=== PATIENT | male | born 1955 | race American Indian/Alaskan Native ===

== ENCOUNTER 2017-11-08 11:47 | Observation (INO) | payer MEDICAID, OTHER ==
[2017-11-08] MEDS ORDERED: Sodium Chloride 0.9% 10 ML Syringe FLUSH PRN (11:59)
[2017-11-08] MEDS ORDERED: Aspirin 81 MG Tab.Chew PO ONE (11:59)
[2017-11-08] MEDS ORDERED: Nitroglycerin 0.4 MG Tab.SL SL PRN (11:59)
[2017-11-08] MEDS ORDERED: Diltiazem 25 MG/5 ML SDV IVPUSH ONE (12:07)
[2017-11-08] MEDS ORDERED: Diltiazem 100 MG in Sodium Chloride 0.9% 100 ML IV SCH (12:15)
[2017-11-08 12:34] LABS: CHLORIDE,CL 101 mmol/L (101-111); SODIUM,NA 135 mmol/L (135-145)
[2017-11-08] MEDS ORDERED: Sodium Chloride 0.9% 1,000 ML IV ONE (12:34)
[2017-11-08] MEDS ORDERED: Digoxin 500 MCG/2 ML Amp IVPUSH ONE (12:34)
[2017-11-08] MEDS ORDERED: Acetaminophen/oxyCODONE 325-5 MG Tab PO ONE (13:27)
--- NOTE | 2017-11-08 13:28 | EDM.PDOC ---
Scribed by Rosanna Pereira 11/08/17 1328 for Alan Mobley MD ED HPI GENERAL MEDICAL PROBLEM - General Chief Complaint: Chest Pain Stated Complaint: [id number] CHEST PAIN SOB Time Seen by Provider: 11/08/17 12:00 Source of Information: Reports: Patient, RN, RN Notes Reviewed History Limitations: Reports: No Limitations - History of Present Illness INITIAL COMMENTS - FREE TEXT/NARRATIVE: Patient arrives from home by POV with complaint of sudden onset of rapid heart rate and chest pains while feeding his horses this morning approximately 30 minutes prior to arrival. Admits to mild nausea and mild shortness of breath. Denies cough, fever, chills, edema or lightheadedness. Onset: Today, Sudden Onset Date: 11/08/17 Onset Time: 11:00 (approx.) Duration: Constant Location: Reports: Chest Quality: Reports: Ache Severity: Severe Improves with: Reports: None Worsens with: Reports: None Associated Symptoms: Reports: No Other Symptoms Mid-Sternal Chest Pain Score (Numeric/FACES): 9 - Related Data Allergies Allergy/AdvReac Type Severity Reaction Status Date / Time chicken derived Allergy Hives Verified 01/05/16 22:17 codeine Allergy Hives Verified 01/05/16 22:17 gabapentin Allergy Indigestion Verified 01/05/16 22:16 Penicillins Allergy Hives Verified 01/05/16 22:16 tramadol Allergy Hives Verified 01/05/16 22:17 Contrast media Allergy Hives Uncoded 12/04/15 23:50 Home Meds: Home Meds Aspirin 81 mg PO BRK 11/09/15 [History] Calcium Citrate/Vitamin D3 [[place] Calcium-Vit D 200-250] 1 each PO DAILY [History] Docusate Sodium [Colace] 100 mg PO BID 11/09/15 [History] Gabapentin [Neurontin] 600 mg PO TID 11/09/15 [History] Hydrochlorothiazide 25 mg PO DAILY 11/09/15 [History] Lisinopril 20 mg PO DAILY 11/09/15 [History] Omeprazole 20 mg PO BIDAC 11/09/15 [History] Sennosides/Docusate Sodium [Senna S Tablet] 1 each PO BID 11/09/15 [History] atorvaSTATin [Lipitor] 20 mg PO BEDTIME 11/09/15 [History] metFORMIN [Glucophage XR] 500 mg PO BIDMEALS 11/09/15 [History] Past Medical History Cardiovascular History: Reports: Afib, CAD, High Cholesterol, Hypertension, [place], Stents Other Cardiovascular History: [place] 1999 with 1 stent placement Respiratory History: Reports: Bronchitis, Recurrent, Sleep Apnea Other Respiratory History: smoker for 51 yrs Gastrointestinal History: Reports: Chronic Constipation, GERD Musculoskeletal History: Reports: Osteoarthritis Neurological History: Reports: Neuropathy, Diabetic Endocrine/Metabolic History: Reports: Diabetes, Type II Oncologic (Cancer) History: Reports: Colon Other Oncologic History: with chemo and radiation - Infectious Disease History Infectious Disease History: Reports: Chicken Pox, Measles, Mumps, Rheumatic Fever - Past Surgical History Musculoskeletal Surgical History: Reports: Shoulder Surgery Social & Family History - Family History Family Medical History: Noncontributory Cardiac: Reports: Afib, AICD, Angina, Bypass, CAD, Heart Failure, High Cholesterol, Hypertension, [place] Respiratory: Reports: Asthma, COPD GI: Reports: Cholelithiasis : Reports: Dialysis, Renal Disease/Insufficiency Musculoskeletal: Reports: Arthritis, Back pain, Chronic Neurological: Reports: CVA, Neuropathy, Diabetic Psychiatric: Reports: Anxiety, Depression Endocrine/Metabolic: Reports: Diabetes, type II - Tobacco Use Smoking Status *Q: Current Every Day Smoker Years of Tobacco use: 51 Packs/Tins Daily: 1 Second Hand Smoke Exposure: Yes - Caffeine Use Caffeine Use: Reports: Coffee Other Caffeine Use: 4 pots a day - Recreational Drug Use Recreational Drug Use: No Drug Use in Last 12 Months: No - Living Situation & Occupation Living situation: Reports: with Family Occupation: Unemployed ED ROS GENERAL - Review of Systems Review Of Systems: ROS reveals no pertinent complaints other than HPI. ED EXAM, GENERAL - Physical Exam Exam: See Below Exam Limited By: No Limitations General Appearance: Anxious, Other (Non-toxic.) Eye Exam: Bilateral Eye: Normal Inspection Ears: Normal External Exam, Normal Canal, Hearing Grossly Normal, Normal TMs Nose: Normal Inspection, Normal Mucosa, No Blood Throat/Mouth: Normal Inspection, Normal Lips, Normal Teeth, Normal Gums, Normal Oropharynx, Normal Voice, No Airway Compromise Head: Atraumatic, Normocephalic Neck: Normal Inspection, Supple, Non-Tender, Full Range of Motion Respiratory/Chest: No Respiratory Distress, Lungs Clear, Normal Breath Sounds, No Accessory Muscle Use, Chest Non-Tender Cardiovascular: Tachycardia, Irregularly Irregular GI/Abdominal: Normal Bowel Sounds, Soft, Non-Tender, No Organomegaly, No Distention, No Abnormal Bruit, No Mass (Male) Exam: Deferred Rectal (Males) Exam: Deferred Back Exam: Normal Inspection, Full Range of Motion, NT Extremities: Normal Inspection, Normal Range of Motion, Non-Tender, Normal Capillary Refill, No Pedal Edema Neurological: Alert, Oriented, CN II-XII Intact, Normal Cognition, Normal Gait, Normal Reflexes, No Motor/Sensory Deficits Psychiatric: Anxious Skin Exam: Warm, Dry, Intact, Normal Color, No Rash EKG INTERPRETATION EKG Date: 11/08/17 Time: 11:53 Rhythm: A-Fib Rate (Beats/Min): 151 [place]: LAD-Left [place] Deviation P-Wave: Present QRS: Normal ST-T: Normal QT: Prolonged (borderline) Course - Vital Signs Last Recorded V/S: Last Vital Signs Temp 36.6 C 11/08/17 12:01 Pulse 84 11/08/17 13:17 Resp 16 11/08/17 13:17 BP 98/78 11/08/17 13:17 Pulse Ox 97 11/08/17 13:17 - Orders/Labs/Meds Orders: Active Orders 24 hr Category Date Time Status EKG 12 Lead [EKG Documentation Completion] [RC] STAT Care 11/08/17 11:59 Active Peripheral IV Care [RC] . DIRECTED Care 11/08/17 11:59 Active Acetaminophen/oxyCODONE [Percocet 325-5 MG] Med 11/08/17 13:27 Once 1 tab PO ONETIME ONE Diltiazem [Cardizem] 100 mg Med 11/08/17 12:15 Active Sodium Chloride 0.9% [Normal Saline] 100 ml IV TITRATE Nitroglycerin [Nitrostat] Med 11/08/17 11:59 Active 0.4 mg SL Q5M PRN Sodium Chloride 0.9% [Normal Saline] 1,000 ml Med 11/08/17 12:34 Active IV .BOLUS Sodium Chloride 0.9% [Saline Flush] Med 11/08/17 11:59 Active 10 ml FLUSH ASDIRECTED PRN Peripheral IV Insertion Adult [OM.PC] Stat Oth 11/08/17 11:59 Ordered Medication Orders Diltiazem HCl 100 mg/ Sodium (Chloride) 100 mls @ 10 mls/hr IV TITRATE YI; 10 MG/HR PRN Reason: Protocol Last Admin: 11/08/17 12:31 Dose: 10 mg/hr, 10 mls/hr Sodium Chloride (Normal Saline) 1,000 mls @ 999 mls/hr IV .BOLUS ONE Stop: 11/08/17 13:34 Last Admin: 11/08/17 12:34 Dose: 999 mls/hr Nitroglycerin (Nitrostat) 0.4 mg SL Q5M PRN PRN Reason: Chest Pain Sodium Chloride (Saline Flush) 10 ml FLUSH ASDIRECTED PRN PRN Reason: Keep Vein Open Last Admin: 11/08/17 12:32 Dose: 10 ml Labs: Laboratory Tests 11/08/17 11/08/17 11/08/17 Range/Units 12:05 12:05 12:05 WBC 7.2 (5.0-10.0) 10^3/uL RBC 5.69 (4.6-6.2) 10^6/uL Hgb 16.0 (14.0-18.0) g/dL Hct 48.3 (40.0-54.0) % MCV 84.9 (80-100) fL MCH 28.1 (27.0-34.0) pg MCHC 33.1 (33.0-35.0) g/dL Plt Count 255 (150-450) 10^3/uL Neut % (Auto) 51.9 (42.2-75.2) % Lymph % (Auto) 36.7 (20.5-50.1) % [place] % (Auto) 9.9 H (2-8) % Eos % (Auto) 1.4 (1.0-3.0) % Baso % (Auto) 0.1 (0.0-1.0) % Sodium 135 (135-145) mmol/L Potassium 4.5 (3.6-5.0) mmol/L Chloride 101 (101-111) mmol/L Carbon Dioxide 26.0 (21.0-31.0) mmol/L Anion Gap 12.5 BUN 21 H (7-18) mg/dL Creatinine 0.9 (0.6-1.3) mg/dL Est Cr Clr Drug Dosing TNP Estimated GFR (MDRD) > 60 BUN/Creatinine Ratio 23.33 Glucose 251 H (74-105) mg/dL Calcium 9.0 (8.4-10.2) mg/dl Magnesium 1.8 (1.8-2.5) mg/dL Total Bilirubin 0.5 (0.2-1.0) mg/dL AST 25 (10-42) IU/L ALT 28 (10-60) IU/L Alkaline Phosphatase 107 (42-121) IU/L Troponin I < 0.02 (0.00-0.02) ng/ml B-Natriuretic Peptide 43 (0-100) pg/ml Total Protein 7.5 (6.7-8.2) g/dl Albumin 3.8 (3.2-5.5) g/dl Globulin 3.7 Albumin/Globulin Ratio 1.03 TSH, Ultra Sensitive (0.45-5.33) uIu/mL 11/08/17 Range/Units 12:05 WBC (5.0-10.0) 10^3/uL RBC (4.6-6.2) 10^6/uL Hgb (14.0-18.0) g/dL Hct (40.0-54.0) % MCV (80-100) fL MCH (27.0-34.0) pg MCHC (33.0-35.0) g/dL Plt Count (150-450) 10^3/uL Neut % (Auto) (42.2-75.2) % Lymph % (Auto) (20.5-50.1) % [place] % (Auto) (2-8) % Eos % (Auto) (1.0-3.0) % Baso % (Auto) (0.0-1.0) % Sodium (135-145) mmol/L Potassium (3.6-5.0) mmol/L Chloride (101-111) mmol/L Carbon Dioxide (21.0-31.0) mmol/L Anion Gap BUN (7-18) mg/dL Creatinine (0.6-1.3) mg/dL Est Cr Clr Drug Dosing Estimated GFR (MDRD) BUN/Creatinine Ratio Glucose (74-105) mg/dL Calcium (8.4-10.2) mg/dl Magnesium (1.8-2.5) mg/dL Total Bilirubin (0.2-1.0) mg/dL AST (10-42) IU/L ALT (10-60) IU/L Alkaline Phosphatase (42-121) IU/L Troponin I (0.00-0.02) ng/ml B-Natriuretic Peptide (0-100) pg/ml Total Protein (6.7-8.2) g/dl Albumin (3.2-5.5) g/dl Globulin Albumin/Globulin Ratio TSH, Ultra Sensitive 0.38 L (0.45-5.33) uIu/mL Meds: Medications Generic Name Dose Route Start Last Admin Trade Name Freq PRN Reason Stop Dose Admin Diltiazem HCl 100 mg/ Sodium 100 mls @ 10 mls/hr 11/08/17 12:15 11/08/17 12: 31 Chloride IV 10 mg/hr TITRATE YI 10 mls/hr Protocol Administration 10 MG/HR Sodium Chloride 1,000 mls @ 999 mls/hr 11/08/17 12:34 11/08/17 12:34 Normal Saline IV 11/08/17 13:34 999 mls/hr .BOLUS ONE Administration Nitroglycerin 0.4 mg 11/08/17 11:59 Nitrostat SL Q5M PRN Chest Pain Sodium Chloride 10 ml 11/08/17 11:59 11/08/17 12:32 Saline Flush FLUSH 10 ml ASDIRECTED PRN Administration Keep Vein Open Discontinued Medications Generic Name Dose Route Start Last Admin Trade Name Freq PRN Reason Stop Dose Admin Aspirin 324 mg 11/08/17 11:59 11/08/17 12:17 Aspirin PO 11/08/17 12:00 324 mg ONETIME ONE Administration Digoxin 250 mcg 11/08/17 12:34 11/08/17 12:52 Lanoxin IVPUSH 11/08/17 12:35 250 mcg ONETIME ONE Administration Diltiazem HCl 20 mg 11/08/17 12:07 11/08/17 12:18 Diltiazem IVPUSH 11/08/17 12:08 20 mg ONETIME ONE Administration - Radiology Interpretation Free Text/Narrative:: Chest x-ray: No acute findings. See rad report. Departure - Departure Time of Disposition: 13:24 ((Admit to Dr. Dorsey)) Disposition: Admitted As Inpatient 67 Condition: Serious Clinical Impression: Atrial fibrillation with rapid ventricular response Forms: ED Department Discharge - My Orders Last 24 Hours: My Active Orders 11/08/17 11:59 EKG 12 Lead [EKG Documentation Completion] [RC] STAT Peripheral IV Care [RC] . DIRECTED Nitroglycerin [Nitrostat] 0.4 mg SL Q5M PRN Sodium Chloride 0.9% [Saline Flush] 10 ml FLUSH ASDIRECTED PRN Peripheral IV Insertion Adult [OM.PC] Stat 11/08/17 12:15 Diltiazem [Cardizem] 100 mg Sodium Chloride 0.9% [Normal Saline] 100 ml IV TITRATE 11/08/17 12:34 Sodium Chloride 0.9% [Normal Saline] 1,000 ml IV .BOLUS 11/08/17 13:27 Acetaminophen/oxyCODONE [Percocet 325-5 MG] 1 tab PO ONETIME ONE - Assessment/Plan Last 24 Hours: My Active Orders 11/08/17 11:59 EKG 12 Lead [EKG Documentation Completion] [RC] STAT Peripheral IV Care [RC] . DIRECTED Nitroglycerin [Nitrostat] 0.4 mg SL Q5M PRN Sodium Chloride 0.9% [Saline Flush] 10 ml FLUSH ASDIRECTED PRN Peripheral IV Insertion Adult [OM.PC] Stat 11/08/17 12:15 Diltiazem [Cardizem] 100 mg Sodium Chloride 0.9% [Normal Saline] 100 ml IV TITRATE 11/08/17 12:34 Sodium Chloride 0.9% [Normal Saline] 1,000 ml IV .BOLUS 11/08/17 13:27 Acetaminophen/oxyCODONE [Percocet 325-5 MG] 1 tab PO ONETIME ONE I have read and agree with the documentation that has been completed regarding this visit. By signing this record, I attest that the documentation was completed in my physical presence and is an accurate record of the encounter.
[2017-11-08] MEDS ORDERED: Gabapentin 300 MG Cap PO SCH (14:00)
[2017-11-08] MEDS ORDERED: Ondansetron 4 MG Tab.DIS PO PRN (14:06)
[2017-11-08] MEDS ORDERED: Acetaminophen 325 MG Tab PO PRN (14:06)
[2017-11-08] MEDS ORDERED: Zolpidem 5 MG Tab PO PRN (14:06)
--- NOTE | 2017-11-08 14:18 | PCM.HP ---
H&P History of Present Illness - General Date of Service: 11/08/17 Admit Problem/Dx: Admission Diagnosis/Problem Admission Diagnosis/Problem Afib, Atrial fibrillation Source of Information: Patient - History of Present Illness Initial Comments - Free Text/Narative: The patient has a history of atrial fibrillation, coronary artery disease status post stent placement, hypertension. He is on anticoagulation for A. fib. He was working with his horses when developed retrosternal, moderate chest pain. This was associated with mild nausea and shortness of breath. Came to the emergency room when he still had pain. He was noted to have rapid atrial fibrillation. He was given IV Cardizem push and started on Cardizem drip. Heart rate become better controlled and the chest pain much improved. Mid-Sternal Chest Pain Score (Numeric/FACES): 9 - Related Data Allergies/Adverse Reactions: Allergies Allergy/AdvReac Type Severity Reaction Status Date / Time chicken derived Allergy Hives Verified 01/05/16 22:17 codeine Allergy Hives Verified 01/05/16 22:17 Penicillins Allergy Hives Verified 01/05/16 22:16 tramadol Allergy Hives Verified 01/05/16 22:17 Contrast media Allergy Hives Uncoded 12/04/15 23:50 Home Medications: Home Meds Aspirin 81 mg PO BRK 11/09/15 [History] Calcium Citrate/Vitamin D3 [[place] Calcium-Vit D 200-250] 1 each PO DAILY [History] Docusate Sodium [Colace] 100 mg PO BID 11/09/15 [History] Gabapentin [Neurontin] 600 mg PO TID 11/09/15 [History] Hydrochlorothiazide 25 mg PO DAILY 11/09/15 [History] Lisinopril 20 mg PO DAILY 11/09/15 [History] Omeprazole 20 mg PO BIDAC 11/09/15 [History] Sennosides/Docusate Sodium [Senna S Tablet] 1 each PO BID 11/09/15 [History] atorvaSTATin [Lipitor] 20 mg PO BEDTIME 11/09/15 [History] metFORMIN [Glucophage XR] 500 mg PO BIDMEALS 11/09/15 [History] Apixaban [Eliquis] 5 mg PO DAILY 11/08/17 [History] Insulin Glarg,Human.Rec.Analog [Lantus Solostar] 16 unit SUBCUT DAILY 11/08/17 [ History] [place]-3 Fatty Acids [[place]-3] 1 gm PO DAILY 11/08/17 [History] Past Medical History Cardiovascular History: Reports: Afib, CAD, High Cholesterol, Hypertension, [place], Stents Other Cardiovascular History: [place] 1999 with 1 stent placement Respiratory History: Reports: Bronchitis, Recurrent, Sleep Apnea Other Respiratory History: smoker for 51 yrs Gastrointestinal History: Reports: Chronic Constipation, GERD Musculoskeletal History: Reports: Osteoarthritis Neurological History: Reports: Neuropathy, Diabetic Endocrine/Metabolic History: Reports: Diabetes, Type II Oncologic (Cancer) History: Reports: Colon Other Oncologic History: with chemo and radiation - Infectious Disease History Infectious Disease History: Reports: Chicken Pox, Measles, Mumps, Rheumatic Fever - Past Surgical History Musculoskeletal Surgical History: Reports: Shoulder Surgery Social & Family History - Family History Family Medical History: Noncontributory Cardiac: Reports: Afib, AICD, Angina, Bypass, CAD, Heart Failure, High Cholesterol, Hypertension, [place] Respiratory: Reports: Asthma, COPD GI: Reports: Cholelithiasis : Reports: Dialysis, Renal Disease/Insufficiency Musculoskeletal: Reports: Arthritis, Back pain, Chronic Neurological: Reports: CVA, Neuropathy, Diabetic Psychiatric: Reports: Anxiety, Depression Endocrine/Metabolic: Reports: Diabetes, type II - Tobacco Use Smoking Status *Q: Current Every Day Smoker Years of Tobacco use: 51 Packs/Tins Daily: 1 Second Hand Smoke Exposure: Yes - Caffeine Use Caffeine Use: Reports: Coffee Other Caffeine Use: 4 pots a day - Recreational Drug Use Recreational Drug Use: No Drug Use in Last 12 Months: No - Living Situation & Occupation Living situation: Reports: with Family Occupation: Unemployed H&P Review of Systems - Review of Systems: Review Of Systems: See Below General: Denies: Fever, Chills Pulmonary: Reports: Shortness of Breath Cardiovascular: Reports: Chest Pain Gastrointestinal: Denies: Abdominal Pain Genitourinary: Denies: Dysuria Exam - Exam Exam: See Below - Vital Signs Vital Signs: Last Vital Signs Temp 36.6 C 11/08/17 12:01 Pulse 84 11/08/17 13:17 Resp 16 11/08/17 13:17 BP 98/78 11/08/17 13:17 Pulse Ox 97 11/08/17 13:17 - Exam General: Alert, Oriented Neck: Supple Lungs: Clear to Auscultation, Normal Respiratory Effort Cardiovascular: Irregular Rhythm, Tachycardia GI/Abdominal Exam: Normal Bowel Sounds, Soft, Non-Tender Extremities: Pedal Edema (Trace to 1+ bilateral) Skin: Warm, Dry Neuro Extensive - Mental Status: Alert, Oriented x3, Normal Mood/Affect Psychiatric: Alert, Normal Affect, Normal Mood - Patient Data Result Diagrams: 11/08/17 12:05 11/08/17 12:05 EKG INTERPRETATION Rhythm: A-Fib *Q Meaningful Use (ADM) - VTE *Q VTE Criteria *Q: - Stroke *Q Stroke Criteria *Q: - AMI *Q AMI Criteria *Q: - Problem List (1) Chest pain SNOMED Code(s): 49102033 ICD Code: R07.9 - CHEST PAIN, UNSPECIFIED Status: Acute Current Visit: Yes (2) Atrial fibrillation with rapid ventricular response SNOMED Code(s): 068742706244679 ICD Code: I48.91 - UNSPECIFIED ATRIAL FIBRILLATION Status: Acute Current Visit: Yes (3) Diabetes SNOMED Code(s): 43251994 ICD Code: E11.9 - TYPE 2 DIABETES MELLITUS WITHOUT COMPLICATIONS Status: Acute Current Visit: No Qualifiers: Diabetes mellitus type: type 2 Diabetes mellitus complication status: with unspecified complications Diabetes mellitus water/wastewater engineer insulin use: without [place] [facility] use Qualified Code(s): E11.8 - Type 2 diabetes mellitus with unspecified complications Problem List Initiated/Reviewed/Updated: Yes Orders Last 24hrs: Active Orders 24 hr Category Date Time Status Patient Status [ADT] Routine ADT 11/08/17 14:06 Ordered Antiembolic Devices [RC] PER UNIT ROUTINE Care 11/08/17 14:08 Ordered Glucose [Blood Glucose Check, Bedside] [RC] QIDACANDBED Care 11/08/17 13:46 Ordered Oxygen Therapy [RC] PRN Care 11/08/17 14:06 Ordered Up With Assistance [RC] ASDIRECTED Care 11/08/17 14:06 Ordered VTE/DVT Education [RC] PER UNIT ROUTINE Care 11/08/17 14:06 Ordered Vital Signs [RC] Q4H Care 11/08/17 14:06 Ordered 2 Gram Sodium Diet [DIET] Diet 11/08/17 Dinner Ordered BASIC METABOLIC PANEL,BMP [CHEM] AM Lab 11/09/17 05:15 Ordered CBC WITH AUTO DIFF [HEME] AM Lab 11/09/17 05:15 Ordered TROPONIN I [CHEM] AM Lab 11/09/17 05:11 Ordered Acetaminophen [Tylenol] Med 11/08/17 14:06 Ordered 650 mg PO Q4H PRN Aspirin Med 11/09/17 08:00 Ordered 81 mg PO BRK Calcium Citrate/Vitamin D3 [[place] Calcium-Vit D 200- Med 11/09/17 09:00 Ordered 250] 1 each PO DAILY Docusate Sodium [Colace] Med 11/08/17 21:00 Ordered 100 mg PO BID Docusate Sodium/Sennosides [Senna Plus] Med 11/08/17 21:00 Ordered 1 each PO BID Gabapentin [Neurontin] Med 11/08/17 21:00 Ordered 900 mg PO BID Insulin Aspart [NovoLOG] Med 11/08/17 17:00 Ordered See Protocol SUBCUT TIDAC Lisinopril [Prinivil] Med 11/09/17 09:00 Ordered 20 mg PO DAILY Metoprolol Tartrate [Lopressor] Med 11/08/17 16:00 Ordered 50 mg PO BID Omeprazole Med 11/08/17 17:00 Ordered 20 mg PO BIDAC Ondansetron [Zofran ODT] Med 11/08/17 14:06 Ordered 4 mg PO Q4H PRN Patient's Own Medication [Ptom] Med 11/08/17 21:00 Ordered 1 each PO BID Zolpidem [Ambien] Med 11/08/17 14:06 Ordered 5 mg PO BEDTIME PRN atorvaSTATin [Lipitor] Med 11/08/17 21:00 Ordered 20 mg PO BEDTIME oxyCODONE Med 11/08/17 14:06 Ordered 5 mg PO Q4H PRN Antiembolic Hose [OM.PC] Per Unit Routine Oth 11/08/17 14:08 Ordered Resuscitation Status Routine Resus Stat 11/08/17 14:06 Ordered Medication Orders Acetaminophen (Tylenol) 650 mg PO Q4H PRN PRN Reason: Pain (Mild 1-3)/fever Aspirin (Aspirin) 81 mg PO BRK YI Atorvastatin Calcium (Lipitor) 20 mg PO BEDTIME YI Calcium Carbonate (Calcium Carbonate/Vitamin D 1250 Mg-200 Unit) 1 tab PO DAILY YI Docusate Sodium (Colace) 100 mg PO BID YI Gabapentin (Neurontin) 900 mg PO BID YI Diltiazem HCl 100 mg/ Sodium (Chloride) 100 mls @ 10 mls/hr IV TITRATE YI; 10 MG/HR PRN Reason: Protocol Last Admin: 11/08/17 12:31 Dose: 10 mg/hr, 10 mls/hr Insulin Aspart (Novolog) 0 unit SUBCUT TIDAC YI PRN Reason: Protocol Lisinopril (Prinivil) 20 mg PO DAILY YI Metoprolol Tartrate (Lopressor) 50 mg PO BID YI Nitroglycerin (Nitrostat) 0.4 mg SL Q5M PRN PRN Reason: Chest Pain Omeprazole (Omeprazole) 20 mg PO BIDAC YI Ondansetron HCl (Zofran Odt) 4 mg PO Q4H PRN PRN Reason: nausea, able to take PO Oxycodone HCl (Oxycodone) 5 mg PO Q4H PRN PRN Reason: Pain (moderate 4-6) Patient Own Medication (Ptom) 1 each PO BID YI Senna/Docusate Sodium (Senna Plus) 1 tab PO BID [facility] Sodium Chloride (Saline Flush) 10 ml FLUSH ASDIRECTED PRN PRN Reason: Keep Vein Open Last Admin: 11/08/17 12:32 Dose: 10 ml Zolpidem Tartrate (Ambien) 5 mg PO BEDTIME PRN PRN Reason: Sleep Assessment/Plan Comment:: The patient is a 62-year-old gentleman with a history of coronary artery disease , atrial fibrillation, hypertension. 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 Noted to have rapid atrial fibrillation #1 chest pain In a patient with known coronary artery disease Will monitor on telemetry, repeat troponins Continue aspirin Control at the rate of atrial fibrillation Start metoprolol #2 rapid atrial fibrillation We'll adjust Cardizem drip for rate control Start metoprolol Monitor on telemetry #3 diabetes Hold metformin Continue Lantus Use supplemental insulin as needed #4 hypertension Continue KE inhibitor For now hold hydrochlorothiazide Start metoprolol #5 anticoagulation for atrial fibrillation will be continued with apixaban
[2017-11-08] MEDS: oxyCODONE 5 MG Tab PO PRN ×2 (15:00→19:23)
[2017-11-08] MEDS: Metoprolol Tartrate 50 MG Tab PO SCH ×2 (16:29→20:36)
[2017-11-08] MEDS: Omeprazole 20 MG Cap.CR PO SCH (16:29)
[2017-11-08] MEDS: Insulin Aspart 100 Units/ML 3 ML Pen SUBCUT SCH (17:02)
[2017-11-08] MEDS: Docusate Sodium 100 MG Cap PO SCH (20:36)
[2017-11-08] MEDS: Gabapentin 300 MG Cap PO SCH (20:37)
[2017-11-08] MEDS ORDERED: Patient's Own Medication 1 Each PO SCH (21:00)
[2017-11-08] MEDS ORDERED: atorvaSTATin 20 MG Tab PO SCH (21:00)
[2017-11-09] MEDS: Omeprazole 20 MG Cap.CR PO SCH (05:33)
[2017-11-09] MEDS: oxyCODONE 5 MG Tab PO PRN (07:04)
[2017-11-09 07:43] VITALS: BP 107/63
[2017-11-09] MEDS ORDERED: Aspirin 81 MG Tab.Chew PO SCH (08:00)
[2017-11-09 08:05] LABS: CHLORIDE,CL 103 mmol/L (101-111); SODIUM,NA 135 mmol/L (135-145)
[2017-11-09] MEDS: Gabapentin 300 MG Cap PO SCH (08:10)
[2017-11-09] MEDS: Docusate Sodium 100 MG Cap PO SCH (08:10)
[2017-11-09] MEDS: Insulin Aspart 100 Units/ML 3 ML Pen SUBCUT SCH (08:11)
[2017-11-09] MEDS: Metoprolol Tartrate 50 MG Tab PO SCH (08:11)
[2017-11-09] MEDS ORDERED: Calcium Carbonate/Vitamin D3 1250 MG-200 Unit Tab PO SCH (09:00)
[2017-11-09] MEDS ORDERED: Insulin Detemir 100 Units/ML 3 ML Pen SUBCUT SCH (09:00)
[2017-11-09] MEDS ORDERED: Lisinopril 20 MG Tab PO SCH (09:00)
--- NOTE | 2017-11-10 04:25 | DISCH ---
ADMITTING DIAGNOSES: 1. Atrial fibrillation with rapid ventricular response. 2. Chest pain. DISCHARGE DIAGNOSES: 1. Atrial fibrillation with rapid ventricular response, resolved, back to normal sinus rhythm. 2. Chest pain from his atrial fibrillation with rapid ventricular response. HISTORY OF PRESENTING ILLNESS: Mr. Dominic Driver is a 62-year-old male with a medical history significant for hypertension, hyperlipidemia, type 2 diabetes mellitus, atrial fibrillation, on chronic anticoagulation with Eliquis, admitted to the hospital with complaints of chest pain and noted to have atrial fibrillation with a rapid ventricular response. The patient was started on Cardizem drip and also Cardizem bolus. He was closely monitor on the telemetry unit. Shortly after admission, the patient was switched back to normal sinus rhythm. We added metoprolol 50 mg twice a day for better rate control. He responded well to the treatment. He remained chest pain free. Serial cardiac enzymes remained negative. A 12-lead EKG did not show any evidence of ST elevation or ST depression. He is discharged home in stable condition. He is explained about the addition of metoprolol 50 mg twice a day for better control of the heart rate. He has been advised to continue with Eliquis. He is discharged home in stable condition. He is advised to follow with his primary care physician in the next 1 week of time. DISCHARGE MEDICATIONS: Include: 1. Eliquis 5 mg daily. 2. Aspirin 81 mg daily. 3. Calcium carbonate/vitamin D 1 tablet daily. 4. Vitamin D3, 1000 units daily. 5. Clotrimazole topical twice a day. 6. Docusate sodium 100 mg twice a day. 7. Flonase one 15.8 mL nasal daily. 8. Neurontin 900 mg twice a day. 9. Hydrochlorothiazide 25 mg daily. 10.Insulin Lantus 16 units subcutaneous daily. 11.Lisinopril 20 mg daily. 12.Melatonin 9 mg at bedtime. 13.Metoprolol 50 mg twice a day. 14.[place]-3 fatty acid 1 g daily. 15.Omeprazole 20 mg daily. 16.Prazosin 1 mg at bedtime. 17.Senokot 1 tablet twice a day. 18.Triamcinolone acetonide 80 mg topical twice a day. 19.Lipitor 20 mg at bedtime. 20.Glipizide 10 mg twice a day. 21.Metformin 1000 mg twice a day. PHYSICAL EXAMINATION: Vital Signs: On the day of discharge vitals; temperature of 98.4, pulse of 70, respiratory rate of 16, blood pressure 107/63, saturating at 96% on room air. General Appearance: The patient is well oriented to time, place, and person. Follows commands spontaneously. Cardiovascular: S1 and S2 heard with normal intensity. No gallops. Respiratory: Clear to auscultation bilaterally. No wheeze. No crepitations. Abdomen: Soft. Bowel sounds positive. Nontender. No rigidity. Extremities: No edema of bilateral lower extremities except for diabetic ulcers noted on the toe. Neurology: No gross focal neurological deficit. CONDITION ON ADMISSION: Poor. CONDITION ON DISCHARGE: Stable. ACTIVITY: As tolerated. DIET: Cardiac healthy diet. FOLLOWUP: Follow up with primary care physician in the next 1 week of time. [facility] /[id number]
--- NOTE | 2017-11-11 13:37 | EKG ---
11/08/2017- MADDIE DUPONT - FINDINGS: A 12-lead EKG shows atrial fibrillation with rapid ventricular response with heart rate of 151. No significant ST elevation or ST depression noted on this 12-lead EKG. [facility] /[id number]
== END 2017-11-09 10:00 | disposition home or self-care (01) ==
LOC: DL.ED 11:47 → INTOOBSV 13:28 → UNDOADMOB 13:28 → DL.MS 13:28
PROVIDERS: ADMIT Internal Medicine; ATTEND Internal Medicine
DX: I48.91 Unspecified atrial fibrillation (principal); R07.2 Precordial pain; I10 Essential (primary) hypertension; I25.2 Old myocardial infarction; I25.10 Atherosclerotic heart disease of native coronary artery without angina pectoris; J40 Bronchitis, not specified as acute or chronic; K21.9 Gastro-esophageal reflux disease without esophagitis; G47.30 Sleep apnea, unspecified; E78.00 Pure hypercholesterolemia, unspecified; E78.5 Hyperlipidemia, unspecified; E11.40 Type 2 diabetes mellitus with diabetic neuropathy, unspecified; M19.90 Unspecified osteoarthritis, unspecified site; C18.9 Malignant neoplasm of colon, unspecified; F17.210 Nicotine dependence, cigarettes, uncomplicated; Z79.01 Long term (current) use of anticoagulants; Z79.4 Long term (current) use of insulin; Z79.82 Long term (current) use of aspirin; Z79.899 Other long term (current) drug therapy; Z95.5 Presence of coronary angioplasty implant and graft; Z88.0 Allergy status to penicillin; Z88.5 Allergy status to narcotic agent; Z91.018 Allergy to other foods; Z91.041 Radiographic dye allergy status; Z92.21 Personal history of antineoplastic chemotherapy; Z92.3 Personal history of irradiation
CPT/HCPCS: 36415; 71045; 80048; 80053; 82962; 83735; 83880; 84443; 84484; 85025; 93005; 96365; 96366; 96375; 96376; 99285; A9270; G0378; J1160; J1815; J3490; J7030; J7050

== ENCOUNTER 2017-11-19 18:50 | Emergency (ER) | payer MEDICAID ==
--- NOTE | 2017-11-19 19:13 | EDM.PDOC ---
ED HPI GENERAL MEDICAL PROBLEM - General Stated Complaint: CHEST PAINS [id number] Time Seen by Provider: 11/19/17 19:00 Source of Information: Reports: Patient, RN History Limitations: Reports: No Limitations - History of Present Illness INITIAL COMMENTS - FREE TEXT/NARRATIVE: Onset chest pain 20 minutes ago with heart racing. Recent hospitalization with medication change and had been doing well until this [place]. Anterior Chest Pain Score (Numeric/FACES): 7 - Related Data Allergies Allergy/AdvReac Type Severity Reaction Status Date / Time chicken derived Allergy Hives Verified 01/05/16 22:17 codeine Allergy Hives Verified 01/05/16 22:17 Penicillins Allergy Hives Verified 01/05/16 22:16 tramadol Allergy Hives Verified 01/05/16 22:17 Contrast media Allergy Hives Uncoded 12/04/15 23:50 Home Meds: Home Meds Aspirin 81 mg PO BRK 11/09/15 [History] Calcium Citrate/Vitamin D3 [[place] Calcium-Vit D 200-250] 1 each PO DAILY [History] Docusate Sodium [Colace] 100 mg PO BID 11/09/15 [History] Gabapentin [Neurontin] 900 mg PO BID 11/09/15 [History] Hydrochlorothiazide 25 mg PO DAILY 11/09/15 [History] Lisinopril 20 mg PO DAILY 11/09/15 [History] Omeprazole 20 mg PO ACBREAKFAST 11/09/15 [History] Sennosides/Docusate Sodium [Senna S Tablet] 1 each PO BID 11/09/15 [History] atorvaSTATin [Lipitor] 20 mg PO BEDTIME 11/09/15 [History] metFORMIN [Glucophage XR] 1,000 mg PO BIDMEALS 11/09/15 [History] Apixaban [Eliquis] 5 mg PO DAILY 11/08/17 [History] Cholecalciferol (Vitamin D3) [Vitamin D3] 1,000 unit PO DAILY 11/08/17 [History] Clotrimazole [Clotrimazole 1%] 1 applic TOP BID 11/08/17 [History] Fluticasone Propionate [Flonase Allergy Relief] 15.8 ml NS DAILY 11/08/17 [ History] Insulin Glarg,Human.Rec.Analog [Lantus Solostar] 16 unit SUBCUT DAILY 11/08/17 [ History] Melatonin/Pyridoxine HCl (B6) [Melatonin 3 mg Tablet] 9 mg PO BEDTIME 11/08/17 [ History] [place]-3 Fatty Acids [[place]-3] 1 gm PO DAILY 11/08/17 [History] Prazosin HCl [Prazosin] 1 mg PO BEDTIME 11/08/17 [History] Triamcinolone Acetonide [Triamcinolone Acetonide 0.1% Crm] 80 gm .XX BID [History] glipiZIDE [Glucotrol XL] 10 mg PO BID 11/08/17 [History] Metoprolol Tartrate [Lopressor] 50 mg PO BID #60 tablet 11/09/17 [Rx] Past Medical History Cardiovascular History: Reports: Afib, CAD, High Cholesterol, Hypertension, [place], Stents Other Cardiovascular History: [place] 1999 with 1 stent placement Respiratory History: Reports: Bronchitis, Recurrent, Sleep Apnea Other Respiratory History: smoker for 51 yrs Gastrointestinal History: Reports: Chronic Constipation, GERD Musculoskeletal History: Reports: Osteoarthritis Neurological History: Reports: Neuropathy, Diabetic Endocrine/Metabolic History: Reports: Diabetes, Type II Oncologic (Cancer) History: Reports: Colon Other Oncologic History: with chemo and radiation - Infectious Disease History Infectious Disease History: Reports: Chicken Pox, Measles, Mumps, Rheumatic Fever - Past Surgical History Musculoskeletal Surgical History: Reports: Shoulder Surgery Social & Family History - Family History Family Medical History: Noncontributory Cardiac: Reports: Afib, AICD, Angina, Bypass, CAD, Heart Failure, High Cholesterol, Hypertension, [place] Respiratory: Reports: Asthma, COPD GI: Reports: Cholelithiasis : Reports: Dialysis, Renal Disease/Insufficiency Musculoskeletal: Reports: Arthritis, Back pain, Chronic Neurological: Reports: CVA, Neuropathy, Diabetic Psychiatric: Reports: Anxiety, Depression Endocrine/Metabolic: Reports: Diabetes, type II - Tobacco Use Smoking Status *Q: Current Every Day Smoker Years of Tobacco use: 51 Packs/Tins Daily: 1 Used Tobacco, but Quit: No Second Hand Smoke Exposure: Yes - Caffeine Use Caffeine Use: Reports: Coffee Other Caffeine Use: 4 pots a day - Recreational Drug Use Recreational Drug Use: No Drug Use in Last 12 Months: No - Living Situation & Occupation Living situation: Reports: with Family Occupation: Unemployed ED ROS GENERAL - Review of Systems Review Of Systems: See Below Constitutional: Reports: No Symptoms HEENT: Reports: No Symptoms Respiratory: Reports: No Symptoms Cardiovascular: Reports: Chest Pain, Palpitations Endocrine: Reports: No Symptoms GI/Abdominal: Reports: No Symptoms Musculoskeletal: Reports: No Symptoms Neurological: Reports: No Symptoms ED EXAM, GENERAL - Physical Exam Exam: See Below Exam Limited By: No Limitations General Appearance: Alert, No Apparent Distress Eye Exam: Bilateral Eye: Foreign Body, PERRL Ears: Normal External Exam, Normal TMs Nose: Normal Inspection Throat/Mouth: Normal Inspection Head: Atraumatic, Normocephalic Neck: Normal Inspection Respiratory/Chest: No Respiratory Distress, Lungs Clear, Normal Breath Sounds Cardiovascular: Normal Peripheral Pulses, Tachycardia, Irregularly Irregular GI/Abdominal: Normal Bowel Sounds Extremities: Normal Inspection, Pedal Edema (trace) Neurological: Alert, Oriented Psychiatric: Normal Affect Skin Exam: Warm, Dry, Intact Course - Vital Signs Last Recorded V/S: Last Vital Signs Temp 97.2 F 11/19/17 18:52 Pulse 135 H 11/19/17 20:24 Resp 30 H 11/19/17 18:52 BP 130/81 11/19/17 20:24 Pulse Ox 94 L 11/19/17 18:52 - Orders/Labs/Meds Orders: Active Orders 24 hr Category Date Time Status EKG 12 Lead [EKG Documentation Completion] [RC] URGENT Care 11/19/17 19:11 Active Labs: Laboratory Tests 11/19/17 11/19/17 11/19/17 Range/Units 19:04 19:04 19:04 WBC 6.5 (5.0-10.0) 10^3/uL RBC 5.66 (4.6-6.2) 10^6/uL Hgb 16.4 D (14.0-18.0) g/dL Hct 47.7 (40.0-54.0) % MCV 84.3 (80-100) fL MCH 29.0 (27.0-34.0) pg MCHC 34.4 (33.0-35.0) g/dL Plt Count 245 (150-450) 10^3/uL Neut % (Auto) 43.7 (42.2-75.2) % Lymph % (Auto) 38.1 (20.5-50.1) % [place] % (Auto) 14.1 H (2-8) % Eos % (Auto) 3.6 H (1.0-3.0) % Baso % (Auto) 0.5 (0.0-1.0) % Sodium 133 L (135-145) mmol/L Potassium 4.6 (3.6-5.0) mmol/L Chloride 101 (101-111) mmol/L Carbon Dioxide 24.0 (21.0-31.0) mmol/L Anion Gap 12.6 BUN 20 H (7-18) mg/dL Creatinine 1.0 (0.6-1.3) mg/dL Est Cr Clr Drug Dosing TNP Estimated GFR (MDRD) > 60 BUN/Creatinine Ratio 20.00 Glucose 467 H* (74-105) mg/dL POC Glucose (70-105) mg/dl Calcium 8.8 (8.4-10.2) mg/dl Magnesium 2.0 (1.8-2.5) mg/dL Total Bilirubin 0.4 (0.2-1.0) mg/dL AST 26 (10-42) IU/L ALT 24 (10-60) IU/L Alkaline Phosphatase 132 H (42-121) IU/L CK-MB (CK-2) 1.60 (0.4-4.7) ng/mL Troponin I < 0.02 (0.00-0.02) ng/ml B-Natriuretic Peptide 13 (0-100) pg/ml Total Protein 7.5 (6.7-8.2) g/dl Albumin 3.8 (3.2-5.5) g/dl Globulin 3.7 Albumin/Globulin Ratio 1.03 Urine Color (YELLOW) Urine Appearance (CLEAR) Urine pH (5.0-9.0) Ur Specific [place] (1.005-1.030) Urine Protein (NEGATIVE) Urine Glucose (UA) (NEGATIVE) Urine Ketones (NEGATIVE) Urine Occult Blood (NEGATIVE) Urine Nitrite (NEGATIVE) Urine Bilirubin (NEGATIVE) Urine Urobilinogen (0.2-1.0) mg/dL Ur Leukocyte Esterase (NEGATIVE) Urine RBC /HPF Urine WBC (0-5/HPF) /HPF Ur Epithelial Cells /HPF Urine Bacteria (0-FEW/HPF) /HPF Urine Opiates Screen (NEGATIVE) Ur Oxycodone Screen (NEGATIVE) Urine Methadone Screen (NEGATIVE) Ur Barbiturates Screen (NEGATIVE) U Tricyclic Antidepress (NEGATIVE) Ur Phencyclidine Scrn (NEGATIVE) Ur Amphetamine Screen (NEGATIVE) U Methamphetamines Scrn (NEGATIVE) Urine MDMA Screen (NEGATIVE) U Benzodiazepines Scrn (NEGATIVE) Urine Cocaine Screen (NEGATIVE) U Marijuana (THC) Screen (NEGATIVE) 11/19/17 11/19/17 11/19/17 Range/Units 20:10 20:10 21:17 WBC (5.0-10.0) 10^3/uL RBC (4.6-6.2) 10^6/uL Hgb (14.0-18.0) g/dL Hct (40.0-54.0) % MCV (80-100) fL MCH (27.0-34.0) pg MCHC (33.0-35.0) g/dL Plt Count (150-450) 10^3/uL Neut % (Auto) (42.2-75.2) % Lymph % (Auto) (20.5-50.1) % [place] % (Auto) (2-8) % Eos % (Auto) (1.0-3.0) % Baso % (Auto) (0.0-1.0) % Sodium (135-145) mmol/L Potassium (3.6-5.0) mmol/L Chloride (101-111) mmol/L Carbon Dioxide (21.0-31.0) mmol/L Anion Gap BUN (7-18) mg/dL Creatinine (0.6-1.3) mg/dL Est Cr Clr Drug Dosing Estimated GFR (MDRD) BUN/Creatinine Ratio Glucose (74-105) mg/dL POC Glucose 267 H (70-105) mg/dl Calcium (8.4-10.2) mg/dl Magnesium (1.8-2.5) mg/dL Total Bilirubin (0.2-1.0) mg/dL AST (10-42) IU/L ALT (10-60) IU/L Alkaline Phosphatase (42-121) IU/L CK-MB (CK-2) (0.4-4.7) ng/mL Troponin I (0.00-0.02) ng/ml B-Natriuretic Peptide (0-100) pg/ml Total Protein (6.7-8.2) g/dl Albumin (3.2-5.5) g/dl Globulin Albumin/Globulin Ratio Urine Color Yellow (YELLOW) Urine Appearance Clear (CLEAR) Urine pH 5.0 (5.0-9.0) Ur Specific [place] <= 1.005 (1.005-1.030) Urine Protein Negative (NEGATIVE) Urine Glucose (UA) 500 H (NEGATIVE) Urine Ketones Negative (NEGATIVE) Urine Occult Blood Negative (NEGATIVE) Urine Nitrite Negative (NEGATIVE) Urine Bilirubin Negative (NEGATIVE) Urine Urobilinogen 0.2 (0.2-1.0) mg/dL Ur Leukocyte Esterase Negative (NEGATIVE) Urine RBC 0-5 /HPF Urine WBC 0-5 (0-5/HPF) /HPF Ur Epithelial Cells Occasional /HPF Urine Bacteria Occasional (0-FEW/HPF) /HPF Urine Opiates Screen Negative (NEGATIVE) Ur Oxycodone Screen Negative (NEGATIVE) Urine Methadone Screen Negative (NEGATIVE) Ur Barbiturates Screen Negative (NEGATIVE) U Tricyclic Antidepress Negative (NEGATIVE) Ur Phencyclidine Scrn Negative (NEGATIVE) Ur Amphetamine Screen Negative (NEGATIVE) U Methamphetamines Scrn Negative (NEGATIVE) Urine MDMA Screen Negative (NEGATIVE) U Benzodiazepines Scrn Negative (NEGATIVE) Urine Cocaine Screen Negative (NEGATIVE) U Marijuana (THC) Screen Negative (NEGATIVE) Meds: Medications Discontinued Medications Generic Name Dose Route Start Last Admin Trade Name Freq PRN Reason Stop Dose Admin Diltiazem HCl 10 mg 11/19/17 19:22 11/19/17 19:40 Diltiazem IVPUSH 11/19/17 19:23 10 mg ONETIME ONE Administration Diltiazem HCl 10 mg 11/19/17 19:55 11/19/17 19:52 Diltiazem IVPUSH 11/19/17 19:56 10 mg ONETIME ONE Administration Sodium Chloride 1,000 mls @ 999 mls/hr 11/19/17 19:20 11/19/17 19:20 Normal Saline IV 11/19/17 20:20 999 mls/hr .BOLUS ONE Administration Diltiazem HCl 100 mg/ Sodium 100 mls @ 5 mls/hr 11/19/17 20:15 11/19/17 20:24 Chloride IV 5 mg/hr TITRATE YI 5 mls/hr Protocol Administration 5 MG/HR Insulin Human Regular 10 unit 11/19/17 19:59 11/19/17 20:16 Humulin R IV 11/19/17 20:00 10 unit ONETIME ONE Administration Protocol Metoprolol Tartrate 5 mg 11/19/17 19:07 11/19/17 19:14 Lopressor IVPUSH 11/19/17 19:08 5 mg ONETIME ONE Administration Metoprolol Tartrate Confirm 11/19/17 19:10 11/19/17 19:35 Lopressor Administered 11/19/17 19:11 Not Given Dose 5 mg .ROUTE .STK-MED ONE Oxycodone/Acetaminophen 1 tab 11/19/17 21:18 11/19/17 21:22 Percocet 325-5 Mg PO 11/19/17 21:19 1 tab ONETIME ONE Administration - Radiology Interpretation Free Text/Narrative:: CXR no acute disease - Re-Assessments/Exams Free Text/Narrative Re-Assessment/Exam: 11/20/17 06:51 Lopressor IV with minimal change in HR. BP drop. Cardizem initiated. Slow response but decrease in HR and resolution of chest Pain. TC consult Dr. Stokes, recommend tx to facility with Cfo as patient hospitalized and new treatment failed. Dr. Saad Britton accepting of patient. Tx via [facility] in stable condition and pain free. Departure - Departure Time of Disposition: 21:25 Disposition: DC/Tfer to Acute Hospital 02 Reason for Transfer *Q: Other Condition: Fair Clinical Impression: Atrial fibrillation with rapid ventricular response Referrals: Jens Parks [Primary Care Provider] - Forms: ED Department Discharge - My Orders Last 24 Hours: My Active Orders 11/19/17 19:11 EKG 12 Lead [EKG Documentation Completion] [RC] URGENT - Assessment/Plan Last 24 Hours: My Active Orders 11/19/17 19:11 EKG 12 Lead [EKG Documentation Completion] [RC] URGENT
[2017-11-19] MEDS: Metoprolol Tartrate 5 MG/5 ML SDV IVPUSH ONE (19:14)
[2017-11-19] MEDS: Sodium Chloride 0.9% 1,000 ML IV ONE (19:20)
[2017-11-19 19:32] LABS: CHLORIDE,CL 101 mmol/L (101-111); SODIUM,NA 133 mmol/L (135-145)
[2017-11-19] MEDS: Metoprolol Tartrate 5 MG/5 ML SDV ONE (19:35)
[2017-11-19] MEDS: Diltiazem 25 MG/5 ML SDV IVPUSH ONE ×2 (19:40→19:52)
[2017-11-19] MEDS: Insulin Regular, Human 100 Units/ML 3 ML Vial IV ONE (20:16)
[2017-11-19] MEDS: Diltiazem 100 MG in Sodium Chloride 0.9% 100 ML IV SCH (20:24)
[2017-11-19 21:07] VITALS: BP 134/80
[2017-11-19] MEDS: Acetaminophen/oxyCODONE 325-5 MG Tab PO ONE (21:22)
== END 2017-11-19 21:24 ==
LOC: DL.ED 18:50
DX: I48.91 Unspecified atrial fibrillation (principal); I10 Essential (primary) hypertension; E11.40 Type 2 diabetes mellitus with diabetic neuropathy, unspecified; F17.210 Nicotine dependence, cigarettes, uncomplicated; E78.00 Pure hypercholesterolemia, unspecified; Z88.5 Allergy status to narcotic agent; Z88.0 Allergy status to penicillin; Z91.041 Radiographic dye allergy status; Z79.899 Other long term (current) drug therapy
CPT/HCPCS: 36415; 71045; 80053; 80305; 81001; 82553; 82962; 83735; 83880; 84484; 85025; 93005; 96365; 96366; 96368; 96375; 96376; 99285; A9270; J1815; J3490; J7030; J7050

== ENCOUNTER 2018-02-09 21:10 | Emergency (ER) | payer OTHER, MEDICAID ==
[2018-02-09] MEDS ORDERED: Acetaminophen/oxyCODONE 325-5 MG Tab PO ONE ×2 (21:11→23:17)
--- NOTE | 2018-02-09 22:37 | EDM.PDOC ---
ED HPI GENERAL MEDICAL PROBLEM - General Chief Complaint: Lower Extremity Injury/Pain Stated Complaint: LEFT KNEE IS OUT [id number] Time Seen by Provider: 02/09/18 22:32 Source of Information: Reports: Patient History Limitations: Reports: No Limitations - History of Present Illness INITIAL COMMENTS - FREE TEXT/NARRATIVE: c/o severe pain to left knee while walking to barn. [place] popping sensation to inner left knee. Remote hx of ACL repair. Pain worse with weight bearing. Onset: Today Left Knee Pain Score (Numeric/FACES): 10 - Related Data Allergies Allergy/AdvReac Type Severity Reaction Status Date / Time chicken derived Allergy Hives Verified 02/09/18 21:51 codeine Allergy Hives Verified 02/09/18 21:51 Penicillins Allergy Hives Verified 02/09/18 21:51 tramadol Allergy Hives Verified 02/09/18 21:51 Contrast media Allergy Hives Uncoded 02/09/18 21:51 Home Meds: Home Meds Aspirin 81 mg PO BRK 11/09/15 [History] Calcium Citrate/Vitamin D3 [[place] Calcium-Vit D 200-250] 1 each PO DAILY [History] Docusate Sodium [Colace] 100 mg PO BID 11/09/15 [History] Gabapentin [Neurontin] 900 mg PO BID 11/09/15 [History] Hydrochlorothiazide 25 mg PO DAILY 11/09/15 [History] Lisinopril 20 mg PO DAILY 11/09/15 [History] Omeprazole 20 mg PO ACBREAKFAST 11/09/15 [History] Sennosides/Docusate Sodium [Senna-S Tablet] 1 each PO BID 11/09/15 [History] atorvaSTATin [Lipitor] 20 mg PO BEDTIME 11/09/15 [History] metFORMIN [Glucophage XR] 1,000 mg PO BIDMEALS 11/09/15 [History] Apixaban [Eliquis] 5 mg PO DAILY 11/08/17 [History] Cholecalciferol (Vitamin D3) [Vitamin D3] 1,000 unit PO DAILY 11/08/17 [History] Clotrimazole [Clotrimazole 1%] 1 applic TOP BID 11/08/17 [History] Fluticasone Propionate [Flonase Allergy Relief] 15.8 ml NS DAILY 11/08/17 [ History] Insulin Glarg,Human.Rec.Analog [Lantus Solostar] 45 unit SUBCUT DAILY 11/08/17 [ History] Melatonin/Pyridoxine HCl (B6) [Melatonin 3 mg Tablet] 9 mg PO BEDTIME 11/08/17 [ History] [place]-3 Fatty Acids [[place]-3] 1 gm PO DAILY 11/08/17 [History] Prazosin HCl [Prazosin] 1 mg PO BEDTIME 11/08/17 [History] Triamcinolone Acetonide [Triamcinolone Acetonide 0.1% Crm] 80 gm .XX BID [History] glipiZIDE [Glucotrol XL] 10 mg PO BID 11/08/17 [History] Metoprolol Tartrate [Lopressor] 50 mg PO BID #60 tablet 11/09/17 [Rx] Past Medical History Cardiovascular History: Reports: Afib, CAD, High Cholesterol, Hypertension, [place], Stents Other Cardiovascular History: [place] 1999 with 1 stent placement Respiratory History: Reports: Bronchitis, Recurrent, Sleep Apnea Other Respiratory History: smoker for 51 yrs, has a c-pap Gastrointestinal History: Reports: Chronic Constipation, GERD Genitourinary History: Reports: Diabetic Nephropathy Musculoskeletal History: Reports: Osteoarthritis Neurological History: Reports: Neuropathy, Diabetic Endocrine/Metabolic History: Reports: Diabetes, Type II Oncologic (Cancer) History: Reports: Colon Other Oncologic History: with chemo and radiation - Infectious Disease History Infectious Disease History: Reports: Chicken Pox, Measles, Mumps, Rheumatic Fever - Past Surgical History Male Surgical History: Reports: Circumcision Musculoskeletal Surgical History: Reports: Arthroscopic Knee, Shoulder Surgery Other Musculoskeletal Surgeries/Procedures:: Repaired acl. [place]. Placed bone marrow in hip. Social & Family History - Family History Family Medical History: Noncontributory Cardiac: Reports: Afib, AICD, Angina, Bypass, CAD, Heart Failure, High Cholesterol, Hypertension, [place] Respiratory: Reports: Asthma, COPD GI: Reports: Cholelithiasis : Reports: Dialysis, Renal Disease/Insufficiency Musculoskeletal: Reports: Arthritis, Back pain, Chronic Neurological: Reports: CVA, Neuropathy, Diabetic Psychiatric: Reports: Anxiety, Depression Endocrine/Metabolic: Reports: Diabetes, type II - Tobacco Use Smoking Status *Q: Current Every Day Smoker Years of Tobacco use: 52 Packs/Tins Daily: 3 - Caffeine Use Caffeine Use: Reports: Coffee Other Caffeine Use: 4 pots a day - Recreational Drug Use Recreational Drug Use: No - Living Situation & Occupation Living situation: Reports: with Family Occupation: Unemployed Review of Systems - Review of Systems Review Of Systems: ROS reveals no pertinent complaints other than HPI. ED EXAM, GENERAL - Physical Exam Exam: See Below Exam Limited By: No Limitations General Appearance: Alert, Mild Distress Eye Exam: Bilateral Eye: EOMI Ears: Normal External Exam Nose: Normal Inspection Throat/Mouth: Normal Voice Head: Atraumatic, Normocephalic Neck: Full Range of Motion Respiratory/Chest: No Respiratory Distress Cardiovascular: Normal Peripheral Pulses Extremities: Limited Range of Motion (mild swelling left knee, limited ROM with pain, no bruising, No crepitus. tender to palpation medial) Neurological: Alert, Oriented, Normal Cognition Psychiatric: Normal Affect Skin Exam: Warm, Dry, Intact, Normal Color. No: Ecchymosis Course - Vital Signs Last Recorded V/S: Last Vital Signs Temp 98.8 F 02/09/18 23:23 Pulse 69 02/09/18 23:23 Resp 16 02/09/18 23:23 BP 140/60 02/09/18 23:23 Pulse Ox 96 02/09/18 23:23 - Orders/Labs/Meds Meds: Medications Discontinued Medications Generic Name Dose Route Start Last Admin Trade Name Teddy PRN Reason Stop Dose Admin Oxycodone/Acetaminophen 1 tab 02/09/18 23:17 02/09/18 23:22 Percocet 325-5 Mg PO 02/09/18 23:18 1 tab ONETIME ONE Administration Oxycodone/Acetaminophen Confirm 02/09/18 23:40 02/09/18 23:58 Percocet 325-5 Mg Administered 02/09/18 23:41 Not Given Dose 2 tab .ROUTE .STK-MED ONE - Radiology Interpretation Free Text/Narrative:: xray left knee negative for fracture Departure - Departure Time of Disposition: 23:33 Disposition: Home, Self-Care 01 Condition: Good Clinical Impression: Strain of left knee Qualifiers: Encounter type: initial encounter Qualified Code(s): S86.912A - Strain of unspecified muscle(s) and tendon(s) at lower leg level, left leg, initial encounter - Discharge Information Instructions: Knee Sprain, Adult, [id number] Forms: ED Department Discharge Additional Instructions: use walker, weight bearing as tolerated percocet 5/325 one every 6 hours as needed for severe pain tylenol 650mg every 4 hours as needed for moderate pain rest and ice to knee dean wrap [facility]
[2018-02-09 23:24] VITALS: BP 140/60
[2018-02-09] MEDS ORDERED: Acetaminophen/oxyCODONE 325-5 MG Tab ONE (23:40)
== END 2018-02-09 23:58 | disposition home or self-care (01) ==
LOC: DL.ED 21:10
DX: S86.912A Strain of unspecified muscle(s) and tendon(s) at lower leg level, left leg, initial encounter (principal); E78.00 Pure hypercholesterolemia, unspecified; I10 Essential (primary) hypertension; I25.2 Old myocardial infarction; E11.21 Type 2 diabetes mellitus with diabetic nephropathy; E11.40 Type 2 diabetes mellitus with diabetic neuropathy, unspecified; F17.210 Nicotine dependence, cigarettes, uncomplicated; Z91.018 Allergy to other foods; Z88.0 Allergy status to penicillin; Z88.5 Allergy status to narcotic agent; Z91.041 Radiographic dye allergy status; Z79.82 Long term (current) use of aspirin; Z79.899 Other long term (current) drug therapy; Z79.4 Long term (current) use of insulin; X50.9XXA Other and unspecified overexertion or strenuous movements or postures, initial encounter
CPT/HCPCS: 73562; 99283; A9270

== ENCOUNTER 2018-02-11 22:46 | Emergency (ER) | payer OTHER, MEDICAID ==
[2018-02-11] MEDS ORDERED: Diltiazem 25 MG/5 ML SDV IVPUSH ONE ×2 (22:58→23:24)
[2018-02-11 23:09] VITALS: BP 164/77
[2018-02-11 23:26] LABS: CHLORIDE,CL 102 mmol/L (101-111); SODIUM,NA 134 mmol/L (135-145)
[2018-02-11] MEDS ORDERED: Diltiazem 125 MG in Sodium Chloride 0.9% 100 ML IV ONE (23:55)
--- NOTE | 2018-02-11 23:56 | EDM.PDOC ---
ED HPI GENERAL MEDICAL PROBLEM - General Chief Complaint: Respiratory Problem Stated Complaint: SOB [id number] Time Seen by Provider: 02/11/18 23:05 Source of Information: Reports: Patient History Limitations: Reports: No Limitations - History of Present Illness INITIAL COMMENTS - FREE TEXT/NARRATIVE: c/o fast heart rate and SOB, hx A fib, [facility]. No chest pain - Related Data Allergies Allergy/AdvReac Type Severity Reaction Status Date / Time chicken derived Allergy Hives Verified 02/11/18 23:16 codeine Allergy Hives Verified 02/11/18 23:16 Penicillins Allergy Hives Verified 02/11/18 23:16 tramadol Allergy Hives Verified 02/11/18 23:16 Contrast media Allergy Hives Uncoded 02/11/18 23:16 Home Meds: Home Meds Aspirin 81 mg PO BRK 11/09/15 [History] Calcium Citrate/Vitamin D3 [[place] Calcium-Vit D 200-250] 1 each PO DAILY [History] Docusate Sodium [Colace] 100 mg PO BID 11/09/15 [History] Gabapentin [Neurontin] 900 mg PO BID 11/09/15 [History] Hydrochlorothiazide 25 mg PO DAILY 11/09/15 [History] Lisinopril 20 mg PO DAILY 11/09/15 [History] Omeprazole 20 mg PO ACBREAKFAST 11/09/15 [History] Sennosides/Docusate Sodium [Senna-S Tablet] 1 each PO BID 11/09/15 [History] atorvaSTATin [Lipitor] 20 mg PO BEDTIME 11/09/15 [History] metFORMIN [Glucophage XR] 1,000 mg PO BIDMEALS 11/09/15 [History] Apixaban [Eliquis] 5 mg PO DAILY 11/08/17 [History] Cholecalciferol (Vitamin D3) [Vitamin D3] 1,000 unit PO DAILY 11/08/17 [History] Clotrimazole [Clotrimazole 1%] 1 applic TOP BID 11/08/17 [History] Fluticasone Propionate [Flonase Allergy Relief] 15.8 ml NS DAILY 11/08/17 [ History] Insulin Glarg,Human.Rec.Analog [Lantus Solostar] 45 unit SUBCUT DAILY 11/08/17 [ History] Melatonin/Pyridoxine HCl (B6) [Melatonin 3 mg Tablet] 9 mg PO BEDTIME 11/08/17 [ History] [place]-3 Fatty Acids [[place]-3] 1 gm PO DAILY 11/08/17 [History] Prazosin HCl [Prazosin] 1 mg PO BEDTIME 11/08/17 [History] Triamcinolone Acetonide [Triamcinolone Acetonide 0.1% Crm] 80 gm .XX BID [History] glipiZIDE [Glucotrol XL] 10 mg PO BID 11/08/17 [History] Metoprolol Tartrate [Lopressor] 50 mg PO BID #60 tablet 11/09/17 [Rx] Diltiazem [Diltiazem XR] 240 mg PO BID 02/11/18 [History] Past Medical History Cardiovascular History: Reports: Afib, CAD, High Cholesterol, Hypertension, [place], Stents Other Cardiovascular History: [place] 1999 with 1 stent placement Respiratory History: Reports: Bronchitis, Recurrent, Sleep Apnea Other Respiratory History: smoker for 51 yrs, has a c-pap Gastrointestinal History: Reports: Chronic Constipation, GERD Genitourinary History: Reports: Diabetic Nephropathy Musculoskeletal History: Reports: Osteoarthritis Neurological History: Reports: Neuropathy, Diabetic Endocrine/Metabolic History: Reports: Diabetes, Type II Oncologic (Cancer) History: Reports: Colon Other Oncologic History: with chemo and radiation - Infectious Disease History Infectious Disease History: Reports: Chicken Pox, Measles, Mumps, Rheumatic Fever - Past Surgical History Male Surgical History: Reports: Circumcision Musculoskeletal Surgical History: Reports: Arthroscopic Knee, Shoulder Surgery Other Musculoskeletal Surgeries/Procedures:: Repaired acl. [place]. Placed bone marrow in hip. Social & Family History - Family History Family Medical History: Noncontributory Cardiac: Reports: Afib, AICD, Angina, Bypass, CAD, Heart Failure, High Cholesterol, Hypertension, [place] Respiratory: Reports: Asthma, COPD GI: Reports: Cholelithiasis : Reports: Dialysis, Renal Disease/Insufficiency Musculoskeletal: Reports: Arthritis, Back pain, Chronic Neurological: Reports: CVA, Neuropathy, Diabetic Psychiatric: Reports: Anxiety, Depression Endocrine/Metabolic: Reports: Diabetes, type II - Tobacco Use Smoking Status *Q: Current Every Day Smoker Years of Tobacco use: 61 Packs/Tins Daily: 20 - Caffeine Use Caffeine Use: Reports: Coffee Other Caffeine Use: 4 pots a day - Recreational Drug Use Recreational Drug Use: No - Living Situation & Occupation Living situation: Reports: with Family Occupation: Unemployed ED ROS GENERAL - Review of Systems Review Of Systems: See Below Constitutional: Reports: No Symptoms HEENT: Reports: No Symptoms Respiratory: Reports: No Symptoms Cardiovascular: Reports: Dyspnea on Exertion, Palpitations. Denies: Chest Pain ED EXAM, GENERAL - Physical Exam Exam: See Below Exam Limited By: No Limitations General Appearance: Alert, No Apparent Distress, Anxious Eye Exam: Bilateral Eye: EOMI Ears: Normal External Exam Nose: Normal Inspection Throat/Mouth: Normal Inspection Head: Atraumatic, Normocephalic Neck: Normal Inspection, Full Range of Motion Respiratory/Chest: No Respiratory Distress, Lungs Clear, Normal Breath Sounds. No: Rhonchi, Wheezing Cardiovascular: Tachycardia, Irregularly Irregular. No: Regular Rate, Rhythm Neurological: Alert, Oriented, Normal Cognition Psychiatric: Normal Affect, Anxious Skin Exam: Warm, Dry, Intact, Normal Color Course - Vital Signs Last Recorded V/S: Last Vital Signs Temp 97.4 F 02/11/18 23:03 Pulse 117 H 02/11/18 23:03 Resp 24 H 02/11/18 23:03 BP 164/77 H 02/11/18 23:03 Pulse Ox 92 L 02/11/18 23:03 - Orders/Labs/Meds Orders: Active Orders 24 hr Category Date Time Status EKG Documentation Completion [RC] URGENT Care 02/11/18 22:50 Active Labs: Laboratory Tests 02/11/18 02/11/18 02/11/18 Range/Units 23:00 23:00 23:00 WBC 7.4 (5.0-10.0) 10^3/uL RBC 5.25 (4.6-6.2) 10^6/uL Hgb 15.1 (14.0-18.0) g/dL Hct 44.4 (40.0-54.0) % MCV 84.6 (80-100) fL MCH 28.8 (27.0-34.0) pg MCHC 34.0 (33.0-35.0) g/dL Plt Count 266 (150-450) 10^3/uL Neut % (Auto) 54.3 (42.2-75.2) % Lymph % (Auto) 33.7 (20.5-50.1) % [place] % (Auto) 8.8 H (2-8) % Eos % (Auto) 3.1 H (1.0-3.0) % Baso % (Auto) 0.1 (0.0-1.0) % Sodium 134 L (135-145) mmol/L Potassium 3.9 (3.6-5.0) mmol/L Chloride 102 (101-111) mmol/L Carbon Dioxide 25.0 (21.0-31.0) mmol/L Anion Gap 10.9 BUN 16 (7-18) mg/dL Creatinine 0.8 (0.6-1.3) mg/dL Est Cr Clr Drug Dosing 106.43 mL/min Estimated GFR (MDRD) > 60 BUN/Creatinine Ratio 20.00 Glucose 260 H (74-105) mg/dL Calcium 9.1 (8.4-10.2) mg/dl Total Bilirubin 0.4 (0.2-1.0) mg/dL AST 27 (10-42) IU/L ALT 27 (10-60) IU/L Alkaline Phosphatase 141 H (42-121) IU/L CK-MB (CK-2) 2.10 (0.4-4.7) ng/mL Troponin I < 0.02 (0.00-0.02) ng/ml B-Natriuretic Peptide (0-100) pg/ml Total Protein 7.4 (6.7-8.2) g/dl Albumin 3.8 (3.2-5.5) g/dl Globulin 3.6 Albumin/Globulin Ratio 1.06 /07/22 Range/Units 23:00 WBC (5.0-10.0) 10^3/uL RBC (4.6-6.2) 10^6/uL Hgb (14.0-18.0) g/dL Hct (40.0-54.0) % MCV (80-100) fL MCH (27.0-34.0) pg MCHC (33.0-35.0) g/dL Plt Count (150-450) 10^3/uL Neut % (Auto) (42.2-75.2) % Lymph % (Auto) (20.5-50.1) % [place] % (Auto) (2-8) % Eos % (Auto) (1.0-3.0) % Baso % (Auto) (0.0-1.0) % Sodium (135-145) mmol/L Potassium (3.6-5.0) mmol/L Chloride (101-111) mmol/L Carbon Dioxide (21.0-31.0) mmol/L Anion Gap BUN (7-18) mg/dL Creatinine (0.6-1.3) mg/dL Est Cr Clr Drug Dosing mL/min Estimated GFR (MDRD) BUN/Creatinine Ratio Glucose (74-105) mg/dL Calcium (8.4-10.2) mg/dl Total Bilirubin (0.2-1.0) mg/dL AST (10-42) IU/L ALT (10-60) IU/L Alkaline Phosphatase (42-121) IU/L CK-MB (CK-2) (0.4-4.7) ng/mL Troponin I (0.00-0.02) ng/ml B-Natriuretic Peptide 33 (0-100) pg/ml Total Protein (6.7-8.2) g/dl Albumin (3.2-5.5) g/dl Globulin Albumin/Globulin Ratio Meds: Medications Discontinued Medications Generic Name Dose Route Start Last Admin Trade Name Freq PRN Reason Stop Dose Admin Diltiazem HCl 10 mg 02/11/18 22:58 02/11/18 23:12 Diltiazem IVPUSH 02/11/18 22:59 10 mg ONETIME ONE Administration Diltiazem HCl 5 mg 02/11/18 23:24 02/11/18 23:31 Diltiazem IVPUSH 02/11/18 23:25 5 mg ONETIME ONE Administration Diltiazem HCl 125 mg/ Sodium 125 mls @ 5 mls/hr 02/11/18 23:55 02/12/18 00:34 Chloride IV 02/12/18 23:54 5 mg/hr .Q24H ONE 5 mls/hr Administration Protocol 5 MG/HR - Radiology Interpretation Free Text/Narrative:: CXR normal - Re-Assessments/Exams Free Text/Narrative Re-Assessment/Exam: 02/12/18 06:01 Dr Peña accepting of patient for further eval and management of A fib with RVR. Tx via [facility]. [facility] [place] No [facility]ology service available this week so recommendation to refer [facility] Andrews. Departure - Departure Time of Disposition: 00:45 Disposition: DC/Tfer to Acute Hospital 02 Condition: Fair Clinical Impression: Atrial fibrillation with rapid ventricular response - Discharge Information Referrals: PCP,Unobtain [Primary Care Provider] - Forms: ED Department Discharge - My Orders Last 24 Hours: My Active Orders 02/11/18 22:50 EKG Documentation Completion [RC] URGENT - Assessment/Plan Last 24 Hours: My Active Orders 02/11/18 22:50 EKG Documentation Completion [RC] URGENT
--- NOTE | 2018-02-13 13:05 | EKG ---
02/11/2018 - MADDIE DUPONT - FINDINGS: A 12-lead EKG shows atrial fibrillation with rapid ventricular response with heart rate of 129. No significant ST elevation or ST depression noted on this 12-lead EKG. [facility] /[id number]
== END 2018-02-12 00:54 ==
LOC: DL.ED 22:46
DX: I48.91 Unspecified atrial fibrillation (principal); E78.00 Pure hypercholesterolemia, unspecified; I10 Essential (primary) hypertension; I25.2 Old myocardial infarction; E11.40 Type 2 diabetes mellitus with diabetic neuropathy, unspecified; E11.21 Type 2 diabetes mellitus with diabetic nephropathy; F17.210 Nicotine dependence, cigarettes, uncomplicated; Z88.0 Allergy status to penicillin; Z88.5 Allergy status to narcotic agent; Z91.041 Radiographic dye allergy status; Z91.018 Allergy to other foods; Z79.82 Long term (current) use of aspirin; Z79.899 Other long term (current) drug therapy; Z79.4 Long term (current) use of insulin
CPT/HCPCS: 36415; 71045; 80053; 82553; 83880; 84484; 85025; 93005; 93010; 96365; 96376; 99285; J3490; J7050; 99284

== ENCOUNTER 2018-02-20 23:06 | Emergency (ER) | payer MEDICAID, OTHER ==
[2018-02-20 23:18] VITALS: BP 145/90
[2018-02-20] MEDS ORDERED: Diltiazem 25 MG/5 ML SDV IVPUSH ONE (23:40)
--- NOTE | 2018-02-20 23:46 | EDM.PDOC ---
ED HPI GENERAL MEDICAL PROBLEM - General Chief Complaint: Cardiovascular Problem Stated Complaint: [id number] HEART RACING A FIB Time Seen by Provider: 02/20/18 23:41 Source of Information: Reports: Patient History Limitations: Reports: No Limitations - History of Present Illness INITIAL COMMENTS - FREE TEXT/NARRATIVE: c/o recurrent exac palpitation. was here last weekend. ER record showed pt given IV diltiazem 15mg f/u bolus and transf to [facility]. pt [facility]e in this neck and low back are twisted and that's what can set off his palpitation frm the pain caused. was given KATEY but not helping his pain at all and has problem sleeping at night. - Related Data Allergies Allergy/AdvReac Type Severity Reaction Status Date / Time chicken derived Allergy Hives Verified 02/20/18 23:19 codeine Allergy Hives Verified 02/20/18 23:19 Penicillins Allergy Hives Verified 02/20/18 23:19 tramadol Allergy Hives Verified 02/20/18 23:19 Contrast media Allergy Hives Uncoded 02/20/18 23:19 Home Meds: Home Meds Aspirin 81 mg PO BRK 11/09/15 [History] Calcium Citrate/Vitamin D3 [[place] Calcium-Vit D 200-250] 1 each PO DAILY [History] Docusate Sodium [Colace] 100 mg PO BID 11/09/15 [History] Gabapentin [Neurontin] 900 mg PO BID 11/09/15 [History] Hydrochlorothiazide 25 mg PO DAILY 11/09/15 [History] Lisinopril 20 mg PO DAILY 11/09/15 [History] Omeprazole 20 mg PO ACBREAKFAST 11/09/15 [History] Sennosides/Docusate Sodium [Senna-S Tablet] 1 each PO BID 11/09/15 [History] atorvaSTATin [Lipitor] 20 mg PO BEDTIME 11/09/15 [History] metFORMIN [Glucophage XR] 1,000 mg PO BIDMEALS 11/09/15 [History] Apixaban [Eliquis] 5 mg PO DAILY 11/08/17 [History] Cholecalciferol (Vitamin D3) [Vitamin D3] 1,000 unit PO DAILY 11/08/17 [History] Clotrimazole [Clotrimazole 1%] 1 applic TOP BID 11/08/17 [History] Fluticasone Propionate [Flonase Allergy Relief] 15.8 ml NS DAILY 11/08/17 [ History] Insulin Glarg,Human.Rec.Analog [Lantus Solostar] 45 unit SUBCUT DAILY 11/08/17 [ History] Melatonin/Pyridoxine HCl (B6) [Melatonin 3 mg Tablet] 9 mg PO BEDTIME 11/08/17 [ History] [place]-3 Fatty Acids [[place]-3] 1 gm PO DAILY 11/08/17 [History] Prazosin HCl [Prazosin] 1 mg PO BEDTIME 11/08/17 [History] Triamcinolone Acetonide [Triamcinolone Acetonide 0.1% Crm] 80 gm .XX BID [History] glipiZIDE [Glucotrol XL] 10 mg PO BID 11/08/17 [History] Metoprolol Tartrate [Lopressor] 50 mg PO BID #60 tablet 11/09/17 [Rx] Diltiazem [Diltiazem XR] 240 mg PO BID 02/11/18 [History] Past Medical History Cardiovascular History: Reports: Afib, CAD, High Cholesterol, Hypertension, [place], Stents Other Cardiovascular History: [place] 1999 with 1 stent placement Respiratory History: Reports: Bronchitis, Recurrent, Sleep Apnea Other Respiratory History: smoker for 51 yrs, has a c-pap Gastrointestinal History: Reports: Chronic Constipation, GERD Genitourinary History: Reports: Diabetic Nephropathy Musculoskeletal History: Reports: Osteoarthritis Neurological History: Reports: Neuropathy, Diabetic Endocrine/Metabolic History: Reports: Diabetes, Type II Oncologic (Cancer) History: Reports: Colon Other Oncologic History: with chemo and radiation - Infectious Disease History Infectious Disease History: Reports: Chicken Pox, Measles, Mumps, Rheumatic Fever - Past Surgical History Male Surgical History: Reports: Circumcision Musculoskeletal Surgical History: Reports: Arthroscopic Knee, Shoulder Surgery Other Musculoskeletal Surgeries/Procedures:: Repaired acl. [place]. Placed bone marrow in hip. Social & Family History - Family History Family Medical History: Noncontributory Cardiac: Reports: Afib, AICD, Angina, Bypass, CAD, Heart Failure, High Cholesterol, Hypertension, [place] Respiratory: Reports: Asthma, COPD GI: Reports: Cholelithiasis : Reports: Dialysis, Renal Disease/Insufficiency Musculoskeletal: Reports: Arthritis, Back pain, Chronic Neurological: Reports: CVA, Neuropathy, Diabetic Psychiatric: Reports: Anxiety, Depression Endocrine/Metabolic: Reports: Diabetes, type II - Tobacco Use Smoking Status *Q: Current Every Day Smoker Years of Tobacco use: 52 Packs/Tins Daily: 0.3 Second Hand Smoke Exposure: Yes - Caffeine Use Caffeine Use: Reports: Coffee Other Caffeine Use: 4 pots a day - Recreational Drug Use Recreational Drug Use: No - Living Situation & Occupation Living situation: Reports: with Family Occupation: Unemployed ED ROS GENERAL - Review of Systems Review Of Systems: ROS reveals no pertinent complaints other than HPI. ED EXAM, GENERAL - Physical Exam Exam: See Below Exam Limited By: No Limitations General Appearance: Alert, WD/WN, Mild Distress, Other (upset) Ears: Hearing Grossly Normal Throat/Mouth: Normal Voice, No Airway Compromise Head: Atraumatic Neck: Non-Tender, Full Range of Motion Respiratory/Chest: No Respiratory Distress Cardiovascular: Irregularly Irregular GI/Abdominal: Soft, Non-Tender Neurological: Alert, Oriented, Normal Cognition, Normal Gait, No Motor/Sensory Deficits Psychiatric: Flat Affect Skin Exam: Warm, Dry, Normal Color Lymphatic: No Adenopathy Course - Vital Signs Last Recorded V/S: Last Vital Signs Temp 36.5 C 02/20/18 23:14 Pulse 120 H 02/20/18 23:14 Resp 23 H 02/20/18 23:14 BP 145/90 H 02/20/18 23:14 Pulse Ox 90 L 02/20/18 23:14 - Orders/Labs/Meds Orders: Active Orders 24 hr Category Date Time Status EKG 12 Lead [EKG Documentation Completion] [RC] STAT Care 02/20/18 23:19 Active Labs: Laboratory Tests 02/20/18 02/20/18 02/20/18 Range/Units 23:25 23:25 23:25 WBC 9.0 (5.0-10.0) 10^3/uL RBC 5.11 (4.6-6.2) 10^6/uL Hgb 14.5 (14.0-18.0) g/dL Hct 43.6 (40.0-54.0) % MCV 85.3 (80-100) fL MCH 28.4 (27.0-34.0) pg MCHC 33.3 (33.0-35.0) g/dL Plt Count 283 (150-450) 10^3/uL Neut % (Auto) 61.3 (42.2-75.2) % Lymph % (Auto) 28.7 (20.5-50.1) % [place] % (Auto) 7.9 (2-8) % Eos % (Auto) 1.9 (1.0-3.0) % Baso % (Auto) 0.2 (0.0-1.0) % PT 9.2 (9.0-12.0) SEC INR 0.9 (0.9-1.2) Sodium 137 (135-145) mmol/L Potassium 3.6 (3.6-5.0) mmol/L Chloride 107 (101-111) mmol/L Carbon Dioxide 24.0 (21.0-31.0) mmol/L Anion Gap 9.6 BUN 19 H (7-18) mg/dL Creatinine 0.9 (0.6-1.3) mg/dL Est Cr Clr Drug Dosing 94.60 mL/min Estimated GFR (MDRD) > 60 BUN/Creatinine Ratio 21.11 Glucose 141 H (74-105) mg/dL Calcium 9.0 (8.4-10.2) mg/dl Total Bilirubin 0.4 (0.2-1.0) mg/dL AST 25 (10-42) IU/L ALT 27 (10-60) IU/L Alkaline Phosphatase 110 (42-121) IU/L Troponin I < 0.02 (0.00-0.02) ng/ml Total Protein 7.6 (6.7-8.2) g/dl Albumin 3.9 (3.2-5.5) g/dl Globulin 3.7 Albumin/Globulin Ratio 1.05 Meds: Medications Discontinued Medications Generic Name Dose Route Start Last Admin Trade Name Freq PRN Reason Stop Dose Admin Diltiazem HCl 20 mg 02/20/18 23:40 02/20/18 23:50 Diltiazem IVPUSH 02/20/18 23:41 20 mg ONETIME ONE Administration Morphine Sulfate 2 mg 02/21/18 00:14 02/21/18 00:28 Morphine IVPUSH 02/21/18 00:15 2 mg ONETIME ONE Administration Ondansetron HCl 4 mg 02/21/18 00:14 02/21/18 00:26 Zofran IV 05/20/18 00:15 4 mg ONETIME ONE Administration - Re-Assessments/Exams Free Text/Narrative Re-Assessment/Exam: 02/21/18 00:14 re-exam; s/p IV diltiaz = heart feels better but back is still in pain when moves. 02/21/18 00:55 re-exam; s/p IV morph = much better now heart no longer racing and pain gone. prefers to go home but will return if things change Departure - Departure Time of Disposition: 00:56 Disposition: Home, Self-Care 01 Condition: Good Clinical Impression: Palpitations, Cervical radiculitis, Lumbar radiculitis Instructions: Palpitations, [id number] Forms: ED Department Discharge Additional Instructions: 1) rest 2) [facility] 3) recheck if there is any change or concern rx given; vicodin 5/325mg bid prn x 6 - My Orders Last 24 Hours: My Active Orders 02/20/18 23:19 EKG 12 Lead [EKG Documentation Completion] [RC] STAT - Assessment/Plan Last 24 Hours: My Active Orders 02/20/18 23:19 EKG 12 Lead [EKG Documentation Completion] [RC] STAT
[2018-02-20 23:52] LABS: CHLORIDE,CL 107 mmol/L (101-111); SODIUM,NA 137 mmol/L (135-145)
[2018-02-21] MEDS ORDERED: Morphine 2 MG/ML Syringe IVPUSH ONE (00:14)
[2018-02-21] MEDS ORDERED: Ondansetron 4 MG/2 ML SDV IV ONE (00:14)
--- NOTE | 2018-02-23 00:01 | EKG ---
02/20/2018 - MADDIE DUPONT - FINDINGS: EKG per my reading, shows atrial fibrillation with rapid ventricular rate. [facility] /[id number]
== END 2018-02-21 01:05 | disposition home or self-care (01) ==
LOC: DL.ED 23:06
DX: R00.2 Palpitations (principal); M54.12 Radiculopathy, cervical region; M54.16 Radiculopathy, lumbar region; E78.00 Pure hypercholesterolemia, unspecified; I10 Essential (primary) hypertension; E11.21 Type 2 diabetes mellitus with diabetic nephropathy; E11.40 Type 2 diabetes mellitus with diabetic neuropathy, unspecified; F17.210 Nicotine dependence, cigarettes, uncomplicated; Z91.018 Allergy to other foods; Z88.5 Allergy status to narcotic agent; Z88.0 Allergy status to penicillin; Z91.041 Radiographic dye allergy status; Z79.899 Other long term (current) drug therapy; Z79.4 Long term (current) use of insulin
CPT/HCPCS: 36415; 80053; 84484; 85025; 85610; 93005; 96374; 96375; 99284; J2270; J2405; J3490

== ENCOUNTER 2018-06-08 20:40 | Emergency (ER) | payer OTHER, MEDICAID ==
[2018-06-08 20:53] VITALS: BP 157/75
[2018-06-08 23:39] LABS: ANION GAP 10.8; CHLORIDE,CL 103 mmol/L (101-111); SODIUM,NA 139 mmol/L (135-145)
== END 2018-06-09 00:17 | disposition left against medical advice (07) ==
LOC: DL.ED 20:40
DX: Z53.21 Procedure and treatment not carried out due to patient leaving prior to being seen by health care provider (principal)
CPT/HCPCS: 36415; 80053; 80305; 81001; 82150; 83690; 85025; G0480; 99284

== ENCOUNTER 2018-10-10 19:16 | Emergency (ER) | payer OTHER, MEDICAID ==
[2018-10-10] MEDS ORDERED: Acetaminophen/HYDROcodone 325-10 MG Tab PO ONE (19:17)
[2018-10-10 19:41] VITALS: BP 133/65
--- NOTE | 2018-10-10 20:32 | EDM.PDOC ---
ED HPI GENERAL MEDICAL PROBLEM - General Chief Complaint: Back Pain or Injury Stated Complaint: SLIPPED, FELT A POP IN BACK, LEGS TINGLE Time Seen by Provider: 10/10/18 20:20 Source of Information: Reports: Patient History Limitations: Reports: No Limitations - History of Present Illness INITIAL COMMENTS - FREE TEXT/NARRATIVE: This 63 yo male patient reports to the ED with lower back pain. The patient reports he was helping an older lady with a flat tire when he slipped and fell on his back with the aimee under his back and hips. The patient has been experiencing increased pain since that time. Onset: Today Duration: Minutes: Location: Reports: Back Quality: Reports: Ache, Sharp, Throbbing Severity: Severe Improves with: Reports: Rest Worsens with: Reports: Movement Context: Reports: Trauma Associated Symptoms: Reports: No Other Symptoms Lower Back Pain Score (Numeric/FACES): 9 - Related Data Allergies Allergy/AdvReac Type Severity Reaction Status Date / Time chicken derived Allergy Hives Verified 10/10/18 19:41 codeine Allergy Hives Verified 10/10/18 19:41 Penicillins Allergy Hives Verified 10/10/18 19:41 tramadol Allergy Hives Verified 10/10/18 19:41 Contrast media Allergy Hives Uncoded 10/10/18 19:41 Home Meds: Home Meds Aspirin 81 mg PO BRK 11/09/15 [History] Calcium Citrate/Vitamin D3 [[place] Calcium-Vit D 200-250] 1 each PO DAILY [History] Docusate Sodium [Colace] 100 mg PO BID 11/09/15 [History] Gabapentin [Neurontin] 900 mg PO BID 11/09/15 [History] Hydrochlorothiazide 25 mg PO DAILY 11/09/15 [History] Lisinopril 20 mg PO DAILY 11/09/15 [History] Omeprazole 20 mg PO ACBREAKFAST 11/09/15 [History] atorvaSTATin [Lipitor] 20 mg PO BEDTIME 11/09/15 [History] metFORMIN [Glucophage XR] 1,000 mg PO BIDMEALS 11/09/15 [History] Apixaban [Eliquis] 5 mg PO DAILY 11/08/17 [History] Cholecalciferol (Vitamin D3) [Vitamin D3] 1,000 unit PO DAILY 11/08/17 [History] Clotrimazole [Clotrimazole 1%] 1 applic TOP BID 11/08/17 [History] Fluticasone Propionate [Flonase Allergy Relief] 15.8 ml NS DAILY 11/08/17 [ History] Insulin Glarg,Human.Rec.Analog [Lantus Solostar] 45 unit SUBCUT DAILY 11/08/17 [ History] Melatonin/Pyridoxine HCl (B6) [Melatonin 3 mg Tablet] 9 mg PO BEDTIME 11/08/17 [ History] [place]-3 Fatty Acids [[place]-3] 1 gm PO DAILY 11/08/17 [History] Prazosin HCl [Prazosin] 1 mg PO BEDTIME 11/08/17 [History] Triamcinolone Acetonide [Triamcinolone Acetonide 0.1% Crm] 80 gm .XX BID [History] glipiZIDE [Glucotrol XL] 10 mg PO BID 11/08/17 [History] Metoprolol Tartrate [Lopressor] 50 mg PO BID #60 tablet 11/09/17 [Rx] Diltiazem [Diltiazem XR] 240 mg PO BID 02/11/18 [History] Past Medical History Cardiovascular History: Reports: Afib, CAD, High Cholesterol, Hypertension, [place], Stents Other Cardiovascular History: [place] 1999 with 1 stent placement Respiratory History: Reports: Bronchitis, Recurrent, Sleep Apnea Other Respiratory History: smoker for 51 yrs, has a c-pap Gastrointestinal History: Reports: Chronic Constipation, GERD Genitourinary History: Reports: Diabetic Nephropathy Musculoskeletal History: Reports: Osteoarthritis Neurological History: Reports: Neuropathy, Diabetic Endocrine/Metabolic History: Reports: Diabetes, Type II Oncologic (Cancer) History: Reports: Colon Other Oncologic History: with surgery, chemo and radiation Stage 111 - Infectious Disease History Infectious Disease History: Reports: Chicken Pox, Measles, Mumps, Rheumatic Fever - Past Surgical History Respiratory Surgical History: Reports: None GI Surgical History: Reports: Colon Male Surgical History: Reports: Circumcision Musculoskeletal Surgical History: Reports: Arthroscopic Knee, Shoulder Surgery Other Musculoskeletal Surgeries/Procedures:: Repaired acl. [place]. Placed bone marrow in hip. Social & Family History - Family History Family Medical History: Noncontributory Cardiac: Reports: Afib, AICD, Angina, Bypass, CAD, Heart Failure, High Cholesterol, Hypertension, [place] Respiratory: Reports: Asthma, COPD GI: Reports: Cholelithiasis : Reports: Dialysis, Renal Disease/Insufficiency Musculoskeletal: Reports: Arthritis, Back pain, Chronic Neurological: Reports: CVA, Neuropathy, Diabetic Psychiatric: Reports: Anxiety, Depression Endocrine/Metabolic: Reports: Diabetes, type II - Tobacco Use Smoking Status *Q: Current Every Day Smoker Years of Tobacco use: 45 Packs/Tins Daily: 0.1 - Caffeine Use Caffeine Use: Reports: Coffee Other Caffeine Use: 4 pots a day - Recreational Drug Use Recreational Drug Use: No - Living Situation & Occupation Living situation: Reports: with Family Occupation: Unemployed ED ROS GENERAL - Review of Systems Review Of Systems: ROS reveals no pertinent complaints other than HPI. ED EXAM,LOWER BACK PAIN/INJURY - Physical Exam Exam: See Below Exam Limited By: No Limitations General Appearance: Alert, WD/WN, Moderate Distress Eye Exam: Bilateral Eye: EOMI, Normal Inspection, PERRL Ears: Normal External Exam, Normal Canal, Hearing Grossly Normal, Normal TMs Nose: Normal Inspection, Normal Mucosa, No Blood Throat/Mouth: Normal Inspection, Normal Lips, Normal Teeth, Normal Gums, Normal Oropharynx, Normal Voice, No Airway Compromise Head: Atraumatic Neck: Normal Inspection, Supple, Non-Tender, Full Range of Motion Respiratory/Chest: No Respiratory Distress, Lungs Clear, Normal Breath Sounds, No Accessory Muscle Use, Chest Non-Tender Cardiovascular: Normal Peripheral Pulses, Regular Rate, Rhythm, No Edema, No Gallop, No JVD, No Murmur, No Rub GI/Abdominal: Normal Bowel Sounds, Soft, Non-Tender, No Organomegaly, No Distention, No Abnormal Bruit, No Mass (Male) Exam: Deferred Rectal (Males) Exam: Deferred Back Exam: Muscle Spasm, Paraspinal Tenderness, Vertebral Tenderness (lower bakc ) Extremities: Normal Inspection, Normal Range of Motion, Non-Tender, No Pedal Edema, Normal Capillary Refill Neurological: Alert, Normal Mood/Affect, Normal Dorsiflexion, CN II-XII Intact, Normal Plantar Flexion, Normal Gait, Normal Reflexes, No Motor/Sensory Deficits , Oriented x 3 Psychiatric: Normal Affect, Normal Mood Skin Exam: Warm, Dry, Intact, Normal Color, No Rash Lymphatic: No Adenopathy Course - Vital Signs Last Recorded V/S: Last Vital Signs Temp 35.8 C 10/10/18 19:28 Pulse 76 10/10/18 19:28 Resp 16 10/10/18 19:28 BP 133/65 10/10/18 19:28 Pulse Ox 98 10/10/18 19:28 Departure - Departure Time of Disposition: 20:34 Disposition: Home, Self-Care 01 Condition: Fair Clinical Impression: Acute exacerbation of chronic low back pain Back contusion Qualifiers: Encounter type: initial encounter Laterality: unspecified laterality Qualified Code(s): S20.229A - Contusion of unspecified back wall of thorax, initial encounter - Discharge Information *PRESCRIPTION DRUG MONITORING PROGRAM REVIEWED*: Not Applicable *COPY OF PRESCRIPTION DRUG MONITORING REPORT IN PATIENT RERE: Not Applicable Instructions: Contusion, [id number], Pain Medicine Instructions, [id number] Forms: ED Department Discharge Care Plan Goals: The patient was advised of the examination and x-ray results during the visit. The patient was discharged with Z[place]ki (325) #2 to take 1 by mouth every 6 hours as needed for pain and a script for [place]ki (325) #8 to take 1 by mouth every 6 hours as needed for pain. If the patient has any additional symptoms or concerns, the patient should either visit his primary care facility or return to the emergency department.
[2018-10-10] MEDS ORDERED: Acetaminophen/HYDROcodone 325-10 MG Tab ONE (20:41)
== END 2018-10-10 20:50 | disposition home or self-care (01) ==
LOC: DL.ED 19:16
DX: S20.229A Contusion of unspecified back wall of thorax, initial encounter (principal); G89.29 Other chronic pain; M54.5 Low back pain; I10 Essential (primary) hypertension; I25.2 Old myocardial infarction; E11.40 Type 2 diabetes mellitus with diabetic neuropathy, unspecified; E11.21 Type 2 diabetes mellitus with diabetic nephropathy; F17.210 Nicotine dependence, cigarettes, uncomplicated; Z91.018 Allergy to other foods; Z88.0 Allergy status to penicillin; Z88.5 Allergy status to narcotic agent; Z91.041 Radiographic dye allergy status; Z79.899 Other long term (current) drug therapy; W01.0XXA Fall on same level from slipping, tripping and stumbling without subsequent striking against object, initial encounter
CPT/HCPCS: 72100; 99283; A9270-GY

== ENCOUNTER 2018-10-21 23:43 | Emergency (ER) | payer OTHER, MEDICAID ==
[2018-10-21] MEDS ORDERED: Acetaminophen/HYDROcodone 325-10 MG Tab PO ONE (23:44)
[2018-10-21 23:51] VITALS: BP 143/78
[2018-10-21] MEDS ORDERED: Sodium Chloride 0.9% 1,000 ML IV ONE (23:51)
[2018-10-21] MEDS ORDERED: Diltiazem 25 MG/5 ML SDV IVPUSH ONE (23:51)
--- NOTE | 2018-10-21 23:54 | EDM.PDOC ---
ED HPI GENERAL MEDICAL PROBLEM - General Chief Complaint: Cardiovascular Problem Stated Complaint: HEART RACING [id number] Time Seen by Provider: 10/21/18 23:48 Source of Information: Reports: Patient History Limitations: Reports: No Limitations - History of Present Illness INITIAL COMMENTS - FREE TEXT/NARRATIVE: was lying in bed and felt heart racing and now also has sharp chest pain in middle chest. Mid-Sternal Chest Pain Score (Numeric/FACES): 8 - Related Data Allergies Allergy/AdvReac Type Severity Reaction Status Date / Time chicken derived Allergy Hives Verified 10/21/18 23:47 codeine Allergy Hives Verified 10/21/18 23:47 Penicillins Allergy Hives Verified 10/21/18 23:47 tramadol Allergy Hives Verified 10/21/18 23:47 Contrast media Allergy Hives Uncoded 10/21/18 23:47 Home Meds: Home Meds Aspirin 81 mg PO BRK 11/09/15 [History] Calcium Citrate/Vitamin D3 [[place] Calcium-Vit D 200-250] 1 each PO DAILY [History] Docusate Sodium [Colace] 100 mg PO BID 11/09/15 [History] Gabapentin [Neurontin] 900 mg PO BID 11/09/15 [History] Hydrochlorothiazide 25 mg PO DAILY 11/09/15 [History] Lisinopril 20 mg PO DAILY 11/09/15 [History] Omeprazole 20 mg PO ACBREAKFAST 11/09/15 [History] atorvaSTATin [Lipitor] 20 mg PO BEDTIME 11/09/15 [History] metFORMIN [Glucophage XR] 1,000 mg PO BIDMEALS 11/09/15 [History] Apixaban [Eliquis] 5 mg PO DAILY 11/08/17 [History] Cholecalciferol (Vitamin D3) [Vitamin D3] 1,000 unit PO DAILY 11/08/17 [History] Clotrimazole [Clotrimazole 1%] 1 applic TOP BID 11/08/17 [History] Fluticasone Propionate [Flonase Allergy Relief] 15.8 ml NS DAILY 11/08/17 [ History] Insulin Glarg,Human.Rec.Analog [Lantus Solostar] 45 unit SUBCUT DAILY 11/08/17 [ History] Melatonin/Pyridoxine HCl (B6) [Melatonin 3 mg Tablet] 9 mg PO BEDTIME 11/08/17 [ History] [place]-3 Fatty Acids [[place]-3] 1 gm PO DAILY 11/08/17 [History] Prazosin HCl [Prazosin] 1 mg PO BEDTIME 11/08/17 [History] Triamcinolone Acetonide [Triamcinolone Acetonide 0.1% Crm] 80 gm .XX BID [History] glipiZIDE [Glucotrol XL] 10 mg PO BID 11/08/17 [History] Metoprolol Tartrate [Lopressor] 50 mg PO BID #60 tablet 11/09/17 [Rx] Diltiazem [Diltiazem XR] 240 mg PO BID 02/11/18 [History] Past Medical History Cardiovascular History: Reports: Afib, CAD, High Cholesterol, Hypertension, [place], Stents Other Cardiovascular History: [place] 1999 with 1 stent placement Respiratory History: Reports: Bronchitis, Recurrent, Sleep Apnea Other Respiratory History: smoker for 51 yrs, has a c-pap Gastrointestinal History: Reports: Chronic Constipation, GERD Genitourinary History: Reports: Diabetic Nephropathy Musculoskeletal History: Reports: Osteoarthritis Neurological History: Reports: Neuropathy, Diabetic Endocrine/Metabolic History: Reports: Diabetes, Type II Oncologic (Cancer) History: Reports: Colon Other Oncologic History: with surgery, chemo and radiation Stage 111 - Infectious Disease History Infectious Disease History: Reports: Chicken Pox, Measles, Mumps, Rheumatic Fever - Past Surgical History Respiratory Surgical History: Reports: None GI Surgical History: Reports: Colon Male Surgical History: Reports: Circumcision Musculoskeletal Surgical History: Reports: Arthroscopic Knee, Shoulder Surgery Other Musculoskeletal Surgeries/Procedures:: Repaired acl. [place]. Placed bone marrow in hip. Social & Family History - Family History Family Medical History: Noncontributory Cardiac: Reports: Afib, AICD, Angina, Bypass, CAD, Heart Failure, High Cholesterol, Hypertension, [place] Respiratory: Reports: Asthma, COPD GI: Reports: Cholelithiasis : Reports: Dialysis, Renal Disease/Insufficiency Musculoskeletal: Reports: Arthritis, Back pain, Chronic Neurological: Reports: CVA, Neuropathy, Diabetic Psychiatric: Reports: Anxiety, Depression Endocrine/Metabolic: Reports: Diabetes, type II - Caffeine Use Caffeine Use: Reports: Coffee Other Caffeine Use: 4 pots a day - Living Situation & Occupation Living situation: Reports: with Family Occupation: Unemployed ED ROS GENERAL - Review of Systems Review Of Systems: ROS reveals no pertinent complaints other than HPI. ED EXAM, GENERAL - Physical Exam Exam: See Below Exam Limited By: No Limitations General Appearance: Alert, WD/WN, Anxious, Mild Distress Ears: Hearing Grossly Normal Throat/Mouth: Normal Voice, No Airway Compromise Head: Atraumatic Neck: Non-Tender, Full Range of Motion Respiratory/Chest: No Respiratory Distress, Rhonchi Cardiovascular: Irregularly Irregular GI/Abdominal: Soft, Non-Tender Neurological: Alert, Oriented, Normal Cognition, Normal Gait, No Motor/Sensory Deficits Psychiatric: Flat Affect Skin Exam: Warm, Dry, Normal Color Course - Vital Signs Last Recorded V/S: Last Vital Signs Temp 36.4 C 10/21/18 23:49 Pulse 132 H 10/21/18 23:49 Resp 23 H 10/21/18 23:49 BP 143/78 H 10/21/18 23:49 Pulse Ox 97 10/21/18 23:49 - Orders/Labs/Meds Orders: Active Orders 24 hr Category Date Time Status EKG 12 Lead [EKG Documentation Completion] [RC] STAT Care 10/21/18 23:50 Active Sodium Chloride 0.9% [Normal Saline] 1,000 ml Med 10/21/18 23:51 Active IV .BOLUS Medication Orders Sodium Chloride (Normal Saline) 1,000 mls @ 999 mls/hr IV .BOLUS ONE Stop: 10/22/18 00:51 Last Admin: 10/21/18 23:56 Dose: 999 mls/hr Labs: Laboratory Tests 10/21/18 10/21/18 10/21/18 Range/Units 23:51 23:51 23:51 WBC 7.2 (5.0-10.0) 10^3/uL RBC 5.38 (4.6-6.2) 10^6/uL Hgb 15.4 (14.0-18.0) g/dL Hct 45.7 (40.0-54.0) % MCV 84.9 (80-100) fL MCH 28.6 (27.0-34.0) pg MCHC 33.7 (33.0-35.0) g/dL Plt Count 264 (150-450) 10^3/uL Neut % (Auto) 50.6 (42.2-75.2) % Lymph % (Auto) 38.2 (20.5-50.1) % [place] % (Auto) 9.2 H (2-8) % Eos % (Auto) 1.9 (1.0-3.0) % Baso % (Auto) 0.1 (0.0-1.0) % Sodium 135 (135-145) mmol/L Potassium 3.8 (3.6-5.0) mmol/L Chloride 98 L (101-111) mmol/L Carbon Dioxide 26.0 (21.0-31.0) mmol/L Anion Gap 14.8 BUN 10 (7-18) mg/dL Creatinine 0.9 (0.6-1.3) mg/dL Est Cr Clr Drug Dosing 93.41 mL/min Estimated GFR (MDRD) > 60 BUN/Creatinine Ratio 11.11 Glucose 145 H (74-105) mg/dL Lactic Acid 1.2 (0.5-2.2) mmol/L Calcium 9.0 (8.4-10.2) mg/dl Total Bilirubin 0.7 (0.2-1.0) mg/dL AST 21 (10-42) IU/L ALT 20 (10-60) IU/L Alkaline Phosphatase 125 H (42-121) IU/L Troponin I < 0.02 (0.00-0.02) ng/ml Total Protein 7.7 (6.7-8.2) g/dl Albumin 4.0 (3.2-5.5) g/dl Globulin 3.7 Albumin/Globulin Ratio 1.08 Ethyl Alcohol < 5 mg/dL Meds: Medications Generic Name Dose Route Start Last Admin Trade Name Freq PRN Reason Stop Dose Admin Sodium Chloride 1,000 mls @ 999 mls/hr 10/21/18 23:51 10/21/18 23:56 Normal Saline IV 10/22/18 00:51 999 mls/hr .BOLUS ONE Administration Discontinued Medications Generic Name Dose Route Start Last Admin Trade Name Freq PRN Reason Stop Dose Admin Diltiazem HCl 25 mg 10/21/18 23:51 10/21/18 23:56 Diltiazem IVPUSH 10/21/18 23:52 25 mg ONETIME ONE Administration - Re-Assessments/Exams Free Text/Narrative Re-Assessment/Exam: 10/22/18 00:43 results discussed with pt who states feels much better now and palpitation gone. states it's those nerves in his neck that's doing this by causing a lot of pain. takes muscle relaxants but make jodie groggy alot. so he doesn't use them as much but the Rx given to him last time I saw him helped a lot and he will even let the PD give him a ride home. states he needs to be home so he can drive his girlfriend to her appt in AM. Departure - Departure Time of Disposition: 00:47 Disposition: Home, Self-Care 01 Condition: Fair Clinical Impression: Cervical radiculitis, Palpitations Forms: ED Department Discharge Additional Instructions: 1) rest 2) try ice or heat to sore area 3) recheck if there is any change or concern - My Orders Last 24 Hours: My Active Orders 10/21/18 23:50 EKG 12 Lead [EKG Documentation Completion] [RC] STAT 10/21/18 23:51 Sodium Chloride 0.9% [Normal Saline] 1,000 ml IV .BOLUS - Assessment/Plan Last 24 Hours: My Active Orders 10/21/18 23:50 EKG 12 Lead [EKG Documentation Completion] [RC] STAT 10/21/18 23:51 Sodium Chloride 0.9% [Normal Saline] 1,000 ml IV .BOLUS
[2018-10-22 00:17] LABS: ANION GAP 14.8; CHLORIDE,CL 98 mmol/L (101-111); SODIUM,NA 135 mmol/L (135-145)
[2018-10-22] MEDS ORDERED: Acetaminophen/HYDROcodone 325-10 MG Tab ONE (00:50)
== END 2018-10-22 01:02 | disposition home or self-care (01) ==
LOC: DL.ED 23:43
DX: M54.12 Radiculopathy, cervical region (principal); Z79.82 Long term (current) use of aspirin; Z79.899 Other long term (current) drug therapy; Z88.5 Allergy status to narcotic agent; Z91.018 Allergy to other foods; Z88.0 Allergy status to penicillin; Z91.041 Radiographic dye allergy status
CPT/HCPCS: 36415; 71045; 80053; 83605; 84484; 85025; 93005; 96361; 96374; 99285; A9270; G0480; J3490; J7030

== ENCOUNTER 2018-11-30 20:07 | Emergency (ER) | payer OTHER, MEDICAID ==
[2018-11-30 20:22] VITALS: BP 150/78
[2018-11-30] MEDS ORDERED: Acetaminophen/HYDROcodone 325-10 MG Tab PO ONE (20:53)
--- NOTE | 2018-11-30 21:19 | EDM.PDOC ---
ED HPI GENERAL MEDICAL PROBLEM - General Chief Complaint: Lower Extremity Injury/Pain Stated Complaint: FEELS LIKE A SCREW COMING LOOSE IN FOOT Time Seen by Provider: 11/30/18 20:15 - History of Present Illness INITIAL COMMENTS - FREE TEXT/NARRATIVE: C/o pain to left forefoot 1st and 2nd metatarsal, states getting out of bed and stepped on shoe bending toes upward, Recent bunion and ORIF from remote fracture done on 11/04/18. Has had some swelling of foot but greater tonight. Left Foot Pain Score (Numeric/FACES): 9 - Related Data Allergies Allergy/AdvReac Type Severity Reaction Status Date / Time chicken derived Allergy Hives Verified 11/30/18 20:23 codeine Allergy Hives Verified 11/30/18 20:23 Penicillins Allergy Hives Verified 11/30/18 20:23 tramadol Allergy Hives Verified 11/30/18 20:23 Contrast media Allergy Hives Uncoded 11/30/18 20:23 Home Meds: Home Meds Aspirin 81 mg PO BRK 11/09/15 [History] Calcium Citrate/Vitamin D3 [[place] Calcium-Vit D 200-250] 1 each PO DAILY [History] Docusate Sodium [Colace] 100 mg PO BID 11/09/15 [History] Gabapentin [Neurontin] 900 mg PO BID 11/09/15 [History] Hydrochlorothiazide 25 mg PO DAILY 11/09/15 [History] Lisinopril 20 mg PO DAILY 11/09/15 [History] Omeprazole 20 mg PO ACBREAKFAST 11/09/15 [History] atorvaSTATin [Lipitor] 20 mg PO BEDTIME 11/09/15 [History] metFORMIN [Glucophage XR] 1,000 mg PO BIDMEALS 11/09/15 [History] Apixaban [Eliquis] 5 mg PO DAILY 11/08/17 [History] Cholecalciferol (Vitamin D3) [Vitamin D3] 1,000 unit PO DAILY 11/08/17 [History] Clotrimazole [Clotrimazole 1%] 1 applic TOP BID 11/08/17 [History] Fluticasone Propionate [Flonase Allergy Relief] 15.8 ml NS DAILY 11/08/17 [ History] Insulin Glarg,Human.Rec.Analog [Lantus Solostar] 45 unit SUBCUT DAILY 11/08/17 [ History] Melatonin/Pyridoxine HCl (B6) [Melatonin 3 mg Tablet] 9 mg PO BEDTIME 11/08/17 [ History] [place]-3 Fatty Acids [[place]-3] 1 gm PO DAILY 11/08/17 [History] Prazosin HCl [Prazosin] 1 mg PO BEDTIME 11/08/17 [History] Triamcinolone Acetonide [Triamcinolone Acetonide 0.1% Crm] 80 gm .XX BID [History] glipiZIDE [Glucotrol XL] 10 mg PO BID 11/08/17 [History] Metoprolol Tartrate [Lopressor] 50 mg PO BID #60 tablet 11/09/17 [Rx] Diltiazem [Diltiazem XR] 240 mg PO BID 02/11/18 [History] Past Medical History Cardiovascular History: Reports: Afib, CAD, High Cholesterol, Hypertension, [place], Stents Other Cardiovascular History: [place] 1999 with 1 stent placement Respiratory History: Reports: Bronchitis, Recurrent, Sleep Apnea Other Respiratory History: smoker for 51 yrs, has a c-pap Gastrointestinal History: Reports: Chronic Constipation, GERD Genitourinary History: Reports: Diabetic Nephropathy Musculoskeletal History: Reports: Osteoarthritis Neurological History: Reports: Neuropathy, Diabetic Endocrine/Metabolic History: Reports: Diabetes, Type II Oncologic (Cancer) History: Reports: Colon Other Oncologic History: with surgery, chemo and radiation Stage 111 - Infectious Disease History Infectious Disease History: Reports: Chicken Pox, Measles, Mumps, Rheumatic Fever - Past Surgical History HEENT Surgical History: Reports: Naso-Sinus Surgery Respiratory Surgical History: Reports: None GI Surgical History: Reports: Colon Male Surgical History: Reports: Circumcision Musculoskeletal Surgical History: Reports: Arthroscopic Knee, Shoulder Surgery, Other (See Below) Other Musculoskeletal Surgeries/Procedures:: Repaired acl. [place]. Placed bone marrow in hip., rt foot surgery with screw placement 11/03/18. Foot surg. Social & Family History - Family History Family Medical History: Noncontributory Cardiac: Reports: Afib, AICD, Angina, Bypass, CAD, Heart Failure, High Cholesterol, Hypertension, [place] Respiratory: Reports: Asthma, COPD GI: Reports: Cholelithiasis : Reports: Dialysis, Renal Disease/Insufficiency Musculoskeletal: Reports: Arthritis, Back pain, Chronic Neurological: Reports: CVA, Neuropathy, Diabetic Psychiatric: Reports: Anxiety, Depression Endocrine/Metabolic: Reports: Diabetes, type II - Tobacco Use Smoking Status *Q: Current Every Day Smoker Years of Tobacco use: 50 Packs/Tins Daily: 0.5 - Caffeine Use Caffeine Use: Reports: Coffee Other Caffeine Use: 4 pots a day - Recreational Drug Use Recreational Drug Use: No - Living Situation & Occupation Living situation: Reports: with Family Occupation: Unemployed Review of Systems - Review of Systems Review Of Systems: ROS reveals no pertinent complaints other than HPI. ED EXAM, GENERAL - Physical Exam Exam: See Below Exam Limited By: No Limitations General Appearance: Alert, Mild Distress Eye Exam: Bilateral Eye: EOMI Ears: Normal External Exam Nose: Normal Inspection Throat/Mouth: Normal Inspection Head: Atraumatic, Normocephalic Neck: Normal Inspection, Full Range of Motion Respiratory/Chest: No Respiratory Distress, Normal Breath Sounds Cardiovascular: Normal Peripheral Pulses, Regular Rate, Rhythm Back Exam: Full Range of Motion Extremities: Other (left foot swollen tender 1st and 2nd metatarsal, healed vertical surgical scar 1st metatarsal, 2nd toe horizontal incision, partial healing red lateral, no drainage. forefoot tender with palpation) Neurological: Alert, Oriented, Normal Cognition Psychiatric: Normal Affect, Normal Mood Skin Exam: Warm, Dry, Intact, Ecchymosis Course - Vital Signs Last Recorded V/S: Last Vital Signs Temp 95.6 F 11/30/18 20:10 Pulse 70 11/30/18 20:10 Resp 14 11/30/18 20:10 BP 150/78 H 11/30/18 20:10 Pulse Ox 96 11/30/18 20:10 - Orders/Labs/Meds Orders: Active Orders 24 hr Category Date Time Status Foot Comp Min 3V Lt [CR] Urgent Exams 11/30/18 20:33 Ordered Meds: Medications Discontinued Medications Generic Name Dose Route Start Last Admin Trade Name Freq PRN Reason Stop Dose Admin Hydrocodone Bitart/Acetaminophen 1 tab 11/30/18 20:53 11/30/18 21:00 [place] 325-10 Mg PO 11/30/18 20:54 1 tab ONETIME ONE Administration - Radiology Interpretation Free Text/Narrative:: [facility] Radiology Report Call: [phone] assistance Online chat: [email or web address] Name: MADDIE DUPONT Age: 63Years M Date: 11/30/2018 SSN: -- : 1955 Study: XR FOOT COMPLETE MIN 3 VIEWS Requesting Physician: ZEHRA NEAL Images: 3 Addl Studies: Provided Clinical History: Contrast: Contrast Medium: Contrast Amount: Contrast Method: CONFIDENTIALITY STATEMENT This report is intended only for use by the referring physician, and only in accordance with law. If you received this in error, call [phone]. Page 1 of 1 EXAM: XR Left Foot Complete, 3 or more Views EXAM DATE/TIME: 11/30/2018 8:44 PM CLINICAL HISTORY: 63 years old, male; Injury or trauma; Injury history: Stepped on shoe and turned toes up; Initial encounter; Blunt trauma; Foot and toes; Left; Left and left lesser toe(s); Prior surgery; Surgery date: <1 month; Surgery type: [place] TECHNIQUE: XR Left foot 3 or more views. COMPARISON: No relevant prior studies available. FINDINGS: Bones/joints: Orthopedic screws in the head of the second metatarsal bone, proximal first phalanx and mid and distal first metatarsal bone. Acute fracture in the proximal first metatarsal bone. Status post bunionectomy. Suspect resection of the distal aspect of the second proximal phalanx. Soft tissues: Edematous. IMPRESSION: Acute fracture in the proximal first metatarsal bone. Thank you for allowing us to participate in the care of your patient. Dictated and Authenticated by: Alonso Guzman MD - Re-Assessments/Exams Free Text/Narrative Re-Assessment/Exam: 11/30/18 21:27 Patient has cam boot at home and states will put on in am, Recent surgery done at [facility]. CD copy of xrays sent with patient to take to NH tomorrow Departure - Departure Time of Disposition: 21:14 Disposition: Home, Self-Care 01 Condition: Good Clinical Impression: Metatarsal bone fracture - Discharge Information *PRESCRIPTION DRUG MONITORING PROGRAM REVIEWED*: Yes *COPY OF PRESCRIPTION DRUG MONITORING REPORT IN PATIENT RERE: No Instructions: Metatarsal Fracture Forms: ED Department Discharge Additional Instructions: Cam Boot Weel weight bearing for balance only follow up with foot surgeon in morning 12/01/18 Use walker hydrocodone 1pap 5/325 one every 6 hours as needed for severe pain #10 Acetaminophen 650mg every 6 hours as needed for moderate pain elevate/ rest extremity
[2018-11-30] MEDS ORDERED: Acetaminophen/oxyCODONE 325-5 MG Tab ONE (21:21)
== END 2018-11-30 21:28 | disposition home or self-care (01) ==
LOC: DL.ED 20:07
DX: S92.312A Displaced fracture of first metatarsal bone, left foot, initial encounter for closed fracture (principal); I48.91 Unspecified atrial fibrillation; I25.10 Atherosclerotic heart disease of native coronary artery without angina pectoris; E78.00 Pure hypercholesterolemia, unspecified; I10 Essential (primary) hypertension; E11.21 Type 2 diabetes mellitus with diabetic nephropathy; F17.210 Nicotine dependence, cigarettes, uncomplicated; I25.2 Old myocardial infarction; Z88.0 Allergy status to penicillin; Z88.5 Allergy status to narcotic agent; Z79.899 Other long term (current) drug therapy; Z79.82 Long term (current) use of aspirin; Z79.4 Long term (current) use of insulin; Z96.698 Presence of other orthopedic joint implants; W22.8XXA Striking against or struck by other objects, initial encounter
CPT/HCPCS: 73630-LT; 99283-25; A9270-GY

== ENCOUNTER 2018-12-12 22:20 | Emergency (ER) | payer MEDICAID, OTHER ==
[2018-12-12] MEDS ORDERED: Diltiazem 25 MG/5 ML SDV IVPUSH ONE (22:28)
--- NOTE | 2018-12-12 22:56 | EDM.PDOC ---
ED HPI GENERAL MEDICAL PROBLEM - General Chief Complaint: Trauma Stated Complaint: TRIPPED HIT BACK OF NECK, HEART RACING Time Seen by Provider: 12/12/18 22:25 Source of Information: Reports: Patient History Limitations: Reports: No Limitations - History of Present Illness INITIAL COMMENTS - FREE TEXT/NARRATIVE: HPI: This 63 yo male patient reports to the ED due to a ground level fall. The patient reports he was getting some coffee when he backed up, tripped on his shoes and fell. The patient reports he hit the back of his head during the fall. The patient reports increased pain at the base of his skull with some associated pain to his neck. The patient reports some increased pain going down the right side of his neck. The patient denies any loss of consciousness before , during or after the fall. The patient reports after he got up from the fall, he noticed that his heart was racing. Primary Survey Airway: open and patient Breathing: regular without additional effort Circulation: tachycardia, no major bleeding noted Deformity: no deformity noted Expose: as appropriate GCS: 15 Secondary Survey HEENT Head: Pain to the base of posterior skull. No deformity noted Eyes: PERRLA Ears: no obvious trauma, canals open Nose: no deformity, no bleeding, mucosa moist Mouth: no noted trauma Throat: no abnormalities noted Neck: C-collar was applied by nursing staff (not removed at time of secondary survey). After removal of C-collar, the patient continued to have tenderness to the posterior cervical spine. The patient reports some stiffness with range of motion. Chest: lung sounds were clear and equal bilaterally, Heart was tachycardia ( irregularly irregular) Abdomen: normoactive bowel sounds, no organomegally, no tenderness on palpation Pelvis: stable Extremities: CMS intact Provider Trauma Notes Arrival Time: 2224 GCS on Arrival: 15 C-collar present on arrival: No (c-collar placed by nursing staff upon arrival) GCS at 1 hour: Off spine board: NA Time primary survey: 2229 Time secondary survey: 2241 Time C-collar cleared: 2303 By: Laith Sky DO ([place]) Time removed: 2303 GCS on discharge: 15 Onset: Today Duration: Minutes: Location: Reports: Head, Neck Quality: Reports: Ache, Dull Severity: Moderate Improves with: Reports: None Worsens with: Reports: None Context: Reports: Trauma Associated Symptoms: Reports: No Other Symptoms - Related Data Allergies Allergy/AdvReac Type Severity Reaction Status Date / Time chicken derived Allergy Hives Verified 12/12/18 23:18 codeine Allergy Hives Verified 12/12/18 23:18 Penicillins Allergy Hives Verified 12/12/18 23:18 tramadol Allergy Hives Verified 12/12/18 23:18 Contrast media Allergy Hives Uncoded 12/12/18 23:18 Home Meds: Home Meds Aspirin 81 mg PO BRK 11/09/15 [History] Calcium Citrate/Vitamin D3 [[place] Calcium-Vit D 200-250] 1 each PO DAILY [History] Docusate Sodium [Colace] 100 mg PO BID 11/09/15 [History] Gabapentin [Neurontin] 900 mg PO BID 11/09/15 [History] Hydrochlorothiazide 25 mg PO DAILY 11/09/15 [History] Lisinopril 20 mg PO DAILY 11/09/15 [History] Omeprazole 20 mg PO ACBREAKFAST 11/09/15 [History] atorvaSTATin [Lipitor] 20 mg PO BEDTIME 11/09/15 [History] metFORMIN [Glucophage XR] 1,000 mg PO BIDMEALS 11/09/15 [History] Apixaban [Eliquis] 5 mg PO DAILY 11/08/17 [History] Cholecalciferol (Vitamin D3) [Vitamin D3] 1,000 unit PO DAILY 11/08/17 [History] Fluticasone Propionate [Flonase Allergy Relief] 15.8 ml NS DAILY 11/08/17 [ History] Insulin Glarg,Human.Rec.Analog [Lantus Solostar] 45 unit SUBCUT DAILY 11/08/17 [ History] Melatonin/Pyridoxine HCl (B6) [Melatonin 3 mg Tablet] 9 mg PO BEDTIME 11/08/17 [ History] [place]-3 Fatty Acids [Mode-3] 1 gm PO DAILY 11/08/17 [History] Prazosin HCl [Prazosin] 1 mg PO BEDTIME 11/08/17 [History] Triamcinolone Acetonide [Triamcinolone Acetonide 0.1% Crm] 80 gm .XX BID [History] glipiZIDE [Glucotrol XL] 10 mg PO BID 11/08/17 [History] Metoprolol Tartrate [Lopressor] 50 mg PO BID #60 tablet 11/09/17 [Rx] Diltiazem [Diltiazem XR] 240 mg PO BID 02/11/18 [History] ALPRAZolam [Xanax] 1 mg PO DAILY 12/12/18 [History] Past Medical History Cardiovascular History: Reports: Afib, CAD, High Cholesterol, Hypertension, [place], Stents Other Cardiovascular History: [place] 1999 with 1 stent placement Respiratory History: Reports: Bronchitis, Recurrent, Sleep Apnea Other Respiratory History: smoker for 51 yrs, has a c-pap Gastrointestinal History: Reports: Chronic Constipation, GERD Genitourinary History: Reports: Diabetic Nephropathy Musculoskeletal History: Reports: Osteoarthritis Neurological History: Reports: Neuropathy, Diabetic Endocrine/Metabolic History: Reports: Diabetes, Type II Oncologic (Cancer) History: Reports: Colon Other Oncologic History: with surgery, chemo and radiation Stage 111 - Infectious Disease History Infectious Disease History: Reports: Chicken Pox, Measles, Mumps, Rheumatic Fever - Past Surgical History HEENT Surgical History: Reports: Naso-Sinus Surgery Respiratory Surgical History: Reports: None GI Surgical History: Reports: Colon Male Surgical History: Reports: Circumcision Musculoskeletal Surgical History: Reports: Arthroscopic Knee, Shoulder Surgery, Other (See Below) Other Musculoskeletal Surgeries/Procedures:: Repaired acl. [place]. Placed bone marrow in hip., rt foot surgery with screw placement 11/03/18. Foot surg. Social & Family History - Family History Family Medical History: Noncontributory Cardiac: Reports: Afib, AICD, Angina, Bypass, CAD, Heart Failure, High Cholesterol, Hypertension, [place] Respiratory: Reports: Asthma, COPD GI: Reports: Cholelithiasis : Reports: Dialysis, Renal Disease/Insufficiency Musculoskeletal: Reports: Arthritis, Back pain, Chronic Neurological: Reports: CVA, Neuropathy, Diabetic Psychiatric: Reports: Anxiety, Depression Endocrine/Metabolic: Reports: Diabetes, type II - Caffeine Use Caffeine Use: Reports: Coffee Other Caffeine Use: 4 pots a day - Living Situation & Occupation Living situation: Reports: with Family Occupation: Unemployed Review of Systems - Review of Systems Review Of Systems: ROS reveals no pertinent complaints other than HPI. ED EXAM, GENERAL - Physical Exam Exam: See Below Exam Limited By: No Limitations General Appearance: Alert, WD/WN, Mild Distress Eye Exam: Bilateral Eye: EOMI, Normal Inspection, PERRL Ears: Normal External Exam, Normal Canal, Hearing Grossly Normal, Normal TMs Nose: Normal Inspection, Normal Mucosa, No Blood Throat/Mouth: Normal Inspection, Normal Lips, Normal Teeth, Normal Gums, Normal Oropharynx, Normal Voice, No Airway Compromise Head: Atraumatic, Normocephalic Neck: Supple, Full Range of Motion, Tender Midline (from C3 to lower T spine) Respiratory/Chest: No Respiratory Distress, Lungs Clear, Normal Breath Sounds, No Accessory Muscle Use, Chest Non-Tender Cardiovascular: Tachycardia, Irregularly Irregular GI/Abdominal: Normal Bowel Sounds, Soft, Non-Tender, No Organomegaly, No Distention, No Abnormal Bruit, No Mass (Male) Exam: Deferred Rectal (Males) Exam: Deferred Back Exam: Normal Inspection, Full Range of Motion, NT Extremities: Normal Inspection, Normal Range of Motion, Non-Tender, Normal Capillary Refill, No Pedal Edema Neurological: Alert, Oriented, CN II-XII Intact, Normal Cognition, Normal Gait, Normal Reflexes, No Motor/Sensory Deficits Psychiatric: Normal Affect, Normal Mood Skin Exam: Warm, Dry, Intact, Normal Color, No Rash Lymphatic: No Adenopathy Course - Orders/Labs/Meds Orders: Active Orders 24 hr Category Date Time Status EKG Documentation Completion [RC] URGENT Care 12/12/18 22:24 Active Labs: Laboratory Tests 12/12/18 12/12/18 Range/Units 22:30 22:30 WBC 7.8 (5.0-10.0) 10^3/uL RBC 5.29 (4.6-6.2) 10^6/uL Hgb 15.3 (14.0-18.0) g/dL Hct 45.0 (40.0-54.0) % MCV 85.1 (80-100) fL MCH 28.9 (27.0-34.0) pg MCHC 34.0 (33.0-35.0) g/dL Plt Count 268 (150-450) 10^3/uL Neut % (Auto) 60.5 (42.2-75.2) % Lymph % (Auto) 28.8 (20.5-50.1) % [place] % (Auto) 7.7 (2-8) % Eos % (Auto) 2.7 (1.0-3.0) % Baso % (Auto) 0.3 (0.0-1.0) % Sodium 136 (135-145) mmol/L Potassium 4.0 (3.6-5.0) mmol/L Chloride 101 (101-111) mmol/L Carbon Dioxide 24.0 (21.0-31.0) mmol/L Anion Gap 15.0 BUN 19 H (7-18) mg/dL Creatinine 1.0 (0.6-1.3) mg/dL Est Cr Clr Drug Dosing TNP Estimated GFR (MDRD) > 60 BUN/Creatinine Ratio 19.00 Glucose 345 H (74-105) mg/dL Calcium 8.6 (8.4-10.2) mg/dl Total Bilirubin 0.6 (0.2-1.0) mg/dL AST 27 (10-42) IU/L ALT 25 (10-60) IU/L Alkaline Phosphatase 159 H (42-121) IU/L Troponin I < 0.02 (0.00-0.02) ng/ml Total Protein 7.0 (6.7-8.2) g/dl Albumin 3.7 (3.2-5.5) g/dl Globulin 3.3 Albumin/Globulin Ratio 1.12 Meds: Medications Discontinued Medications Generic Name Dose Route Start Last Admin Trade Name Freq PRN Reason Stop Dose Admin Diltiazem HCl 25 mg 12/12/18 22:28 Diltiazem IVPUSH 12/12/18 22:29 ONETIME ONE Diltiazem HCl 240 mg 12/12/18 23:08 Cardizem Cd PO 12/12/18 23:09 ONETIME ONE Ketorolac Tromethamine 30 mg 12/12/18 23:15 Toradol IVPUSH 12/12/18 23:16 ONETIME ONE Departure - Departure Time of Disposition: 23:33 Disposition: Home, Self-Care 01 Condition: Fair Clinical Impression: Fall from ground level, Atrial fibrillation with RVR Neck strain Qualifiers: Encounter type: initial encounter Qualified Code(s): S16.1XXA - Strain of muscle, fascia and tendon at neck level, initial encounter - Discharge Information *PRESCRIPTION DRUG MONITORING PROGRAM REVIEWED*: Not Applicable *COPY OF PRESCRIPTION DRUG MONITORING REPORT IN PATIENT RERE: Not Applicable Instructions: Cervical Sprain, [id number], Muscle Strain, [id number], Atrial Fibrillation, [id number] Forms: ED Department Discharge Care Plan Goals: The patient was advised of the examination, lab results and CT results during the visit. The patient was given an IV dose of Cardizem, an oral dose of Cardized and an IV dose of Toradol while in the ED. The patient was encouraged to continue with his current medications as prescribed (except for his Cardizem which was given while in the ED tonight). If the patient has any additional symptoms or concerns, the patient should either return to the emergency department or visit his primary care facility. - My Orders Last 24 Hours: My Active Orders 12/12/18 22:24 EKG Documentation Completion [RC] URGENT - Assessment/Plan Last 24 Hours: My Active Orders 12/12/18 22:24 EKG Documentation Completion [RC] URGENT
[2018-12-12 22:59] LABS: CHLORIDE,CL 101 mmol/L (101-111); SODIUM,NA 136 mmol/L (135-145)
[2018-12-12] MEDS ORDERED: Diltiazem 120 MG Cap.CD PO ONE (23:08)
[2018-12-12] MEDS ORDERED: Ketorolac 30 MG/ML SDV IVPUSH ONE (23:15)
== END 2018-12-12 23:39 | disposition home or self-care (01) ==
LOC: DL.ED 22:20
DX: S16.1XXA Strain of muscle, fascia and tendon at neck level, initial encounter (principal); I48.91 Unspecified atrial fibrillation; E11.9 Type 2 diabetes mellitus without complications; Z79.82 Long term (current) use of aspirin; Z79.899 Other long term (current) drug therapy; Z79.84 Long term (current) use of oral hypoglycemic drugs; W18.39XA Other fall on same level, initial encounter
CPT/HCPCS: 36415; 70450; 72125; 80053; 84484; 85025; 93005; 96374; 96375; 99285-25

== ENCOUNTER 2018-12-19 01:41 | Emergency (ER) | payer MEDICAID ==
[2018-12-19 01:49] VITALS: BP 175/80
[2018-12-19] MEDS ORDERED: Acetaminophen/HYDROcodone 325-10 MG Tab PO ONE (01:49)
--- NOTE | 2018-12-19 01:58 | EDM.PDOC ---
ED HPI GENERAL MEDICAL PROBLEM - General Chief Complaint: Lower Extremity Injury/Pain Stated Complaint: LEFT FOOT TWISTED Time Seen by Provider: 12/19/18 01:53 Source of Information: Reports: Patient History Limitations: Reports: No Limitations - History of Present Illness INITIAL COMMENTS - FREE TEXT/NARRATIVE: twisted [employer] Left Foot Pain Score (Numeric/FACES): 9 - Related Data Allergies Allergy/AdvReac Type Severity Reaction Status Date / Time chicken derived Allergy Hives Verified 12/19/18 01:49 codeine Allergy Hives Verified 12/19/18 01:49 Penicillins Allergy Hives Verified 12/19/18 01:49 tramadol Allergy Hives Verified 12/19/18 01:49 Contrast media Allergy Hives Uncoded 12/12/18 23:18 Home Meds: Home Meds Aspirin 81 mg PO BRK 11/09/15 [History] Calcium Citrate/Vitamin D3 [[place] Calcium-Vit D 200-250] 1 each PO DAILY [History] Docusate Sodium [Colace] 100 mg PO BID 11/09/15 [History] Gabapentin [Neurontin] 900 mg PO BID 11/09/15 [History] Hydrochlorothiazide 25 mg PO DAILY 11/09/15 [History] Lisinopril 20 mg PO DAILY 11/09/15 [History] Omeprazole 20 mg PO ACBREAKFAST 11/09/15 [History] atorvaSTATin [Lipitor] 20 mg PO BEDTIME 11/09/15 [History] metFORMIN [Glucophage XR] 1,000 mg PO BIDMEALS 11/09/15 [History] Apixaban [Eliquis] 5 mg PO DAILY 11/08/17 [History] Cholecalciferol (Vitamin D3) [Vitamin D3] 1,000 unit PO DAILY 11/08/17 [History] Fluticasone Propionate [Flonase Allergy Relief] 15.8 ml NS DAILY 11/08/17 [ History] Insulin Glarg,Human.Rec.Analog [Lantus Solostar] 45 unit SUBCUT DAILY 11/08/17 [ History] Melatonin/Pyridoxine HCl (B6) [Melatonin 3 mg Tablet] 9 mg PO BEDTIME 11/08/17 [ History] [place]-3 Fatty Acids [[place]-3] 1 gm PO DAILY 11/08/17 [History] Prazosin HCl [Prazosin] 1 mg PO BEDTIME 11/08/17 [History] Triamcinolone Acetonide [Triamcinolone Acetonide 0.1% Crm] 80 gm .XX BID [History] glipiZIDE [Glucotrol XL] 10 mg PO BID 11/08/17 [History] Metoprolol Tartrate [Lopressor] 50 mg PO BID #60 tablet 11/09/17 [Rx] Diltiazem [Diltiazem XR] 240 mg PO BID 02/11/18 [History] ALPRAZolam [Xanax] 1 mg PO DAILY 12/12/18 [History] Past Medical History Cardiovascular History: Reports: Afib, CAD, High Cholesterol, Hypertension, [place], Stents Other Cardiovascular History: [place] 1999 with 1 stent placement Respiratory History: Reports: Bronchitis, Recurrent, Sleep Apnea Other Respiratory History: smoker for 51 yrs, has a c-pap Gastrointestinal History: Reports: Chronic Constipation, GERD Genitourinary History: Reports: Diabetic Nephropathy Musculoskeletal History: Reports: Osteoarthritis Neurological History: Reports: Neuropathy, Diabetic Endocrine/Metabolic History: Reports: Diabetes, Type II Oncologic (Cancer) History: Reports: Colon Other Oncologic History: with surgery, chemo and radiation Stage 111 - Infectious Disease History Infectious Disease History: Reports: Chicken Pox, Measles, Mumps, Rheumatic Fever - Past Surgical History HEENT Surgical History: Reports: Naso-Sinus Surgery Respiratory Surgical History: Reports: None GI Surgical History: Reports: Colon Male Surgical History: Reports: Circumcision Musculoskeletal Surgical History: Reports: Arthroscopic Knee, Shoulder Surgery, Other (See Below) Other Musculoskeletal Surgeries/Procedures:: Repaired acl. [place]. Placed bone marrow in hip., rt foot surgery with screw placement 11/03/18. Foot surg. Social & Family History - Family History Family Medical History: Noncontributory Cardiac: Reports: Afib, AICD, Angina, Bypass, CAD, Heart Failure, High Cholesterol, Hypertension, [place] Respiratory: Reports: Asthma, COPD GI: Reports: Cholelithiasis : Reports: Dialysis, Renal Disease/Insufficiency Musculoskeletal: Reports: Arthritis, Back pain, Chronic Neurological: Reports: CVA, Neuropathy, Diabetic Psychiatric: Reports: Anxiety, Depression Endocrine/Metabolic: Reports: Diabetes, type II - Caffeine Use Caffeine Use: Reports: Coffee Other Caffeine Use: 4 pots a day - Living Situation & Occupation Living situation: Reports: with Family Occupation: Unemployed Review of Systems - Review of Systems Review Of Systems: ROS reveals no pertinent complaints other than HPI. ED EXAM, GENERAL - Physical Exam Exam: See Below Exam Limited By: No Limitations General Appearance: Alert, WD/WN, Mild Distress, Other (discomfort) Ears: Hearing Grossly Normal Throat/Mouth: Normal Voice, No Airway Compromise Head: Atraumatic Neck: Non-Tender, Full Range of Motion Respiratory/Chest: No Respiratory Distress Cardiovascular: Regular Rate, Rhythm GI/Abdominal: Soft, Non-Tender Extremities: Other (left foot swollen tender R/P, [place] wnl, gait limited to pain) Neurological: Alert, Oriented, Normal Cognition, No Motor/Sensory Deficits Psychiatric: Tearful Skin Exam: Warm, Dry, Normal Color Lymphatic: No Adenopathy Course - Vital Signs Last Recorded V/S: Last Vital Signs Temp 35.2 C 12/19/18 01:45 Pulse 79 12/19/18 01:45 Resp 18 12/19/18 01:45 BP 175/80 H 12/19/18 01:45 Pulse Ox - Orders/Labs/Meds Orders: Active Orders 24 hr Category Date Time Status Foot Comp Min 3V Lt [CR] Urgent Exams 12/19/18 01:46 Taken Meds: Medications Discontinued Medications Generic Name Dose Route Start Last Admin Trade Name Freq PRN Reason Stop Dose Admin Hydrocodone Bitart/Acetaminophen 1 tab 12/19/18 01:49 12/19/18 01:56 [place] 325-10 Mg PO 12/19/18 01:50 1 tab ONETIME ONE Administration - Re-Assessments/Exams Free Text/Narrative Re-Assessment/Exam: 12/19/18 02:26 results discussed with pt Departure - Departure Time of Disposition: 02:26 Disposition: Home, Self-Care 01 Condition: Fair Clinical Impression: Sprain of foot, left Qualifiers: Encounter type: initial encounter Qualified Code(s): S93.602A - Unspecified sprain of left foot, initial encounter - Discharge Information Instructions: Foot Sprain Forms: ED Department Discharge Additional Instructions: 1) elevate foot as much as possible next 48 hours 2) ice for swelling 3) follow up with orthopedist Thursday - My Orders Last 24 Hours: My Active Orders 12/19/18 01:46 Foot Comp Min 3V Lt [CR] Urgent - Assessment/Plan Last 24 Hours: My Active Orders 12/19/18 01:46 Foot Comp Min 3V Lt [CR] Urgent
== END 2018-12-19 02:32 | disposition home or self-care (01) ==
LOC: DL.ED 01:41
DX: S93.602A Unspecified sprain of left foot, initial encounter (principal); I10 Essential (primary) hypertension; E11.40 Type 2 diabetes mellitus with diabetic neuropathy, unspecified; Z88.0 Allergy status to penicillin; Z88.1 Allergy status to other antibiotic agents; Z88.8 Allergy status to other drugs, medicaments and biological substances; Z79.899 Other long term (current) drug therapy; X50.1XXA Overexertion from prolonged static or awkward postures, initial encounter
CPT/HCPCS: 73630; 99283; A9270

== ENCOUNTER 2018-12-23 01:01 | Emergency (ER) | payer MEDICAID ==
[2018-12-23] MEDS ORDERED: Diltiazem 25 MG/5 ML SDV IVPUSH ONE ×2 (01:16→01:44)
--- NOTE | 2018-12-23 01:43 | EDM.PDOC ---
<CraftLaith Juares - Last Filed: 12/23/18 01:58> ED HPI GENERAL MEDICAL PROBLEM - General Chief Complaint: Cardiovascular Problem Stated Complaint: HEART RACING [id number] Time Seen by Provider: 12/23/18 01:20 Source of Information: Reports: Patient History Limitations: Reports: No Limitations - History of Present Illness INITIAL COMMENTS - FREE TEXT/NARRATIVE: This 63 yo male patient reports to the ED due to a racing heart. The patient reports his symptoms started about 15 minutes prior to arrival. The patient reports he has a history of a fib and has had similar episodes in the past. The patient reports he has been taking his medications as prescribed. The patient denies any chest pain. The patient is on an anticoagulant due to a. fib. Onset: Today, Sudden Duration: Constant Location: Reports: Neck, Chest Quality: Reports: Other Severity: Moderate Improves with: Reports: None Worsens with: Reports: None Context: Reports: Other - Related Data Allergies Allergy/AdvReac Type Severity Reaction Status Date / Time chicken derived Allergy Hives Verified 12/23/18 01:29 codeine Allergy Hives Verified 12/23/18 01:29 Penicillins Allergy Hives Verified 12/23/18 01:29 tramadol Allergy Hives Verified 12/23/18 01:29 Contrast media Allergy Hives Uncoded 12/23/18 01:29 Home Meds: Home Meds Aspirin 81 mg PO BRK 11/09/15 [History] Calcium Citrate/Vitamin D3 [[place] Calcium-Vit D 200-250] 1 each PO DAILY [History] Docusate Sodium [Colace] 100 mg PO BID 11/09/15 [History] Gabapentin [Neurontin] 900 mg PO BID 11/09/15 [History] Hydrochlorothiazide 25 mg PO DAILY 11/09/15 [History] Lisinopril 20 mg PO DAILY 11/09/15 [History] Omeprazole 20 mg PO ACBREAKFAST 11/09/15 [History] atorvaSTATin [Lipitor] 20 mg PO BEDTIME 11/09/15 [History] metFORMIN [Glucophage XR] 1,000 mg PO BIDMEALS 11/09/15 [History] Apixaban [Eliquis] 5 mg PO DAILY 11/08/17 [History] Cholecalciferol (Vitamin D3) [Vitamin D3] 1,000 unit PO DAILY 11/08/17 [History] Fluticasone Propionate [Flonase Allergy Relief] 15.8 ml NS DAILY 11/08/17 [ History] Insulin Glarg,Human.Rec.Analog [Lantus Solostar] 45 unit SUBCUT DAILY 11/08/17 [ History] Melatonin/Pyridoxine HCl (B6) [Melatonin 3 mg Tablet] 9 mg PO BEDTIME 11/08/17 [ History] [place]-3 Fatty Acids [[place]-3] 1 gm PO DAILY 11/08/17 [History] Prazosin HCl [Prazosin] 1 mg PO BEDTIME 11/08/17 [History] Triamcinolone Acetonide [Triamcinolone Acetonide 0.1% Crm] 80 gm .XX BID [History] glipiZIDE [Glucotrol XL] 10 mg PO BID 11/08/17 [History] Metoprolol Tartrate [Lopressor] 50 mg PO BID #60 tablet 11/09/17 [Rx] Diltiazem [Diltiazem XR] 240 mg PO BID 02/11/18 [History] ALPRAZolam [Xanax] 1 mg PO DAILY 12/12/18 [History] Past Medical History Cardiovascular History: Reports: Afib, CAD, High Cholesterol, Hypertension, [place], Stents Other Cardiovascular History: [place] 1999 with 1 stent placement Respiratory History: Reports: Bronchitis, Recurrent, Sleep Apnea Other Respiratory History: smoker for 51 yrs, has a c-pap Gastrointestinal History: Reports: Chronic Constipation, GERD Genitourinary History: Reports: Diabetic Nephropathy Musculoskeletal History: Reports: Osteoarthritis Neurological History: Reports: Neuropathy, Diabetic Endocrine/Metabolic History: Reports: Diabetes, Type II Oncologic (Cancer) History: Reports: Colon Other Oncologic History: with surgery, chemo and radiation Stage 111 - Infectious Disease History Infectious Disease History: Reports: Chicken Pox, Measles, Mumps, Rheumatic Fever - Past Surgical History HEENT Surgical History: Reports: Naso-Sinus Surgery Respiratory Surgical History: Reports: None GI Surgical History: Reports: Colon Male Surgical History: Reports: Circumcision Musculoskeletal Surgical History: Reports: Arthroscopic Knee, Shoulder Surgery, Other (See Below) Other Musculoskeletal Surgeries/Procedures:: Repaired acl. [place]. Placed bone marrow in hip., rt foot surgery with screw placement 11/03/18. Foot surg. Social & Family History - Family History Family Medical History: Noncontributory Cardiac: Reports: Afib, AICD, Angina, Bypass, CAD, Heart Failure, High Cholesterol, Hypertension, [place] Respiratory: Reports: Asthma, COPD GI: Reports: Cholelithiasis : Reports: Dialysis, Renal Disease/Insufficiency Musculoskeletal: Reports: Arthritis, Back pain, Chronic Neurological: Reports: CVA, Neuropathy, Diabetic Psychiatric: Reports: Anxiety, Depression Endocrine/Metabolic: Reports: Diabetes, type II - Tobacco Use Smoking Status *Q: Current Every Day Smoker Years of Tobacco use: 50 Packs/Tins Daily: 1 - Caffeine Use Caffeine Use: Reports: Coffee Other Caffeine Use: 4 pots a day - Recreational Drug Use Recreational Drug Use: No - Living Situation & Occupation Living situation: Reports: with Family Occupation: Unemployed ED ROS GENERAL - Review of Systems Review Of Systems: ROS reveals no pertinent complaints other than HPI. ED EXAM, GENERAL - Physical Exam Exam: See Below Exam Limited By: No Limitations General Appearance: Alert, WD/WN, Mild Distress Eye Exam: Bilateral Eye: EOMI, Normal Inspection, PERRL Ears: Normal External Exam, Normal Canal, Hearing Grossly Normal, Normal TMs Nose: Normal Inspection, Normal Mucosa, No Blood Throat/Mouth: Normal Inspection, Normal Lips, Normal Teeth, Normal Gums, Normal Oropharynx, Normal Voice, No Airway Compromise Head: Atraumatic, Normocephalic Neck: Normal Inspection, Supple, Non-Tender, Full Range of Motion Respiratory/Chest: No Respiratory Distress, Lungs Clear, Normal Breath Sounds, No Accessory Muscle Use, Chest Non-Tender Cardiovascular: No Edema, No Gallop, No JVD, No Murmur, No Rub, Tachycardia, Irregularly Irregular GI/Abdominal: Normal Bowel Sounds, Soft, Non-Tender, No Organomegaly, No Distention, No Abnormal Bruit, No Mass (Male) Exam: Deferred Rectal (Males) Exam: Deferred Back Exam: Normal Inspection, Full Range of Motion, NT Extremities: Normal Inspection, Normal Range of Motion, Non-Tender, Normal Capillary Refill, No Pedal Edema Neurological: Alert, Oriented, CN II-XII Intact, Normal Cognition, Normal Gait, Normal Reflexes, No Motor/Sensory Deficits Psychiatric: Normal Affect, Normal Mood Skin Exam: Warm, Dry, Intact, Normal Color, No Rash Lymphatic: No Adenopathy Course - Vital Signs Last Recorded V/S: Last Vital Signs Temp 36.8 C 12/23/18 01:15 Pulse 120 H 12/23/18 01:55 Resp 27 H 12/23/18 01:55 BP 116/74 12/23/18 01:55 Pulse Ox 95 12/23/18 01:56 - Orders/Labs/Meds Orders: Active Orders 24 hr Category Date Time Status EKG Documentation Completion [RC] URGENT Care 12/23/18 01:13 Active Diltiazem [Cardizem CD] Med 12/23/18 02:25 Once 120 mg PO ONETIME ONE Medication Orders Diltiazem HCl (Cardizem Cd) 120 mg PO ONETIME ONE Stop: 12/23/18 02:26 Labs: Laboratory Tests 12/23/18 12/23/18 Range/Units 01:20 01:20 WBC 6.3 (5.0-10.0) 10^3/uL RBC 5.17 (4.6-6.2) 10^6/uL Hgb 14.8 (14.0-18.0) g/dL Hct 44.4 (40.0-54.0) % MCV 85.9 (80-100) fL MCH 28.6 (27.0-34.0) pg MCHC 33.3 (33.0-35.0) g/dL Plt Count 284 (150-450) 10^3/uL Neut % (Auto) 43.3 (42.2-75.2) % Lymph % (Auto) 42.1 (20.5-50.1) % [place] % (Auto) 11.4 H (2-8) % Eos % (Auto) 3.0 (1.0-3.0) % Baso % (Auto) 0.2 (0.0-1.0) % Sodium 134 L (135-145) mmol/L Potassium 4.0 (3.6-5.0) mmol/L Chloride 101 (101-111) mmol/L Carbon Dioxide 24.0 (21.0-31.0) mmol/L Anion Gap 13.0 BUN 15 (7-18) mg/dL Creatinine 0.9 (0.6-1.3) mg/dL Est Cr Clr Drug Dosing 93.41 mL/min Estimated GFR (MDRD) > 60 BUN/Creatinine Ratio 16.66 Glucose 367 H (74-105) mg/dL Calcium 8.5 (8.4-10.2) mg/dl Total Bilirubin 0.6 (0.2-1.0) mg/dL AST 23 (10-42) IU/L ALT 24 (10-60) IU/L Alkaline Phosphatase 164 H (42-121) IU/L Troponin I < 0.02 (0.00-0.02) ng/ml Total Protein 7.5 (6.7-8.2) g/dl Albumin 3.8 (3.2-5.5) g/dl Globulin 3.7 Albumin/Globulin Ratio 1.03 Meds: Medications Generic Name Dose Route Start Last Admin Trade Name Freq PRN Reason Stop Dose Admin Diltiazem HCl 120 mg 12/23/18 02:25 Cardizem Cd PO 12/23/18 02:26 ONETIME ONE Discontinued Medications Generic Name Dose Route Start Last Admin Trade Name Freq PRN Reason Stop Dose Admin Diltiazem HCl 25 mg 12/23/18 01:16 12/23/18 01:25 Diltiazem IVPUSH 12/23/18 01:17 25 mg ONETIME ONE Administration Diltiazem HCl 20 mg 12/23/18 01:44 12/23/18 01:52 Diltiazem IVPUSH 12/23/18 01:45 20 mg ONETIME ONE Administration Diltiazem HCl 100 mg/ Sodium 100 mls @ 10 mls/hr 12/23/18 02:30 Chloride IV .Q10H YI Protocol 10 MG/HR - Re-Assessments/Exams Free Text/Narrative Re-Assessment/Exam: 12/23/18 01:45 30 minutes after the initial dose of cardizem, the patient's heart rate continued to range from 107-120. A second dose of cardizem was ordered. Departure - Departure Disposition: Home, Self-Care 01 Clinical Impression: Atrial fibrillation with rapid ventricular response Forms: ED Department Discharge - My Orders Last 24 Hours: My Active Orders 12/23/18 02:25 Diltiazem [Cardizem CD] 120 mg PO ONETIME ONE - Assessment/Plan Last 24 Hours: My Active Orders 12/23/18 02:25 Diltiazem [Cardizem CD] 120 mg PO ONETIME ONE <Yair Mcgarry - Last Filed: 12/23/18 02:40> Course - Re-Assessments/Exams Free Text/Narrative Re-Assessment/Exam: After second dose of cardizem given, patient reports that he feels much better. Heart rate now 95-110. Patient requesting discharge home 12/23/18 02:27 Departure - Departure Time of Disposition: 02:26 Condition: Good - Problem List & Annotations (1) Atrial fibrillation with rapid ventricular response SNOMED Code(s): 123454330966188 Code(s): I48.91 - UNSPECIFIED ATRIAL FIBRILLATION Status: Acute - Problem List Review Problem List Initiated/Reviewed/Updated: Yes
[2018-12-23 01:47] LABS: CHLORIDE,CL 101 mmol/L (101-111); SODIUM,NA 134 mmol/L (135-145)
[2018-12-23] MEDS ORDERED: Diltiazem 120 MG Cap.CD PO ONE (02:25)
[2018-12-23] MEDS ORDERED: Diltiazem 100 MG in Sodium Chloride 0.9% 100 ML IV SCH (02:30)
[2018-12-23 02:38] VITALS: BP 105/64
== END 2018-12-23 02:40 | disposition home or self-care (01) ==
LOC: DL.ED 01:01
DX: I48.91 Unspecified atrial fibrillation (principal); F17.210 Nicotine dependence, cigarettes, uncomplicated; I25.10 Atherosclerotic heart disease of native coronary artery without angina pectoris; E11.21 Type 2 diabetes mellitus with diabetic nephropathy; E11.40 Type 2 diabetes mellitus with diabetic neuropathy, unspecified; E78.00 Pure hypercholesterolemia, unspecified; I10 Essential (primary) hypertension; I25.2 Old myocardial infarction; Z95.5 Presence of coronary angioplasty implant and graft; Z88.5 Allergy status to narcotic agent; Z91.018 Allergy to other foods; Z88.0 Allergy status to penicillin; Z91.030 Bee allergy status; Z79.82 Long term (current) use of aspirin; Z79.899 Other long term (current) drug therapy; Z79.84 Long term (current) use of oral hypoglycemic drugs
CPT/HCPCS: 36415; 80053; 84484; 85025; 93005; 96374; 99285; A9270; J3490

== ENCOUNTER 2018-12-31 00:10 | Emergency (ER) | payer MEDICAID, OTHER ==
[2018-12-31] MEDS ORDERED: Acetaminophen/HYDROcodone 325-10 MG Tab PO ONE (00:11)
[2018-12-31 00:19] VITALS: BP 108/71
--- NOTE | 2018-12-31 00:48 | EDM.PDOC ---
ED HPI GENERAL MEDICAL PROBLEM - General Chief Complaint: Lower Extremity Injury/Pain Stated Complaint: INJURED RIGHT HIP [id number] Time Seen by Provider: 12/31/18 00:46 Source of Information: Reports: Patient History Limitations: Reports: No Limitations - History of Present Illness INITIAL COMMENTS - FREE TEXT/NARRATIVE: fell onto steps hour ago. Treatments ONCOLOGY REP: Reports: Cold Therapy Right Hip Pain Score (Numeric/FACES): 9 - Related Data Allergies Allergy/AdvReac Type Severity Reaction Status Date / Time chicken derived Allergy Hives Verified 12/31/18 00:16 codeine Allergy Hives Verified 12/31/18 00:16 Penicillins Allergy Hives Verified 12/31/18 00:16 tramadol Allergy Hives Verified 12/31/18 00:16 Contrast media Allergy Hives Uncoded 12/31/18 00:16 Home Meds: Home Meds Aspirin 81 mg PO BRK 11/09/15 [History] Calcium Citrate/Vitamin D3 [[place] Calcium-Vit D 200-250] 1 each PO DAILY [History] Docusate Sodium [Colace] 100 mg PO BID 11/09/15 [History] Gabapentin [Neurontin] 900 mg PO BID 11/09/15 [History] Hydrochlorothiazide 25 mg PO DAILY 11/09/15 [History] Lisinopril 20 mg PO DAILY 11/09/15 [History] Omeprazole 20 mg PO ACBREAKFAST 11/09/15 [History] atorvaSTATin [Lipitor] 20 mg PO BEDTIME 11/09/15 [History] metFORMIN [Glucophage XR] 1,000 mg PO BIDMEALS 11/09/15 [History] Apixaban [Eliquis] 5 mg PO DAILY 11/08/17 [History] Cholecalciferol (Vitamin D3) [Vitamin D3] 1,000 unit PO DAILY 11/08/17 [History] Fluticasone Propionate [Flonase Allergy Relief] 15.8 ml NS DAILY 11/08/17 [ History] Insulin Glarg,Human.Rec.Analog [Lantus Solostar] 45 unit SUBCUT DAILY 11/08/17 [ History] Melatonin/Pyridoxine HCl (B6) [Melatonin 3 mg Tablet] 9 mg PO BEDTIME 11/08/17 [ History] [place]-3 Fatty Acids [[place]-3] 1 gm PO DAILY 11/08/17 [History] Prazosin HCl [Prazosin] 1 mg PO BEDTIME 11/08/17 [History] Triamcinolone Acetonide [Triamcinolone Acetonide 0.1% Crm] 80 gm .XX BID [History] glipiZIDE [Glucotrol XL] 10 mg PO BID 11/08/17 [History] Metoprolol Tartrate [Lopressor] 50 mg PO BID #60 tablet 11/09/17 [Rx] Diltiazem [Diltiazem XR] 240 mg PO BID 02/11/18 [History] ALPRAZolam [Xanax] 1 mg PO DAILY 12/12/18 [History] Past Medical History Cardiovascular History: Reports: Afib, CAD, High Cholesterol, Hypertension, [place], Stents Other Cardiovascular History: [place] 1999 with 1 stent placement Respiratory History: Reports: Bronchitis, Recurrent, Sleep Apnea Other Respiratory History: smoker for 51 yrs, has a c-pap Gastrointestinal History: Reports: Chronic Constipation, GERD Genitourinary History: Reports: Diabetic Nephropathy Musculoskeletal History: Reports: Osteoarthritis Neurological History: Reports: Neuropathy, Diabetic Endocrine/Metabolic History: Reports: Diabetes, Type II Oncologic (Cancer) History: Reports: Colon Other Oncologic History: with surgery, chemo and radiation Stage 111 - Infectious Disease History Infectious Disease History: Reports: Chicken Pox, Measles, Mumps, Rheumatic Fever - Past Surgical History HEENT Surgical History: Reports: Naso-Sinus Surgery Respiratory Surgical History: Reports: None GI Surgical History: Reports: Colon Male Surgical History: Reports: Circumcision Musculoskeletal Surgical History: Reports: Arthroscopic Knee, Shoulder Surgery, Other (See Below) Other Musculoskeletal Surgeries/Procedures:: Repaired acl. [place]. Placed bone marrow in hip., rt foot surgery with screw placement 11/03/18. Foot surg. Social & Family History - Family History Family Medical History: Noncontributory Cardiac: Reports: Afib, AICD, Angina, Bypass, CAD, Heart Failure, High Cholesterol, Hypertension, [place] Respiratory: Reports: Asthma, COPD GI: Reports: Cholelithiasis : Reports: Dialysis, Renal Disease/Insufficiency Musculoskeletal: Reports: Arthritis, Back pain, Chronic Neurological: Reports: CVA, Neuropathy, Diabetic Psychiatric: Reports: Anxiety, Depression Endocrine/Metabolic: Reports: Diabetes, type II - Tobacco Use Smoking Status *Q: Current Every Day Smoker Years of Tobacco use: 53 Packs/Tins Daily: 0.5 Used Tobacco, but Quit: No Second Hand Smoke Exposure: Yes - Caffeine Use Caffeine Use: Reports: Coffee Other Caffeine Use: 4 pots a day - Recreational Drug Use Recreational Drug Use: No - Living Situation & Occupation Living situation: Reports: with Family Occupation: Unemployed Review of Systems - Review of Systems Review Of Systems: ROS reveals no pertinent complaints other than HPI. ED EXAM, GENERAL - Physical Exam Exam: See Below Exam Limited By: No Limitations General Appearance: Alert, WD/WN, Mild Distress, Other (pain) Ears: Hearing Grossly Normal Throat/Mouth: Normal Voice, No Airway Compromise Head: Atraumatic Neck: Non-Tender, Full Range of Motion Respiratory/Chest: No Respiratory Distress Cardiovascular: Regular Rate, Rhythm GI/Abdominal: Soft, Non-Tender Extremities: Other (right hip tender R/P, [place] wnl, gait limited to pain) Neurological: Alert, Oriented, Normal Cognition, No Motor/Sensory Deficits Psychiatric: Normal Affect, Normal Mood Skin Exam: Warm, Dry, Normal Color Lymphatic: No Adenopathy Course - Vital Signs Last Recorded V/S: Last Vital Signs Temp 36.6 C 12/31/18 00:17 Pulse 124 H 12/31/18 00:17 Resp 20 12/31/18 00:17 BP 108/71 12/31/18 00:17 Pulse Ox 97 12/31/18 00:17 - Re-Assessments/Exams Free Text/Narrative Re-Assessment/Exam: 12/31/18 02:15 results discussed with pt who ambulate well with cane stating he feels good and prefer to go home and have report called if abn. Departure - Departure Time of Disposition: 02:16 Disposition: Home, Self-Care 01 Condition: Fair Clinical Impression: Contusion of hip, right Qualifiers: Encounter type: initial encounter Qualified Code(s): S70.01XA - Contusion of right hip, initial encounter - Discharge Information Instructions: Contusion, [id number] Forms: ED Department Discharge Additional Instructions: 1) rest as much as possible 2) recheck if there is any change or concern rx shimon; elizabeth 10 x 1
[2018-12-31] MEDS ORDERED: Acetaminophen/HYDROcodone 325-10 MG Tab ONE (02:15)
== END 2018-12-31 02:20 | disposition home or self-care (01) ==
LOC: DL.ED 00:10
DX: S70.01XA Contusion of right hip, initial encounter (principal); I48.91 Unspecified atrial fibrillation; I10 Essential (primary) hypertension; E11.40 Type 2 diabetes mellitus with diabetic neuropathy, unspecified; E11.21 Type 2 diabetes mellitus with diabetic nephropathy; K21.9 Gastro-esophageal reflux disease without esophagitis; J44.9 Chronic obstructive pulmonary disease, unspecified; F17.210 Nicotine dependence, cigarettes, uncomplicated; I25.2 Old myocardial infarction; I25.10 Atherosclerotic heart disease of native coronary artery without angina pectoris; E78.00 Pure hypercholesterolemia, unspecified; Z79.82 Long term (current) use of aspirin; Z79.4 Long term (current) use of insulin; Z79.899 Other long term (current) drug therapy; Z91.018 Allergy to other foods; Z88.5 Allergy status to narcotic agent; Z88.0 Allergy status to penicillin; Z91.041 Radiographic dye allergy status; W10.9XXA Fall (on) (from) unspecified stairs and steps, initial encounter
CPT/HCPCS: 73502; 99283; A9270

== ENCOUNTER 2019-01-09 22:35 | Emergency (ER) | payer MEDICAID ==
[2019-01-09 22:59] VITALS: BP 124/64
== END 2019-01-10 00:29 | disposition left against medical advice (07) ==
LOC: DL.ED 22:35
DX: Z53.21 Procedure and treatment not carried out due to patient leaving prior to being seen by health care provider (principal)

== ENCOUNTER 2019-01-11 01:07 | Emergency (ER) | payer MEDICAID ==
[2019-01-11 01:20] VITALS: BP 162/83
--- NOTE | 2019-01-11 01:25 | EDM.PDOC ---
ED HPI GENERAL MEDICAL PROBLEM - General Chief Complaint: Lower Extremity Injury/Pain Stated Complaint: FOOT PAIN Time Seen by Provider: 01/11/19 01:15 Source of Information: Reports: Patient History Limitations: Reports: No Limitations - History of Present Illness INITIAL COMMENTS - FREE TEXT/NARRATIVE: This 63 yo male patient reports to the ED with left foot pain. The patient reports he has had chronic pain in the area for the past several months. The patient reports he has had previous surgery on the area and has been seen 3 times over the past month, but has not had any pain relief. The patient reports he has an appointment with a county court judge next month, but can not stand the pain he is currently in. The patient reports he has attempted to be seen through the ID, but has not been able to get an appointment. Duration: Week(s):, Constant Location: Reports: Lower Extremity, Left (foot) Quality: Reports: Ache, Sharp Severity: Moderate Improves with: Reports: None Worsens with: Reports: None Context: Reports: Other Associated Symptoms: Reports: No Other Symptoms Left Toe-[place] Pain Score (Numeric/FACES): 9 - Related Data Allergies Allergy/AdvReac Type Severity Reaction Status Date / Time chicken derived Allergy Hives Verified 01/11/19 01:19 codeine Allergy Hives Verified 01/11/19 01:19 Penicillins Allergy Hives Verified 01/11/19 01:19 tramadol Allergy Hives Verified 01/11/19 01:19 Contrast media Allergy Hives Uncoded 01/11/19 01:19 Home Meds: Home Meds Aspirin 81 mg PO BRK 11/09/15 [History] Calcium Citrate/Vitamin D3 [[place] Calcium-Vit D 200-250] 1 each PO DAILY [History] Docusate Sodium [Colace] 100 mg PO BID 11/09/15 [History] Gabapentin [Neurontin] 900 mg PO BID 11/09/15 [History] Hydrochlorothiazide 25 mg PO DAILY 11/09/15 [History] Lisinopril 20 mg PO DAILY 11/09/15 [History] Omeprazole 20 mg PO ACBREAKFAST 11/09/15 [History] atorvaSTATin [Lipitor] 20 mg PO BEDTIME 11/09/15 [History] metFORMIN [Glucophage XR] 1,000 mg PO BIDMEALS 11/09/15 [History] Apixaban [Eliquis] 5 mg PO DAILY 11/08/17 [History] Cholecalciferol (Vitamin D3) [Vitamin D3] 1,000 unit PO DAILY 11/08/17 [History] Fluticasone Propionate [Flonase Allergy Relief] 15.8 ml NS DAILY 11/08/17 [ History] Insulin Glarg,Human.Rec.Analog [Lantus Solostar] 45 unit SUBCUT DAILY 11/08/17 [ History] Melatonin/Pyridoxine HCl (B6) [Melatonin 3 mg Tablet] 9 mg PO BEDTIME 11/08/17 [ History] [place]-3 Fatty Acids [[place]-3] 1 gm PO DAILY 11/08/17 [History] Prazosin HCl [Prazosin] 1 mg PO BEDTIME 11/08/17 [History] Triamcinolone Acetonide [Triamcinolone Acetonide 0.1% Crm] 80 gm .XX BID [History] glipiZIDE [Glucotrol XL] 10 mg PO BID 11/08/17 [History] Metoprolol Tartrate [Lopressor] 50 mg PO BID #60 tablet 11/09/17 [Rx] Diltiazem [Diltiazem XR] 240 mg PO BID 02/11/18 [History] ALPRAZolam [Xanax] 1 mg PO DAILY 12/12/18 [History] Past Medical History Cardiovascular History: Reports: Afib, CAD, High Cholesterol, Hypertension, [place], Stents Other Cardiovascular History: [place] 1999 with 1 stent placement Respiratory History: Reports: Bronchitis, Recurrent, Sleep Apnea Other Respiratory History: smoker for 51 yrs, has a c-pap Gastrointestinal History: Reports: Chronic Constipation, GERD Genitourinary History: Reports: Diabetic Nephropathy Musculoskeletal History: Reports: Osteoarthritis Neurological History: Reports: Neuropathy, Diabetic Endocrine/Metabolic History: Reports: Diabetes, Type II Oncologic (Cancer) History: Reports: Colon Other Oncologic History: with surgery, chemo and radiation Stage 111 - Infectious Disease History Infectious Disease History: Reports: Chicken Pox, Measles, Mumps, Rheumatic Fever - Past Surgical History HEENT Surgical History: Reports: Naso-Sinus Surgery Respiratory Surgical History: Reports: None GI Surgical History: Reports: Colon Male Surgical History: Reports: Circumcision Musculoskeletal Surgical History: Reports: Arthroscopic Knee, Shoulder Surgery, Other (See Below) Other Musculoskeletal Surgeries/Procedures:: Repaired acl. [place]. Placed bone marrow in hip., rt foot surgery with screw placement 11/03/18. Foot surg. Social & Family History - Family History Family Medical History: Noncontributory Cardiac: Reports: Afib, AICD, Angina, Bypass, CAD, Heart Failure, High Cholesterol, Hypertension, [place] Respiratory: Reports: Asthma, COPD GI: Reports: Cholelithiasis : Reports: Dialysis, Renal Disease/Insufficiency Musculoskeletal: Reports: Arthritis, Back pain, Chronic Neurological: Reports: CVA, Neuropathy, Diabetic Psychiatric: Reports: Anxiety, Depression Endocrine/Metabolic: Reports: Diabetes, type II - Caffeine Use Caffeine Use: Reports: Coffee, Soda Other Caffeine Use: 4 pots a day - Living Situation & Occupation Living situation: Reports: with Family Occupation: Unemployed Review of Systems - Review of Systems Review Of Systems: ROS reveals no pertinent complaints other than HPI. (`) ED EXAM, GENERAL - Physical Exam Exam: See Below Exam Limited By: No Limitations General Appearance: Alert, WD/WN, Moderate Distress Eye Exam: Bilateral Eye: EOMI, Normal Inspection, PERRL Ears: Normal External Exam, Normal Canal, Hearing Grossly Normal, Normal TMs Nose: Normal Inspection, Normal Mucosa, No Blood Throat/Mouth: Normal Inspection, Normal Lips, Normal Teeth, Normal Gums, Normal Oropharynx, Normal Voice, No Airway Compromise Head: Atraumatic, Normocephalic Neck: Normal Inspection, Supple, Non-Tender, Full Range of Motion Respiratory/Chest: No Respiratory Distress, Lungs Clear, Normal Breath Sounds, No Accessory Muscle Use, Chest Non-Tender Cardiovascular: Normal Peripheral Pulses, Regular Rate, Rhythm, No Edema, No Gallop, No JVD, No Murmur, No Rub GI/Abdominal: Normal Bowel Sounds, Soft, Non-Tender, No Organomegaly, No Distention, No Abnormal Bruit, No Mass (Male) Exam: Deferred Rectal (Males) Exam: Deferred Back Exam: Normal Inspection, Full Range of Motion, NT Extremities: Leg Pain (left foot pain) Neurological: Alert, Oriented, CN II-XII Intact, Normal Cognition, Normal Gait, Normal Reflexes, No Motor/Sensory Deficits Psychiatric: Normal Affect, Normal Mood Skin Exam: Warm, Dry, Intact, Normal Color, No Rash Lymphatic: No Adenopathy Course - Vital Signs Last Recorded V/S: Last Vital Signs Temp 36.5 C 01/11/19 01:16 Pulse 77 01/11/19 01:16 Resp 20 01/11/19 01:16 BP 162/83 H 01/11/19 01:16 Pulse Ox 162 H 01/11/19 01:16 - Orders/Labs/Meds Meds: Medications Discontinued Medications Generic Name Dose Route Start Last Admin Trade Name [place] PRN Reason Stop Dose Admin Hydrocodone Bitart/Acetaminophen Confirm 01/11/19 01:27 [place] 325-10 Mg Administered 01/11/19 01:28 Dose 2 tab .ROUTE .STK-MED ONE Departure - Departure Time of Disposition: 01:21 Disposition: Home, Self-Care 01 Condition: Fair Clinical Impression: Pain, foot, left, chronic - Discharge Information *PRESCRIPTION DRUG MONITORING PROGRAM REVIEWED*: Not Applicable *COPY OF PRESCRIPTION DRUG MONITORING REPORT IN PATIENT RERE: Not Applicable Instructions: Foot Pain Forms: ED Department Discharge Care Plan Goals: The patient was advised of the examination results during the visit. The patient was discharged with [place] (/) #2 to take 1 by mouth every 6 hours as needed for pain. The patient was encouraged to follow-up with his primary care facility for continued evaluation and management. The patient was encouraged to avoid weight bearing activities. If the patient has any additional symptoms or concerns, the patient should either visit his primary care facility or return to the emergency department.
[2019-01-11] MEDS ORDERED: Acetaminophen/HYDROcodone 325-10 MG Tab ONE (01:27)
== END 2019-01-11 01:33 | disposition home or self-care (01) ==
LOC: DL.ED 01:07
DX: G89.29 Other chronic pain (principal); M79.672 Pain in left foot; E11.40 Type 2 diabetes mellitus with diabetic neuropathy, unspecified; E11.21 Type 2 diabetes mellitus with diabetic nephropathy; Z91.018 Allergy to other foods; Z88.5 Allergy status to narcotic agent; Z79.4 Long term (current) use of insulin
CPT/HCPCS: 99283

== ENCOUNTER 2019-01-16 04:11 | Emergency (ER) | payer MEDICAID, OTHER ==
--- NOTE | 2019-01-16 04:24 | EDM.PDOC ---
ED HPI GENERAL MEDICAL PROBLEM - General Chief Complaint: Chest Pain Stated Complaint: HARD TO BREATHE Time Seen by Provider: 01/16/19 04:22 Source of Information: Reports: Patient History Limitations: Reports: No Limitations - History of Present Illness INITIAL COMMENTS - FREE TEXT/NARRATIVE: woke up with CP/SOB/ palpitation. gives h/o colon cancer. Chest Pain Score (Numeric/FACES): 7 - Related Data Allergies Allergy/AdvReac Type Severity Reaction Status Date / Time chicken derived Allergy Hives Verified 01/16/19 04:19 codeine Allergy Hives Verified 01/16/19 04:19 Penicillins Allergy Hives Verified 01/16/19 04:19 tramadol Allergy Hives Verified 01/16/19 04:19 Contrast media Allergy Hives Uncoded 01/16/19 04:19 Home Meds: Home Meds Aspirin 81 mg PO BRK 11/09/15 [History] Calcium Citrate/Vitamin D3 [[place] Calcium-Vit D 200-250] 1 each PO DAILY [History] Docusate Sodium [Colace] 100 mg PO BID 11/09/15 [History] Gabapentin [Neurontin] 900 mg PO BID 11/09/15 [History] Hydrochlorothiazide 25 mg PO DAILY 11/09/15 [History] Lisinopril 20 mg PO DAILY 11/09/15 [History] Omeprazole 20 mg PO ACBREAKFAST 11/09/15 [History] atorvaSTATin [Lipitor] 20 mg PO BEDTIME 11/09/15 [History] metFORMIN [Glucophage XR] 1,000 mg PO BIDMEALS 11/09/15 [History] Apixaban [Eliquis] 5 mg PO DAILY 11/08/17 [History] Cholecalciferol (Vitamin D3) [Vitamin D3] 1,000 unit PO DAILY 11/08/17 [History] Fluticasone Propionate [Flonase Allergy Relief] 15.8 ml NS DAILY 11/08/17 [ History] Insulin Glarg,Human.Rec.Analog [Lantus Solostar] 45 unit SUBCUT DAILY 11/08/17 [ History] Melatonin/Pyridoxine HCl (B6) [Melatonin 3 mg Tablet] 9 mg PO BEDTIME 11/08/17 [ History] [place]-3 Fatty Acids [[place]-3] 1 gm PO DAILY 11/08/17 [History] Prazosin HCl [Prazosin] 1 mg PO BEDTIME 11/08/17 [History] Triamcinolone Acetonide [Triamcinolone Acetonide 0.1% Crm] 80 gm .XX BID [History] glipiZIDE [Glucotrol XL] 10 mg PO BID 11/08/17 [History] Metoprolol Tartrate [Lopressor] 50 mg PO BID #60 tablet 11/09/17 [Rx] Diltiazem [Diltiazem XR] 240 mg PO BID 02/11/18 [History] ALPRAZolam [Xanax] 1 mg PO DAILY 12/12/18 [History] Past Medical History Cardiovascular History: Reports: Afib, CAD, High Cholesterol, Hypertension, [place], Stents Other Cardiovascular History: [place] 1999 with 1 stent placement Respiratory History: Reports: Bronchitis, Recurrent, Sleep Apnea Other Respiratory History: smoker for 51 yrs, has a c-pap Gastrointestinal History: Reports: Chronic Constipation, GERD Genitourinary History: Reports: Diabetic Nephropathy Musculoskeletal History: Reports: Osteoarthritis Neurological History: Reports: Neuropathy, Diabetic Endocrine/Metabolic History: Reports: Diabetes, Type II Oncologic (Cancer) History: Reports: Colon Other Oncologic History: with surgery, chemo and radiation Stage 111 - Infectious Disease History Infectious Disease History: Reports: Chicken Pox, Measles, Mumps, Rheumatic Fever - Past Surgical History HEENT Surgical History: Reports: Naso-Sinus Surgery Respiratory Surgical History: Reports: None GI Surgical History: Reports: Colon Male Surgical History: Reports: Circumcision Musculoskeletal Surgical History: Reports: Arthroscopic Knee, Shoulder Surgery, Other (See Below) Other Musculoskeletal Surgeries/Procedures:: Repaired acl. [place]. Placed bone marrow in hip., rt foot surgery with screw placement 11/03/18. Foot surg. Social & Family History - Family History Family Medical History: Noncontributory Cardiac: Reports: Afib, AICD, Angina, Bypass, CAD, Heart Failure, High Cholesterol, Hypertension, [place] Respiratory: Reports: Asthma, COPD GI: Reports: Cholelithiasis : Reports: Dialysis, Renal Disease/Insufficiency Musculoskeletal: Reports: Arthritis, Back pain, Chronic Neurological: Reports: CVA, Neuropathy, Diabetic Psychiatric: Reports: Anxiety, Depression Endocrine/Metabolic: Reports: Diabetes, type II - Tobacco Use Smoking Status *Q: Current Every Day Smoker Years of Tobacco use: 50 Packs/Tins Daily: 0.5 - Caffeine Use Caffeine Use: Reports: Coffee, Soda Other Caffeine Use: 4 pots a day - Recreational Drug Use Recreational Drug Use: No - Living Situation & Occupation Living situation: Reports: with Family Occupation: Unemployed ED ROS GENERAL - Review of Systems Review Of Systems: ROS reveals no pertinent complaints other than HPI. ED EXAM, GENERAL - Physical Exam Exam: See Below Exam Limited By: No Limitations General Appearance: Alert, WD/WN, Anxious, Mild Distress Ears: Hearing Grossly Normal Throat/Mouth: Normal Voice, No Airway Compromise Head: Atraumatic Neck: Non-Tender, Full Range of Motion Respiratory/Chest: No Respiratory Distress Cardiovascular: Regular Rate, Rhythm GI/Abdominal: Soft, Non-Tender Extremities: Normal Inspection Neurological: Alert, Oriented, Normal Cognition, Normal Gait, No Motor/Sensory Deficits Psychiatric: Flat Affect Skin Exam: Warm, Dry, Normal Color Lymphatic: No Adenopathy Course - Vital Signs Last Recorded V/S: Last Vital Signs Temp 36.5 C 01/16/19 04:14 Pulse 112 H 01/16/19 05:16 Resp 26 H 01/16/19 04:14 BP 133/56 L 01/16/19 05:16 Pulse Ox 95 01/16/19 04:14 - Orders/Labs/Meds Orders: Active Orders 24 hr Category Date Time Status EKG 12 Lead [EKG Documentation Completion] [RC] STAT Care 01/16/19 04:19 Active COMPREHENSIVE METABOLIC PN,CMP [CHEM] Stat Lab 01/16/19 04:24 Results TROPONIN I [CHEM] Stat Lab 01/16/19 04:24 Results Ketorolac [Toradol] Med 01/16/19 05:35 Once 30 mg IVPUSH ONETIME ONE Medication Orders Ketorolac Tromethamine (Toradol) 30 mg IVPUSH ONETIME ONE Stop: 01/16/19 05:36 Labs: Laboratory Tests 01/16/19 01/16/19 01/16/19 Range/Units 04:24 04:24 04:24 WBC 8.3 (5.0-10.0) 10^3/uL RBC 5.65 (4.6-6.2) 10^6/uL Hgb 16.3 D (14.0-18.0) g/dL Hct 47.4 (40.0-54.0) % MCV 83.9 (80-100) fL MCH 28.8 (27.0-34.0) pg MCHC 34.4 (33.0-35.0) g/dL Plt Count 266 (150-450) 10^3/uL Neut % (Auto) 56.9 (42.2-75.2) % Lymph % (Auto) 32.1 (20.5-50.1) % [place] % (Auto) 8.6 H (2-8) % Eos % (Auto) 2.2 (1.0-3.0) % Baso % (Auto) 0.2 (0.0-1.0) % Lactic Acid 1.5 (0.5-2.2) mmol/L Troponin I < 0.02 (0.00-0.02) ng/ml Meds: Medications Generic Name Dose Route Start Last Admin Trade Name Freq PRN Reason Stop Dose Admin Ketorolac Tromethamine 30 mg 01/16/19 05:35 Toradol IVPUSH 01/16/19 05:36 ONETIME ONE Discontinued Medications Generic Name Dose Route Start Last Admin Trade Name Freq PRN Reason Stop Dose Admin Metoprolol Tartrate 50 mg 01/16/19 05:12 01/16/19 05:16 Lopressor PO 01/16/19 05:13 50 mg ONETIME ONE Administration - Re-Assessments/Exams Free Text/Narrative Re-Assessment/Exam: 01/16/19 05:36 re-exam; s/p PO lopressor states feeling better heart melchor but left foot has been bothering from recent bunionectomy. had it eval at [place] and told needed to see Dr Pinzon podiatry next month for possible more surgeries. Departure - Departure Time of Disposition: 05:38 Disposition: Home, Self-Care 01 Condition: Fair Clinical Impression: Atrial fibrillation with rapid ventricular response Instructions: Atrial Fibrillation, [id number] Forms: ED Department Discharge Additional Instructions: 1) elevate foot as much as possible next 48 hours 2) try ice or heat to sore areas 3) follow up with [facility] rx given; vicodin 5/325mg bid prn x 6 - My Orders Last 24 Hours: My Active Orders 01/16/19 04:19 EKG 12 Lead [EKG Documentation Completion] [RC] STAT 01/16/19 04:24 COMPREHENSIVE METABOLIC PN,CMP [CHEM] Stat TROPONIN I [CHEM] Stat 01/16/19 05:35 Ketorolac [Toradol] 30 mg IVPUSH ONETIME ONE - Assessment/Plan Last 24 Hours: My Active Orders 01/16/19 04:19 EKG 12 Lead [EKG Documentation Completion] [RC] STAT 01/16/19 04:24 COMPREHENSIVE METABOLIC PN,CMP [CHEM] Stat TROPONIN I [CHEM] Stat 01/16/19 05:35 Ketorolac [Toradol] 30 mg IVPUSH ONETIME ONE
[2019-01-16 04:51] LABS: ANION GAP 13.9; CHLORIDE,CL 100 mmol/L (101-111); SODIUM,NA 133 mmol/L (135-145)
[2019-01-16] MEDS ORDERED: Metoprolol Tartrate 50 MG Tab PO ONE (05:12)
[2019-01-16 05:17] VITALS: BP 133/56; PULSE 112
[2019-01-16] MEDS ORDERED: Ketorolac 30 MG/ML SDV IVPUSH ONE (05:35)
== END 2019-01-16 05:46 | disposition home or self-care (01) ==
LOC: DL.ED 04:11
DX: I48.91 Unspecified atrial fibrillation (principal); I25.2 Old myocardial infarction; I10 Essential (primary) hypertension; E11.40 Type 2 diabetes mellitus with diabetic neuropathy, unspecified; E11.21 Type 2 diabetes mellitus with diabetic nephropathy; F17.210 Nicotine dependence, cigarettes, uncomplicated; Z88.5 Allergy status to narcotic agent; Z88.8 Allergy status to other drugs, medicaments and biological substances; Z88.0 Allergy status to penicillin; Z79.899 Other long term (current) drug therapy
CPT/HCPCS: 36415; 80053; 83605; 84484; 85025; 93005; 96374; 99285; A9270; J1885; 99284

== ENCOUNTER 2019-02-08 21:15 | Emergency (ER) | payer OTHER, MEDICAID ==
[2019-02-08 21:49] VITALS: BP 132/66
[2019-02-08] MEDS ORDERED: Acetaminophen/HYDROcodone 325-10 MG Tab PO ONE (22:58)
--- NOTE | 2019-02-08 23:05 | EDM.PDOC ---
ED HPI GENERAL MEDICAL PROBLEM - General Chief Complaint: Lower Extremity Injury/Pain Stated Complaint: LEFT FOOT IN HURTING [id number] Time Seen by Provider: 02/08/19 22:50 Source of Information: Reports: Patient History Limitations: Reports: No Limitations - History of Present Illness INITIAL COMMENTS - FREE TEXT/NARRATIVE: This 63 yo male patient reports to the ED with left foot pain. The patient has had surgery for a bunion in the past and has been experiencing increased pain in the area. The patient reports he has an appointment on the of the month with a welder tack through the [place] due to similar symptoms. Onset: Today Duration: Constant Location: Reports: Lower Extremity, Left Quality: Reports: Other Severity: Moderate Improves with: Reports: None Worsens with: Reports: None Context: Reports: Other Associated Symptoms: Reports: No Other Symptoms - Related Data Allergies Allergy/AdvReac Type Severity Reaction Status Date / Time chicken derived Allergy Hives Verified 01/16/19 04:19 codeine Allergy Hives Verified 01/16/19 04:19 Penicillins Allergy Hives Verified 01/16/19 04:19 tramadol Allergy Hives Verified 01/16/19 04:19 Contrast media Allergy Hives Uncoded 01/16/19 04:19 Home Meds: Home Meds Aspirin 81 mg PO BRK 11/09/15 [History] Calcium Citrate/Vitamin D3 [[place] Calcium-Vit D 200-250] 1 each PO DAILY [History] Docusate Sodium [Colace] 100 mg PO BID 11/09/15 [History] Gabapentin [Neurontin] 900 mg PO BID 11/09/15 [History] Hydrochlorothiazide 25 mg PO DAILY 11/09/15 [History] Lisinopril 20 mg PO DAILY 11/09/15 [History] Omeprazole 20 mg PO ACBREAKFAST 11/09/15 [History] atorvaSTATin [Lipitor] 20 mg PO BEDTIME 11/09/15 [History] metFORMIN [Glucophage XR] 1,000 mg PO BIDMEALS 11/09/15 [History] Apixaban [Eliquis] 5 mg PO DAILY 11/08/17 [History] Cholecalciferol (Vitamin D3) [Vitamin D3] 1,000 unit PO DAILY 11/08/17 [History] Fluticasone Propionate [Flonase Allergy Relief] 15.8 ml NS DAILY 11/08/17 [ History] Insulin Glarg,Human.Rec.Analog [Lantus Solostar] 45 unit SUBCUT DAILY 11/08/17 [ History] Melatonin/Pyridoxine HCl (B6) [Melatonin 3 mg Tablet] 9 mg PO BEDTIME 11/08/17 [ History] [place]-3 Fatty Acids [[place]-3] 1 gm PO DAILY 11/08/17 [History] Prazosin HCl [Prazosin] 1 mg PO BEDTIME 11/08/17 [History] Triamcinolone Acetonide [Triamcinolone Acetonide 0.1% Crm] 80 gm .XX BID [History] glipiZIDE [Glucotrol XL] 10 mg PO BID 11/08/17 [History] Metoprolol Tartrate [Lopressor] 50 mg PO BID #60 tablet 11/09/17 [Rx] Diltiazem [Diltiazem XR] 240 mg PO BID 02/11/18 [History] ALPRAZolam [Xanax] 1 mg PO DAILY 12/12/18 [History] Past Medical History - Past Health History Medical/Surgical History: Denies Medical/Surgical History Cardiovascular History: Reports: Afib, CAD, High Cholesterol, Hypertension, [place], Stents Other Cardiovascular History: [place] 1999 with 1 stent placement Respiratory History: Reports: Bronchitis, Recurrent, Sleep Apnea Other Respiratory History: smoker for 51 yrs, has a c-pap Gastrointestinal History: Reports: Chronic Constipation, GERD Genitourinary History: Reports: Diabetic Nephropathy Musculoskeletal History: Reports: Osteoarthritis Neurological History: Reports: Neuropathy, Diabetic Endocrine/Metabolic History: Reports: Diabetes, Type II Oncologic (Cancer) History: Reports: Colon Other Oncologic History: with surgery, chemo and radiation Stage 111 - Infectious Disease History Infectious Disease History: Reports: Chicken Pox, Measles, Mumps, Rheumatic Fever - Past Surgical History HEENT Surgical History: Reports: Naso-Sinus Surgery Respiratory Surgical History: Reports: None GI Surgical History: Reports: Colon Male Surgical History: Reports: Circumcision Musculoskeletal Surgical History: Reports: Arthroscopic Knee, Shoulder Surgery, Other (See Below) Other Musculoskeletal Surgeries/Procedures:: Repaired acl. [place]. Placed bone marrow in hip., rt foot surgery with screw placement 11/03/18. Foot surg. Social & Family History - Family History Family Medical History: Noncontributory Cardiac: Reports: Afib, AICD, Angina, Bypass, CAD, Heart Failure, High Cholesterol, Hypertension, [place] Respiratory: Reports: Asthma, COPD GI: Reports: Cholelithiasis : Reports: Dialysis, Renal Disease/Insufficiency Musculoskeletal: Reports: Arthritis, Back pain, Chronic Neurological: Reports: CVA, Neuropathy, Diabetic Psychiatric: Reports: Anxiety, Depression Endocrine/Metabolic: Reports: Diabetes, type II - Tobacco Use Smoking Status *Q: Never Smoker Second Hand Smoke Exposure: No - Caffeine Use Caffeine Use: Reports: None Other Caffeine Use: 4 pots a day - Recreational Drug Use Recreational Drug Use: No - Living Situation & Occupation Living situation: Reports: with Family Occupation: Unemployed Review of Systems - Review of Systems Review Of Systems: ROS reveals no pertinent complaints other than HPI. ED EXAM, GENERAL - Physical Exam Exam: See Below Exam Limited By: No Limitations General Appearance: Alert, WD/WN, Mild Distress Eye Exam: Bilateral Eye: EOMI, Normal Inspection, PERRL Ears: Normal External Exam, Normal Canal, Hearing Grossly Normal, Normal TMs Nose: Normal Inspection, Normal Mucosa, No Blood Throat/Mouth: Normal Inspection, Normal Lips, Normal Teeth, Normal Gums, Normal Oropharynx, Normal Voice, No Airway Compromise Head: Atraumatic, Normocephalic Neck: Normal Inspection, Supple, Non-Tender, Full Range of Motion Respiratory/Chest: No Respiratory Distress, Lungs Clear, Normal Breath Sounds, No Accessory Muscle Use, Chest Non-Tender Cardiovascular: Normal Peripheral Pulses, Regular Rate, Rhythm, No Edema, No Gallop, No JVD, No Murmur, No Rub GI/Abdominal: Normal Bowel Sounds, Soft, Non-Tender, No Organomegaly, No Distention, No Abnormal Bruit, No Mass (Male) Exam: Deferred Rectal (Males) Exam: Deferred Back Exam: Normal Inspection, Full Range of Motion, NT Extremities: Leg Pain (left foot pain) Neurological: Alert, Oriented, CN II-XII Intact, Normal Cognition, Normal Gait, Normal Reflexes, No Motor/Sensory Deficits Psychiatric: Normal Affect, Normal Mood Skin Exam: Warm, Dry, Intact, Normal Color, No Rash Lymphatic: No Adenopathy Course - Vital Signs Last Recorded V/S: Last Vital Signs Temp 36.2 C 02/08/19 21:46 Pulse 94 02/08/19 21:46 Resp BP 132/66 02/08/19 21:46 Pulse Ox 99 02/08/19 21:46 - Orders/Labs/Meds Orders: Active Orders 24 hr Category Date Time Status Foot Comp Min 3V Lt [CR] Urgent Exams 02/08/19 21:49 Taken Meds: Medications Discontinued Medications Generic Name Dose Route Start Last Admin Trade Name Teddy PRN Reason Stop Dose Admin Hydrocodone Bitart/Acetaminophen 1 tab 02/08/19 22:58 [place] 325-10 Mg PO 02/08/19 22:59 ONETIME ONE Departure - Departure Time of Disposition: 23:02 Disposition: Home, Self-Care 01 Condition: Fair Clinical Impression: Left foot pain - Discharge Information *PRESCRIPTION DRUG MONITORING PROGRAM REVIEWED*: Not Applicable *COPY OF PRESCRIPTION DRUG MONITORING REPORT IN PATIENT RERE: Not Applicable Instructions: Foot Pain Care Plan Goals: The patient was advised of the examination and x-ray results during the visit. The patient was given an oral dose of [place] while in the ED. The patient was advised to contact his welder tack for continued evaluation and further treatment. Resting, icing and elevating the extremity may reduce his symptoms. If the patient has any additional symptoms or concerns, the patient should either return to the emergency department or visit his primary care facility. - My Orders Last 24 Hours: My Active Orders 02/08/19 21:49 Foot Comp Min 3V Lt [CR] Urgent - Assessment/Plan Last 24 Hours: My Active Orders 02/08/19 21:49 Foot Comp Min 3V Lt [CR] Urgent
== END 2019-02-08 23:09 | disposition home or self-care (01) ==
LOC: DL.ED 21:15
DX: M79.672 Pain in left foot (principal); I48.91 Unspecified atrial fibrillation; I25.10 Atherosclerotic heart disease of native coronary artery without angina pectoris; E78.00 Pure hypercholesterolemia, unspecified; I10 Essential (primary) hypertension; I25.2 Old myocardial infarction; Z95.5 Presence of coronary angioplasty implant and graft; K21.9 Gastro-esophageal reflux disease without esophagitis; E11.40 Type 2 diabetes mellitus with diabetic neuropathy, unspecified; Z88.5 Allergy status to narcotic agent; Z88.0 Allergy status to penicillin; Z91.041 Radiographic dye allergy status; Z79.82 Long term (current) use of aspirin; Z79.4 Long term (current) use of insulin; Z79.01 Long term (current) use of anticoagulants
CPT/HCPCS: 73630-LT; 99283-25; A9270-GY

== ENCOUNTER 2019-02-13 22:37 | Emergency (ER) | payer MEDICAID, OTHER ==
[2019-02-13] MEDS ORDERED: Acetaminophen/HYDROcodone 325-10 MG Tab PO ONE ×2 (22:38→23:09)
[2019-02-13 22:49] VITALS: BP 148/66
--- NOTE | 2019-02-13 23:09 | EDM.PDOC ---
"ED HPI GENERAL MEDICAL PROBLEM - General Chief Complaint: Back Pain or Injury Stated Complaint: HIPS/LOWER BACK IN PAIN [id number] Time Seen by Provider: 02/13/19 23:00 Source of Information: Reports: Patient History Limitations: Reports: No Limitations - History of Present Illness INITIAL COMMENTS - FREE TEXT/NARRATIVE: ED with c/o low back pain started 3 days prior, no injury. Pain worse laying, greater with movement, radiates to buttocks and with lying to long down right leg. Denies hx of injury . Follow up scheduled on 02/17 at [facility] with oncology. Concern previous colon cancer has spread to bone. No fever or chills. 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 Lower Back Pain Score (Numeric/FACES): 9 - Related Data Allergies Allergy/AdvReac Type Severity Reaction Status Date / Time chicken derived Allergy Hives Verified 02/13/19 22:51 codeine Allergy Hives Verified 02/13/19 22:51 Penicillins Allergy Hives Verified 02/13/19 22:51 tramadol Allergy Hives Verified 02/13/19 22:51 Contrast media Allergy Hives Uncoded 02/13/19 22:51 Home Meds: Home Meds Aspirin 81 mg PO BRK 11/09/15 [History] Calcium Citrate/Vitamin D3 [[place] Calcium-Vit D 200-250] 1 each PO DAILY [History] Docusate Sodium [Colace] 100 mg PO BID 11/09/15 [History] Gabapentin [Neurontin] 900 mg PO BID 11/09/15 [History] Hydrochlorothiazide 25 mg PO DAILY 11/09/15 [History] Lisinopril 20 mg PO DAILY 11/09/15 [History] Omeprazole 20 mg PO ACBREAKFAST 11/09/15 [History] atorvaSTATin [Lipitor] 20 mg PO BEDTIME 11/09/15 [History] metFORMIN [Glucophage XR] 1,000 mg PO BIDMEALS 11/09/15 [History] Apixaban [Eliquis] 5 mg PO DAILY 11/08/17 [History] Cholecalciferol (Vitamin D3) [Vitamin D3] 1,000 unit PO DAILY 11/08/17 [History] Fluticasone Propionate [Flonase Allergy Relief] 15.8 ml NS DAILY 11/08/17 [ History] Insulin Glarg,Human.Rec.Analog [Lantus Solostar] 45 unit SUBCUT DAILY 11/08/17 [ History] Melatonin/Pyridoxine HCl (B6) [Melatonin 3 mg Tablet] 9 mg PO BEDTIME 11/08/17 [ History] [place]-3 Fatty Acids [[place]-3] 1 gm PO DAILY 11/08/17 [History] Prazosin HCl [Prazosin] 1 mg PO BEDTIME 11/08/17 [History] Triamcinolone Acetonide [Triamcinolone Acetonide 0.1% Crm] 80 gm .XX BID [History] glipiZIDE [Glucotrol XL] 10 mg PO BID 11/08/17 [History] Metoprolol Tartrate [Lopressor] 50 mg PO BID #60 tablet 11/09/17 [Rx] Diltiazem [Diltiazem XR] 240 mg PO BID 02/11/18 [History] ALPRAZolam [Xanax] 1 mg PO DAILY 12/12/18 [History] Past Medical History - Past Health History Medical/Surgical History: Denies Medical/Surgical History Cardiovascular History: Reports: Afib, CAD, High Cholesterol, Hypertension, [place], Stents Other Cardiovascular History: [place] 1999 with 1 stent placement Respiratory History: Reports: Bronchitis, Recurrent, Sleep Apnea Other Respiratory History: smoker for 51 yrs, has a c-pap Gastrointestinal History: Reports: Chronic Constipation, GERD Genitourinary History: Reports: Diabetic Nephropathy Musculoskeletal History: Reports: Osteoarthritis Neurological History: Reports: Neuropathy, Diabetic Endocrine/Metabolic History: Reports: Diabetes, Type II Oncologic (Cancer) History: Reports: Colon Other Oncologic History: with surgery, chemo and radiation Stage 111 - Infectious Disease History Infectious Disease History: Reports: Chicken Pox, Measles, Mumps, Rheumatic Fever - Past Surgical History HEENT Surgical History: Reports: Naso-Sinus Surgery Respiratory Surgical History: Reports: None GI Surgical History: Reports: Colon Male Surgical History: Reports: Circumcision Musculoskeletal Surgical History: Reports: Arthroscopic Knee, Shoulder Surgery, Other (See Below) Other Musculoskeletal Surgeries/Procedures:: Repaired acl. [place]. Placed bone marrow in hip., rt foot surgery with screw placement 11/03/18. Foot surg. Social & Family History - Family History Family Medical History: Noncontributory Cardiac: Reports: Afib, AICD, Angina, Bypass, CAD, Heart Failure, High Cholesterol, Hypertension, [place] Respiratory: Reports: Asthma, COPD GI: Reports: Cholelithiasis : Reports: Dialysis, Renal Disease/Insufficiency Musculoskeletal: Reports: Arthritis, Back pain, Chronic Neurological: Reports: CVA, Neuropathy, Diabetic Psychiatric: Reports: Anxiety, Depression Endocrine/Metabolic: Reports: Diabetes, type II - Tobacco Use Smoking Status *Q: Current Every Day Smoker Years of Tobacco use: 48 Packs/Tins Daily: 0.5 - Caffeine Use Caffeine Use: Reports: Coffee Other Caffeine Use: 4 pots a day - Recreational Drug Use Recreational Drug Use: No - Living Situation & Occupation Living situation: Reports: with Family Occupation: Unemployed ED ROS GENERAL - Review of Systems Review Of Systems: ROS reveals no pertinent complaints other than HPI. ED EXAM,LOWER BACK PAIN/INJURY - Physical Exam Exam: See Below Exam Limited By: No Limitations General Appearance: Alert, Moderate Distress Eye Exam: Bilateral Eye: EOMI (sclera injected) Ears: Normal External Exam, Normal TMs Throat/Mouth: Normal Inspection Head: Atraumatic Neck: Normal Inspection Respiratory/Chest: No Respiratory Distress Cardiovascular: Normal Peripheral Pulses, Regular Rate, Rhythm GI/Abdominal: Normal Bowel Sounds Extremities: Normal Range of Motion Neurological: Alert, Normal Mood/Affect, Oriented x 3, Straight Leg Raise (R). No: Abnormal Sensation, Saddle Anesthesia, Difficulty Walking DTR - Lower Extremities: 2+: Knee (R), Knee (L) Psychiatric: Normal Affect, Normal Mood Skin Exam: Warm, Dry, Intact, Normal Color Course - Vital Signs Last Recorded V/S: Last Vital Signs Temp 96.4 F 02/13/19 22:43 Pulse 76 02/13/19 22:43 Resp 18 02/13/19 22:43 BP 148/66 H 02/13/19 22:43 Pulse Ox 96 02/13/19 22:43 - Orders/Labs/Meds Labs: Laboratory Tests 02/13/19 02/13/19 02/13/19 Range/Units 23:15 23:15 23:15 WBC 7.6 (5.0-10.0) 10^3/uL RBC 5.27 (4.6-6.2) 10^6/uL Hgb 15.3 (14.0-18.0) g/dL Hct 45.2 (40.0-54.0) % MCV 85.8 (80-100) fL MCH 29.0 (27.0-34.0) pg MCHC 33.8 (33.0-35.0) g/dL Plt Count 241 (150-450) 10^3/uL Neut % (Auto) 52.5 (42.2-75.2) % Lymph % (Auto) 36.4 (20.5-50.1) % [place] % (Auto) 9.0 H (2-8) % Eos % (Auto) 2.0 (1.0-3.0) % Baso % (Auto) 0.1 (0.0-1.0) % Sodium 134 L (135-145) mmol/L Potassium 5.3 H (3.6-5.0) mmol/L Chloride 100 L (101-111) mmol/L Carbon Dioxide 25.0 (21.0-31.0) mmol/L Anion Gap 14.3 BUN 21 H (7-18) mg/dL Creatinine 1.0 (0.6-1.3) mg/dL Est Cr Clr Drug Dosing 84.07 mL/min Estimated GFR (MDRD) > 60 BUN/Creatinine Ratio 21.00 Glucose 518 H* (74-105) mg/dL Lactic Acid 1.7 (0.5-2.2) mmol/L Calcium 8.8 (8.4-10.2) mg/dl Total Bilirubin 0.5 (0.2-1.0) mg/dL AST 20 (10-42) IU/L ALT 23 (10-60) IU/L Alkaline Phosphatase 145 H (42-121) IU/L Total Protein 7.1 (6.7-8.2) g/dl Albumin 3.7 (3.2-5.5) g/dl Globulin 3.4 Albumin/Globulin Ratio 1.09 Meds: Medications Discontinued Medications Generic Name Dose Route Start Last Admin Trade Name Freq PRN Reason Stop Dose Admin Hydrocodone Bitart/Acetaminophen 1 tab 02/13/19 23:09 02/13/19 23:16 [place] 325-10 Mg PO 02/13/19 23:10 1 tab ONETIME ONE Administration Hydrocodone Bitart/Acetaminophen Confirm 02/14/19 00:11 02/14/19 00:25 [place] 325-10 Mg Administered 02/14/19 00:12 Not Given Dose 2 tab .ROUTE .STK-MED ONE Insulin Human Regular 10 unit 02/13/19 23:53 02/14/19 00:06 Humulin R SUBCUT 02/13/19 23:54 10 units ONETIME ONE Administration Insulin Human Regular Confirm 02/13/19 23:57 02/14/19 00:08 Humulin R Administered 02/13/19 23:58 Not Given Dose 300 unit .ROUTE .STK-MED ONE Insulin Human Regular Confirm 02/14/19 00:02 02/14/19 00:08 Humulin R Administered 02/14/19 00:03 Not Given Dose 300 unit .ROUTE .STK-MED ONE - Radiology Interpretation Free Text/Narrative:: [facility] [place] [facility] Final Radiology Report Call: [phone] assistance Online chat: [email or web address] Name: MADDIE DUPONT Age: 63Years M Date: 02/13/2019 SSN: -- : [id number] Study: CT SPINE LUMBAR WO Requesting Physician: ZEHRA NEAL Images: 500 Addl Studies: Provided Clinical History: Contrast: Without Contrast Medium: Contrast Amount: Contrast Method: Page 1 of 2 EXAM: CT Lumbar Spine Without Contrast EXAM DATE/TIME: 02/13/2019 11:26 PM CLINICAL HISTORY: 63 years old, male; Signs and symptoms; Other: Low back pain midline to buttocks --no injury, HX colon CA reports concern by oncology has spread to bone TECHNIQUE: Imaging protocol: Axial computed tomography images of the lumbar spine without intravenous contrast. Coronal and sagittal reformatted images were created and reviewed. Radiation optimization: All CT scans at this facility use at least one of these dose optimization techniques: automated exposure control; mA and/or kV adjustment per patient size (includes targeted exams where dose is matched to clinical indication); or iterative reconstruction. COMPARISON: CR Lumbar Spine 2 or 3V 10/10/2018 7:59 PM FINDINGS: Vertebrae: There are five lumbar type vertebral bodies in normal alignment.There are no suspicious lytic or osteosclerotic lesions. There are no vertebral compression fractures. There are moderate degenerative changes within the spine. T10-11: Moderate facet hypertrophy. Bilateral foraminal stenosis. Mild bulging of the disc. L4-5 with diffuse disc bulge and moderate facet hypertrophy. Moderate central stenosis. L1-L2: No disc herniation. No spinal stenosis. No neural foraminal narrowing. L2-L3: L2-3: Diffuse disc bulge. Moderate facet hypertrophy. Mild central stenosis. L3-L4: L3-4 with diffusely bulging disc and mild central stenosis. L4-L5: No disc herniation. No spinal stenosis. No neural foraminal narrowing. L5-S1: L5-S1 with disc osteophyte complex and bilateral foraminal stenosis. MADDIE DUPONT | Final Radiology Report CONFIDENTIALITY STATEMENT This report is intended only for use by the referring physician, and only in accordance with law. If you received this in error, call [phone]. Page 2 of 2 Soft tissues: Unremarkable. Vasculature: There is atherosclerotic calcification of the aorto-iliac tree. There is no abdominal aortic aneurysm. IMPRESSION: 1. No sign of metastatic disease to the lumbar spine. 2. There are moderate degenerative changes within the spine. Spinal stenosis as detailed above. Thank you for allowing us to participate in the care of your patient. Dictated and Authenticated by: Antelmo Cade MD 02/14/2019 12:00 AM Central Time ([place] & [place] - Re-Assessments/Exams Free Text/Narrative Re-Assessment/Exam: 02/14/19 00:33 Lab Glucose elevated. Patient reports not taking any short acting insulin. Home readings uusally in 300 range past 2 weeks. Tonight reported eating 2 helpings of cake, ice cream and 2 doughnuts for supper. 02/14/19 00:35 Pain improved prior to discharge, gait upright. Departure - Departure Time of Disposition: 00:05 Disposition: Home, Self-Care 01 Condition: Good Clinical Impression: Lumbar radiculitis, Hyperglycemia Diabetes Qualifiers: Diabetes mellitus type: type 2 Diabetes mellitus jail insulin use: without long term care pharmacist use Diabetes mellitus complication status: with unspecified complications Qualified Code(s): E11.8 - Type 2 diabetes mellitus with unspecified complications - Discharge Information *PRESCRIPTION DRUG MONITORING PROGRAM REVIEWED*: Yes *COPY OF PRESCRIPTION DRUG MONITORING REPORT IN PATIENT RERE: Yes Instructions: Hyperglycemia, [id number], Lumbosacral Radiculopathy Forms: ED Department Discharge Additional Instructions: Follow up this week with [facility] light activity hydrocodone 10/325 one every 6 hours as needed for severe pain#2 ice or heat to low back home medications as ordered by primary care watch diet limits excessive intake of carbs monitor blood sugars take insulin as directed"
[2019-02-13 23:51] LABS: ANION GAP 14.3; CHLORIDE,CL 100 mmol/L (101-111); SODIUM,NA 134 mmol/L (135-145)
[2019-02-13] MEDS ORDERED: Insulin Regular, Human 100 Units/ML 3 ML Vial SUBCUT ONE (23:53)
[2019-02-13] MEDS ORDERED: Insulin Regular, Human 100 Units/ML 3 ML Vial ONE (23:57)
[2019-02-14] MEDS ORDERED: Insulin Regular, Human 100 Units/ML 3 ML Vial ONE (00:02)
[2019-02-14] MEDS ORDERED: Acetaminophen/HYDROcodone 325-10 MG Tab ONE (00:11)
== END 2019-02-14 00:23 | disposition home or self-care (01) ==
LOC: DL.ED 22:37
DX: M54.16 Radiculopathy, lumbar region (principal); E11.65 Type 2 diabetes mellitus with hyperglycemia; F17.210 Nicotine dependence, cigarettes, uncomplicated; I10 Essential (primary) hypertension; E78.00 Pure hypercholesterolemia, unspecified; K21.9 Gastro-esophageal reflux disease without esophagitis; Z79.84 Long term (current) use of oral hypoglycemic drugs; Z79.899 Other long term (current) drug therapy; Z88.5 Allergy status to narcotic agent; Z88.0 Allergy status to penicillin; Z88.6 Allergy status to analgesic agent; Z91.018 Allergy to other foods; Z91.041 Radiographic dye allergy status
CPT/HCPCS: 36415; 72131; 80053; 83605; 85025; 99284-25; A9270-GY; J1815-GY

== ENCOUNTER 2019-02-20 01:50 | Emergency (ER) | payer OTHER, MEDICAID ==
[2019-02-20] MEDS ORDERED: Acetaminophen/HYDROcodone 325-10 MG Tab PO ONE (01:51)
[2019-02-20 02:02] VITALS: BP 138/72
--- NOTE | 2019-02-20 02:35 | EDM.PDOC ---
ED HPI GENERAL MEDICAL PROBLEM - General Chief Complaint: Upper Extremity Injury/Pain Stated Complaint: FELL ON WRIST Time Seen by Provider: 02/20/19 02:30 Source of Information: Reports: Patient History Limitations: Reports: No Limitations - History of Present Illness INITIAL COMMENTS - FREE TEXT/NARRATIVE: fell onto left wrist when tripped on running board of p/u. Left Wrist Pain Score (Numeric/FACES): 7 - Related Data Allergies Allergy/AdvReac Type Severity Reaction Status Date / Time chicken derived Allergy Hives Verified 02/20/19 02:02 codeine Allergy Hives Verified 02/20/19 02:02 Penicillins Allergy Hives Verified 02/20/19 02:02 tramadol Allergy Hives Verified 02/20/19 02:02 Contrast media Allergy Hives Uncoded 02/20/19 02:02 Home Meds: Home Meds Aspirin 81 mg PO BRK 11/09/15 [History] Calcium Citrate/Vitamin D3 [[place] Calcium-Vit D 200-250] 1 each PO DAILY [History] Docusate Sodium [Colace] 100 mg PO BID 11/09/15 [History] Gabapentin [Neurontin] 900 mg PO BID 11/09/15 [History] Hydrochlorothiazide 25 mg PO DAILY 11/09/15 [History] Lisinopril 20 mg PO DAILY 11/09/15 [History] Omeprazole 20 mg PO ACBREAKFAST 11/09/15 [History] atorvaSTATin [Lipitor] 20 mg PO BEDTIME 11/09/15 [History] metFORMIN [Glucophage XR] 1,000 mg PO BIDMEALS 11/09/15 [History] Apixaban [Eliquis] 5 mg PO DAILY 11/08/17 [History] Cholecalciferol (Vitamin D3) [Vitamin D3] 1,000 unit PO DAILY 11/08/17 [History] Fluticasone Propionate [Flonase Allergy Relief] 15.8 ml NS DAILY 11/08/17 [ History] Insulin Glarg,Human.Rec.Analog [Lantus Solostar] 45 unit SUBCUT DAILY 11/08/17 [ History] Melatonin/Pyridoxine HCl (B6) [Melatonin 3 mg Tablet] 9 mg PO BEDTIME 11/08/17 [ History] [place]-3 Fatty Acids [[place]-3] 1 gm PO DAILY 11/08/17 [History] Prazosin HCl [Prazosin] 1 mg PO BEDTIME 11/08/17 [History] Triamcinolone Acetonide [Triamcinolone Acetonide 0.1% Crm] 80 gm .XX BID [History] glipiZIDE [Glucotrol XL] 10 mg PO BID 11/08/17 [History] Metoprolol Tartrate [Lopressor] 50 mg PO BID #60 tablet 11/09/17 [Rx] Diltiazem [Diltiazem XR] 240 mg PO BID 02/11/18 [History] ALPRAZolam [Xanax] 1 mg PO DAILY 12/12/18 [History] Past Medical History - Past Health History Medical/Surgical History: Denies Medical/Surgical History Cardiovascular History: Reports: Afib, CAD, High Cholesterol, Hypertension, [place], Stents Other Cardiovascular History: [place] 1999 with 1 stent placement Respiratory History: Reports: Bronchitis, Recurrent, Sleep Apnea Other Respiratory History: smoker for 51 yrs, has a c-pap Gastrointestinal History: Reports: Chronic Constipation, GERD Genitourinary History: Reports: Diabetic Nephropathy Musculoskeletal History: Reports: Osteoarthritis Neurological History: Reports: Neuropathy, Diabetic Endocrine/Metabolic History: Reports: Diabetes, Type II Oncologic (Cancer) History: Reports: Colon Other Oncologic History: with surgery, chemo and radiation Stage 111 - Infectious Disease History Infectious Disease History: Reports: Chicken Pox, Measles, Mumps, Rheumatic Fever - Past Surgical History HEENT Surgical History: Reports: Naso-Sinus Surgery Respiratory Surgical History: Reports: None GI Surgical History: Reports: Colon Male Surgical History: Reports: Circumcision Musculoskeletal Surgical History: Reports: Arthroscopic Knee, Shoulder Surgery, Other (See Below) Other Musculoskeletal Surgeries/Procedures:: Repaired acl. [place]. Placed bone marrow in hip., rt foot surgery with screw placement 11/03/18. Foot surg. Social & Family History - Family History Family Medical History: Noncontributory Cardiac: Reports: Afib, AICD, Angina, Bypass, CAD, Heart Failure, High Cholesterol, Hypertension, [place] Respiratory: Reports: Asthma, COPD GI: Reports: Cholelithiasis : Reports: Dialysis, Renal Disease/Insufficiency Musculoskeletal: Reports: Arthritis, Back pain, Chronic Neurological: Reports: CVA, Neuropathy, Diabetic Psychiatric: Reports: Anxiety, Depression Endocrine/Metabolic: Reports: Diabetes, type II - Tobacco Use Smoking Status *Q: Current Every Day Smoker Years of Tobacco use: 51 Packs/Tins Daily: 10 - Caffeine Use Caffeine Use: Reports: Coffee Other Caffeine Use: 4 pots a day - Recreational Drug Use Recreational Drug Use: No - Living Situation & Occupation Living situation: Reports: with Family Occupation: Unemployed Review of Systems - Review of Systems Review Of Systems: ROS reveals no pertinent complaints other than HPI. ED EXAM, GENERAL - Physical Exam Exam: See Below Exam Limited By: No Limitations General Appearance: Alert, WD/WN, Mild Distress, Other (pain) Ears: Hearing Grossly Normal Throat/Mouth: Normal Voice, No Airway Compromise Head: Atraumatic Neck: Non-Tender, Full Range of Motion Respiratory/Chest: No Respiratory Distress Cardiovascular: Regular Rate, Rhythm GI/Abdominal: Soft, Non-Tender Extremities: Other (left wrist swollen tender R/P, [place] wnl) Neurological: Alert, Oriented, Normal Cognition, Normal Gait, No Motor/Sensory Deficits Psychiatric: Normal Affect, Normal Mood Skin Exam: Warm, Dry, Normal Color Lymphatic: No Adenopathy Course - Vital Signs Last Recorded V/S: Last Vital Signs Temp 36.5 C 02/20/19 02:00 Pulse 73 02/20/19 02:00 Resp 18 02/20/19 02:00 BP 138/72 02/20/19 02:00 Pulse Ox 98 02/20/19 02:00 - Orders/Labs/Meds Orders: Active Orders 24 hr Category Date Time Status Wrist Comp Min 3V Lt [CR] Urgent Exams 02/20/19 01:58 Taken - Re-Assessments/Exams Free Text/Narrative Re-Assessment/Exam: 02/20/19 02:36 results discussed with pt Departure - Departure Time of Disposition: 02:37 Disposition: Home, Self-Care 01 Condition: Good Clinical Impression: Left wrist sprain Qualifiers: Encounter type: initial encounter Qualified Code(s): S63.502A - Unspecified sprain of left wrist, initial encounter - Discharge Information Instructions: Wrist Sprain, Adult Additional Instructions: 1) wear brace 2) ice for swelling 3) avoid excessive usage 4) follow up at clinic rx onofre johnson 10 x1 - My Orders Last 24 Hours: My Active Orders 02/20/19 01:58 Wrist Comp Min 3V Lt [CR] Urgent - Assessment/Plan Last 24 Hours: My Active Orders 02/20/19 01:58 Wrist Comp Min 3V Lt [CR] Urgent
[2019-02-20] MEDS ORDERED: Acetaminophen/HYDROcodone 325-10 MG Tab ONE (02:37)
== END 2019-02-20 02:42 | disposition home or self-care (01) ==
LOC: DL.ED 01:50
DX: S63.502A Unspecified sprain of left wrist, initial encounter (principal); I10 Essential (primary) hypertension; E78.00 Pure hypercholesterolemia, unspecified; I48.91 Unspecified atrial fibrillation; E11.40 Type 2 diabetes mellitus with diabetic neuropathy, unspecified; E11.21 Type 2 diabetes mellitus with diabetic nephropathy; Z79.84 Long term (current) use of oral hypoglycemic drugs; Z79.899 Other long term (current) drug therapy; Z79.82 Long term (current) use of aspirin; Z91.018 Allergy to other foods; Z88.0 Allergy status to penicillin; Z88.5 Allergy status to narcotic agent; Z88.6 Allergy status to analgesic agent; Z91.041 Radiographic dye allergy status; W01.0XXA Fall on same level from slipping, tripping and stumbling without subsequent striking against object, initial encounter
CPT/HCPCS: 73110; 99283; A9270

== ENCOUNTER 2019-02-24 23:05 | Emergency (ER) | payer OTHER, MEDICAID ==
[2019-02-24] MEDS ORDERED: Acetaminophen/HYDROcodone 325-10 MG Tab PO ONE (23:31)
--- NOTE | 2019-02-24 23:35 | EDM.PDOC ---
ED HPI GENERAL MEDICAL PROBLEM - General Chief Complaint: Lower Extremity Injury/Pain Stated Complaint: HIP PAIN Time Seen by Provider: 02/24/19 23:32 Source of Information: Reports: Patient History Limitations: Reports: No Limitations - History of Present Illness INITIAL COMMENTS - FREE TEXT/NARRATIVE: was helping friend to move a frig and it fell onto him, edge of frig fell onto his pelvis area. was able to drive self here but hurts alot. Hip Pain Score (Numeric/FACES): 9 - Related Data Allergies Allergy/AdvReac Type Severity Reaction Status Date / Time chicken derived Allergy Hives Verified 02/20/19 02:02 codeine Allergy Hives Verified 02/20/19 02:02 Penicillins Allergy Hives Verified 02/20/19 02:02 tramadol Allergy Hives Verified 02/20/19 02:02 Contrast media Allergy Hives Uncoded 02/20/19 02:02 Home Meds: Home Meds Aspirin 81 mg PO BRK 11/09/15 [History] Calcium Citrate/Vitamin D3 [[place] Calcium-Vit D 200-250] 1 each PO DAILY [History] Docusate Sodium [Colace] 100 mg PO BID 11/09/15 [History] Gabapentin [Neurontin] 900 mg PO BID 11/09/15 [History] Hydrochlorothiazide 25 mg PO DAILY 11/09/15 [History] Lisinopril 20 mg PO DAILY 11/09/15 [History] Omeprazole 20 mg PO ACBREAKFAST 11/09/15 [History] atorvaSTATin [Lipitor] 20 mg PO BEDTIME 11/09/15 [History] metFORMIN [Glucophage XR] 1,000 mg PO BIDMEALS 11/09/15 [History] Apixaban [Eliquis] 5 mg PO DAILY 11/08/17 [History] Cholecalciferol (Vitamin D3) [Vitamin D3] 1,000 unit PO DAILY 11/08/17 [History] Fluticasone Propionate [Flonase Allergy Relief] 15.8 ml NS DAILY 11/08/17 [ History] Insulin Glarg,Human.Rec.Analog [Lantus Solostar] 45 unit SUBCUT DAILY 11/08/17 [ History] Melatonin/Pyridoxine HCl (B6) [Melatonin 3 mg Tablet] 9 mg PO BEDTIME 11/08/17 [ History] [place]-3 Fatty Acids [[place]-3] 1 gm PO DAILY 11/08/17 [History] Prazosin HCl [Prazosin] 1 mg PO BEDTIME 11/08/17 [History] Triamcinolone Acetonide [Triamcinolone Acetonide 0.1% Crm] 80 gm .XX BID [History] glipiZIDE [Glucotrol XL] 10 mg PO BID 11/08/17 [History] Metoprolol Tartrate [Lopressor] 50 mg PO BID #60 tablet 11/09/17 [Rx] Diltiazem [Diltiazem XR] 240 mg PO BID 02/11/18 [History] ALPRAZolam [Xanax] 1 mg PO DAILY 12/12/18 [History] Past Medical History - Past Health History Medical/Surgical History: Denies Medical/Surgical History Cardiovascular History: Reports: Afib, CAD, High Cholesterol, Hypertension, [place], Stents Other Cardiovascular History: [place] 1999 with 1 stent placement Respiratory History: Reports: Bronchitis, Recurrent, Sleep Apnea Other Respiratory History: smoker for 51 yrs, has a c-pap Gastrointestinal History: Reports: Chronic Constipation, GERD Genitourinary History: Reports: Diabetic Nephropathy Musculoskeletal History: Reports: Osteoarthritis Neurological History: Reports: Neuropathy, Diabetic Endocrine/Metabolic History: Reports: Diabetes, Type II Oncologic (Cancer) History: Reports: Colon Other Oncologic History: with surgery, chemo and radiation Stage 111 - Infectious Disease History Infectious Disease History: Reports: Chicken Pox, Measles, Mumps, Rheumatic Fever - Past Surgical History HEENT Surgical History: Reports: Naso-Sinus Surgery Respiratory Surgical History: Reports: None GI Surgical History: Reports: Colon Male Surgical History: Reports: Circumcision Musculoskeletal Surgical History: Reports: Arthroscopic Knee, Shoulder Surgery, Other (See Below) Other Musculoskeletal Surgeries/Procedures:: Repaired acl. [place]. Placed bone marrow in hip., rt foot surgery with screw placement 11/03/18. Foot surg. Social & Family History - Family History Family Medical History: Noncontributory Cardiac: Reports: Afib, AICD, Angina, Bypass, CAD, Heart Failure, High Cholesterol, Hypertension, [place] Respiratory: Reports: Asthma, COPD GI: Reports: Cholelithiasis : Reports: Dialysis, Renal Disease/Insufficiency Musculoskeletal: Reports: Arthritis, Back pain, Chronic Neurological: Reports: CVA, Neuropathy, Diabetic Psychiatric: Reports: Anxiety, Depression Endocrine/Metabolic: Reports: Diabetes, type II - Caffeine Use Caffeine Use: Reports: Coffee Other Caffeine Use: 4 pots a day - Living Situation & Occupation Living situation: Reports: with Family Occupation: Unemployed Review of Systems - Review of Systems Review Of Systems: ROS reveals no pertinent complaints other than HPI. ED EXAM, GENERAL - Physical Exam Exam: See Below Exam Limited By: No Limitations General Appearance: Alert, WD/WN, Mild Distress, Moderate Distress, Other (pain) Ears: Hearing Grossly Normal Throat/Mouth: Normal Voice, No Airway Compromise Head: Atraumatic Neck: Non-Tender, Full Range of Motion Respiratory/Chest: No Respiratory Distress Cardiovascular: Regular Rate, Rhythm GI/Abdominal: Soft, Non-Tender, Other (tender over pelvis region, gait limited to pain) Neurological: Alert, Oriented, Normal Cognition, No Motor/Sensory Deficits Psychiatric: Other (upset) Skin Exam: Warm, Dry, Normal Color Lymphatic: No Adenopathy Course - Vital Signs Last Recorded V/S: Last Vital Signs Temp 36.3 C 02/24/19 23:33 Pulse 67 02/24/19 23:33 Resp 19 02/24/19 23:33 BP 126/69 02/24/19 23:33 Pulse Ox 97 02/24/19 23:33 - Orders/Labs/Meds Labs: Laboratory Tests 02/25/19 Range/Units 00:02 Urine Color Yellow (YELLOW) Urine Appearance Clear (CLEAR) Urine pH 7.0 (5.0-9.0) Ur Specific [place] 1.015 (1.005-1.030) Urine Protein Negative (NEGATIVE) Urine Glucose (UA) 500 H (NEGATIVE) Urine Ketones Negative (NEGATIVE) Urine Occult Blood Negative (NEGATIVE) Urine Nitrite Negative (NEGATIVE) Urine Bilirubin Negative (NEGATIVE) Urine Urobilinogen 0.2 (0.2-1.0) mg/dL Ur Leukocyte Esterase Negative (NEGATIVE) Meds: Medications Discontinued Medications Generic Name Dose Route Start Last Admin Trade Name Freq PRN Reason Stop Dose Admin Hydrocodone Bitart/Acetaminophen 1 tab 02/24/19 23:31 02/24/19 23:36 [place] 325-10 Mg PO 02/24/19 23:32 1 tab ONETIME ONE Administration - Re-Assessments/Exams Free Text/Narrative Re-Assessment/Exam: 02/25/19 00:55 results discussed with pt who is feeling better presently Departure - Departure Time of Disposition: 00:55 Disposition: Home, Self-Care 01 Condition: Good Clinical Impression: Contusion, hip Qualifiers: Encounter type: initial encounter Laterality: unspecified laterality Qualified Code(s): S70.00XA - Contusion of unspecified hip, initial encounter - Discharge Information Forms: ED Department Discharge Additional Instructions: 1) rest and avoid bending lifting straining next 48 hours 2) follow up at clinic rx given; vicodin 5/325mg bid prn x 6
[2019-02-25 01:02] VITALS: BP 120/68; PULSE 78
== END 2019-02-25 01:00 | disposition home or self-care (01) ==
LOC: DL.ED 23:05
DX: S70.01XA Contusion of right hip, initial encounter (principal); S70.02XA Contusion of left hip, initial encounter; I48.91 Unspecified atrial fibrillation; E78.00 Pure hypercholesterolemia, unspecified; I10 Essential (primary) hypertension; I25.2 Old myocardial infarction; E11.21 Type 2 diabetes mellitus with diabetic nephropathy; Z79.84 Long term (current) use of oral hypoglycemic drugs; Z79.899 Other long term (current) drug therapy; Z79.4 Long term (current) use of insulin; Z79.82 Long term (current) use of aspirin; Z88.5 Allergy status to narcotic agent; Z88.0 Allergy status to penicillin; Z88.6 Allergy status to analgesic agent; Z91.018 Allergy to other foods; Z91.041 Radiographic dye allergy status; W20.8XXA Other cause of strike by thrown, projected or falling object, initial encounter
CPT/HCPCS: 72192; 81003; 99284; A9270; 99283

== ENCOUNTER 2019-03-03 22:02 | Emergency (ER) | payer OTHER, MEDICAID ==
[2019-03-03] MEDS ORDERED: Acetaminophen/HYDROcodone 325-10 MG Tab PO ONE (22:03)
[2019-03-03 22:14] VITALS: BP 140/56
--- NOTE | 2019-03-03 22:25 | EDM.PDOC ---
ED HPI GENERAL MEDICAL PROBLEM - General Chief Complaint: Back Pain or Injury Stated Complaint: TWISTED BACK AND LEGS WENT NUMB Time Seen by Provider: 03/03/19 22:23 Source of Information: Reports: Patient History Limitations: Reports: No Limitations - History of Present Illness INITIAL COMMENTS - FREE TEXT/NARRATIVE: was doing sheet rock and lost balance and twisted mid back and legs went numb for awhile but now ok but still has pain in back. Middle Back Pain Score (Numeric/FACES): 7 - Related Data Allergies Allergy/AdvReac Type Severity Reaction Status Date / Time chicken derived Allergy Hives Verified 02/20/19 02:02 codeine Allergy Hives Verified 02/20/19 02:02 Penicillins Allergy Hives Verified 02/20/19 02:02 tramadol Allergy Hives Verified 02/20/19 02:02 Contrast media Allergy Hives Uncoded 02/20/19 02:02 Home Meds: Home Meds Aspirin 81 mg PO BRK 11/09/15 [History] Calcium Citrate/Vitamin D3 [[place] Calcium-Vit D 200-250] 1 each PO DAILY [History] Docusate Sodium [Colace] 100 mg PO BID 11/09/15 [History] Gabapentin [Neurontin] 900 mg PO BID 11/09/15 [History] Hydrochlorothiazide 25 mg PO DAILY 11/09/15 [History] Lisinopril 20 mg PO DAILY 11/09/15 [History] Omeprazole 20 mg PO ACBREAKFAST 11/09/15 [History] atorvaSTATin [Lipitor] 20 mg PO BEDTIME 11/09/15 [History] metFORMIN [Glucophage XR] 1,000 mg PO BIDMEALS 11/09/15 [History] Apixaban [Eliquis] 5 mg PO DAILY 11/08/17 [History] Cholecalciferol (Vitamin D3) [Vitamin D3] 1,000 unit PO DAILY 11/08/17 [History] Fluticasone Propionate [Flonase Allergy Relief] 15.8 ml NS DAILY 11/08/17 [ History] Insulin Glarg,Human.Rec.Analog [Lantus Solostar] 45 unit SUBCUT DAILY 11/08/17 [ History] Melatonin/Pyridoxine HCl (B6) [Melatonin 3 mg Tablet] 9 mg PO BEDTIME 11/08/17 [ History] [place]-3 Fatty Acids [[place]-3] 1 gm PO DAILY 11/08/17 [History] Prazosin HCl [Prazosin] 1 mg PO BEDTIME 11/08/17 [History] Triamcinolone Acetonide [Triamcinolone Acetonide 0.1% Crm] 80 gm .XX BID [History] glipiZIDE [Glucotrol XL] 10 mg PO BID 11/08/17 [History] Metoprolol Tartrate [Lopressor] 50 mg PO BID #60 tablet 11/09/17 [Rx] Diltiazem [Diltiazem XR] 240 mg PO BID 02/11/18 [History] ALPRAZolam [Xanax] 1 mg PO DAILY 12/12/18 [History] Past Medical History - Past Health History Medical/Surgical History: Denies Medical/Surgical History Cardiovascular History: Reports: Afib, CAD, High Cholesterol, Hypertension, [place], Stents Other Cardiovascular History: [place] 1999 with 1 stent placement Respiratory History: Reports: Bronchitis, Recurrent, Sleep Apnea Other Respiratory History: smoker for 51 yrs, has a c-pap Gastrointestinal History: Reports: Chronic Constipation, GERD Genitourinary History: Reports: Diabetic Nephropathy Musculoskeletal History: Reports: Osteoarthritis Neurological History: Reports: Neuropathy, Diabetic Endocrine/Metabolic History: Reports: Diabetes, Type II Oncologic (Cancer) History: Reports: Colon Other Oncologic History: with surgery, chemo and radiation Stage 111 - Infectious Disease History Infectious Disease History: Reports: Chicken Pox, Measles, Mumps, Rheumatic Fever - Past Surgical History HEENT Surgical History: Reports: Naso-Sinus Surgery Respiratory Surgical History: Reports: None GI Surgical History: Reports: Colon Male Surgical History: Reports: Circumcision Musculoskeletal Surgical History: Reports: Arthroscopic Knee, Shoulder Surgery, Other (See Below) Other Musculoskeletal Surgeries/Procedures:: Repaired acl. [place]. Placed bone marrow in hip., rt foot surgery with screw placement 11/03/18. Foot surg. Social & Family History - Family History Family Medical History: Noncontributory Cardiac: Reports: Afib, AICD, Angina, Bypass, CAD, Heart Failure, High Cholesterol, Hypertension, [place] Respiratory: Reports: Asthma, COPD GI: Reports: Cholelithiasis : Reports: Dialysis, Renal Disease/Insufficiency Musculoskeletal: Reports: Arthritis, Back pain, Chronic Neurological: Reports: CVA, Neuropathy, Diabetic Psychiatric: Reports: Anxiety, Depression Endocrine/Metabolic: Reports: Diabetes, type II - Tobacco Use Smoking Status *Q: Current Every Day Smoker Years of Tobacco use: 53 Packs/Tins Daily: 0.5 Second Hand Smoke Exposure: Yes - Caffeine Use Caffeine Use: Reports: Coffee Other Caffeine Use: 4 pots a day - Recreational Drug Use Recreational Drug Use: No - Living Situation & Occupation Living situation: Reports: with Family Occupation: Unemployed ED ROS GENERAL - Review of Systems Review Of Systems: ROS reveals no pertinent complaints other than HPI. ED EXAM,LOWER BACK PAIN/INJURY - Physical Exam Exam: See Below Exam Limited By: No Limitations General Appearance: Alert, WD/WN, Mild Distress, Other (pain) Ears: Hearing Grossly Normal Throat/Mouth: Normal Voice, No Airway Compromise Head: Atraumatic Neck: Non-Tender, Full Range of Motion Respiratory/Chest: No Respiratory Distress Cardiovascular: Regular Rate, Rhythm GI/Abdominal: Soft, Non-Tender Back Exam: Muscle Spasm, Paraspinal Tenderness, Other (L1-2-3 region) Neurological: Alert, No Motor/Sensory Deficits, Oriented x 3 Psychiatric: Flat Affect Skin Exam: Warm, Dry, Normal Color Lymphatic: No Adenopathy Course - Vital Signs Last Recorded V/S: Last Vital Signs Temp 36.7 C 03/03/19 22:10 Pulse 76 03/03/19 22:10 Resp 18 03/03/19 22:10 BP 140/56 L 03/03/19 22:10 Pulse Ox 94 L 03/03/19 22:10 - Orders/Labs/Meds Orders: Active Orders 24 hr Category Date Time Status Lumbar Spine 2 or 3V [CR] Urgent Exams 03/03/19 22:22 Taken - Re-Assessments/Exams Free Text/Narrative Re-Assessment/Exam: 03/03/19 23:18 results discussed with pt. Departure - Departure Time of Disposition: 23:18 Disposition: Home, Self-Care 01 Condition: Fair Clinical Impression: Lumbar strain Qualifiers: Encounter type: initial encounter Qualified Code(s): S39.012A - Strain of muscle, fascia and tendon of lower back, initial encounter - Discharge Information Forms: ED Department Discharge Additional Instructions: 1) rest avoid bending lifting straining 2) try ice or heat to sore areas rx togo; norco 10 x 1 - My Orders Last 24 Hours: My Active Orders 03/03/19 22:22 Lumbar Spine 2 or 3V [CR] Urgent - Assessment/Plan Last 24 Hours: My Active Orders 03/03/19 22:22 Lumbar Spine 2 or 3V [CR] Urgent
[2019-03-03] MEDS ORDERED: Acetaminophen/HYDROcodone 325-10 MG Tab ONE (23:18)
== END 2019-03-03 23:23 | disposition home or self-care (01) ==
LOC: DL.ED 22:02
DX: S39.012A Strain of muscle, fascia and tendon of lower back, initial encounter (principal); I48.91 Unspecified atrial fibrillation; I25.10 Atherosclerotic heart disease of native coronary artery without angina pectoris; E78.00 Pure hypercholesterolemia, unspecified; I10 Essential (primary) hypertension; I25.2 Old myocardial infarction; F17.210 Nicotine dependence, cigarettes, uncomplicated; E11.40 Type 2 diabetes mellitus with diabetic neuropathy, unspecified; E11.21 Type 2 diabetes mellitus with diabetic nephropathy; Z88.8 Allergy status to other drugs, medicaments and biological substances; Z88.0 Allergy status to penicillin; Z88.5 Allergy status to narcotic agent; Z95.5 Presence of coronary angioplasty implant and graft; Z79.899 Other long term (current) drug therapy; Z91.041 Radiographic dye allergy status; Z79.82 Long term (current) use of aspirin; Z79.4 Long term (current) use of insulin; X50.1XXA Overexertion from prolonged static or awkward postures, initial encounter
CPT/HCPCS: 72100; 99283; A9270

== ENCOUNTER 2019-03-21 20:54 | Emergency (ER) | payer MEDICAID ==
[2019-03-21 21:00] VITALS: BP 135/61
--- NOTE | 2019-03-21 21:32 | EDM.PDOC ---
ED HPI GENERAL MEDICAL PROBLEM - General Chief Complaint: Lower Extremity Injury/Pain Stated Complaint: RIGHT HIP HURTING Time Seen by Provider: 03/21/19 21:29 Source of Information: Reports: Patient History Limitations: Reports: No Limitations - History of Present Illness INITIAL COMMENTS - FREE TEXT/NARRATIVE: r hip and left shoulder pain after cowrker dropped their end of sheet rock.Patient reports twisting shoulder and feeling something "crunch in right hip". Has been weight bearing. Tylenol at 1500 Treatments APPLICATIONS CONSULTANT: Reports: Acetaminophen Right Hip Pain Score (Numeric/FACES): 8 - Related Data Allergies Allergy/AdvReac Type Severity Reaction Status Date / Time chicken derived Allergy Hives Verified 02/20/19 02:02 codeine Allergy Hives Verified 02/20/19 02:02 Penicillins Allergy Hives Verified 02/20/19 02:02 tramadol Allergy Hives Verified 02/20/19 02:02 Contrast media Allergy Hives Uncoded 02/20/19 02:02 Home Meds: Home Meds Aspirin 81 mg PO BRK 11/09/15 [History] Calcium Citrate/Vitamin D3 [[place] Calcium-Vit D 200-250] 1 each PO DAILY [History] Docusate Sodium [Colace] 100 mg PO BID 11/09/15 [History] Gabapentin [Neurontin] 900 mg PO BID 11/09/15 [History] Hydrochlorothiazide 25 mg PO DAILY 11/09/15 [History] Lisinopril 20 mg PO DAILY 11/09/15 [History] Omeprazole 20 mg PO ACBREAKFAST 11/09/15 [History] atorvaSTATin [Lipitor] 20 mg PO BEDTIME 11/09/15 [History] metFORMIN [Glucophage XR] 1,000 mg PO BIDMEALS 11/09/15 [History] Apixaban [Eliquis] 5 mg PO DAILY 11/08/17 [History] Cholecalciferol (Vitamin D3) [Vitamin D3] 1,000 unit PO DAILY 11/08/17 [History] Fluticasone Propionate [Flonase Allergy Relief] 15.8 ml NS DAILY 11/08/17 [ History] Insulin Glarg,Human.Rec.Analog [Lantus Solostar] 45 unit SUBCUT DAILY 11/08/17 [ History] Melatonin/Pyridoxine HCl (B6) [Melatonin 3 mg Tablet] 9 mg PO BEDTIME 11/08/17 [ History] [place]-3 Fatty Acids [[place]-3] 1 gm PO DAILY 11/08/17 [History] Prazosin HCl [Prazosin] 1 mg PO BEDTIME 11/08/17 [History] Triamcinolone Acetonide [Triamcinolone Acetonide 0.1% Crm] 80 gm .XX BID [History] glipiZIDE [Glucotrol XL] 10 mg PO BID 11/08/17 [History] Metoprolol Tartrate [Lopressor] 50 mg PO BID #60 tablet 11/09/17 [Rx] Diltiazem [Diltiazem XR] 240 mg PO BID 02/11/18 [History] ALPRAZolam [Xanax] 1 mg PO DAILY 12/12/18 [History] Past Medical History - Past Health History Medical/Surgical History: Denies Medical/Surgical History Cardiovascular History: Reports: Afib, CAD, High Cholesterol, Hypertension, [place], Stents Other Cardiovascular History: [place] 1999 with 1 stent placement Respiratory History: Reports: Bronchitis, Recurrent, Sleep Apnea Other Respiratory History: smoker for 51 yrs, has a c-pap Gastrointestinal History: Reports: Chronic Constipation, GERD Genitourinary History: Reports: Diabetic Nephropathy Musculoskeletal History: Reports: Osteoarthritis Neurological History: Reports: Neuropathy, Diabetic Endocrine/Metabolic History: Reports: Diabetes, Type II Oncologic (Cancer) History: Reports: Colon Other Oncologic History: with surgery, chemo and radiation Stage 111 - Infectious Disease History Infectious Disease History: Reports: Chicken Pox, Measles, Mumps, Rheumatic Fever - Past Surgical History HEENT Surgical History: Reports: Naso-Sinus Surgery Respiratory Surgical History: Reports: None GI Surgical History: Reports: Colon Male Surgical History: Reports: Circumcision Musculoskeletal Surgical History: Reports: Arthroscopic Knee, Shoulder Surgery, Other (See Below) Other Musculoskeletal Surgeries/Procedures:: Repaired acl. [place]. Placed bone marrow in hip., rt foot surgery with screw placement 11/03/18. Foot surg. Social & Family History - Family History Family Medical History: Noncontributory Cardiac: Reports: Afib, AICD, Angina, Bypass, CAD, Heart Failure, High Cholesterol, Hypertension, [place] Respiratory: Reports: Asthma, COPD GI: Reports: Cholelithiasis : Reports: Dialysis, Renal Disease/Insufficiency Musculoskeletal: Reports: Arthritis, Back pain, Chronic Neurological: Reports: CVA, Neuropathy, Diabetic Psychiatric: Reports: Anxiety, Depression Endocrine/Metabolic: Reports: Diabetes, type II - Tobacco Use Smoking Status *Q: Heavy Tobacco Smoker Years of Tobacco use: 50 Packs/Tins Daily: 0.5 - Caffeine Use Caffeine Use: Reports: Coffee Other Caffeine Use: 4 pots a day - Recreational Drug Use Recreational Drug Use: No - Living Situation & Occupation Living situation: Reports: with Family Occupation: Unemployed Review of Systems - Review of Systems Review Of Systems: ROS reveals no pertinent complaints other than HPI. ED EXAM, GENERAL - Physical Exam Exam: See Below Exam Limited By: No Limitations General Appearance: Alert, No Apparent Distress Eye Exam: Bilateral Eye: EOMI Ears: Normal External Exam Nose: Normal Inspection Throat/Mouth: Normal Inspection Head: Atraumatic, Normocephalic Neck: Normal Inspection Respiratory/Chest: No Respiratory Distress, Lungs Clear, Normal Breath Sounds Cardiovascular: Normal Peripheral Pulses, Regular Rate, Rhythm GI/Abdominal: Normal Bowel Sounds Back Exam: No: Vertebral Tenderness Extremities: Limited Range of Motion (Painful ROM left shoulder with external rotation a), Other (pain with palpation right hip ). No: Joint Swelling, Leg Pain Neurological: Alert, Oriented, Normal Cognition, Normal Reflexes Psychiatric: Normal Affect, Normal Mood Skin Exam: Warm, Dry, Intact, Normal Color. No: Wound/Incision Course - Vital Signs Last Recorded V/S: Last Vital Signs Temp 97.9 F 03/21/19 20:57 Pulse 69 03/21/19 20:57 Resp 17 03/21/19 20:57 BP 135/61 03/21/19 20:57 Pulse Ox 98 03/21/19 20:57 - Radiology Interpretation Free Text/Narrative:: right hip xray, osteoarthritis, no fx Departure - Departure Time of Disposition: 22:49 Disposition: Home, Self-Care 01 Condition: Good Clinical Impression: Acute right hip pain Left shoulder pain Qualifiers: Chronicity: acute Qualified Code(s): M25.512 - Pain in left shoulder - Discharge Information *PRESCRIPTION DRUG MONITORING PROGRAM REVIEWED*: Yes *COPY OF PRESCRIPTION DRUG MONITORING REPORT IN PATIENT RERE: No Instructions: Shoulder Pain, Hip Pain Referrals: PCP,None [Primary Care Provider] - Forms: ED Department Discharge Additional Instructions: rest light activity alternate ice and heat to areas follow up clinic 3-4 days if symptoms not improving tylenol 650mg every 4 hours as needed for discomfort
== END 2019-03-21 22:58 | disposition home or self-care (01) ==
LOC: DL.ED 20:54
DX: M25.551 Pain in right hip (principal); M25.512 Pain in left shoulder; I10 Essential (primary) hypertension; K21.9 Gastro-esophageal reflux disease without esophagitis; E78.00 Pure hypercholesterolemia, unspecified; I48.91 Unspecified atrial fibrillation; I25.10 Atherosclerotic heart disease of native coronary artery without angina pectoris; E11.21 Type 2 diabetes mellitus with diabetic nephropathy; Z79.4 Long term (current) use of insulin; Z79.899 Other long term (current) drug therapy; Z79.82 Long term (current) use of aspirin; Z91.018 Allergy to other foods; Z88.0 Allergy status to penicillin; Z88.5 Allergy status to narcotic agent; Z88.6 Allergy status to analgesic agent; Z91.041 Radiographic dye allergy status
CPT/HCPCS: 99283-25

== ENCOUNTER 2019-03-28 01:37 | Emergency (ER) | payer MEDICAID, OTHER ==
[2019-03-28] MEDS ORDERED: Acetaminophen/HYDROcodone 325-10 MG Tab PO ONE (01:38)
[2019-03-28 01:47] VITALS: BP 159/67; PULSE 70
--- NOTE | 2019-03-28 01:51 | EDM.PDOC ---
ED HPI GENERAL MEDICAL PROBLEM - General Chief Complaint: Cardiovascular Problem Stated Complaint: HEART IS RACING Time Seen by Provider: 03/28/19 01:49 Source of Information: Reports: Patient History Limitations: Reports: No Limitations - History of Present Illness INITIAL COMMENTS - FREE TEXT/NARRATIVE: woke up with heart racing and drove self here. denies pain. had stent in 1999? - Related Data Allergies Allergy/AdvReac Type Severity Reaction Status Date / Time chicken derived Allergy Hives Verified 02/20/19 02:02 codeine Allergy Hives Verified 02/20/19 02:02 Penicillins Allergy Hives Verified 02/20/19 02:02 tramadol Allergy Hives Verified 02/20/19 02:02 Contrast media Allergy Hives Uncoded 02/20/19 02:02 Home Meds: Home Meds Aspirin 81 mg PO BRK 11/09/15 [History] Calcium Citrate/Vitamin D3 [[place] Calcium-Vit D 200-250] 1 each PO DAILY [History] Docusate Sodium [Colace] 100 mg PO BID 11/09/15 [History] Gabapentin [Neurontin] 900 mg PO BID 11/09/15 [History] Hydrochlorothiazide 25 mg PO DAILY 11/09/15 [History] Lisinopril 20 mg PO DAILY 11/09/15 [History] Omeprazole 20 mg PO ACBREAKFAST 11/09/15 [History] atorvaSTATin [Lipitor] 20 mg PO BEDTIME 11/09/15 [History] metFORMIN [Glucophage XR] 1,000 mg PO BIDMEALS 11/09/15 [History] Apixaban [Eliquis] 5 mg PO DAILY 11/08/17 [History] Cholecalciferol (Vitamin D3) [Vitamin D3] 1,000 unit PO DAILY 11/08/17 [History] Fluticasone Propionate [Flonase Allergy Relief] 15.8 ml NS DAILY 11/08/17 [ History] Insulin Glarg,Human.Rec.Analog [Lantus Solostar] 45 unit SUBCUT DAILY 11/08/17 [ History] Melatonin/Pyridoxine HCl (B6) [Melatonin 3 mg Tablet] 9 mg PO BEDTIME 11/08/17 [ History] [place]-3 Fatty Acids [[place]-3] 1 gm PO DAILY 11/08/17 [History] Prazosin HCl [Prazosin] 1 mg PO BEDTIME 11/08/17 [History] Triamcinolone Acetonide [Triamcinolone Acetonide 0.1% Crm] 80 gm .XX BID [History] glipiZIDE [Glucotrol XL] 10 mg PO BID 11/08/17 [History] Metoprolol Tartrate [Lopressor] 50 mg PO BID #60 tablet 11/09/17 [Rx] Diltiazem [Diltiazem XR] 240 mg PO BID 02/11/18 [History] ALPRAZolam [Xanax] 1 mg PO DAILY 12/12/18 [History] Past Medical History - Past Health History Medical/Surgical History: Denies Medical/Surgical History Cardiovascular History: Reports: Afib, CAD, High Cholesterol, Hypertension, [place], Stents Other Cardiovascular History: [place] 1999 with 1 stent placement Respiratory History: Reports: Bronchitis, Recurrent, Sleep Apnea Other Respiratory History: smoker for 51 yrs, has a c-pap Gastrointestinal History: Reports: Chronic Constipation, GERD Genitourinary History: Reports: Diabetic Nephropathy Musculoskeletal History: Reports: Osteoarthritis Neurological History: Reports: Neuropathy, Diabetic Endocrine/Metabolic History: Reports: Diabetes, Type II Oncologic (Cancer) History: Reports: Colon Other Oncologic History: with surgery, chemo and radiation Stage 111 - Infectious Disease History Infectious Disease History: Reports: Chicken Pox, Measles, Mumps, Rheumatic Fever - Past Surgical History HEENT Surgical History: Reports: Naso-Sinus Surgery Respiratory Surgical History: Reports: None GI Surgical History: Reports: Colon Male Surgical History: Reports: Circumcision Musculoskeletal Surgical History: Reports: Arthroscopic Knee, Shoulder Surgery, Other (See Below) Other Musculoskeletal Surgeries/Procedures:: Repaired acl. [place]. Placed bone marrow in hip., rt foot surgery with screw placement 11/03/18. Foot surg. Social & Family History - Family History Family Medical History: Noncontributory Cardiac: Reports: Afib, AICD, Angina, Bypass, CAD, Heart Failure, High Cholesterol, Hypertension, [place] Respiratory: Reports: Asthma, COPD GI: Reports: Cholelithiasis : Reports: Dialysis, Renal Disease/Insufficiency Musculoskeletal: Reports: Arthritis, Back pain, Chronic Neurological: Reports: CVA, Neuropathy, Diabetic Psychiatric: Reports: Anxiety, Depression Endocrine/Metabolic: Reports: Diabetes, type II - Caffeine Use Caffeine Use: Reports: Coffee Other Caffeine Use: 4 pots a day - Living Situation & Occupation Living situation: Reports: with Family Occupation: Unemployed ED ROS GENERAL - Review of Systems Review Of Systems: ROS reveals no pertinent complaints other than HPI. ED EXAM, GENERAL - Physical Exam Exam: See Below Exam Limited By: No Limitations General Appearance: Alert, WD/WN, Anxious Ears: Hearing Grossly Normal Throat/Mouth: Normal Voice, No Airway Compromise Head: Atraumatic Neck: Non-Tender, Full Range of Motion Respiratory/Chest: No Respiratory Distress Cardiovascular: Regular Rate, Rhythm GI/Abdominal: Soft, Non-Tender Neurological: Alert, Oriented, Normal Cognition, Normal Gait, No Motor/Sensory Deficits Psychiatric: Normal Affect, Normal Mood Skin Exam: Warm, Dry, Normal Color Lymphatic: No Adenopathy Course - Vital Signs Last Recorded V/S: Last Vital Signs Temp 36.6 C 03/28/19 01:44 Pulse 70 03/28/19 01:44 Resp 20 03/28/19 01:44 BP 159/67 H 03/28/19 01:44 Pulse Ox 94 L 03/28/19 01:44 - Orders/Labs/Meds Orders: Active Orders 24 hr Category Date Time Status EKG 12 Lead [EKG Documentation Completion] [RC] STAT Care 03/28/19 01:48 Active Labs: Laboratory Tests 03/28/19 03/28/19 Range/Units 01:48 01:48 WBC 8.6 (5.0-10.0) 10^3/uL RBC 5.23 (4.6-6.2) 10^6/uL Hgb 15.4 (14.0-18.0) g/dL Hct 45.4 (40.0-54.0) % MCV 86.8 (80-100) fL MCH 29.4 (27.0-34.0) pg MCHC 33.9 (33.0-35.0) g/dL Plt Count 242 (150-450) 10^3/uL Neut % (Auto) 52.3 (42.2-75.2) % Lymph % (Auto) 35.6 (20.5-50.1) % [place] % (Auto) 9.7 H (2-8) % Eos % (Auto) 2.3 (1.0-3.0) % Baso % (Auto) 0.1 (0.0-1.0) % Sodium 136 (135-145) mmol/L Potassium 4.1 (3.6-5.0) mmol/L Chloride 105 (101-111) mmol/L Carbon Dioxide 22.0 (21.0-31.0) mmol/L Anion Gap 13.1 BUN 25 H (7-18) mg/dL Creatinine 1.0 (0.6-1.3) mg/dL Est Cr Clr Drug Dosing 84.07 mL/min Estimated GFR (MDRD) > 60 BUN/Creatinine Ratio 25.00 Glucose 300 H (74-105) mg/dL Calcium 8.5 (8.4-10.2) mg/dl Total Bilirubin 0.4 (0.2-1.0) mg/dL AST 25 (10-42) IU/L ALT 25 (10-60) IU/L Alkaline Phosphatase 125 H (42-121) IU/L Troponin I < 0.02 (0.00-0.02) ng/ml Total Protein 6.8 (6.7-8.2) g/dl Albumin 3.7 (3.2-5.5) g/dl Globulin 3.1 Albumin/Globulin Ratio 1.19 - Re-Assessments/Exams Free Text/Narrative Re-Assessment/Exam: 03/28/19 02:52 results discussed with pt who is feeling much better now in his chest but c/o pain in his big toe from reinjury during spring and is heading to [place] for re- eval with [facility]. Departure - Departure Time of Disposition: 02:54 Disposition: Home, Self-Care 01 Condition: Good Clinical Impression: Palpitation Toe joint pain Qualifiers: Laterality: unspecified laterality Qualified Code(s): M25.579 - Pain in unspecified ankle and joints of unspecified foot Instructions: Palpitations, [id number] Forms: ED Department Discharge Additional Instructions: 1) rest and avoid vigorous activities 2) elevate leg as much as possible 3) follow up with [facility] rx shimon johnson 10 x1 - My Orders Last 24 Hours: My Active Orders 03/28/19 01:48 EKG 12 Lead [EKG Documentation Completion] [RC] STAT - Assessment/Plan Last 24 Hours: My Active Orders 03/28/19 01:48 EKG 12 Lead [EKG Documentation Completion] [RC] STAT
[2019-03-28 02:18] LABS: ANION GAP 13.1; CHLORIDE,CL 105 mmol/L (101-111); SODIUM,NA 136 mmol/L (135-145)
[2019-03-28] MEDS ORDERED: Acetaminophen/HYDROcodone 325-10 MG Tab ONE (02:54)
== END 2019-03-28 03:00 | disposition home or self-care (01) ==
LOC: DL.ED 01:37
DX: R00.2 Palpitations (principal); M25.579 Pain in unspecified ankle and joints of unspecified foot; Z79.899 Other long term (current) drug therapy; Z79.82 Long term (current) use of aspirin; Z88.5 Allergy status to narcotic agent; Z91.018 Allergy to other foods; Z88.6 Allergy status to analgesic agent; Z91.041 Radiographic dye allergy status
CPT/HCPCS: 36415; 80053; 84484; 85025; 93005; 99284; A9270; 99283

== ENCOUNTER 2019-04-04 21:29 | Emergency (ER) | payer OTHER ==
[2019-04-04] MEDS ORDERED: Acetaminophen/HYDROcodone 325-10 MG Tab PO ONE (21:30)
[2019-04-04 21:39] VITALS: BP 144/74
--- NOTE | 2019-04-04 21:50 | EDM.PDOC ---
ED HPI GENERAL MEDICAL PROBLEM - General Chief Complaint: Lower Extremity Injury/Pain Stated Complaint: RT HIP PAIN Time Seen by Provider: 04/04/19 21:42 Source of Information: Reports: Patient History Limitations: Reports: No Limitations - History of Present Illness INITIAL COMMENTS - FREE TEXT/NARRATIVE: This 63 yo male patient reports to the ED with right hip pain and left foot pain. The patient reports he was walking and got his left foot boot caught in a drain causing him to fall onto his right hip. The patient reports the fall happened at about 1930 tonight. The patient has had surgery on his left foot ( reason for the boot). The patient reports he drove to the ED tonight. Onset: Today Onset Date: 04/04/19 Onset Time: 19:30 Duration: Other Location: Reports: Lower Extremity, Left, Lower Extremity, Right Quality: Reports: Ache, Sharp Severity: Severe Improves with: Reports: None Worsens with: Reports: None Context: Reports: Other (ground level fall) Treatments INSPECTORS AND REGULATORY OFFICERS: Reports: Acetaminophen, Cervical Collar, Cold Therapy Left Foot Pain Score (Numeric/FACES): 9 Right Hip Pain Score (Numeric/FACES): 9 - Related Data Allergies Allergy/AdvReac Type Severity Reaction Status Date / Time chicken derived Allergy Hives Verified 04/04/19 21:41 codeine Allergy Hives Verified 04/04/19 21:41 Penicillins Allergy Hives Verified 04/04/19 21:41 tramadol Allergy Hives Verified 04/04/19 21:41 Contrast media Allergy Hives Uncoded 04/04/19 21:41 Home Meds: Home Meds Aspirin 81 mg PO BRK 11/09/15 [History] Calcium Citrate/Vitamin D3 [[place] Calcium-Vit D 200-250] 1 each PO DAILY [History] Docusate Sodium [Colace] 100 mg PO BID 11/09/15 [History] Gabapentin [Neurontin] 900 mg PO BID 11/09/15 [History] Hydrochlorothiazide 25 mg PO DAILY 11/09/15 [History] Lisinopril 20 mg PO DAILY 11/09/15 [History] Omeprazole 20 mg PO ACBREAKFAST 11/09/15 [History] atorvaSTATin [Lipitor] 20 mg PO BEDTIME 11/09/15 [History] metFORMIN [Glucophage XR] 1,000 mg PO BIDMEALS 11/09/15 [History] Apixaban [Eliquis] 5 mg PO DAILY 11/08/17 [History] Cholecalciferol (Vitamin D3) [Vitamin D3] 1,000 unit PO DAILY 11/08/17 [History] Fluticasone Propionate [Flonase Allergy Relief] 15.8 ml NS DAILY 11/08/17 [ History] Insulin Glarg,Human.Rec.Analog [Lantus Solostar] 45 unit SUBCUT DAILY 11/08/17 [ History] Melatonin/Pyridoxine HCl (B6) [Melatonin 3 mg Tablet] 9 mg PO BEDTIME 11/08/17 [ History] [place]-3 Fatty Acids [[place]-3] 1 gm PO DAILY 11/08/17 [History] Prazosin HCl [Prazosin] 1 mg PO BEDTIME 11/08/17 [History] Triamcinolone Acetonide [Triamcinolone Acetonide 0.1% Crm] 80 gm .XX BID [History] glipiZIDE [Glucotrol XL] 10 mg PO BID 11/08/17 [History] Metoprolol Tartrate [Lopressor] 50 mg PO BID #60 tablet 11/09/17 [Rx] Diltiazem [Diltiazem XR] 240 mg PO BID 02/11/18 [History] ALPRAZolam [Xanax] 1 mg PO DAILY 12/12/18 [History] Past Medical History - Past Health History Medical/Surgical History: Denies Medical/Surgical History Cardiovascular History: Reports: Afib, CAD, High Cholesterol, Hypertension, [place], Stents Other Cardiovascular History: [place] 1999 with 1 stent placement Respiratory History: Reports: Bronchitis, Recurrent, Sleep Apnea Other Respiratory History: smoker for 51 yrs, has a c-pap Gastrointestinal History: Reports: Chronic Constipation, GERD Genitourinary History: Reports: Diabetic Nephropathy Musculoskeletal History: Reports: Osteoarthritis Neurological History: Reports: Neuropathy, Diabetic Endocrine/Metabolic History: Reports: Diabetes, Type II Oncologic (Cancer) History: Reports: Colon Other Oncologic History: with surgery, chemo and radiation Stage 111 - Infectious Disease History Infectious Disease History: Reports: Chicken Pox, Measles, Mumps, Rheumatic Fever - Past Surgical History HEENT Surgical History: Reports: Naso-Sinus Surgery Respiratory Surgical History: Reports: None GI Surgical History: Reports: Colon Male Surgical History: Reports: Circumcision Musculoskeletal Surgical History: Reports: Arthroscopic Knee, Shoulder Surgery, Other (See Below) Other Musculoskeletal Surgeries/Procedures:: Repaired acl. [place]. Placed bone marrow in hip., rt foot surgery with screw placement 11/03/18. Foot surg. Social & Family History - Family History Family Medical History: Noncontributory Cardiac: Reports: Afib, AICD, Angina, Bypass, CAD, Heart Failure, High Cholesterol, Hypertension, [place] Respiratory: Reports: Asthma, COPD GI: Reports: Cholelithiasis : Reports: Dialysis, Renal Disease/Insufficiency Musculoskeletal: Reports: Arthritis, Back pain, Chronic Neurological: Reports: CVA, Neuropathy, Diabetic Psychiatric: Reports: Anxiety, Depression Endocrine/Metabolic: Reports: Diabetes, type II - Tobacco Use Smoking Status *Q: Current Every Day Smoker Years of Tobacco use: 43 Packs/Tins Daily: 10 - Caffeine Use Caffeine Use: Reports: Coffee, Tea Other Caffeine Use: 4 pots a day - Recreational Drug Use Recreational Drug Use: No - Living Situation & Occupation Living situation: Reports: with Family Occupation: Unemployed Review of Systems - Review of Systems Review Of Systems: ROS reveals no pertinent complaints other than HPI. ED EXAM, GENERAL - Physical Exam Exam: See Below Exam Limited By: No Limitations General Appearance: Alert, WD/WN, Moderate Distress Eye Exam: Bilateral Eye: EOMI, Normal Inspection, PERRL Ears: Normal External Exam, Normal Canal, Hearing Grossly Normal, Normal TMs Nose: Normal Inspection, Normal Mucosa, No Blood Throat/Mouth: Normal Inspection, Normal Lips, Normal Teeth, Normal Gums, Normal Oropharynx, Normal Voice, No Airway Compromise Head: Atraumatic, Normocephalic Neck: Normal Inspection, Supple, Non-Tender, Full Range of Motion Respiratory/Chest: No Respiratory Distress, Lungs Clear, Normal Breath Sounds, No Accessory Muscle Use, Chest Non-Tender Cardiovascular: Normal Peripheral Pulses, Regular Rate, Rhythm, No Edema, No Gallop, No JVD, No Murmur, No Rub GI/Abdominal: Normal Bowel Sounds, Soft, Non-Tender, No Organomegaly, No Distention, No Abnormal Bruit, No Mass (Male) Exam: Deferred Rectal (Males) Exam: Deferred Back Exam: Normal Inspection, Full Range of Motion, NT Extremities: Other (Pain with palpation of the patient's right hip. Pain and swelling of the patient's left foot. ) Neurological: Alert, Oriented, CN II-XII Intact, Normal Cognition, Abnormal Gait (due to pain in both lower extremities due to the fall. ) Psychiatric: Normal Affect, Normal Mood Skin Exam: Warm, Dry, Intact, Normal Color, No Rash Lymphatic: No Adenopathy Course - Vital Signs Last Recorded V/S: Last Vital Signs Temp 36.7 C 04/04/19 21:38 Pulse 146 H 04/04/19 21:38 Resp 16 04/04/19 21:38 BP 144/74 H 04/04/19 21:38 Pulse Ox 97 04/04/19 21:38 - Orders/Labs/Meds Orders: Active Orders 24 hr Category Date Time Status Foot Comp Min 3V Lt [CR] Urgent Exams 04/04/19 21:45 Ordered Hip Min 2V or 3V w Pelvis Rt [CR] Stat Exams 04/04/19 21:45 Ordered Departure - Departure Time of Disposition: 23:36 Disposition: Home, Self-Care 01 Condition: Fair Clinical Impression: Contusion of right hip Qualifiers: Encounter type: initial encounter Qualified Code(s): S70.01XA - Contusion of right hip, initial encounter Strain of left foot Qualifiers: Encounter type: initial encounter Qualified Code(s): S96.912A - Strain of unspecified muscle and tendon at ankle and foot level, left foot, initial encounter - Discharge Information *PRESCRIPTION DRUG MONITORING PROGRAM REVIEWED*: Not Applicable *COPY OF PRESCRIPTION DRUG MONITORING REPORT IN PATIENT RERE: Not Applicable Instructions: Contusion, [id number] Forms: ED Department Discharge Care Plan Goals: The patient was advised of the examination and x-ray results during the visit. The patient was discharged with a dose of [place] (10/325) to take when he gets home. The patient was encouraged to rest, ice and elevate his left foot. If the patient has any additional symptoms or concerns, the patient should either return to the emergency department or visit his primary care facility. - My Orders Last 24 Hours: My Active Orders 04/04/19 21:45 Foot Comp Min 3V Lt [CR] Urgent Hip Min 2V or 3V w Pelvis Rt [CR] Stat - Assessment/Plan Last 24 Hours: My Active Orders 04/04/19 21:45 Foot Comp Min 3V Lt [CR] Urgent Hip Min 2V or 3V w Pelvis Rt [CR] Stat
[2019-04-04] MEDS ORDERED: Acetaminophen/HYDROcodone 325-10 MG Tab ONE (23:40)
== END 2019-04-04 23:43 | disposition home or self-care (01) ==
LOC: DL.ED 21:29
DX: S96.912A Strain of unspecified muscle and tendon at ankle and foot level, left foot, initial encounter (principal); S70.01XA Contusion of right hip, initial encounter; F17.210 Nicotine dependence, cigarettes, uncomplicated; E11.21 Type 2 diabetes mellitus with diabetic nephropathy; E11.40 Type 2 diabetes mellitus with diabetic neuropathy, unspecified; I10 Essential (primary) hypertension; I48.91 Unspecified atrial fibrillation; E78.00 Pure hypercholesterolemia, unspecified; K21.9 Gastro-esophageal reflux disease without esophagitis; Z79.82 Long term (current) use of aspirin; Z79.4 Long term (current) use of insulin; Z79.899 Other long term (current) drug therapy; Z88.5 Allergy status to narcotic agent; Z88.0 Allergy status to penicillin; Z88.6 Allergy status to analgesic agent; Z91.041 Radiographic dye allergy status; W19.XXXA Unspecified fall, initial encounter
CPT/HCPCS: 73502; 73630; 99283; A9270

== ENCOUNTER 2019-05-29 17:28 | Emergency (ER) | payer MEDICAID, OTHER ==
[2019-05-29] MEDS ORDERED: Acetaminophen/HYDROcodone 325-10 MG Tab PO ONE (17:29)
[2019-05-29 17:37] VITALS: BP 157/69
--- NOTE | 2019-05-29 17:48 | EDM.PDOC ---
ED HPI GENERAL MEDICAL PROBLEM - General Stated Complaint: TOES HURT Time Seen by Provider: 05/29/19 17:40 Source of Information: Reports: Patient History Limitations: Reports: No Limitations - History of Present Illness INITIAL COMMENTS - FREE TEXT/NARRATIVE: This 64 yo male patient reports to the ED with pain in his left lateral foot. The patient reports he was walking a lot yesterday and started to have pain in his 3rd through 5th toes. The patient denies any trauma or falls. Onset Date: 05/28/19 Duration: Constant, Getting Worse Location: Reports: Lower Extremity, Left Quality: Reports: Ache Severity: Moderate Improves with: Reports: None Worsens with: Reports: None Context: Reports: Other Treatments [employer]: Reports: Acetaminophen Left Toe-Middle Pain Score (Numeric/FACES): 8 - Related Data Allergies Allergy/AdvReac Type Severity Reaction Status Date / Time chicken derived Allergy Hives Verified 05/22/19 23:25 codeine Allergy Hives Verified 05/22/19 23:25 Penicillins Allergy Hives Verified 05/22/19 23:25 tramadol Allergy Hives Verified 05/22/19 23:25 Contrast media Allergy Hives Uncoded 05/22/19 23:25 Home Meds: Home Meds Aspirin 81 mg PO BRK 11/09/15 [History] Calcium Citrate/Vitamin D3 [[place] Calcium-Vit D 200-250] 1 each PO DAILY [History] Docusate Sodium [Colace] 100 mg PO BID 11/09/15 [History] Gabapentin [Neurontin] 900 mg PO BID 11/09/15 [History] Hydrochlorothiazide 25 mg PO DAILY 11/09/15 [History] Lisinopril 20 mg PO DAILY 11/09/15 [History] Omeprazole 20 mg PO ACBREAKFAST 11/09/15 [History] atorvaSTATin [Lipitor] 20 mg PO BEDTIME 11/09/15 [History] metFORMIN [Glucophage XR] 1,000 mg PO BIDMEALS 11/09/15 [History] Apixaban [Eliquis] 5 mg PO DAILY 11/08/17 [History] Cholecalciferol (Vitamin D3) [Vitamin D3] 1,000 unit PO DAILY 11/08/17 [History] Fluticasone Propionate [Flonase Allergy Relief] 15.8 ml NS DAILY 11/08/17 [ History] Insulin Glarg,Human.Rec.Analog [Lantus Solostar] 40 unit SUBCUT DAILY 11/08/17 [ History] Melatonin/Pyridoxine HCl (B6) [Melatonin 3 mg Tablet] 9 mg PO BEDTIME 11/08/17 [ History] [place]-3 Fatty Acids [[place]-3] 1 gm PO DAILY 11/08/17 [History] Prazosin HCl [Prazosin] 1 mg PO BEDTIME 11/08/17 [History] Triamcinolone Acetonide [Triamcinolone Acetonide 0.1% Crm] 80 gm .XX BID [History] glipiZIDE [Glucotrol XL] 10 mg PO BID 11/08/17 [History] Metoprolol Tartrate [Lopressor] 50 mg PO BID #60 tablet 11/09/17 [Rx] Diltiazem [Diltiazem XR] 240 mg PO BID 02/11/18 [History] ALPRAZolam [Xanax] 1 mg PO DAILY 12/12/18 [History] Past Medical History - Past Health History Medical/Surgical History: Denies Medical/Surgical History Cardiovascular History: Reports: Afib, CAD, High Cholesterol, Hypertension, [place], Stents Other Cardiovascular History: [place] 1999 with 1 stent placement Respiratory History: Reports: Bronchitis, Recurrent, Sleep Apnea Other Respiratory History: smoker for 51 yrs, has a c-pap Gastrointestinal History: Reports: Chronic Constipation, GERD Genitourinary History: Reports: Diabetic Nephropathy Musculoskeletal History: Reports: Osteoarthritis Neurological History: Reports: Neuropathy, Diabetic Endocrine/Metabolic History: Reports: Diabetes, Type II Oncologic (Cancer) History: Reports: Colon Other Oncologic History: with surgery, chemo and radiation Stage 111 - Infectious Disease History Infectious Disease History: Reports: Chicken Pox, Measles, Mumps, Rheumatic Fever - Past Surgical History HEENT Surgical History: Reports: Naso-Sinus Surgery Respiratory Surgical History: Reports: None GI Surgical History: Reports: Colon Male Surgical History: Reports: Circumcision Musculoskeletal Surgical History: Reports: Arthroscopic Knee, Shoulder Surgery, Other (See Below) Other Musculoskeletal Surgeries/Procedures:: Repaired acl. [place]. Placed bone marrow in hip., rt foot surgery with screw placement 11/03/18. Foot surg. Social & Family History - Family History Family Medical History: Noncontributory Cardiac: Reports: Afib, AICD, Angina, Bypass, CAD, Heart Failure, High Cholesterol, Hypertension, [place] Respiratory: Reports: Asthma, COPD GI: Reports: Cholelithiasis : Reports: Dialysis, Renal Disease/Insufficiency Musculoskeletal: Reports: Arthritis, Back pain, Chronic Neurological: Reports: CVA, Neuropathy, Diabetic Psychiatric: Reports: Anxiety, Depression Endocrine/Metabolic: Reports: Diabetes, type II - Caffeine Use Caffeine Use: Reports: Coffee Other Caffeine Use: 4 pots a day - Living Situation & Occupation Living situation: Reports: with Family Occupation: Unemployed Review of Systems - Review of Systems Review Of Systems: ROS reveals no pertinent complaints other than HPI. ED EXAM, GENERAL - Physical Exam Exam: See Below Exam Limited By: No Limitations General Appearance: Alert, WD/WN, Mild Distress Eye Exam: Bilateral Eye: EOMI, Normal Inspection, PERRL Ears: Normal External Exam, Normal Canal, Hearing Grossly Normal, Normal TMs Nose: Normal Inspection, Normal Mucosa, No Blood Throat/Mouth: Normal Inspection Head: Atraumatic, Normocephalic Neck: Normal Inspection, Supple, Non-Tender, Full Range of Motion Respiratory/Chest: No Respiratory Distress, Lungs Clear, Normal Breath Sounds, No Accessory Muscle Use, Chest Non-Tender Cardiovascular: Normal Peripheral Pulses, Regular Rate, Rhythm, No Edema, No Gallop, No JVD, No Murmur, No Rub GI/Abdominal: Normal Bowel Sounds, Soft, Non-Tender, No Organomegaly, No Distention, No Abnormal Bruit, No Mass (Male) Exam: Deferred Rectal (Males) Exam: Deferred Back Exam: Normal Inspection, Full Range of Motion, NT Extremities: Other (left lateral foot pain (pain throughout his 3rd MTP through 5th MTP)) Neurological: Alert, Oriented, CN II-XII Intact, Normal Cognition, Normal Gait, Normal Reflexes, No Motor/Sensory Deficits Psychiatric: Normal Affect, Normal Mood Skin Exam: Warm, Dry, Intact, Normal Color, No Rash Lymphatic: No Adenopathy Course - Vital Signs Last Recorded V/S: Last Vital Signs Temp 36.7 C 05/29/19 17:34 Pulse 74 05/29/19 17:34 Resp 17 05/29/19 17:34 BP 157/69 H 05/29/19 17:34 Pulse Ox 93 L 05/29/19 17:34 - Orders/Labs/Meds Labs: Laboratory Tests 05/29/19 05/29/19 05/29/19 Range/Units 17:50 17:50 17:50 WBC 6.2 (5.0-10.0) 10^3/uL RBC 5.37 (4.6-6.2) 10^6/uL Hgb 15.7 (14.0-18.0) g/dL Hct 46.7 (40.0-54.0) % MCV 87.0 (80-100) fL MCH 29.2 (27.0-34.0) pg MCHC 33.6 (33.0-35.0) g/dL Plt Count 252 (150-450) 10^3/uL Neut % (Auto) 58.9 (42.2-75.2) % Lymph % (Auto) 31.1 (20.5-50.1) % [place] % (Auto) 7.7 (2-8) % Eos % (Auto) 2.1 (1.0-3.0) % Baso % (Auto) 0.2 (0.0-1.0) % Sodium 137 (135-145) mmol/L Potassium 4.4 (3.6-5.0) mmol/L Chloride 105 (101-111) mmol/L Carbon Dioxide 25.0 (21.0-31.0) mmol/L Anion Gap 11.4 BUN 16 (7-18) mg/dL Creatinine 0.9 (0.6-1.3) mg/dL Est Cr Clr Drug Dosing 92.21 mL/min Estimated GFR (MDRD) > 60 BUN/Creatinine Ratio 17.77 Glucose 334 H (74-105) mg/dL Uric Acid 4.0 (2.6-7.2) mg/dL Calcium 8.6 (8.4-10.2) mg/dl Total Bilirubin 0.5 (0.2-1.0) mg/dL AST 24 (10-42) IU/L ALT 26 (10-60) IU/L Alkaline Phosphatase 99 (42-121) IU/L Total Protein 7.3 (6.7-8.2) g/dl Albumin 3.8 (3.2-5.5) g/dl Globulin 3.5 Albumin/Globulin Ratio 1.09 Departure - Departure Time of Disposition: 18:28 Disposition: Home, Self-Care 01 Condition: Fair Clinical Impression: Left foot pain - Discharge Information *PRESCRIPTION DRUG MONITORING PROGRAM REVIEWED*: Not Applicable *COPY OF PRESCRIPTION DRUG MONITORING REPORT IN PATIENT RERE: Not Applicable Forms: ED Department Discharge Care Plan Goals: The patient was advised of the examination, lab and x-ray results during the visit. The patient was discharged with a dose of [place] (10/325) to take at 2100. The patient was encouraged to rest and elevate his left foot. If the patient has any additional symptoms or concerns, the patient should either return to the emergency department or visit his primary care facility.
[2019-05-29 18:17] LABS: ANION GAP 11.4; CHLORIDE,CL 105 mmol/L (101-111); SODIUM,NA 137 mmol/L (135-145)
[2019-05-29] MEDS ORDERED: Acetaminophen/HYDROcodone 325-10 MG Tab ONE (18:35)
== END 2019-05-29 18:35 | disposition home or self-care (01) ==
LOC: DL.ED 17:28
DX: M79.672 Pain in left foot (principal); I10 Essential (primary) hypertension; I48.91 Unspecified atrial fibrillation; I25.10 Atherosclerotic heart disease of native coronary artery without angina pectoris; E11.21 Type 2 diabetes mellitus with diabetic nephropathy; K21.9 Gastro-esophageal reflux disease without esophagitis; E11.40 Type 2 diabetes mellitus with diabetic neuropathy, unspecified; Z79.899 Other long term (current) drug therapy; I25.2 Old myocardial infarction; Z95.5 Presence of coronary angioplasty implant and graft; Z88.0 Allergy status to penicillin; Z88.5 Allergy status to narcotic agent; Z91.048 Other nonmedicinal substance allergy status
CPT/HCPCS: 36415; 73630; 80053; 84550; 85025; 99283; A9270

== ENCOUNTER 2019-05-30 23:08 | Emergency (ER) | payer MEDICAID ==
[2019-05-30] MEDS ORDERED: Diltiazem 25 MG/5 ML SDV IVPUSH ONE (23:47)
[2019-05-30] MEDS ORDERED: Sodium Chloride 0.9% 1,000 ML IV ONE (23:48)
[2019-05-31] MEDS ORDERED: Diltiazem 25 MG/5 ML SDV IVPUSH ONE (00:37)
[2019-05-31] MEDS ORDERED: Diltiazem 125 MG in Sodium Chloride 0.9% 100 ML IV SCH (00:45)
[2019-05-31 00:48] LABS: ANION GAP 12.3; CHLORIDE,CL 103 mmol/L (101-111); SODIUM,NA 134 mmol/L (135-145)
[2019-05-31] MEDS ORDERED: Insulin Regular, Human 100 Units/ML 3 ML Vial IV ONE (01:27)
[2019-05-31] MEDS ORDERED: Metoprolol Tartrate 5 MG/5 ML SDV IVPUSH ONE (01:42)
[2019-05-31 01:51] VITALS: BP 143/46
[2019-05-31] MEDS ORDERED: LORazepam 0.5 MG Tab PO ONE (01:59)
--- NOTE | 2019-05-31 02:44 | EDM.PDOC ---
ED HPI GENERAL MEDICAL PROBLEM - General Chief Complaint: Cardiovascular Problem Stated Complaint: HEARTS RACING Time Seen by Provider: 05/30/19 23:35 Source of Information: Reports: Patient, RN History Limitations: Reports: No Limitations - History of Present Illness INITIAL COMMENTS - FREE TEXT/NARRATIVE: ED ambulatory with c/o feeling like heart racing. Started while just sitting watching TV. Has hx of Afib, on chronic anticoag. Mild chest pain. Slight SOB with activity, sweaty. Denies smoking, use of ETOH or other drugs. States compliance with medications, No fever, chills, no cough. No GI sx. - Related Data Allergies Allergy/AdvReac Type Severity Reaction Status Date / Time chicken derived Allergy Hives Verified 05/22/19 23:25 codeine Allergy Hives Verified 05/22/19 23:25 Penicillins Allergy Hives Verified 05/22/19 23:25 tramadol Allergy Hives Verified 05/22/19 23:25 Contrast media Allergy Hives Uncoded 05/22/19 23:25 Home Meds: Home Meds Aspirin 81 mg PO BRK 11/09/15 [History] Calcium Citrate/Vitamin D3 [[place] Calcium-Vit D 200-250] 1 each PO DAILY [History] Docusate Sodium [Colace] 100 mg PO BID 11/09/15 [History] Gabapentin [Neurontin] 900 mg PO BID 11/09/15 [History] Hydrochlorothiazide 25 mg PO DAILY 11/09/15 [History] Lisinopril 20 mg PO DAILY 11/09/15 [History] Omeprazole 20 mg PO ACBREAKFAST 11/09/15 [History] atorvaSTATin [Lipitor] 20 mg PO BEDTIME 11/09/15 [History] metFORMIN [Glucophage XR] 1,000 mg PO BIDMEALS 11/09/15 [History] Apixaban [Eliquis] 5 mg PO DAILY 11/08/17 [History] Cholecalciferol (Vitamin D3) [Vitamin D3] 1,000 unit PO DAILY 11/08/17 [History] Fluticasone Propionate [Flonase Allergy Relief] 15.8 ml NS DAILY 11/08/17 [ History] Insulin Glarg,Human.Rec.Analog [Lantus Solostar] 40 unit SUBCUT DAILY 11/08/17 [ History] Melatonin/Pyridoxine HCl (B6) [Melatonin 3 mg Tablet] 9 mg PO BEDTIME 11/08/17 [ History] [place]-3 Fatty Acids [[place]-3] 1 gm PO DAILY 11/08/17 [History] Prazosin HCl [Prazosin] 1 mg PO BEDTIME 11/08/17 [History] Triamcinolone Acetonide [Triamcinolone Acetonide 0.1% Crm] 80 gm .XX BID [History] glipiZIDE [Glucotrol XL] 10 mg PO BID 11/08/17 [History] Metoprolol Tartrate [Lopressor] 50 mg PO BID #60 tablet 11/09/17 [Rx] Diltiazem [Diltiazem XR] 240 mg PO BID 02/11/18 [History] ALPRAZolam [Xanax] 1 mg PO DAILY 12/12/18 [History] Past Medical History - Past Health History Medical/Surgical History: Denies Medical/Surgical History Cardiovascular History: Reports: Afib, CAD, High Cholesterol, Hypertension, [place], Stents Other Cardiovascular History: [place] 1999 with 1 stent placement Respiratory History: Reports: Bronchitis, Recurrent, Sleep Apnea Other Respiratory History: smoker for 51 yrs, has a c-pap Gastrointestinal History: Reports: Chronic Constipation, GERD Genitourinary History: Reports: Diabetic Nephropathy Musculoskeletal History: Reports: Osteoarthritis Neurological History: Reports: Neuropathy, Diabetic Endocrine/Metabolic History: Reports: Diabetes, Type II Oncologic (Cancer) History: Reports: Colon Other Oncologic History: with surgery, chemo and radiation Stage 111 - Infectious Disease History Infectious Disease History: Reports: Chicken Pox, Measles, Mumps, Rheumatic Fever - Past Surgical History HEENT Surgical History: Reports: Naso-Sinus Surgery Respiratory Surgical History: Reports: None GI Surgical History: Reports: Colon Male Surgical History: Reports: Circumcision Musculoskeletal Surgical History: Reports: Arthroscopic Knee, Shoulder Surgery, Other (See Below) Other Musculoskeletal Surgeries/Procedures:: Repaired acl. [place]. Placed bone marrow in hip., rt foot surgery with screw placement 11/03/18. Foot surg. Social & Family History - Family History Family Medical History: Noncontributory Cardiac: Reports: Afib, AICD, Angina, Bypass, CAD, Heart Failure, High Cholesterol, Hypertension, [place] Respiratory: Reports: Asthma, COPD GI: Reports: Cholelithiasis : Reports: Dialysis, Renal Disease/Insufficiency Musculoskeletal: Reports: Arthritis, Back pain, Chronic Neurological: Reports: CVA, Neuropathy, Diabetic Psychiatric: Reports: Anxiety, Depression Endocrine/Metabolic: Reports: Diabetes, type II - Tobacco Use Smoking Status *Q: Never Smoker - Caffeine Use Caffeine Use: Reports: Coffee Other Caffeine Use: 4 pots a day - Recreational Drug Use Recreational Drug Use: No - Living Situation & Occupation Living situation: Reports: with Family Occupation: Unemployed ED ROS GENERAL - Review of Systems Review Of Systems: ROS reveals no pertinent complaints other than HPI. ED EXAM, GENERAL - Physical Exam Exam: See Below Exam Limited By: No Limitations General Appearance: Alert, No Apparent Distress, Anxious Eye Exam: Bilateral Eye: EOMI Ears: Normal External Exam Nose: Normal Inspection Throat/Mouth: Normal Inspection Head: Atraumatic, Normocephalic Neck: Normal Inspection Respiratory/Chest: No Respiratory Distress, Lungs Clear Cardiovascular: Normal Peripheral Pulses, Tachycardia, Irregularly Irregular GI/Abdominal: Normal Bowel Sounds Back Exam: Full Range of Motion Extremities: Normal Range of Motion Neurological: Alert, Oriented, Normal Cognition, No Motor/Sensory Deficits Psychiatric: Normal Affect, Normal Mood Skin Exam: Warm, Dry, Intact, Normal Color Course - Vital Signs Last Recorded V/S: Last Vital Signs Temp 97.5 F 05/30/19 23:30 Pulse 130 H 05/31/19 01:51 Resp 26 H 05/31/19 01:09 BP 143/46 H 05/31/19 01:51 Pulse Ox 91 L 05/31/19 01:09 - Orders/Labs/Meds Labs: Laboratory Tests 05/31/19 05/31/19 05/31/19 Range/Units 00:20 00:20 00:20 WBC 8.7 (5.0-10.0) 10^3/uL RBC 5.33 (4.6-6.2) 10^6/uL Hgb 15.7 (14.0-18.0) g/dL Hct 46.7 (40.0-54.0) % MCV 87.6 (80-100) fL MCH 29.5 (27.0-34.0) pg MCHC 33.6 (33.0-35.0) g/dL Plt Count 243 (150-450) 10^3/uL Neut % (Auto) 67.7 (42.2-75.2) % Lymph % (Auto) 21.5 (20.5-50.1) % [place] % (Auto) 8.4 H (2-8) % Eos % (Auto) 2.2 (1.0-3.0) % Baso % (Auto) 0.2 (0.0-1.0) % PT 9.2 (9.0-12.0) SEC INR 0.9 (0.9-1.2) Sodium 134 L (135-145) mmol/L Potassium 4.3 (3.6-5.0) mmol/L Chloride 103 (101-111) mmol/L Carbon Dioxide 23.0 (21.0-31.0) mmol/L Anion Gap 12.3 BUN 14 (7-18) mg/dL Creatinine 1.0 (0.6-1.3) mg/dL Est Cr Clr Drug Dosing TNP Estimated GFR (MDRD) > 60 BUN/Creatinine Ratio 14.00 Glucose 376 H (74-105) mg/dL Calcium 8.3 L (8.4-10.2) mg/dl Total Bilirubin 0.5 (0.2-1.0) mg/dL AST 23 (10-42) IU/L ALT 24 (10-60) IU/L Alkaline Phosphatase 116 (42-121) IU/L Troponin I < 0.02 (0.00-0.02) ng/ml B-Natriuretic Peptide 18 (0-100) pg/ml Total Protein 6.8 (6.7-8.2) g/dl Albumin 3.5 (3.2-5.5) g/dl Globulin 3.3 Albumin/Globulin Ratio 1.06 Meds: Medications Discontinued Medications Generic Name Dose Route Start Last Admin Trade Name Freq PRN Reason Stop Dose Admin Diltiazem HCl 20 mg 05/30/19 23:47 05/31/19 00:09 Diltiazem IVPUSH 05/30/19 23:48 20 mg ONETIME ONE Administration Diltiazem HCl 10 mg 05/31/19 00:37 05/31/19 00:46 Diltiazem IVPUSH 05/31/19 00:38 10 mg ONETIME ONE Administration Sodium Chloride 1,000 mls @ 50 mls/hr 05/30/19 23:48 05/31/19 00:09 Normal Saline IV 05/31/19 19:47 50 mls/hr .BOLUS ONE Administration Diltiazem HCl 125 mg/ Sodium 125 mls @ 5 mls/hr 05/31/19 00:45 05/31/19 01:27 Chloride IV 15 mg/hr TITRATE YI 15 mls/hr Titration Protocol 5 MG/HR Insulin Human Regular 10 unit 05/31/19 01:27 05/31/19 01:50 Humulin R IV 05/31/19 01:28 10 units ONETIME ONE Administration Lorazepam 0.5 mg 05/31/19 01:59 05/31/19 02:12 Ativan PO 05/31/19 02:00 0.5 mg ONETIME ONE Administration Metoprolol Tartrate 2.5 mg 05/31/19 01:42 05/31/19 01:51 Lopressor IVPUSH 05/31/19 01:43 2.5 mg ONETIME ONE Administration - Re-Assessments/Exams Free Text/Narrative Re-Assessment/Exam: Improvement in HR with cardizem, chest pain resolved. Declines admission discussion, requesting to go home. Departure - Departure Time of Disposition: 02:18 Disposition: Home, Self-Care 01 Condition: Good Clinical Impression: Atrial fibrillation with rapid ventricular response Instructions: Atrial Fibrillation, [id number] Referrals: PCP,None [Primary Care Provider] - Forms: ED Department Discharge Additional Instructions: [facility] limit caffeine no smoking continue home medications
== END 2019-05-31 02:22 | disposition home or self-care (01) ==
LOC: DL.ED 23:08
DX: I48.91 Unspecified atrial fibrillation (principal); I10 Essential (primary) hypertension; E11.21 Type 2 diabetes mellitus with diabetic nephropathy; E11.40 Type 2 diabetes mellitus with diabetic neuropathy, unspecified; I25.10 Atherosclerotic heart disease of native coronary artery without angina pectoris; K21.9 Gastro-esophageal reflux disease without esophagitis; I25.2 Old myocardial infarction; Z95.5 Presence of coronary angioplasty implant and graft; Z79.4 Long term (current) use of insulin; Z79.899 Other long term (current) drug therapy; Z88.0 Allergy status to penicillin; Z88.5 Allergy status to narcotic agent; Z91.041 Radiographic dye allergy status; Z79.82 Long term (current) use of aspirin; Z79.01 Long term (current) use of anticoagulants
CPT/HCPCS: 36415; 71045; 80053; 83880; 84484; 85025; 85610; 93005; 96361; 96365; 96375; 96376; 99285; A9270; J1815; J3490; J7030; J7050

== ENCOUNTER 2019-06-16 02:20 | Emergency (ER) | payer MEDICAID ==
[2019-06-16] MEDS ORDERED: Ketorolac 30 MG/ML SDV IM ONE (02:29)
--- NOTE | 2019-06-16 02:34 | EDM.PDOC ---
ED HPI GENERAL MEDICAL PROBLEM - General Chief Complaint: Neck Problem Stated Complaint: NECK IS HURTING VERY BADLY Time Seen by Provider: 06/16/19 02:25 Source of Information: Reports: Patient History Limitations: Reports: No Limitations - History of Present Illness INITIAL COMMENTS - FREE TEXT/NARRATIVE: This 64 yo male patient reports to the ED with posterior neck pain. The patient reports he woke up with the pain at about 0130 today and has not been able to sleep. The patient reports the neck pain has started to cause him to have a headache. The patient reports he took Tylenol while at home with no symptom relief. The patient denies any history of falls or injuries. Onset: Today Onset Date: 06/16/19 Onset Time: 01:30 Duration: Constant, Getting Worse Location: Reports: Neck Quality: Reports: Ache, Sharp Severity: Moderate Improves with: Reports: None Worsens with: Reports: None Context: Reports: Other Associated Symptoms: Reports: No Other Symptoms Treatments SUPPLY CHAIN SPECIALIST: Reports: Acetaminophen - Related Data Allergies Allergy/AdvReac Type Severity Reaction Status Date / Time chicken derived Allergy Hives Verified 05/22/19 23:25 codeine Allergy Hives Verified 05/22/19 23:25 Penicillins Allergy Hives Verified 05/22/19 23:25 tramadol Allergy Hives Verified 05/22/19 23:25 Contrast media Allergy Hives Uncoded 05/22/19 23:25 Home Meds: Home Meds Aspirin 81 mg PO BRK 11/09/15 [History] Calcium Citrate/Vitamin D3 [[place] Calcium-Vit D 200-250] 1 each PO DAILY [History] Docusate Sodium [Colace] 100 mg PO BID 11/09/15 [History] Gabapentin [Neurontin] 900 mg PO BID 11/09/15 [History] Hydrochlorothiazide 25 mg PO DAILY 11/09/15 [History] Lisinopril 20 mg PO DAILY 11/09/15 [History] Omeprazole 20 mg PO ACBREAKFAST 11/09/15 [History] atorvaSTATin [Lipitor] 20 mg PO BEDTIME 11/09/15 [History] metFORMIN [Glucophage XR] 1,000 mg PO BIDMEALS 11/09/15 [History] Apixaban [Eliquis] 5 mg PO DAILY 11/08/17 [History] Cholecalciferol (Vitamin D3) [Vitamin D3] 1,000 unit PO DAILY 11/08/17 [History] Fluticasone Propionate [Flonase Allergy Relief] 15.8 ml NS DAILY 11/08/17 [ History] Insulin Glarg,Human.Rec.Analog [Lantus Solostar] 40 unit SUBCUT DAILY 11/08/17 [ History] Melatonin/Pyridoxine HCl (B6) [Melatonin 3 mg Tablet] 9 mg PO BEDTIME 11/08/17 [ History] [place]-3 Fatty Acids [[place]-3] 1 gm PO DAILY 11/08/17 [History] Prazosin HCl [Prazosin] 1 mg PO BEDTIME 11/08/17 [History] Triamcinolone Acetonide [Triamcinolone Acetonide 0.1% Crm] 80 gm .XX BID [History] glipiZIDE [Glucotrol XL] 10 mg PO BID 11/08/17 [History] Metoprolol Tartrate [Lopressor] 50 mg PO BID #60 tablet 11/09/17 [Rx] Diltiazem [Diltiazem XR] 240 mg PO BID 02/11/18 [History] ALPRAZolam [Xanax] 1 mg PO DAILY 12/12/18 [History] Past Medical History - Past Health History Medical/Surgical History: Denies Medical/Surgical History Cardiovascular History: Reports: Afib, CAD, High Cholesterol, Hypertension, [place], Stents Other Cardiovascular History: [place] 1999 with 1 stent placement Respiratory History: Reports: Bronchitis, Recurrent, Sleep Apnea Other Respiratory History: smoker for 51 yrs, has a c-pap Gastrointestinal History: Reports: Chronic Constipation, GERD Genitourinary History: Reports: Diabetic Nephropathy Musculoskeletal History: Reports: Osteoarthritis Neurological History: Reports: Neuropathy, Diabetic Endocrine/Metabolic History: Reports: Diabetes, Type II Oncologic (Cancer) History: Reports: Colon Other Oncologic History: with surgery, chemo and radiation Stage 111 - Infectious Disease History Infectious Disease History: Reports: Chicken Pox, Measles, Mumps, Rheumatic Fever - Past Surgical History HEENT Surgical History: Reports: Naso-Sinus Surgery Respiratory Surgical History: Reports: None GI Surgical History: Reports: Colon Male Surgical History: Reports: Circumcision Musculoskeletal Surgical History: Reports: Arthroscopic Knee, Shoulder Surgery, Other (See Below) Other Musculoskeletal Surgeries/Procedures:: Repaired acl. [place]. Placed bone marrow in hip., rt foot surgery with screw placement 11/03/18. Foot surg. Social & Family History - Family History Family Medical History: Noncontributory Cardiac: Reports: Afib, AICD, Angina, Bypass, CAD, Heart Failure, High Cholesterol, Hypertension, [place] Respiratory: Reports: Asthma, COPD GI: Reports: Cholelithiasis : Reports: Dialysis, Renal Disease/Insufficiency Musculoskeletal: Reports: Arthritis, Back pain, Chronic Neurological: Reports: CVA, Neuropathy, Diabetic Psychiatric: Reports: Anxiety, Depression Endocrine/Metabolic: Reports: Diabetes, type II - Caffeine Use Caffeine Use: Reports: Coffee Other Caffeine Use: 4 pots a day - Living Situation & Occupation Living situation: Reports: with Family Occupation: Unemployed ED ROS GENERAL - Review of Systems Review Of Systems: ROS reveals no pertinent complaints other than HPI. ED EXAM, UPPER BACK/NECK PAIN - Physical Exam Exam: See Below Exam Limited By: No Limitations General Appearance: Alert, WD/WN, Moderate Distress Eye Exam: Bilateral Eye: EOMI, Normal Inspection, PERRL Ears Exam: Normal External Exam, Normal Canal, Hearing Grossly Normal, Normal TMs Nose Exam: Normal Inspection, Normal Mucousa, No Blood Throat/Mouth Exam: Normal Inspection, Normal Lips, Normal Teeth, Normal Gums, Normal Oropharynx, Normal Voice, No Airway Compromise Head Exam: Atraumatic, Normocephalic Neck Exam: Normal Alignment, Limited Range of Motion (due to neck pain), Stiff Neck, Tenderness (posterior neck radiating up to the posterior scalp) Nexus Criteria: No: Posterior, Midline Cervical Tenderness, Evidence of Intoxication, Altered Level of Consciousness, Focal Neurological Deficit, Painful Distraction Injuries Cardiovascular/Respiratory: Regular Rate, Rhythm, No M/R/G, Normal Peripheral Pulses, No JVD, Normal Breath Sounds, No Respiratory Distress GI/Abdominal: Normal Bowel Sounds, Soft, Non-Tender, No Organomegaly, No Distention, No Abnormal Bruit, No Mass (Male) Exam: Deferred Rectal (Males) Exam: Deferred Back Exam: Normal Inspection, Full Range of Motion, NT Extremities: Normal Inspection, Normal Range of Motion, Non-Tender, No Pedal Edema, Normal Capillary Refill Neurologic: principal statistical scientist II-XII nml As Tested, No Motor/Sensory Deficits, Alert, Normal Mood/Affect, Oriented x 3 Psychiatric: Normal Affect, Normal Mood Skin Exam: Normal Color, Warm/Dry Lymphatic: No Adenopathy Course - Vital Signs Last Recorded V/S: Last Vital Signs Temp 36.4 C 06/16/19 02:23 Pulse 74 06/16/19 02:23 Resp 16 06/16/19 02:23 BP 160/61 H 06/16/19 02:23 Pulse Ox 98 06/16/19 02:23 - Orders/Labs/Meds Meds: Medications Discontinued Medications Generic Name Dose Route Start Last Admin Trade Name Teddy PRN Reason Stop Dose Admin Ketorolac Tromethamine 60 mg 06/16/19 02:29 06/16/19 02:39 Toradol IM 06/16/19 02:30 60 mg ONETIME ONE Administration Orphenadrine Citrate 60 mg 06/16/19 02:30 06/16/19 02:55 Norflex IM Not Given Q12H YI Orphenadrine Citrate 60 mg 06/16/19 02:32 06/16/19 02:42 Norflex IM 06/16/19 02:33 60 mg ONETIME ONE Administration Departure - Departure Time of Disposition: 03:07 Disposition: Home, Self-Care 01 Condition: Fair Clinical Impression: Neck muscle strain Qualifiers: Encounter type: initial encounter Qualified Code(s): S16.1XXA - Strain of muscle, fascia and tendon at neck level, initial encounter - Discharge Information *PRESCRIPTION DRUG MONITORING PROGRAM REVIEWED*: Not Applicable *COPY OF PRESCRIPTION DRUG MONITORING REPORT IN PATIENT RERE: Not Applicable Instructions: Cervical Sprain, [id number] Forms: ED Department Discharge Care Plan Goals: The patient was advised of the examination results during the visit. The patient was given an injection of Toradol and Norflex while in the ED. If the patient has any additional symptoms or concerns, the patient should either visit his primary care facility or return to the emergency department.
[2019-06-16 03:20] VITALS: BP 147/49; PULSE 72
== END 2019-06-16 03:15 | disposition home or self-care (01) ==
LOC: DL.ED 02:20
DX: S16.1XXA Strain of muscle, fascia and tendon at neck level, initial encounter (principal); I25.2 Old myocardial infarction; E78.00 Pure hypercholesterolemia, unspecified; I10 Essential (primary) hypertension; E11.40 Type 2 diabetes mellitus with diabetic neuropathy, unspecified; K21.9 Gastro-esophageal reflux disease without esophagitis; Z91.041 Radiographic dye allergy status; Z88.5 Allergy status to narcotic agent; Z88.0 Allergy status to penicillin; Z91.018 Allergy to other foods; Z79.82 Long term (current) use of aspirin; Z79.899 Other long term (current) drug therapy; Z79.4 Long term (current) use of insulin; X58.XXXA Exposure to other specified factors, initial encounter
CPT/HCPCS: 96372; 99282; J1885; J2360

== ENCOUNTER 2019-06-18 00:44 | Emergency (ER) | payer MEDICAID ==
[2019-06-18] MEDS ORDERED: Cyclobenzaprine 10 MG Tab PO ONE (00:45)
[2019-06-18 01:13] VITALS: BP 127/60; PULSE 70
--- NOTE | 2019-06-18 01:24 | EDM.PDOC ---
ED HPI GENERAL MEDICAL PROBLEM - General Chief Complaint: Lower Extremity Injury/Pain Stated Complaint: ARCH OF FOOT, PAIN Time Seen by Provider: 06/18/19 01:19 Source of Information: Reports: Patient History Limitations: Reports: No Limitations - History of Present Illness INITIAL COMMENTS - FREE TEXT/NARRATIVE: c/o exac of foot arch pain from recent surgery. Treatments CUSTOMER ENGAGEMENT MANAGER: Reports: Acetaminophen Left Feet Pain Score (Numeric/FACES): 8 - Related Data Allergies Allergy/AdvReac Type Severity Reaction Status Date / Time chicken derived Allergy Hives Verified 05/22/19 23:25 codeine Allergy Hives Verified 05/22/19 23:25 Penicillins Allergy Hives Verified 05/22/19 23:25 tramadol Allergy Hives Verified 05/22/19 23:25 Contrast media Allergy Hives Uncoded 05/22/19 23:25 Home Meds: Home Meds Aspirin 81 mg PO BRK 11/09/15 [History] Calcium Citrate/Vitamin D3 [[place] Calcium-Vit D 200-250] 1 each PO DAILY [History] Docusate Sodium [Colace] 100 mg PO BID 11/09/15 [History] Gabapentin [Neurontin] 900 mg PO BID 11/09/15 [History] Hydrochlorothiazide 25 mg PO DAILY 11/09/15 [History] Lisinopril 20 mg PO DAILY 11/09/15 [History] Omeprazole 20 mg PO ACBREAKFAST 11/09/15 [History] atorvaSTATin [Lipitor] 20 mg PO BEDTIME 11/09/15 [History] metFORMIN [Glucophage XR] 1,000 mg PO BIDMEALS 11/09/15 [History] Apixaban [Eliquis] 5 mg PO DAILY 11/08/17 [History] Cholecalciferol (Vitamin D3) [Vitamin D3] 1,000 unit PO DAILY 11/08/17 [History] Fluticasone Propionate [Flonase Allergy Relief] 15.8 ml NS DAILY 11/08/17 [ History] Insulin Glarg,Human.Rec.Analog [Lantus Solostar] 40 unit SUBCUT DAILY 11/08/17 [ History] Melatonin/Pyridoxine HCl (B6) [Melatonin 3 mg Tablet] 9 mg PO BEDTIME 11/08/17 [ History] [place]-3 Fatty Acids [[place]-3] 1 gm PO DAILY 11/08/17 [History] Prazosin HCl [Prazosin] 1 mg PO BEDTIME 11/08/17 [History] Triamcinolone Acetonide [Triamcinolone Acetonide 0.1% Crm] 80 gm .XX BID [History] glipiZIDE [Glucotrol XL] 10 mg PO BID 11/08/17 [History] Metoprolol Tartrate [Lopressor] 50 mg PO BID #60 tablet 11/09/17 [Rx] Diltiazem [Diltiazem XR] 240 mg PO BID 02/11/18 [History] ALPRAZolam [Xanax] 1 mg PO DAILY 12/12/18 [History] Past Medical History - Past Health History Medical/Surgical History: Denies Medical/Surgical History Cardiovascular History: Reports: Afib, CAD, High Cholesterol, Hypertension, [place], Stents Other Cardiovascular History: [place] 1999 with 1 stent placement Respiratory History: Reports: Bronchitis, Recurrent, Sleep Apnea Other Respiratory History: smoker for 51 yrs, has a c-pap Gastrointestinal History: Reports: Chronic Constipation, GERD Genitourinary History: Reports: Diabetic Nephropathy Musculoskeletal History: Reports: Osteoarthritis Neurological History: Reports: Neuropathy, Diabetic Endocrine/Metabolic History: Reports: Diabetes, Type II Oncologic (Cancer) History: Reports: Colon Other Oncologic History: with surgery, chemo and radiation Stage 111 - Infectious Disease History Infectious Disease History: Reports: Chicken Pox, Measles, Mumps, Rheumatic Fever - Past Surgical History HEENT Surgical History: Reports: Naso-Sinus Surgery Respiratory Surgical History: Reports: None GI Surgical History: Reports: Colon Male Surgical History: Reports: Circumcision Musculoskeletal Surgical History: Reports: Arthroscopic Knee, Shoulder Surgery, Other (See Below) Other Musculoskeletal Surgeries/Procedures:: Repaired acl. [place]. Placed bone marrow in hip., rt foot surgery with screw placement 11/03/18. Foot surg. Social & Family History - Family History Family Medical History: Noncontributory Cardiac: Reports: Afib, AICD, Angina, Bypass, CAD, Heart Failure, High Cholesterol, Hypertension, [place] Respiratory: Reports: Asthma, COPD GI: Reports: Cholelithiasis : Reports: Dialysis, Renal Disease/Insufficiency Musculoskeletal: Reports: Arthritis, Back pain, Chronic Neurological: Reports: CVA, Neuropathy, Diabetic Psychiatric: Reports: Anxiety, Depression Endocrine/Metabolic: Reports: Diabetes, type II - Tobacco Use Smoking Status *Q: Current Every Day Smoker Years of Tobacco use: 54 Packs/Tins Daily: 0.5 Used Tobacco, but Quit: No Second Hand Smoke Exposure: Yes - Caffeine Use Caffeine Use: Reports: Coffee Other Caffeine Use: 4 pots a day - Recreational Drug Use Recreational Drug Use: No - Living Situation & Occupation Living situation: Reports: with Family Occupation: Unemployed Review of Systems - Review of Systems Review Of Systems: ROS reveals no pertinent complaints other than HPI. ED EXAM, GENERAL - Physical Exam Exam: See Below Exam Limited By: No Limitations General Appearance: Alert, WD/WN, Mild Distress, Other (discomfort) Ears: Hearing Grossly Normal Throat/Mouth: Normal Voice, No Airway Compromise Head: Atraumatic Neck: Non-Tender, Full Range of Motion Respiratory/Chest: No Respiratory Distress Cardiovascular: Regular Rate, Rhythm GI/Abdominal: Soft, Non-Tender Extremities: Other (left foot no s/s cellulitis, [place] wnl, gait limited to pain) Neurological: Alert, Oriented, Normal Cognition, No Motor/Sensory Deficits Psychiatric: Normal Affect, Normal Mood Skin Exam: Warm, Dry, Normal Color Lymphatic: No Adenopathy Course - Vital Signs Last Recorded V/S: Last Vital Signs Temp 36.3 C 06/18/19 01:11 Pulse 70 06/18/19 01:11 Resp 18 06/18/19 01:11 BP 127/60 06/18/19 01:11 Pulse Ox 97 06/18/19 01:11 Departure - Departure Time of Disposition: 01:21 Disposition: Home, Self-Care 01 Condition: Good Clinical Impression: Post-op pain - Discharge Information Additional Instructions: 1) elevate foot as much as possible 2) follow up at clinic rx shimon; flexeril 10mg bid prn x 2
[2019-06-18] MEDS ORDERED: Cyclobenzaprine 10 MG Tab ONE (01:32)
== END 2019-06-18 01:35 | disposition home or self-care (01) ==
LOC: DL.ED 00:44
DX: G89.18 Other acute postprocedural pain (principal); I25.2 Old myocardial infarction; E78.00 Pure hypercholesterolemia, unspecified; I10 Essential (primary) hypertension; K21.9 Gastro-esophageal reflux disease without esophagitis; E11.40 Type 2 diabetes mellitus with diabetic neuropathy, unspecified; F17.210 Nicotine dependence, cigarettes, uncomplicated; Z91.041 Radiographic dye allergy status; Z88.5 Allergy status to narcotic agent; Z88.0 Allergy status to penicillin; Z91.018 Allergy to other foods; Z79.82 Long term (current) use of aspirin; Z79.899 Other long term (current) drug therapy; Z79.4 Long term (current) use of insulin; Z85.038 Personal history of other malignant neoplasm of large intestine
CPT/HCPCS: 99283; A9270-GY

== ENCOUNTER 2019-07-07 00:33 | Emergency (ER) | payer MEDICAID, OTHER | END 2019-07-07 00:40 | disposition left against medical advice (07) | LOC: DL.ED 00:33 | DX: Z53.21 Procedure and treatment not carried out due to patient leaving prior to being seen by health care provider (principal) ==

== ENCOUNTER 2019-07-12 23:58 | Emergency (ER) | payer MEDICAID ==
[2019-07-13 00:13] VITALS: BP 163/75; PULSE 70
[2019-07-13] MEDS ORDERED: Acetaminophen/HYDROcodone 325-5 MG Tab PO ONE (01:30)
--- NOTE | 2019-07-13 01:31 | EDM.PDOC ---
ED HPI GENERAL MEDICAL PROBLEM - General Chief Complaint: Lower Extremity Injury/Pain Stated Complaint: FOOT ISSUE Time Seen by Provider: 07/13/19 00:15 Source of Information: Reports: Patient, RN History Limitations: Reports: No Limitations - History of Present Illness INITIAL COMMENTS - FREE TEXT/NARRATIVE: ED ambulatory with c/o pain to outer left foot. States 2 weeks ago "broke to arch and tore some tendons, Tonight stepped out of pickup and felt sharp pain, tried tylenol and couldn't sleep. Put boot back on after incident. Left Foot Pain Score (Numeric/FACES): 9 - Related Data Allergies Allergy/AdvReac Type Severity Reaction Status Date / Time chicken derived Allergy Hives Verified 07/13/19 00:09 codeine Allergy Hives Verified 07/13/19 00:09 Penicillins Allergy Hives Verified 07/13/19 00:09 tramadol Allergy Hives Verified 07/13/19 00:09 Contrast media Allergy Hives Uncoded 07/13/19 00:09 Home Meds: Home Meds Aspirin 81 mg PO BRK 11/09/15 [History] Calcium Citrate/Vitamin D3 [[place] Calcium-Vit D 200-250] 1 each PO DAILY [History] Docusate Sodium [Colace] 100 mg PO BID 11/09/15 [History] Gabapentin [Neurontin] 900 mg PO BID 11/09/15 [History] Hydrochlorothiazide 25 mg PO DAILY 11/09/15 [History] Lisinopril 20 mg PO DAILY 11/09/15 [History] Omeprazole 20 mg PO ACBREAKFAST 11/09/15 [History] atorvaSTATin [Lipitor] 20 mg PO BEDTIME 11/09/15 [History] metFORMIN [Glucophage XR] 1,000 mg PO BIDMEALS 11/09/15 [History] Apixaban [Eliquis] 5 mg PO DAILY 11/08/17 [History] Cholecalciferol (Vitamin D3) [Vitamin D3] 1,000 unit PO DAILY 11/08/17 [History] Fluticasone Propionate [Flonase Allergy Relief] 15.8 ml NS DAILY 11/08/17 [ History] Insulin Glarg,Human.Rec.Analog [Lantus Solostar] 40 unit SUBCUT DAILY 11/08/17 [ History] Melatonin/Pyridoxine HCl (B6) [Melatonin 3 mg Tablet] 9 mg PO BEDTIME 11/08/17 [ History] [place]-3 Fatty Acids [[place]-3] 1 gm PO DAILY 11/08/17 [History] Prazosin HCl [Prazosin] 1 mg PO BEDTIME 11/08/17 [History] Triamcinolone Acetonide [Triamcinolone Acetonide 0.1% Crm] 80 gm .XX BID [History] glipiZIDE [Glucotrol XL] 10 mg PO BID 11/08/17 [History] Metoprolol Tartrate [Lopressor] 50 mg PO BID #60 tablet 11/09/17 [Rx] Diltiazem [Diltiazem XR] 240 mg PO BID 02/11/18 [History] ALPRAZolam [Xanax] 1 mg PO DAILY 12/12/18 [History] Past Medical History - Past Health History Medical/Surgical History: Denies Medical/Surgical History Cardiovascular History: Reports: Afib, CAD, High Cholesterol, Hypertension, [place], Stents Other Cardiovascular History: [place] 1999 with 1 stent placement Respiratory History: Reports: Bronchitis, Recurrent, Sleep Apnea Other Respiratory History: smoker for 51 yrs, has a c-pap Gastrointestinal History: Reports: Chronic Constipation, GERD Genitourinary History: Reports: Diabetic Nephropathy Musculoskeletal History: Reports: Osteoarthritis Neurological History: Reports: Neuropathy, Diabetic Endocrine/Metabolic History: Reports: Diabetes, Type II Oncologic (Cancer) History: Reports: Colon Other Oncologic History: with surgery, chemo and radiation Stage 111 - Infectious Disease History Infectious Disease History: Reports: Chicken Pox, Measles, Mumps, Rheumatic Fever - Past Surgical History HEENT Surgical History: Reports: Naso-Sinus Surgery Respiratory Surgical History: Reports: None GI Surgical History: Reports: Colon Male Surgical History: Reports: Circumcision Musculoskeletal Surgical History: Reports: Arthroscopic Knee, Shoulder Surgery, Other (See Below) Other Musculoskeletal Surgeries/Procedures:: Repaired acl. [place]. Placed bone marrow in hip., left foot surgery with screw placement 11/03/18. right Foot surg. Social & Family History - Family History Family Medical History: Noncontributory Cardiac: Reports: Afib, AICD, Angina, Bypass, CAD, Heart Failure, High Cholesterol, Hypertension, [place] Respiratory: Reports: Asthma, COPD GI: Reports: Cholelithiasis : Reports: Dialysis, Renal Disease/Insufficiency Musculoskeletal: Reports: Arthritis, Back pain, Chronic Neurological: Reports: CVA, Neuropathy, Diabetic Psychiatric: Reports: Anxiety, Depression Endocrine/Metabolic: Reports: Diabetes, type II - Tobacco Use Smoking Status *Q: Current Every Day Smoker Years of Tobacco use: 50 Packs/Tins Daily: 0.2 - Caffeine Use Caffeine Use: Reports: Coffee Other Caffeine Use: 4 pots a day - Recreational Drug Use Recreational Drug Use: No - Living Situation & Occupation Living situation: Reports: with Family Occupation: Unemployed Review of Systems - Review of Systems Review Of Systems: ROS reveals no pertinent complaints other than HPI. ED EXAM, GENERAL - Physical Exam Exam: See Below Exam Limited By: No Limitations General Appearance: Alert, No Apparent Distress Eye Exam: Bilateral Eye: EOMI Ears: Normal External Exam, Hearing Grossly Normal Throat/Mouth: Normal Voice, No Airway Compromise Head: Atraumatic, Normocephalic Neck: Normal Inspection Respiratory/Chest: Normal Breath Sounds Cardiovascular: Normal Peripheral Pulses Extremities: Joint Swelling (left foot generalized tenderness, dependent ecchymosis), Limited Range of Motion (lef foot). No: Increased Warmth, Redness Neurological: Alert, Oriented Psychiatric: Normal Affect Skin Exam: Warm, Dry, Intact Course - Vital Signs Last Recorded V/S: Last Vital Signs Temp 98.5 F 07/13/19 00:09 Pulse 70 07/13/19 00:09 Resp 18 07/13/19 00:09 BP 163/75 H 07/13/19 00:09 Pulse Ox 97 07/13/19 00:09 - Orders/Labs/Meds Orders: Active Orders 24 hr Category Date Time Status Foot Comp Min 3V Lt [CR] Urgent Exams 07/13/19 00:22 Taken Meds: Medications Discontinued Medications Generic Name Dose Route Start Last Admin Trade Name Teddy PRN Reason Stop Dose Admin Hydrocodone Bitart/Acetaminophen 1 tab 07/13/19 01:30 07/13/19 01:44 [place] 325-5 Mg PO 07/13/19 01:31 1 tab ONETIME ONE Administration - Radiology Interpretation Free Text/Narrative:: [facility] [place] [facility] Final Radiology Report Call: [phone] assistance Online chat: [email or web address] Name: MADDIE DUPONT Age: 64Years M Date: 07/13/2019 SSN: -- : [id number] Study: XR FOOT COMPLETE MIN 3 VIEWS LEFT Requesting Physician: ZEHRA NEAL Images: 3 Addl Studies: Provided Clinical History: Contrast: Contrast Medium: Contrast Amount: Contrast Method: CONFIDENTIALITY STATEMENT This report is intended only for use by the referring physician, and only in accordance with law. If you received this in error, call [phone]. Page 1 of 1 PROCEDURE INFORMATION: Exam: XR Left Foot Complete Exam date and time: 07/13/2019 12:34 AM Clinical history: 64 years old, male; Injury or trauma; Injury history: Reported broken "arch" 2 weeks ago. Tonight stepped out of truck and worst pain. ; Initial encounter; Blunt trauma; Foot; Left TECHNIQUE: Imaging protocol: XR Left foot. Views: 3 or more views. COMPARISON: CR Foot Comp Min 3V Lt 05/29/2019 5:50 PM FINDINGS: Bones/joints: Postoperative changes of the first and second digit with screws extending through the first and second metatarsal bone in first proximal phalanx No acute fracture dislocation Soft tissues: Normal. IMPRESSION: No acute fracture or dislocations Thank you for allowing us to participate in the care of your patient. Dictated and Authenticated by: Rajendra Hodgson MD 07/13/2019 1:03 AM Central Time ([place] & [place] Departure - Departure Time of Disposition: 01:27 Disposition: Home, Self-Care 01 Condition: Good Clinical Impression: Left foot pain - Discharge Information *PRESCRIPTION DRUG MONITORING PROGRAM REVIEWED*: No *COPY OF PRESCRIPTION DRUG MONITORING REPORT IN PATIENT RERE: No Instructions: Foot Pain Referrals: PCP,None [Primary Care Provider] - Forms: ED Department Discharge Additional Instructions: [facility] Wear cam boot elevate ice continue tylenol - My Orders Last 24 Hours: My Active Orders 07/13/19 00:22 Foot Comp Min 3V Lt [CR] Urgent - Assessment/Plan Last 24 Hours: My Active Orders 07/13/19 00:22 Foot Comp Min 3V Lt [CR] Urgent
== END 2019-07-13 01:45 | disposition home or self-care (01) ==
LOC: DL.ED 23:58
DX: M79.672 Pain in left foot (principal); I25.2 Old myocardial infarction; E78.00 Pure hypercholesterolemia, unspecified; I10 Essential (primary) hypertension; K21.9 Gastro-esophageal reflux disease without esophagitis; E11.9 Type 2 diabetes mellitus without complications; F17.210 Nicotine dependence, cigarettes, uncomplicated; Z88.6 Allergy status to analgesic agent; Z91.041 Radiographic dye allergy status; Z88.5 Allergy status to narcotic agent; Z88.0 Allergy status to penicillin; Z91.018 Allergy to other foods; Z79.82 Long term (current) use of aspirin; Z79.899 Other long term (current) drug therapy; Z79.4 Long term (current) use of insulin
CPT/HCPCS: 73630; 99283; A9270

== ENCOUNTER 2019-08-11 19:34 | Emergency (ER) | payer MEDICAID ==
[2019-08-11] MEDS ORDERED: Acetaminophen/HYDROcodone 325-5 MG Tab PO ONE (19:35)
[2019-08-11 19:41] VITALS: BP 149/57; PULSE 74
--- NOTE | 2019-08-11 20:28 | EDM.PDOC ---
ED HPI GENERAL MEDICAL PROBLEM - General Chief Complaint: Lower Extremity Injury/Pain Stated Complaint: INJURED LEFT KNEE Time Seen by Provider: 08/11/19 19:40 Source of Information: Reports: Patient History Limitations: Reports: No Limitations - History of Present Illness INITIAL COMMENTS - FREE TEXT/NARRATIVE: C/o left knee pain, reports shoveling snow this afternoon , stepped down from step and thought was on ground level and was not, twisted left knee as foot slipped. Has been icing, increased pain with movement. Ambulatory with slight limp. Left Knee Pain Score (Numeric/FACES): 9 - Related Data Allergies Allergy/AdvReac Type Severity Reaction Status Date / Time chicken derived Allergy Hives Verified 08/11/19 19:41 codeine Allergy Hives Verified 08/11/19 19:41 Penicillins Allergy Hives Verified 08/11/19 19:41 tramadol Allergy Hives Verified 08/11/19 19:41 Contrast media Allergy Hives Uncoded 08/11/19 19:41 Home Meds: Home Meds Aspirin 81 mg PO BRK 11/09/15 [History] Calcium Citrate/Vitamin D3 [[place] Calcium-Vit D 200-250] 1 each PO DAILY [History] Docusate Sodium [Colace] 100 mg PO BID 11/09/15 [History] Gabapentin [Neurontin] 900 mg PO BID 11/09/15 [History] Hydrochlorothiazide 25 mg PO DAILY 11/09/15 [History] Lisinopril 20 mg PO DAILY 11/09/15 [History] Omeprazole 20 mg PO ACBREAKFAST 11/09/15 [History] atorvaSTATin [Lipitor] 20 mg PO BEDTIME 11/09/15 [History] metFORMIN [Glucophage XR] 1,000 mg PO BIDMEALS 11/09/15 [History] Apixaban [Eliquis] 5 mg PO DAILY 11/08/17 [History] Cholecalciferol (Vitamin D3) [Vitamin D3] 1,000 unit PO DAILY 11/08/17 [History] Fluticasone Propionate [Flonase Allergy Relief] 15.8 ml NS DAILY 11/08/17 [ History] Insulin Glarg,Human.Rec.Analog [Lantus Solostar] 40 unit SUBCUT DAILY 11/08/17 [ History] Melatonin/Pyridoxine HCl (B6) [Melatonin 3 mg Tablet] 9 mg PO BEDTIME 11/08/17 [ History] [place]-3 Fatty Acids [[place]-3] 1 gm PO DAILY 11/08/17 [History] Prazosin HCl [Prazosin] 1 mg PO BEDTIME 11/08/17 [History] Triamcinolone Acetonide [Triamcinolone Acetonide 0.1% Crm] 80 gm .XX BID [History] glipiZIDE [Glucotrol XL] 10 mg PO BID 11/08/17 [History] Metoprolol Tartrate [Lopressor] 50 mg PO BID #60 tablet 11/09/17 [Rx] Diltiazem [Diltiazem XR] 240 mg PO BID 02/11/18 [History] ALPRAZolam [Xanax] 1 mg PO DAILY 12/12/18 [History] Past Medical History - Past Health History Medical/Surgical History: Denies Medical/Surgical History Cardiovascular History: Reports: Afib, CAD, High Cholesterol, Hypertension, [place], Stents Other Cardiovascular History: [place] 1999 with 1 stent placement Respiratory History: Reports: Bronchitis, Recurrent, Sleep Apnea Other Respiratory History: smoker for 51 yrs, has a c-pap Gastrointestinal History: Reports: Chronic Constipation, GERD Genitourinary History: Reports: Diabetic Nephropathy Musculoskeletal History: Reports: Osteoarthritis Neurological History: Reports: Neuropathy, Diabetic Endocrine/Metabolic History: Reports: Diabetes, Type II Oncologic (Cancer) History: Reports: Colon Other Oncologic History: with surgery, chemo and radiation Stage 111 - Infectious Disease History Infectious Disease History: Reports: Chicken Pox, Measles, Mumps, Rheumatic Fever - Past Surgical History HEENT Surgical History: Reports: Naso-Sinus Surgery Respiratory Surgical History: Reports: None GI Surgical History: Reports: Colon Male Surgical History: Reports: Circumcision Musculoskeletal Surgical History: Reports: Arthroscopic Knee, Shoulder Surgery, Other (See Below) Other Musculoskeletal Surgeries/Procedures:: Repaired acl. [place]. Placed bone marrow in hip., left foot surgery with screw placement 11/03/18. right Foot surg. Social & Family History - Family History Family Medical History: Noncontributory Cardiac: Reports: Afib, AICD, Angina, Bypass, CAD, Heart Failure, High Cholesterol, Hypertension, [place] Respiratory: Reports: Asthma, COPD GI: Reports: Cholelithiasis : Reports: Dialysis, Renal Disease/Insufficiency Musculoskeletal: Reports: Arthritis, Back pain, Chronic Neurological: Reports: CVA, Neuropathy, Diabetic Psychiatric: Reports: Anxiety, Depression Endocrine/Metabolic: Reports: Diabetes, type II - Tobacco Use Smoking Status *Q: Current Every Day Smoker Years of Tobacco use: 54 Packs/Tins Daily: 0.5 Tobacco Use Comment: pt is working on quiting, states that he has not smoked in 5 days Second Hand Smoke Exposure: Yes - Caffeine Use Caffeine Use: Reports: Coffee Other Caffeine Use: 4 pots a day - Recreational Drug Use Recreational Drug Use: No - Living Situation & Occupation Living situation: Reports: with Family Occupation: Unemployed Review of Systems - Review of Systems Review Of Systems: ROS reveals no pertinent complaints other than HPI. ED EXAM, GENERAL - Physical Exam Exam: See Below Exam Limited By: No Limitations General Appearance: Alert, Mild Distress Eye Exam: Bilateral Eye: EOMI Ears: Normal External Exam Nose: Normal Inspection Throat/Mouth: Normal Inspection Head: Atraumatic, Normocephalic Respiratory/Chest: No Respiratory Distress, Lungs Clear, Normal Breath Sounds Cardiovascular: Normal Peripheral Pulses, Irregularly Irregular Extremities: Joint Swelling (mild left alteral knee, mild crepitus with extension) Neurological: Alert, Oriented Psychiatric: Normal Affect Skin Exam: Warm, Dry, Intact Course - Vital Signs Last Recorded V/S: Last Vital Signs Temp 96.8 F 08/11/19 19:38 Pulse 74 08/11/19 19:38 Resp 18 08/11/19 19:38 BP 149/57 H 08/11/19 19:38 Pulse Ox 97 08/11/19 19:38 - Orders/Labs/Meds Meds: Medications Discontinued Medications Generic Name Dose Route Start Last Admin Trade Name Teddy PRN Reason Stop Dose Admin Hydrocodone Bitart/Acetaminophen Confirm 08/11/19 20:38 08/11/19 20:44 [place] 325-5 Mg Administered 08/11/19 20:39 Not Given Dose 1 tab .ROUTE .STK-MED ONE - Radiology Interpretation Free Text/Narrative:: Xray left knee - no acute findings , see report Departure - Departure Time of Disposition: 20:28 Disposition: Home, Self-Care 01 Condition: Good Clinical Impression: Sprain of knee - Discharge Information *PRESCRIPTION DRUG MONITORING PROGRAM REVIEWED*: No *COPY OF PRESCRIPTION DRUG MONITORING REPORT IN PATIENT RERE: Not Applicable Instructions: Knee Sprain, Adult, [id number] Referrals: PCP,None [Primary Care Provider] - Forms: ED Department Discharge Additional Instructions: ice to knee dean wrap wear shoes with gripping edges when outside [facility] follow up early next week tylenol every 4 hours as needed for discomfort hydrocodone 5/325 one at bedtime tonight
[2019-08-11] MEDS ORDERED: Acetaminophen/HYDROcodone 325-5 MG Tab ONE (20:38)
== END 2019-08-11 20:42 | disposition home or self-care (01) ==
LOC: DL.ED 19:34
DX: S83.92XA Sprain of unspecified site of left knee, initial encounter (principal); I25.10 Atherosclerotic heart disease of native coronary artery without angina pectoris; I48.91 Unspecified atrial fibrillation; I25.2 Old myocardial infarction; I10 Essential (primary) hypertension; E11.21 Type 2 diabetes mellitus with diabetic nephropathy; E11.40 Type 2 diabetes mellitus with diabetic neuropathy, unspecified; K21.9 Gastro-esophageal reflux disease without esophagitis; F17.210 Nicotine dependence, cigarettes, uncomplicated; Z95.5 Presence of coronary angioplasty implant and graft; Z91.018 Allergy to other foods; Z88.5 Allergy status to narcotic agent; Z88.0 Allergy status to penicillin; Z91.041 Radiographic dye allergy status; Z79.4 Long term (current) use of insulin; Z79.82 Long term (current) use of aspirin; Z79.899 Other long term (current) drug therapy; Z79.01 Long term (current) use of anticoagulants; X50.1XXA Overexertion from prolonged static or awkward postures, initial encounter; Y93.H1 Activity, digging, shoveling and raking
CPT/HCPCS: 73562-LT; 99283-25; A9270-GY

== ENCOUNTER 2019-09-05 23:00 | Emergency (ER) | payer MEDICAID ==
[2019-09-05 23:21] VITALS: BP 140/84; PULSE 105
[2019-09-05 23:48] LABS: ANION GAP 10.6; CHLORIDE,CL 105 mmol/L (101-111); SODIUM,NA 138 mmol/L (135-145)
[2019-09-06] MEDS ORDERED: Diltiazem 25 MG/5 ML SDV IVPUSH ONE ×2 (00:01→01:07)
--- NOTE | 2019-09-06 00:20 | EDM.PDOC ---
ED HPI GENERAL MEDICAL PROBLEM - General Chief Complaint: Chest Pain Stated Complaint: HEART Time Seen by Provider: 09/05/19 23:20 Source of Information: Reports: Patient History Limitations: Reports: No Limitations - History of Present Illness INITIAL COMMENTS - FREE TEXT/NARRATIVE: ED with c/o fast heart rate, started while walking, Mild chest pressure, No SOB , Has not taken evening meds yet. [facility], Discussed possibility of pac[facility]. Patient seen multiple times in ED with similar c/o. Mid-Sternal Chest Pain Score (Numeric/FACES): 7 - Related Data Allergies Allergy/AdvReac Type Severity Reaction Status Date / Time chicken derived Allergy Hives Verified 08/11/19 19:41 codeine Allergy Hives Verified 08/11/19 19:41 Penicillins Allergy Hives Verified 08/11/19 19:41 tramadol Allergy Hives Verified 08/11/19 19:41 Contrast media Allergy Hives Uncoded 08/11/19 19:41 Home Meds: Home Meds Aspirin 81 mg PO BRK 11/09/15 [History] Calcium Citrate/Vitamin D3 [[place] Calcium-Vit D 200-250] 1 each PO DAILY [History] Docusate Sodium [Colace] 100 mg PO BID 11/09/15 [History] Gabapentin [Neurontin] 900 mg PO BID 11/09/15 [History] Hydrochlorothiazide 25 mg PO DAILY 11/09/15 [History] Lisinopril 20 mg PO DAILY 11/09/15 [History] Omeprazole 20 mg PO ACBREAKFAST 11/09/15 [History] atorvaSTATin [Lipitor] 20 mg PO BEDTIME 11/09/15 [History] metFORMIN [Glucophage XR] 1,000 mg PO BIDMEALS 11/09/15 [History] Apixaban [Eliquis] 5 mg PO DAILY 11/08/17 [History] Cholecalciferol (Vitamin D3) [Vitamin D3] 1,000 unit PO DAILY 11/08/17 [History] Fluticasone Propionate [Flonase Allergy Relief] 15.8 ml NS DAILY 11/08/17 [ History] Insulin Glarg,Human.Rec.Analog [Lantus Solostar] 40 unit SUBCUT DAILY 11/08/17 [ History] Melatonin/Pyridoxine HCl (B6) [Melatonin 3 mg Tablet] 9 mg PO BEDTIME 11/08/17 [ History] [place]-3 Fatty Acids [[place]-3] 1 gm PO DAILY 11/08/17 [History] Prazosin HCl [Prazosin] 1 mg PO BEDTIME 11/08/17 [History] Triamcinolone Acetonide [Triamcinolone Acetonide 0.1% Crm] 80 gm .XX BID [History] glipiZIDE [Glucotrol XL] 10 mg PO BID 11/08/17 [History] Metoprolol Tartrate [Lopressor] 50 mg PO BID #60 tablet 11/09/17 [Rx] Diltiazem [Diltiazem XR] 240 mg PO BID 02/11/18 [History] ALPRAZolam [Xanax] 1 mg PO DAILY 12/12/18 [History] Past Medical History - Past Health History Medical/Surgical History: Denies Medical/Surgical History Cardiovascular History: Reports: Afib, CAD, High Cholesterol, Hypertension, [place], Stents Other Cardiovascular History: [place] 1999 with 1 stent placement Respiratory History: Reports: Bronchitis, Recurrent, Sleep Apnea Other Respiratory History: smoker for 51 yrs, has a c-pap Gastrointestinal History: Reports: Chronic Constipation, GERD Genitourinary History: Reports: Diabetic Nephropathy Musculoskeletal History: Reports: Osteoarthritis Neurological History: Reports: Neuropathy, Diabetic Psychiatric History: Reports: Anxiety Endocrine/Metabolic History: Reports: Diabetes, Type II Oncologic (Cancer) History: Reports: Colon Other Oncologic History: with surgery, chemo and radiation Stage III - Infectious Disease History Infectious Disease History: Reports: Chicken Pox, Measles, Mumps, Rheumatic Fever - Past Surgical History HEENT Surgical History: Reports: Naso-Sinus Surgery Respiratory Surgical History: Reports: None GI Surgical History: Reports: Colon Male Surgical History: Reports: Circumcision Musculoskeletal Surgical History: Reports: Arthroscopic Knee, Shoulder Surgery, Other (See Below) Other Musculoskeletal Surgeries/Procedures:: Repaired acl. [place]. Placed bone marrow in hip., left foot surgery with screw placement 11/03/18. right Foot surg. Social & Family History - Family History Family Medical History: Noncontributory Cardiac: Reports: Afib, AICD, Angina, Bypass, CAD, Heart Failure, High Cholesterol, Hypertension, [place] Respiratory: Reports: Asthma, COPD GI: Reports: Cholelithiasis : Reports: Dialysis, Renal Disease/Insufficiency Musculoskeletal: Reports: Arthritis, Back pain, Chronic Neurological: Reports: CVA, Neuropathy, Diabetic Psychiatric: Reports: Anxiety, Depression Endocrine/Metabolic: Reports: Diabetes, type II - Tobacco Use Smoking Status *Q: Current Every Day Smoker Years of Tobacco use: 55 Packs/Tins Daily: 0.5 Used Tobacco, but Quit: No Second Hand Smoke Exposure: Yes - Caffeine Use Caffeine Use: Reports: Coffee Other Caffeine Use: 4 pots a day - Recreational Drug Use Recreational Drug Use: No - Living Situation & Occupation Living situation: Reports: with Family Occupation: Unemployed ED ROS GENERAL - Review of Systems Review Of Systems: Comprehensive ROS is negative, except as noted in HPI. ED EXAM, GENERAL - Physical Exam Exam: See Below Exam Limited By: No Limitations General Appearance: Alert, Anxious, Mild Distress Eye Exam: Bilateral Eye: EOMI Ears: Normal External Exam, Hearing Grossly Normal Nose: Normal Inspection Throat/Mouth: Normal Inspection Head: Atraumatic, Normocephalic Respiratory/Chest: No Respiratory Distress, Lungs Clear Cardiovascular: Normal Peripheral Pulses, Tachycardia, Irregularly Irregular. No: JVD GI/Abdominal: Normal Bowel Sounds, Soft Back Exam: Normal Inspection, Decreased Range of Motion Neurological: Alert, Oriented, Normal Cognition Psychiatric: Normal Affect, Normal Mood Skin Exam: Warm, Dry, Intact, Normal Color Course - Vital Signs Last Recorded V/S: Last Vital Signs Temp 98.1 F 09/05/19 23:20 Pulse 105 H 09/05/19 23:20 Resp 20 09/05/19 23:20 BP 140/84 09/05/19 23:20 Pulse Ox 92 L 09/05/19 23:20 - Orders/Labs/Meds Orders: Active Orders 24 hr Category Date Time Status Admission Diagnosis [ADT] Stat ADT 09/06/19 02:37 Ordered Patient Status [ADT] Routine ADT 09/06/19 02:37 Ordered Cardiac Monitoring [RC] . DIRECTED Care 09/06/19 02:37 Ordered EKG Documentation Completion [RC] STAT Care 09/05/19 23:18 Active CXR [Chest 1V Frontal] [CR] Urgent Exams 09/06/19 01:41 Taken Diltiazem 125 mg Med 09/06/19 01:45 Active Sodium Chloride 0.9% [Normal Saline] 100 ml IV TITRATE Medication Orders Diltiazem HCl 125 mg/ Sodium (Chloride) 125 mls @ 5 mls/hr IV TITRATE YI; Protocol Last Admin: 09/06/19 01:41 Dose: 5 mg/hr, 5 mls/hr Labs: Laboratory Tests 09/05/19 09/05/19 09/05/19 Range/Units 23:20 23:20 23:20 WBC 8.7 (5.0-10.0) 10^3/uL RBC 4.90 (4.6-6.2) 10^6/uL Hgb 14.2 D (14.0-18.0) g/dL Hct 42.5 (40.0-54.0) % MCV 86.7 (80-100) fL MCH 29.0 (27.0-34.0) pg MCHC 33.4 (33.0-35.0) g/dL Plt Count 272 (150-450) 10^3/uL Neut % (Auto) 58.0 (42.2-75.2) % Lymph % (Auto) 32.3 (20.5-50.1) % [place] % (Auto) 7.3 (2-8) % Eos % (Auto) 2.3 (1.0-3.0) % Baso % (Auto) 0.1 (0.0-1.0) % Sodium 138 (135-145) mmol/L Potassium 3.6 (3.6-5.0) mmol/L Chloride 105 (101-111) mmol/L Carbon Dioxide 26.0 (21.0-31.0) mmol/L Anion Gap 10.6 BUN 17 (7-18) mg/dL Creatinine 0.8 (0.6-1.3) mg/dL Est Cr Clr Drug Dosing 103.74 mL/min Estimated GFR (MDRD) > 60 BUN/Creatinine Ratio 21.25 Glucose 251 H (74-105) mg/dL Calcium 8.7 (8.4-10.2) mg/dl Total Bilirubin 0.4 (0.2-1.0) mg/dL AST 18 (10-42) IU/L ALT 24 (10-60) IU/L Alkaline Phosphatase 121 (42-121) IU/L Troponin I < 0.02 (0.00-0.02) ng/ml Total Protein 7.0 (6.7-8.2) g/dl Albumin 3.6 (3.2-5.5) g/dl Globulin 3.4 Albumin/Globulin Ratio 1.06 Meds: Medications Generic Name Dose Route Start Last Admin Trade Name Freq PRN Reason Stop Dose Admin Diltiazem HCl 125 mg/ Sodium 125 mls @ 5 mls/hr 09/06/19 01:45 09/06/19 01:41 Chloride IV 5 mg/hr TITRATE YI 5 mls/hr Administration Protocol 5 MG/HR Discontinued Medications Generic Name Dose Route Start Last Admin Trade Name Freq PRN Reason Stop Dose Admin Diltiazem HCl 5 mg 09/06/19 00:01 09/06/19 00:15 Diltiazem IVPUSH 09/06/19 00:02 5 mg ONETIME ONE Administration Diltiazem HCl 15 mg 09/06/19 00:22 09/06/19 00:32 Diltiazem IVPUSH 09/06/19 00:23 5 mg ONETIME ONE Administration Diltiazem HCl 10 mg 09/06/19 01:07 09/06/19 01:13 Diltiazem IVPUSH 09/06/19 01:08 10 mg ONETIME ONE Administration - Re-Assessments/Exams Free Text/Narrative Re-Assessment/Exam: 09/06/19 01:35 Initially declined IV drip cardizem as usually rate slows and goes home. No agreeable as rate not sustained. below 110. No pain at present notes feeling improved. 09/06/19 02:42 Dr Wing accepting [facility] observation . 09/06/19 02:46 Departure - Departure Time of Disposition: 00:50 Disposition: Home, Self-Care 01 Condition: Good Clinical Impression: Atrial fibrillation with RVR Forms: ED Department Discharge Additional Instructions: light activity continue home medications [facility] - My Orders Last 24 Hours: My Active Orders 09/05/19 23:18 EKG Documentation Completion [RC] STAT 09/06/19 01:41 CXR [Chest 1V Frontal] [CR] Urgent 09/06/19 01:45 Diltiazem 125 mg Sodium Chloride 0.9% [Normal Saline] 100 ml IV TITRATE 09/06/19 02:37 Admission Diagnosis [ADT] Stat Patient Status [ADT] Routine Cardiac Monitoring [RC] . DIRECTED - Assessment/Plan Last 24 Hours: My Active Orders 09/05/19 23:18 EKG Documentation Completion [RC] STAT 09/06/19 01:41 CXR [Chest 1V Frontal] [CR] Urgent 09/06/19 01:45 Diltiazem 125 mg Sodium Chloride 0.9% [Normal Saline] 100 ml IV TITRATE 09/06/19 02:37 Admission Diagnosis [ADT] Stat Patient Status [ADT] Routine Cardiac Monitoring [RC] . DIRECTED
[2019-09-06] MEDS: Diltiazem 25 MG/5 ML SDV IVPUSH ONE ×2 (00:28→00:32)
[2019-09-06] MEDS ORDERED: Diltiazem 125 MG in Sodium Chloride 0.9% 100 ML IV SCH (01:45)
== END 2019-09-06 03:03 | disposition left against medical advice (07) ==
LOC: DL.ED 23:00 → UNDOADMOB 09-06 02:37 → DL.MS 09-06 02:37 → UNDODISOB 09-06 03:00
DX: I48.91 Unspecified atrial fibrillation (principal); I25.10 Atherosclerotic heart disease of native coronary artery without angina pectoris; I25.2 Old myocardial infarction; I10 Essential (primary) hypertension; E11.21 Type 2 diabetes mellitus with diabetic nephropathy; E11.40 Type 2 diabetes mellitus with diabetic neuropathy, unspecified; E78.00 Pure hypercholesterolemia, unspecified; F41.9 Anxiety disorder, unspecified; Z95.5 Presence of coronary angioplasty implant and graft; F17.210 Nicotine dependence, cigarettes, uncomplicated; Z91.018 Allergy to other foods; Z88.0 Allergy status to penicillin; Z88.5 Allergy status to narcotic agent; Z91.041 Radiographic dye allergy status; Z79.82 Long term (current) use of aspirin; Z79.4 Long term (current) use of insulin; Z79.51 Long term (current) use of inhaled steroids; Z79.01 Long term (current) use of anticoagulants; Z79.899 Other long term (current) drug therapy
CPT/HCPCS: 36415; 71045; 80053; 84484; 85025; 93005; 96365; 96376; 99285; J3490; J7050

== ENCOUNTER 2019-10-15 20:26 | Emergency (ER) | payer MEDICAID ==
[2019-10-15 22:04] VITALS: BP 133/72; PULSE 52
--- NOTE | 2019-10-15 22:11 | EDM.PDOC ---
ED HPI GENERAL MEDICAL PROBLEM - General Chief Complaint: Cardiovascular Problem Stated Complaint: BLACKOUTS Time Seen by Provider: 10/15/19 22:08 Source of Information: Reports: Patient History Limitations: Reports: No Limitations - History of Present Illness INITIAL COMMENTS - FREE TEXT/NARRATIVE: states went to kitchen to get his hot dish and woke up on floor with headache and neck pain. manage to get self back to bed and called. family found him in bed and brought him here. Posterior Headache Pain Score (Numeric/FACES): 5 - Related Data Allergies Allergy/AdvReac Type Severity Reaction Status Date / Time chicken derived Allergy Hives Verified 10/15/19 22:09 codeine Allergy Hives Verified 10/15/19 22:09 Penicillins Allergy Hives Verified 10/15/19 22:09 tramadol Allergy Hives Verified 10/15/19 22:09 Contrast media Allergy Hives Uncoded 10/15/19 22:09 Home Meds: Home Meds Aspirin 81 mg PO BRK 11/09/15 [History] Calcium Citrate/Vitamin D3 [[place] Calcium-Vit D 200-250] 1 each PO DAILY [History] Docusate Sodium [Colace] 100 mg PO BID 11/09/15 [History] Gabapentin [Neurontin] 900 mg PO BID 11/09/15 [History] Hydrochlorothiazide 25 mg PO DAILY 11/09/15 [History] Lisinopril 20 mg PO DAILY 11/09/15 [History] Omeprazole 20 mg PO ACBREAKFAST 11/09/15 [History] atorvaSTATin [Lipitor] 20 mg PO BEDTIME 11/09/15 [History] metFORMIN [Glucophage XR] 1,000 mg PO BIDMEALS 11/09/15 [History] Apixaban [Eliquis] 5 mg PO DAILY 11/08/17 [History] Cholecalciferol (Vitamin D3) [Vitamin D3] 1,000 unit PO DAILY 11/08/17 [History] Fluticasone Propionate [Flonase Allergy Relief] 15.8 ml NS DAILY 11/08/17 [ History] Insulin Glarg,Human.Rec.Analog [Lantus Solostar] 40 unit SUBCUT DAILY 11/08/17 [ History] Melatonin/Pyridoxine HCl (B6) [Melatonin 3 mg Tablet] 9 mg PO BEDTIME 11/08/17 [ History] [place]-3 Fatty Acids [[place]-3] 1 gm PO DAILY 11/08/17 [History] Prazosin HCl [Prazosin] 1 mg PO BEDTIME 11/08/17 [History] Triamcinolone Acetonide [Triamcinolone Acetonide 0.1% Crm] 80 gm .XX BID [History] glipiZIDE [Glucotrol XL] 10 mg PO BID 11/08/17 [History] Metoprolol Tartrate [Lopressor] 50 mg PO BID #60 tablet 11/09/17 [Rx] Diltiazem [Diltiazem XR] 240 mg PO BID 02/11/18 [History] ALPRAZolam [Xanax] 1 mg PO DAILY 12/12/18 [History] Past Medical History - Past Health History Medical/Surgical History: Denies Medical/Surgical History Cardiovascular History: Reports: Afib, CAD, High Cholesterol, Hypertension, [place], Stents Other Cardiovascular History: [place] 1999 with 1 stent placement Respiratory History: Reports: Bronchitis, Recurrent, Sleep Apnea Other Respiratory History: smoker for 51 yrs, has a c-pap Gastrointestinal History: Reports: Chronic Constipation, GERD Genitourinary History: Reports: Diabetic Nephropathy Musculoskeletal History: Reports: Osteoarthritis Neurological History: Reports: Neuropathy, Diabetic Psychiatric History: Reports: Anxiety Endocrine/Metabolic History: Reports: Diabetes, Type II Oncologic (Cancer) History: Reports: Colon Other Oncologic History: with surgery, chemo and radiation Stage III - Infectious Disease History Infectious Disease History: Reports: Chicken Pox, Measles, Mumps, Rheumatic Fever - Past Surgical History HEENT Surgical History: Reports: Naso-Sinus Surgery Respiratory Surgical History: Reports: None GI Surgical History: Reports: Colon Male Surgical History: Reports: Circumcision Musculoskeletal Surgical History: Reports: Arthroscopic Knee, Shoulder Surgery, Other (See Below) Other Musculoskeletal Surgeries/Procedures:: Repaired acl. [place]. Placed bone marrow in hip., left foot surgery with screw placement 11/03/18. right Foot surg. Social & Family History - Family History Family Medical History: Noncontributory Cardiac: Reports: Afib, AICD, Angina, Bypass, CAD, Heart Failure, High Cholesterol, Hypertension, [place] Respiratory: Reports: Asthma, COPD GI: Reports: Cholelithiasis : Reports: Dialysis, Renal Disease/Insufficiency Musculoskeletal: Reports: Arthritis, Back pain, Chronic Neurological: Reports: CVA, Neuropathy, Diabetic Psychiatric: Reports: Anxiety, Depression Endocrine/Metabolic: Reports: Diabetes, type II - Caffeine Use Caffeine Use: Reports: Coffee Other Caffeine Use: 4 pots a day - Living Situation & Occupation Living situation: Reports: with Family Occupation: Unemployed ED ROS GENERAL - Review of Systems Review Of Systems: Comprehensive ROS is negative, except as noted in HPI. ED EXAM, GENERAL - Physical Exam Exam: See Below Exam Limited By: No Limitations General Appearance: Alert, WD/WN, Mild Distress, Other (discomfort) Eye Exam: Bilateral Eye: PERRL (pupils ER @ 4mm) Ears: Hearing Grossly Normal Throat/Mouth: Normal Voice, No Airway Compromise Head: Other (occiput tender mild swelling, no O/B) Neck: Supple, Tender Lateral. No: Limited Range of Motion, Tender Midline Respiratory/Chest: No Respiratory Distress Cardiovascular: Regular Rate, Rhythm GI/Abdominal: Soft, Non-Tender Neurological: Alert, Oriented, Normal Cognition, No Motor/Sensory Deficits Psychiatric: Flat Affect Skin Exam: Warm, Dry, Normal Color Lymphatic: No Adenopathy Course - Vital Signs Last Recorded V/S: Last Vital Signs Temp 36.8 C 10/15/19 22:01 Pulse 52 L 10/15/19 22:01 Resp 20 10/15/19 22:01 BP 133/72 10/15/19 22:01 Pulse Ox 95 10/15/19 22:01 - Orders/Labs/Meds Orders: Active Orders 24 hr Category Date Time Status EKG 12 Lead [EKG Documentation Completion] [RC] STAT Care 10/15/19 22:08 Active Butorphanol [Stadol] Med 10/15/19 23:35 Once 2 mg IM ONETIME ONE Ondansetron [Zofran] Med 10/15/19 23:35 Once 4 mg IVPUSH ONETIME ONE Labs: Laboratory Tests 10/15/19 10/15/19 Range/Units 22:00 22:00 WBC 8.0 (5.0-10.0) 10^3/uL RBC 5.65 (4.6-6.2) 10^6/uL Hgb 16.4 D (14.0-18.0) g/dL Hct 48.3 (40.0-54.0) % MCV 85.5 (80-100) fL MCH 29.0 (27.0-34.0) pg MCHC 34.0 (33.0-35.0) g/dL Plt Count 255 (150-450) 10^3/uL Neut % (Auto) 55.5 (42.2-75.2) % Lymph % (Auto) 33.8 (20.5-50.1) % [place] % (Auto) 8.6 H (2-8) % Eos % (Auto) 1.9 (1.0-3.0) % Baso % (Auto) 0.2 (0.0-1.0) % Sodium 137 (135-145) mmol/L Potassium 4.3 (3.6-5.0) mmol/L Chloride 100 L (101-111) mmol/L Carbon Dioxide 29.0 (21.0-31.0) mmol/L Anion Gap 12.3 BUN 18 (7-18) mg/dL Creatinine 1.0 (0.6-1.3) mg/dL Est Cr Clr Drug Dosing 82.99 mL/min Estimated GFR (MDRD) > 60 BUN/Creatinine Ratio 18.00 Glucose 323 H (74-105) mg/dL Calcium 9.1 (8.4-10.2) mg/dl Total Bilirubin 0.6 (0.2-1.0) mg/dL AST 16 (10-42) IU/L ALT 22 (10-60) IU/L Alkaline Phosphatase 143 H (42-121) IU/L Troponin I < 0.02 (0.00-0.02) ng/ml Total Protein 7.8 (6.7-8.2) g/dl Albumin 4.1 (3.2-5.5) g/dl Globulin 3.7 Albumin/Globulin Ratio 1.11 Ethyl Alcohol < 5 mg/dL - Re-Assessments/Exams Free Text/Narrative Re-Assessment/Exam: 10/15/19 23:35 results discussed with pt. Departure - Departure Time of Disposition: 23:36 Disposition: Home, Self-Care 01 Condition: Good Clinical Impression: Near syncope Neck muscle strain Qualifiers: Encounter type: initial encounter Qualified Code(s): S16.1XXA - Strain of muscle, fascia and tendon at neck level, initial encounter Instructions: Cervical Sprain, [id number] Forms: ED Department Discharge Additional Instructions: 1) try ice or heat to sore area 2) avoid straining 3) follow up at clinic Sepsis Event Note - Evaluation Sepsis Screening Result: No Definite Risk - Focused Exam Vital Signs: Vital Signs Temp Pulse Resp BP Pulse Ox 10/15/19 22:01 36.8 C 52 L 20 133/72 95 Date Exam was Performed: 10/15/19 Time Exam was Performed: 23:35 - My Orders Last 24 Hours: My Active Orders 10/15/19 22:08 EKG 12 Lead [EKG Documentation Completion] [RC] STAT 10/15/19 23:35 Butorphanol [Stadol] 2 mg IM ONETIME ONE Ondansetron [Zofran] 4 mg IVPUSH ONETIME ONE - Assessment/Plan Last 24 Hours: My Active Orders 10/15/19 22:08 EKG 12 Lead [EKG Documentation Completion] [RC] STAT 10/15/19 23:35 Butorphanol [Stadol] 2 mg IM ONETIME ONE Ondansetron [Zofran] 4 mg IVPUSH ONETIME ONE
[2019-10-15 22:41] LABS: ANION GAP 12.3; CHLORIDE,CL 100 mmol/L (101-111); SODIUM,NA 137 mmol/L (135-145)
[2019-10-15] MEDS ORDERED: Butorphanol 2 MG/ML SDV IM ONE (23:35)
[2019-10-15] MEDS ORDERED: Ondansetron 4 MG/2 ML SDV IVPUSH ONE (23:35)
== END 2019-10-15 23:48 | disposition home or self-care (01) ==
LOC: DL.ED 20:26
DX: S16.1XXA Strain of muscle, fascia and tendon at neck level, initial encounter (principal); R55 Syncope and collapse; I10 Essential (primary) hypertension; I25.10 Atherosclerotic heart disease of native coronary artery without angina pectoris; I48.91 Unspecified atrial fibrillation; E78.00 Pure hypercholesterolemia, unspecified; I25.2 Old myocardial infarction; K21.9 Gastro-esophageal reflux disease without esophagitis; M19.90 Unspecified osteoarthritis, unspecified site; F41.9 Anxiety disorder, unspecified; E11.40 Type 2 diabetes mellitus with diabetic neuropathy, unspecified; E11.21 Type 2 diabetes mellitus with diabetic nephropathy; F17.200 Nicotine dependence, unspecified, uncomplicated; Z88.5 Allergy status to narcotic agent; Z88.0 Allergy status to penicillin; Z91.041 Radiographic dye allergy status; Z91.018 Allergy to other foods; Z79.82 Long term (current) use of aspirin; Z79.899 Other long term (current) drug therapy; Z79.01 Long term (current) use of anticoagulants; Z79.4 Long term (current) use of insulin; X58.XXXA Exposure to other specified factors, initial encounter
CPT/HCPCS: 36415; 70450; 72125; 80053; 84484; 85025; 93005; 99284-25; G0480

== ENCOUNTER 2019-11-26 04:52 | Emergency (ER) | payer MEDICAID ==
[2019-11-26 04:58] VITALS: BP 150/86; PULSE 75
[2019-11-26] MEDS ORDERED: Acetaminophen/HYDROcodone 325-10 MG Tab PO ONE (05:12)
--- NOTE | 2019-11-26 05:18 | EDM.PDOC ---
ED HPI GENERAL MEDICAL PROBLEM - General Chief Complaint: Neck Problem Stated Complaint: INJECTIONS WORE OFF, NECK AND LEFT SHOULDER PAIN Time Seen by Provider: 11/26/19 05:00 Source of Information: Reports: Patient History Limitations: Reports: No Limitations - History of Present Illness INITIAL COMMENTS - FREE TEXT/NARRATIVE: ED ambulatory with c/o neck pain, no injury, trigger point injection earlier today, now pain radiating left side of neck to shoulder, No numbness. No weakness, Pain making heart race, Reports scheduled for pacemaker placement in 2 weeks. Neck Pain Score (Numeric/FACES): 9 - Related Data Allergies Allergy/AdvReac Type Severity Reaction Status Date / Time chicken derived Allergy Hives Verified 11/26/19 04:58 codeine Allergy Hives Verified 11/26/19 04:58 Penicillins Allergy Hives Verified 11/26/19 04:58 tramadol Allergy Hives Verified 11/26/19 04:58 Contrast media Allergy Hives Uncoded 11/26/19 04:58 Home Meds: Home Meds Aspirin 81 mg PO BRK 11/09/15 [History] Calcium Citrate/Vitamin D3 [[place] Calcium-Vit D 200-250] 1 each PO DAILY [History] Docusate Sodium [Colace] 100 mg PO BID 11/09/15 [History] Gabapentin [Neurontin] 900 mg PO BID 11/09/15 [History] Hydrochlorothiazide 25 mg PO DAILY 11/09/15 [History] Lisinopril 20 mg PO DAILY 11/09/15 [History] Omeprazole 20 mg PO ACBREAKFAST 11/09/15 [History] atorvaSTATin [Lipitor] 20 mg PO BEDTIME 11/09/15 [History] metFORMIN [Glucophage XR] 1,000 mg PO BIDMEALS 11/09/15 [History] Apixaban [Eliquis] 5 mg PO DAILY 11/08/17 [History] Cholecalciferol (Vitamin D3) [Vitamin D3] 1,000 unit PO DAILY 11/08/17 [History] Fluticasone Propionate [Flonase Allergy Relief] 15.8 ml NS DAILY 11/08/17 [ History] Insulin Glarg,Human.Rec.Analog [Lantus Solostar] 40 unit SUBCUT DAILY 11/08/17 [ History] Melatonin/Pyridoxine HCl (B6) [Melatonin 3 mg Tablet] 9 mg PO BEDTIME 11/08/17 [ History] [place]-3 Fatty Acids [[place]-3] 1 gm PO DAILY 11/08/17 [History] Prazosin HCl [Prazosin] 1 mg PO BEDTIME 11/08/17 [History] Triamcinolone Acetonide [Triamcinolone Acetonide 0.1% Crm] 80 gm .XX BID [History] glipiZIDE [Glucotrol XL] 10 mg PO BID 11/08/17 [History] Metoprolol Tartrate [Lopressor] 50 mg PO BID #60 tablet 11/09/17 [Rx] Diltiazem [Diltiazem XR] 240 mg PO BID 02/11/18 [History] ALPRAZolam [Xanax] 1 mg PO DAILY 12/12/18 [History] Past Medical History - Past Health History Medical/Surgical History: Denies Medical/Surgical History Cardiovascular History: Reports: Afib, CAD, High Cholesterol, Hypertension, [place], Stents Other Cardiovascular History: [place] 1999 with 1 stent placement Respiratory History: Reports: Bronchitis, Recurrent, Sleep Apnea Other Respiratory History: smoker for 51 yrs, has a c-pap Gastrointestinal History: Reports: Chronic Constipation, GERD Genitourinary History: Reports: Diabetic Nephropathy Musculoskeletal History: Reports: Osteoarthritis Neurological History: Reports: Neuropathy, Diabetic Psychiatric History: Reports: Anxiety Endocrine/Metabolic History: Reports: Diabetes, Type II Oncologic (Cancer) History: Reports: Colon Other Oncologic History: with surgery, chemo and radiation Stage III - Infectious Disease History Infectious Disease History: Reports: Chicken Pox, Measles, Mumps, Rheumatic Fever - Past Surgical History HEENT Surgical History: Reports: Naso-Sinus Surgery Respiratory Surgical History: Reports: None GI Surgical History: Reports: Colon Male Surgical History: Reports: Circumcision Musculoskeletal Surgical History: Reports: Arthroscopic Knee, Shoulder Surgery, Other (See Below) Other Musculoskeletal Surgeries/Procedures:: Repaired acl. [place]. Placed bone marrow in hip., left foot surgery with screw placement 11/03/18. right Foot surg. Social & Family History - Family History Family Medical History: Noncontributory Cardiac: Reports: Afib, AICD, Angina, Bypass, CAD, Heart Failure, High Cholesterol, Hypertension, [place] Respiratory: Reports: Asthma, COPD GI: Reports: Cholelithiasis : Reports: Dialysis, Renal Disease/Insufficiency Musculoskeletal: Reports: Arthritis, Back pain, Chronic Neurological: Reports: CVA, Neuropathy, Diabetic Psychiatric: Reports: Anxiety, Depression Endocrine/Metabolic: Reports: Diabetes, type II - Tobacco Use Smoking Status *Q: Former Smoker Used Tobacco, but Quit: Yes Month/Year Tobacco Last Used: nov 2019 Second Hand Smoke Exposure: No - Caffeine Use Caffeine Use: Reports: Coffee Other Caffeine Use: 4 pots a day - Recreational Drug Use Recreational Drug Use: No - Living Situation & Occupation Living situation: Reports: with Family Occupation: Unemployed ED ROS GENERAL - Review of Systems Review Of Systems: Comprehensive ROS is negative, except as noted in HPI. ED EXAM, UPPER BACK/NECK PAIN - Physical Exam Exam: See Below Exam Limited By: No Limitations General Appearance: Alert, Mild Distress, Other (strong odor stale cigarette smoke) Eye Exam: Bilateral Eye: EOMI, PERRL Ears Exam: Normal External Exam Throat/Mouth Exam: Normal Inspection Head Exam: Atraumatic, Normocephalic Neck Exam: Limited Range of Motion, Tenderness Nexus Criteria: No: Posterior, Midline Cervical Tenderness, Evidence of Intoxication, Altered Level of Consciousness, Focal Neurological Deficit, Painful Distraction Injuries Cardiovascular/Respiratory: Irregularly Irregular GI/Abdominal: Normal Bowel Sounds Neurologic: No Motor/Sensory Deficits, Alert, Oriented x 3 Psychiatric: Normal Affect Skin Exam: Normal Color Course - Vital Signs Last Recorded V/S: Last Vital Signs Temp 96.9 F 11/26/19 04:56 Pulse 75 11/26/19 04:56 Resp 18 11/26/19 04:56 BP 150/86 H 11/26/19 04:56 Pulse Ox 97 11/26/19 04:56 - Orders/Labs/Meds Orders: Active Orders 24 hr Category Date Time Status Acetaminophen/HYDROcodone [[place] 325-10 MG] Med 11/26/19 05:12 Once 1 tab PO ONETIME ONE Departure - Departure Time of Disposition: 05:14 Disposition: DC/Tfer to Other 70 Condition: Good Clinical Impression: Neck pain - Discharge Information *PRESCRIPTION DRUG MONITORING PROGRAM REVIEWED*: Yes *COPY OF PRESCRIPTION DRUG MONITORING REPORT IN PATIENT RERE: No Instructions: Radicular Pain Additional Instructions: tylenol 650mg every 6 hours as needed for discomfort ice to are clinic follow up on thursday avoid caffeine Sepsis Event Note - Evaluation Sepsis Screening Result: No Definite Risk - Focused Exam Vital Signs: Vital Signs Temp Pulse Resp BP Pulse Ox 11/26/19 04:56 96.9 F 75 18 150/86 H 97 Date Exam was Performed: 11/26/19 Time Exam was Performed: 05:13 - My Orders Last 24 Hours: My Active Orders 11/26/19 05:12 Acetaminophen/HYDROcodone [[place] 325-10 MG] 1 tab PO ONETIME ONE - Assessment/Plan Last 24 Hours: My Active Orders 11/26/19 05:12 Acetaminophen/HYDROcodone [[place] 325-10 MG] 1 tab PO ONETIME ONE
== END 2019-11-26 05:19 | disposition home or self-care (01) ==
LOC: DL.ED 04:52
DX: M54.2 Cervicalgia (principal); I10 Essential (primary) hypertension; I25.2 Old myocardial infarction; E11.40 Type 2 diabetes mellitus with diabetic neuropathy, unspecified; Z88.5 Allergy status to narcotic agent; Z88.0 Allergy status to penicillin; Z91.041 Radiographic dye allergy status; Z88.8 Allergy status to other drugs, medicaments and biological substances; Z91.018 Allergy to other foods; Z87.891 Personal history of nicotine dependence; Z79.82 Long term (current) use of aspirin; Z79.899 Other long term (current) drug therapy; Z79.4 Long term (current) use of insulin
CPT/HCPCS: 99283; A9270

== ENCOUNTER 2019-12-25 22:02 | Emergency (ER) | payer MEDICAID ==
[2019-12-25 22:10] VITALS: BP 152/74; PULSE 73
[2019-12-25] MEDS ORDERED: Acetaminophen/HYDROcodone 325-10 MG Tab PO ONE (22:16)
[2019-12-25] MEDS ORDERED: Clindamycin HCl 150 MG Cap PO ONE (22:16)
--- NOTE | 2019-12-25 22:20 | EDM.PDOC ---
ED HPI GENERAL MEDICAL PROBLEM - General Chief Complaint: ENT Problem Stated Complaint: UPPER JAW PAIN Time Seen by Provider: 12/25/19 22:17 Source of Information: Reports: Patient History Limitations: Reports: No Limitations - History of Present Illness INITIAL COMMENTS - FREE TEXT/NARRATIVE: s/p tooth extraction 5 days, had a small piece came out yesterday and in pain. Treatments LOAD BUILDER: Reports: Acetaminophen Right Upper Tooth/Teeth Pain Score (Numeric/FACES): 7 - Related Data Allergies Allergy/AdvReac Type Severity Reaction Status Date / Time chicken derived Allergy Hives Verified 11/26/19 04:58 codeine Allergy Hives Verified 11/26/19 04:58 Penicillins Allergy Hives Verified 11/26/19 04:58 tramadol Allergy Hives Verified 11/26/19 04:58 Contrast media Allergy Hives Uncoded 11/26/19 04:58 Home Meds: Home Meds Aspirin 81 mg PO BRK 11/09/15 [History] Calcium Citrate/Vitamin D3 [[place] Calcium-Vit D 200-250] 1 each PO DAILY [History] Docusate Sodium [Colace] 100 mg PO BID 11/09/15 [History] Gabapentin [Neurontin] 900 mg PO BID 11/09/15 [History] Hydrochlorothiazide 25 mg PO DAILY 11/09/15 [History] Lisinopril 20 mg PO DAILY 11/09/15 [History] Omeprazole 20 mg PO ACBREAKFAST 11/09/15 [History] atorvaSTATin [Lipitor] 20 mg PO BEDTIME 11/09/15 [History] metFORMIN [Glucophage XR] 1,000 mg PO BIDMEALS 11/09/15 [History] Apixaban [Eliquis] 5 mg PO DAILY 11/08/17 [History] Cholecalciferol (Vitamin D3) [Vitamin D3] 1,000 unit PO DAILY 11/08/17 [History] Fluticasone Propionate [Flonase Allergy Relief] 15.8 ml NS DAILY 11/08/17 [ History] Insulin Glarg,Human.Rec.Analog [Lantus Solostar] 40 unit SUBCUT DAILY 11/08/17 [ History] Melatonin/Pyridoxine HCl (B6) [Melatonin 3 mg Tablet] 9 mg PO BEDTIME 11/08/17 [ History] [place]-3 Fatty Acids [[place]-3] 1 gm PO DAILY 11/08/17 [History] Prazosin HCl [Prazosin] 1 mg PO BEDTIME 11/08/17 [History] Triamcinolone Acetonide [Triamcinolone Acetonide 0.1% Crm] 80 gm .XX BID [History] glipiZIDE [Glucotrol XL] 10 mg PO BID 11/08/17 [History] Metoprolol Tartrate [Lopressor] 50 mg PO BID #60 tablet 11/09/17 [Rx] Diltiazem [Diltiazem XR] 240 mg PO BID 02/11/18 [History] ALPRAZolam [Xanax] 1 mg PO DAILY 12/12/18 [History] Past Medical History - Past Health History Medical/Surgical History: Denies Medical/Surgical History Cardiovascular History: Reports: Afib, CAD, High Cholesterol, Hypertension, [place], Pacemaker, Stents Other Cardiovascular History: [place] 1999 with 1 stent placement Respiratory History: Reports: Bronchitis, Recurrent, Sleep Apnea Other Respiratory History: smoker for 51 yrs, has a c-pap Gastrointestinal History: Reports: Chronic Constipation, GERD Genitourinary History: Reports: Diabetic Nephropathy Musculoskeletal History: Reports: Osteoarthritis Neurological History: Reports: Neuropathy, Diabetic Psychiatric History: Reports: Anxiety Endocrine/Metabolic History: Reports: Diabetes, Type II Oncologic (Cancer) History: Reports: Colon Other Oncologic History: with surgery, chemo and radiation Stage III - Infectious Disease History Infectious Disease History: Reports: Chicken Pox, Measles, Mumps, Rheumatic Fever - Past Surgical History HEENT Surgical History: Reports: Naso-Sinus Surgery Respiratory Surgical History: Reports: None GI Surgical History: Reports: Colon Male Surgical History: Reports: Circumcision Musculoskeletal Surgical History: Reports: Arthroscopic Knee, Shoulder Surgery, Other (See Below) Other Musculoskeletal Surgeries/Procedures:: Repaired acl. [place]. Placed bone marrow in hip., left foot surgery with screw placement 11/03/18. right Foot surg. Social & Family History - Family History Family Medical History: Noncontributory Cardiac: Reports: Afib, AICD, Angina, Bypass, CAD, Heart Failure, High Cholesterol, Hypertension, [place] Respiratory: Reports: Asthma, COPD GI: Reports: Cholelithiasis : Reports: Dialysis, Renal Disease/Insufficiency Musculoskeletal: Reports: Arthritis, Back pain, Chronic Neurological: Reports: CVA, Neuropathy, Diabetic Psychiatric: Reports: Anxiety, Depression Endocrine/Metabolic: Reports: Diabetes, type II - Tobacco Use Smoking Status *Q: Never Smoker Second Hand Smoke Exposure: No - Caffeine Use Caffeine Use: Reports: Coffee Other Caffeine Use: 4 pots a day - Recreational Drug Use Recreational Drug Use: No - Living Situation & Occupation Living situation: Reports: with Family Occupation: Unemployed ED ROS ENT - Review of Systems Review Of Systems: Comprehensive ROS is negative, except as noted in HPI. ED EXAM, ENT - Physical Exam Exam: See Below Exam Limited By: No Limitations General Appearance: Alert, WD/WN, Mild Distress, Moderate Distress, Other ( tooth pain) Ears: Hearing Grossly Normal Mouth/Throat: Other (socket intact, local swelling) Head: Atraumatic Neck: Non-Tender, Full Range of Motion Respiratory/Chest: No Respiratory Distress Cardiovascular: Regular Rate, Rhythm GI/Abdominal: Soft, Non-Tender Neurological: Alert, Oriented, Normal Cognition, Normal Gait, No Motor/Sensory Deficits Psychiatric: Tearful Skin: Warm, Dry, Normal Color Lymphatic: No Adenopathy Course - Vital Signs Last Recorded V/S: Last Vital Signs Temp 35.8 C L 12/25/19 22:05 Pulse 73 12/25/19 22:05 Resp 16 12/25/19 22:05 BP 152/74 H 12/25/19 22:05 Pulse Ox 96 12/25/19 22:05 - Orders/Labs/Meds Orders: Active Orders 24 hr Category Date Time Status Acetaminophen/HYDROcodone [[place] 325-10 MG] Med 12/25/19 22:16 Once 1 tab PO ONETIME ONE clindamycin HCL [Cleocin] Med 12/25/19 22:16 Once 300 mg PO ONETIME ONE Departure - Departure Time of Disposition: 22:19 Disposition: Home, Self-Care 01 Condition: Good Clinical Impression: Status post tooth extraction - Discharge Information Additional Instructions: 1) see dentist tomorrow for further meds Sepsis Event Note - Evaluation Sepsis Screening Result: No Definite Risk - Focused Exam Vital Signs: Vital Signs Temp Pulse Resp BP Pulse Ox 12/25/19 22:05 35.8 C L 73 16 152/74 H 96 Date Exam was Performed: 12/25/19 Time Exam was Performed: 22:17 - My Orders Last 24 Hours: My Active Orders 12/25/19 22:16 Acetaminophen/HYDROcodone [[place] 325-10 MG] 1 tab PO ONETIME ONE clindamycin HCL [Cleocin] 300 mg PO ONETIME ONE - Assessment/Plan Last 24 Hours: My Active Orders 12/25/19 22:16 Acetaminophen/HYDROcodone [[place] 325-10 MG] 1 tab PO ONETIME ONE clindamycin HCL [Cleocin] 300 mg PO ONETIME ONE
== END 2019-12-25 22:40 | disposition home or self-care (01) ==
LOC: DL.ED 22:02
DX: R68.84 Jaw pain (principal); Z98.818 Other dental procedure status; E11.40 Type 2 diabetes mellitus with diabetic neuropathy, unspecified; E11.21 Type 2 diabetes mellitus with diabetic nephropathy; I10 Essential (primary) hypertension; F41.9 Anxiety disorder, unspecified; Z79.84 Long term (current) use of oral hypoglycemic drugs; Z79.899 Other long term (current) drug therapy; Z91.018 Allergy to other foods; Z88.5 Allergy status to narcotic agent; Z88.0 Allergy status to penicillin; Z91.041 Radiographic dye allergy status; Z79.82 Long term (current) use of aspirin
CPT/HCPCS: 99282; A9270

== ENCOUNTER 2020-01-15 04:22 | Emergency (ER) | payer MEDICAID, OTHER ==
[2020-01-15] MEDS ORDERED: Acetaminophen/HYDROcodone 325-10 MG Tab PO ONE (04:23)
[2020-01-15 04:38] VITALS: BP 172/76; PULSE 76
--- NOTE | 2020-01-15 04:44 | EDM.PDOC ---
ED HPI GENERAL MEDICAL PROBLEM - General Chief Complaint: General Stated Complaint: FELL ON LEFT HIP, TODAY PAIN ON LEFT SIDE OF CHEST Time Seen by Provider: 01/15/20 04:42 Source of Information: Reports: Patient History Limitations: Reports: No Limitations - History of Present Illness INITIAL COMMENTS - FREE TEXT/NARRATIVE: fell onto left side yesterday, thought could wait till Thursday but hurts too much to sleep so came here tonight. Left Hip Pain Score (Numeric/FACES): 8 - Related Data Allergies Allergy/AdvReac Type Severity Reaction Status Date / Time chicken derived Allergy Hives Verified 01/15/20 04:28 codeine Allergy Hives Verified 01/15/20 04:28 Penicillins Allergy Hives Verified 01/15/20 04:28 tramadol Allergy Hives Verified 01/15/20 04:28 Contrast media Allergy Hives Uncoded 01/15/20 04:28 Home Meds: Home Meds Aspirin 81 mg PO BRK 11/09/15 [History] Calcium Citrate/Vitamin D3 [[place] Calcium-Vit D 200-250] 1 each PO DAILY [History] Docusate Sodium [Colace] 100 mg PO BID 11/09/15 [History] Gabapentin [Neurontin] 900 mg PO BID 11/09/15 [History] Hydrochlorothiazide 25 mg PO DAILY 11/09/15 [History] Lisinopril 20 mg PO DAILY 11/09/15 [History] Omeprazole 20 mg PO ACBREAKFAST 11/09/15 [History] atorvaSTATin [Lipitor] 20 mg PO BEDTIME 11/09/15 [History] metFORMIN [Glucophage XR] 1,000 mg PO BIDMEALS 11/09/15 [History] Apixaban [Eliquis] 5 mg PO DAILY 11/08/17 [History] Cholecalciferol (Vitamin D3) [Vitamin D3] 1,000 unit PO DAILY 11/08/17 [History] Fluticasone Propionate [Flonase Allergy Relief] 15.8 ml NS DAILY 11/08/17 [ History] Insulin Glarg,Human.Rec.Analog [Lantus Solostar] 40 unit SUBCUT DAILY 11/08/17 [ History] Melatonin/Pyridoxine HCl (B6) [Melatonin 3 mg Tablet] 9 mg PO BEDTIME 11/08/17 [ History] [place]-3 Fatty Acids [[place]-3] 1 gm PO DAILY 11/08/17 [History] Prazosin HCl [Prazosin] 1 mg PO BEDTIME 11/08/17 [History] Triamcinolone Acetonide [Triamcinolone Acetonide 0.1% Crm] 80 gm .XX BID [History] glipiZIDE [Glucotrol XL] 10 mg PO BID 11/08/17 [History] Metoprolol Tartrate [Lopressor] 50 mg PO BID #60 tablet 11/09/17 [Rx] Diltiazem [Diltiazem XR] 240 mg PO BID 02/11/18 [History] ALPRAZolam [Xanax] 1 mg PO DAILY 12/12/18 [History] Past Medical History - Past Health History Medical/Surgical History: Denies Medical/Surgical History Cardiovascular History: Reports: Afib, CAD, High Cholesterol, Hypertension, [place], Pacemaker, Stents Other Cardiovascular History: [place] 1999 with 1 stent placement Respiratory History: Reports: Bronchitis, Recurrent, Sleep Apnea Other Respiratory History: smoker for 51 yrs, has a c-pap Gastrointestinal History: Reports: Chronic Constipation, GERD Genitourinary History: Reports: Diabetic Nephropathy Musculoskeletal History: Reports: Osteoarthritis Neurological History: Reports: Neuropathy, Diabetic Psychiatric History: Reports: Anxiety Endocrine/Metabolic History: Reports: Diabetes, Type II Oncologic (Cancer) History: Reports: Colon Other Oncologic History: with surgery, chemo and radiation Stage III - Infectious Disease History Infectious Disease History: Reports: Chicken Pox, Measles, Mumps, Rheumatic Fever - Past Surgical History HEENT Surgical History: Reports: Naso-Sinus Surgery Respiratory Surgical History: Reports: None GI Surgical History: Reports: Colon Male Surgical History: Reports: Circumcision Musculoskeletal Surgical History: Reports: Arthroscopic Knee, Shoulder Surgery, Other (See Below) Other Musculoskeletal Surgeries/Procedures:: Repaired acl. [place]. Placed bone marrow in hip., left foot surgery with screw placement 11/03/18. right Foot surg. Social & Family History - Family History Family Medical History: Noncontributory Cardiac: Reports: Afib, AICD, Angina, Bypass, CAD, Heart Failure, High Cholesterol, Hypertension, [place] Respiratory: Reports: Asthma, COPD GI: Reports: Cholelithiasis : Reports: Dialysis, Renal Disease/Insufficiency Musculoskeletal: Reports: Arthritis, Back pain, Chronic Neurological: Reports: CVA, Neuropathy, Diabetic Psychiatric: Reports: Anxiety, Depression Endocrine/Metabolic: Reports: Diabetes, type II - Tobacco Use Smoking Status *Q: Current Every Day Smoker Years of Tobacco use: 52 Packs/Tins Daily: 0.5 - Caffeine Use Caffeine Use: Reports: Coffee, Soda, Tea Other Caffeine Use: 4 pots a day - Recreational Drug Use Recreational Drug Use: No - Living Situation & Occupation Living situation: Reports: with Family Occupation: Unemployed ED ROS GENERAL - Review of Systems Review Of Systems: Comprehensive ROS is negative, except as noted in HPI. ED EXAM, GENERAL - Physical Exam Exam: See Below Exam Limited By: No Limitations General Appearance: Alert, WD/WN, Mild Distress, Other (discomfort) Eye Exam: Bilateral Eye: PERRL (pupils ER @ 4mm) Ears: Hearing Grossly Normal Throat/Mouth: Normal Voice, No Airway Compromise Head: Atraumatic Neck: Non-Tender, Full Range of Motion Respiratory/Chest: No Respiratory Distress, Other (tender left lateral ) Cardiovascular: Regular Rate, Rhythm GI/Abdominal: Soft, Non-Tender Neurological: Alert, Oriented, Normal Cognition, Normal Gait, No Motor/Sensory Deficits Psychiatric: Flat Affect Skin Exam: Warm, Dry, Normal Color Lymphatic: No Adenopathy Course - Vital Signs Last Recorded V/S: Last Vital Signs Temp 36.6 C 01/15/20 04:28 Pulse 76 01/15/20 04:28 Resp 16 01/15/20 04:28 BP 172/76 H 01/15/20 04:28 Pulse Ox 96 01/15/20 04:28 - Orders/Labs/Meds Orders: Active Orders 24 hr Category Date Time Status EKG Documentation Completion [RC] STAT Care 01/15/20 04:40 Active Labs: Laboratory Tests 01/15/20 01/15/20 Range/Units 04:49 04:49 WBC 8.9 (5.0-10.0) 10^3/uL RBC 4.84 (4.6-6.2) 10^6/uL Hgb 14.1 D (14.0-18.0) g/dL Hct 41.5 (40.0-54.0) % MCV 85.7 (80-100) fL MCH 29.1 (27.0-34.0) pg MCHC 34.0 (33.0-35.0) g/dL Plt Count 235 (150-450) 10^3/uL Neut % (Auto) 52.4 (42.2-75.2) % Lymph % (Auto) 35.3 (20.5-50.1) % [place] % (Auto) 9.1 H (2-8) % Eos % (Auto) 3.0 (1.0-3.0) % Baso % (Auto) 0.2 (0.0-1.0) % Sodium 138 (136-145) mmol/L Potassium 3.5 (3.5-5.1) mmol/L Chloride 103 (98-107) mmol/L Carbon Dioxide 24 (21-32) mmol/L Anion Gap 14.5 H (7-13) mEq/L BUN 22 H (7-18) mg/dL Creatinine 0.78 (0.70-1.30) mg/dL Est Cr Clr Drug Dosing 99.01 mL/min Estimated GFR (MDRD) > 60 BUN/Creatinine Ratio 28.2 (No establ ref range) Glucose 282 H (74-99) mg/dL Calcium 8.2 L (8.5-10.1) mg/dL Total Bilirubin 0.2 (0.2-1.0) mg/dL AST < 5 L (15-37) U/L ALT 13 L (16-63) U/L Alkaline Phosphatase 163 H (46-116) U/L Troponin I < 0.017 (0.000-0.056) ng/mL Total Protein 6.6 (6.4-8.2) g/dL Albumin 3.1 L (3.4-5.0) g/dL Globulin 3.5 Albumin/Globulin Ratio 0.89 - Re-Assessments/Exams Free Text/Narrative Re-Assessment/Exam: 01/15/20 05:44 results discussed with pt who is feeling better resting but is still sore. Departure - Departure Time of Disposition: 05:45 Disposition: Home, Self-Care 01 Condition: Good Clinical Impression: Contusion of rib on left side Qualifiers: Encounter type: initial encounter Qualified Code(s): S20.212A - Contusion of left front wall of thorax, initial encounter Contusion of hip, left Qualifiers: Encounter type: initial encounter Qualified Code(s): S70.02XA - Contusion of left hip, initial encounter - Discharge Information Instructions: Contusion, [id number] Forms: ED Department Discharge Additional Instructions: 1) try ice or heat to sore area 2) follow up at clinic rx onofre johnson 10 x 1 Sepsis Event Note - Evaluation Sepsis Screening Result: No Definite Risk - Focused Exam Vital Signs: Vital Signs Temp Pulse Resp BP Pulse Ox 01/15/20 04:28 36.6 C 76 16 172/76 H 96 Date Exam was Performed: 01/15/20 Time Exam was Performed: 05:44 - My Orders Last 24 Hours: My Active Orders 01/15/20 04:40 EKG Documentation Completion [RC] STAT - Assessment/Plan Last 24 Hours: My Active Orders 01/15/20 04:40 EKG Documentation Completion [RC] STAT
[2020-01-15 05:18] LABS: ANION GAP 14.5 mEq/L (7-13); CHLORIDE,CL 103 mmol/L (98-107); SODIUM,NA 138 mmol/L (136-145)
[2020-01-15] MEDS ORDERED: Acetaminophen/HYDROcodone 325-10 MG Tab ONE (05:51)
== END 2020-01-15 05:54 | disposition home or self-care (01) ==
LOC: DL.ED 04:22
DX: S70.02XA Contusion of left hip, initial encounter (principal); S20.212A Contusion of left front wall of thorax, initial encounter; I10 Essential (primary) hypertension; E11.40 Type 2 diabetes mellitus with diabetic neuropathy, unspecified; I48.91 Unspecified atrial fibrillation; I25.10 Atherosclerotic heart disease of native coronary artery without angina pectoris; K21.9 Gastro-esophageal reflux disease without esophagitis; F41.9 Anxiety disorder, unspecified; E78.00 Pure hypercholesterolemia, unspecified; I25.2 Old myocardial infarction; M19.90 Unspecified osteoarthritis, unspecified site; Z95.5 Presence of coronary angioplasty implant and graft; F17.210 Nicotine dependence, cigarettes, uncomplicated; Z91.018 Allergy to other foods; Z88.5 Allergy status to narcotic agent; Z88.0 Allergy status to penicillin; Z91.041 Radiographic dye allergy status; Z79.82 Long term (current) use of aspirin; Z79.899 Other long term (current) drug therapy; Z79.01 Long term (current) use of anticoagulants; Z79.84 Long term (current) use of oral hypoglycemic drugs; W19.XXXA Unspecified fall, initial encounter
CPT/HCPCS: 36415; 71101-LT; 72170; 80053; 84484; 85025; 93005; 99284-25; A9270-GY

== ENCOUNTER 2020-01-26 04:43 | Emergency (ER) | payer MEDICAID, OTHER ==
[2020-01-26] MEDS ORDERED: Diltiazem 25 MG/5 ML SDV IVPUSH ONE (04:50)
--- NOTE | 2020-01-26 04:54 | EDM.PDOC ---
ED HPI GENERAL MEDICAL PROBLEM - General Stated Complaint: HEART, DIZZY, SOB Time Seen by Provider: 01/26/20 05:25 Source of Information: Reports: Patient History Limitations: Reports: No Limitations - History of Present Illness INITIAL COMMENTS - FREE TEXT/NARRATIVE: ED with c/o feeling dizzy and woke with heart racing. States has noticed usually in am and not as often at night. Called daughter and brought to ED. [place] dizzy at supervisor front and softly fell/ laid down at supervisor front , did not hit head no injury. still smoking. Denied drug use, caffeine intake one cup coffe per day. States compliant with medications. Pacemaker placed 12/06/19. States felt pacemaker shock him before he went down at desk. Notesd also a couple of shock in past couple weeks at night. Patient has not received interrogator yet. Follow up appointment at [place] have been postponed. - Related Data Allergies Allergy/AdvReac Type Severity Reaction Status Date / Time chicken derived Allergy Hives Verified 01/26/20 05:11 codeine Allergy Hives Verified 01/26/20 05:11 Penicillins Allergy Hives Verified 01/26/20 05:11 tramadol Allergy Hives Verified 01/26/20 05:11 Contrast media Allergy Hives Uncoded 01/26/20 05:11 Home Meds: Home Meds Aspirin 81 mg PO BRK 11/09/15 [History] Calcium Citrate/Vitamin D3 [[place] Calcium 200-Vit D3 250] 1 each PO DAILY 11/09 [History] Docusate Sodium [Colace] 100 mg PO BID 11/09/15 [History] Gabapentin [Neurontin] 900 mg PO TID 11/09/15 [History] Hydrochlorothiazide 25 mg PO DAILY 11/09/15 [History] Lisinopril 20 mg PO DAILY 11/09/15 [History] Omeprazole 20 mg PO ACBREAKFAST 11/09/15 [History] atorvaSTATin [Lipitor] 20 mg PO BEDTIME 11/09/15 [History] metFORMIN [Glucophage XR] 1,000 mg PO BIDMEALS 11/09/15 [History] Apixaban [Eliquis] 5 mg PO DAILY 11/08/17 [History] Cholecalciferol (Vitamin D3) [Vitamin D3] 1,000 unit PO DAILY 11/08/17 [History] Fluticasone Propionate [Flonase Allergy Relief] 15.8 ml NS DAILY 11/08/17 [ History] Insulin Glarg,Human.Rec.Analog [Lantus Solostar] 50 unit SUBCUT DAILY 11/08/17 [ History] Melatonin/Pyridoxine HCl (B6) [Melatonin 3 mg Tablet] 9 mg PO BEDTIME 11/08/17 [ History] [place]-3 Fatty Acids [[place]-3] 1 gm PO DAILY 11/08/17 [History] Prazosin HCl [Prazosin] 1 mg PO BEDTIME 11/08/17 [History] Triamcinolone Acetonide [Triamcinolone Acetonide 0.1% Crm] 80 gm .XX BID [History] glipiZIDE [Glucotrol XL] 10 mg PO BID 11/08/17 [History] Metoprolol Tartrate [Lopressor] 50 mg PO BID #60 tablet 11/09/17 [Rx] Diltiazem [Diltiazem XR] 240 mg PO BID 02/11/18 [History] ALPRAZolam [Xanax] 1 mg PO DAILY 12/12/18 [History] Past Medical History - Past Health History Medical/Surgical History: Denies Medical/Surgical History Cardiovascular History: Reports: Afib, CAD, High Cholesterol, Hypertension, [place], Pacemaker, Stents Other Cardiovascular History: [place] 1999 with 1 stent placement Respiratory History: Reports: Bronchitis, Recurrent, Sleep Apnea Other Respiratory History: smoker for 51 yrs, has a c-pap Gastrointestinal History: Reports: Chronic Constipation, GERD Genitourinary History: Reports: Diabetic Nephropathy Musculoskeletal History: Reports: Osteoarthritis Neurological History: Reports: Neuropathy, Diabetic Psychiatric History: Reports: Anxiety Endocrine/Metabolic History: Reports: Diabetes, Type II Oncologic (Cancer) History: Reports: Colon Other Oncologic History: with surgery, chemo and radiation Stage III - Infectious Disease History Infectious Disease History: Reports: Chicken Pox, Measles, Mumps, Rheumatic Fever - Past Surgical History HEENT Surgical History: Reports: Naso-Sinus Surgery Respiratory Surgical History: Reports: None GI Surgical History: Reports: Colon Male Surgical History: Reports: Circumcision Musculoskeletal Surgical History: Reports: Arthroscopic Knee, Shoulder Surgery, Other (See Below) Other Musculoskeletal Surgeries/Procedures:: Repaired acl. [place]. Placed bone marrow in hip., left foot surgery with screw placement 11/03/18. right Foot surg. Social & Family History - Family History Family Medical History: Noncontributory Cardiac: Reports: Afib, AICD, Angina, Bypass, CAD, Heart Failure, High Cholesterol, Hypertension, [place] Respiratory: Reports: Asthma, COPD GI: Reports: Cholelithiasis : Reports: Dialysis, Renal Disease/Insufficiency Musculoskeletal: Reports: Arthritis, Back pain, Chronic Neurological: Reports: CVA, Neuropathy, Diabetic Psychiatric: Reports: Anxiety, Depression Endocrine/Metabolic: Reports: Diabetes, type II - Caffeine Use Caffeine Use: Reports: Coffee, Soda, Tea Other Caffeine Use: 4 pots a day - Living Situation & Occupation Living situation: Reports: with Family Occupation: Unemployed ED ROS GENERAL - Review of Systems Review Of Systems: Comprehensive ROS is negative, except as noted in HPI. ED EXAM, GENERAL - Physical Exam Exam: See Below Exam Limited By: No Limitations General Appearance: Alert, Anxious, Mild Distress Eye Exam: Bilateral Eye: EOMI Ears: Normal External Exam Nose: Normal Inspection Throat/Mouth: Normal Inspection Head: Atraumatic, Normocephalic Neck: Normal Inspection Respiratory/Chest: No Respiratory Distress, Lungs Clear Cardiovascular: No Edema, Tachycardia, Irregularly Irregular GI/Abdominal: Normal Bowel Sounds Extremities: Normal Inspection Neurological: Alert, Oriented, Normal Cognition Psychiatric: Normal Affect, Anxious Skin Exam: Warm, Dry, Intact, Normal Color Course - Vital Signs Last Recorded V/S: Last Vital Signs Temp 97.5 F 01/26/20 05:26 Pulse 130 H 01/26/20 06:16 Resp 24 H 01/26/20 05:26 BP 115/42 L 01/26/20 06:16 Pulse Ox 95 01/26/20 05:26 - Orders/Labs/Meds Orders: Active Orders 24 hr Category Date Time Status EKG Documentation Completion [RC] URGENT Care 01/26/20 04:51 Active Labs: Laboratory Tests 01/26/20 01/26/20 01/26/20 Range/Units 04:51 04:51 04:51 WBC 8.6 (5.0-10.0) 10^3/uL RBC 5.47 (4.6-6.2) 10^6/uL Hgb 15.8 D (14.0-18.0) g/dL Hct 46.6 (40.0-54.0) % MCV 85.2 (80-100) fL MCH 28.9 (27.0-34.0) pg MCHC 33.9 (33.0-35.0) g/dL Plt Count 230 (150-450) 10^3/uL Neut % (Auto) 53.9 (42.2-75.2) % Lymph % (Auto) 32.7 (20.5-50.1) % [place] % (Auto) 11.0 H (2-8) % Eos % (Auto) 2.3 (1.0-3.0) % Baso % (Auto) 0.1 (0.0-1.0) % PT (9.0-12.0) SEC INR (0.9-1.2) Sodium 139 (136-145) mmol/L Potassium 3.7 (3.5-5.1) mmol/L Chloride 102 (98-107) mmol/L Carbon Dioxide 24 (21-32) mmol/L Anion Gap 16.7 H (7-13) mEq/L BUN 18 (7-18) mg/dL Creatinine 1.11 (0.70-1.30) mg/dL Est Cr Clr Drug Dosing TNP Estimated GFR (MDRD) > 60 BUN/Creatinine Ratio 16.2 (No establ ref range) Glucose 185 H (74-99) mg/dL Calcium 8.7 (8.5-10.1) mg/dL Magnesium 1.6 L (1.8-2.4) mg/dL Total Bilirubin 0.3 (0.2-1.0) mg/dL AST 5 L (15-37) U/L ALT 21 (16-63) U/L Alkaline Phosphatase 176 H (46-116) U/L CK-MB (CK-2) 0.6 (0.0-3.6) ng/mL Troponin I < 0.017 (0.000-0.056) ng/mL B-Natriuretic Peptide 27 (0-100) pg/ml Total Protein 7.3 (6.4-8.2) g/dL Albumin 3.5 (3.4-5.0) g/dL Globulin 3.8 Albumin/Globulin Ratio 0.9 04/23/20 Range/Units 04:51 WBC (5.0-10.0) 10^3/uL RBC (4.6-6.2) 10^6/uL Hgb (14.0-18.0) g/dL Hct (40.0-54.0) % MCV (80-100) fL MCH (27.0-34.0) pg MCHC (33.0-35.0) g/dL Plt Count (150-450) 10^3/uL Neut % (Auto) (42.2-75.2) % Lymph % (Auto) (20.5-50.1) % [place] % (Auto) (2-8) % Eos % (Auto) (1.0-3.0) % Baso % (Auto) (0.0-1.0) % PT 9.7 (9.0-12.0) SEC INR 1.0 (0.9-1.2) Sodium (136-145) mmol/L Potassium (3.5-5.1) mmol/L Chloride (98-107) mmol/L Carbon Dioxide (21-32) mmol/L Anion Gap (7-13) mEq/L BUN (7-18) mg/dL Creatinine (0.70-1.30) mg/dL Est Cr Clr Drug Dosing Estimated GFR (MDRD) BUN/Creatinine Ratio (No establ ref range) Glucose (74-99) mg/dL Calcium (8.5-10.1) mg/dL Magnesium (1.8-2.4) mg/dL Total Bilirubin (0.2-1.0) mg/dL AST (15-37) U/L ALT (16-63) U/L Alkaline Phosphatase (46-116) U/L CK-MB (CK-2) (0.0-3.6) ng/mL Troponin I (0.000-0.056) ng/mL B-Natriuretic Peptide (0-100) pg/ml Total Protein (6.4-8.2) g/dL Albumin (3.4-5.0) g/dL Globulin Albumin/Globulin Ratio Meds: Medications Discontinued Medications Generic Name Dose Route Start Last Admin Trade Name Freq PRN Reason Stop Dose Admin Aspirin 162 mg 01/26/20 08:00 Aspirin PO WITHBREAKFAST YI Aspirin 162 mg 01/26/20 05:38 01/26/20 05:44 Aspirin PO Not Given WITHBREAKFAST YI Aspirin 162 mg 01/26/20 05:41 01/26/20 05:43 Aspirin PO 01/26/20 05:42 162 mg ONETIME ONE Administration Diltiazem HCl 20 mg 01/26/20 04:50 01/26/20 04:57 Diltiazem IVPUSH 01/26/20 04:51 20 mg ONETIME ONE Administration Diltiazem HCl 125 mg/ Sodium 125 mls @ 5 mls/hr 01/26/20 05:00 01/26/20 05:39 Chloride IV 20 mg/hr TITRATE YI 20 mls/hr Titration Protocol 5 MG/HR Sodium Chloride 1,000 mls @ 100 mls/hr 01/26/20 05:42 01/26/20 05:32 Normal Saline IV 01/26/20 15:41 100 mls/hr .BOLUS ONE Administration Lorazepam 1 mg 01/26/20 05:25 01/26/20 05:38 Ativan IM 01/26/20 05:26 Not Given ONETIME ONE Lorazepam 1 mg 01/26/20 05:39 01/26/20 05:32 Ativan IVPUSH 01/26/20 05:40 1 mg ONETIME ONE Administration Metoprolol Tartrate 2.5 mg 01/26/20 06:10 01/26/20 06:16 Lopressor IVPUSH 01/26/20 06:11 2.5 mg ONETIME ONE Administration - Radiology Interpretation Free Text/Narrative:: cxr see report - Re-Assessments/Exams Free Text/Narrative Re-Assessment/Exam: intermediate response to high dose cardizem, Asymptomatic but HR continued Afib with RVR rate 130's to 150. Low dose lopressor slow IV , rate decrease 1210-120 with decrease in BP. Responsive to small fluid bolus. Dr Waggoner. [facility] accepting. Pacemaker hx transmitted to [employer]. See document. Multiple events of SVT though non events occurring at time patient reported onset of symptoms or sharp pains Tx via LRAS>. Departure - Departure Time of Disposition: 07:08 Disposition: DC/Tfer to Acute Hospital 02 Reason for Transfer *Q: Other Condition: Undetermined Clinical Impression: Atrial fibrillation with RVR Referrals: PCP,Unobtain [Primary Care Provider] - Forms: ED Department Discharge Sepsis Event Note - Focused Exam Date Exam was Performed: 01/26/20 Time Exam was Performed: 22:31 - My Orders Last 24 Hours: My Active Orders 01/26/20 04:51 EKG Documentation Completion [RC] URGENT - Assessment/Plan Last 24 Hours: My Active Orders 01/26/20 04:51 EKG Documentation Completion [RC] URGENT
[2020-01-26] MEDS ORDERED: Diltiazem 125 MG in Sodium Chloride 0.9% 100 ML IV SCH (05:00)
[2020-01-26 05:26] LABS: ANION GAP 16.7 mEq/L (7-13); CHLORIDE,CL 102 mmol/L (98-107); SODIUM,NA 139 mmol/L (136-145)
[2020-01-26] MEDS: LORazepam 2 MG/ML SDV IM ONE ×2 (05:32→05:38)
[2020-01-26] MEDS ORDERED: Aspirin 81 MG Tab.Chew PO SCH ×2 (05:38→08:00)
[2020-01-26] MEDS ORDERED: LORazepam 2 MG/ML SDV IVPUSH ONE (05:39)
[2020-01-26] MEDS ORDERED: Aspirin 81 MG Tab.Chew PO ONE (05:41)
[2020-01-26] MEDS ORDERED: Sodium Chloride 0.9% 1,000 ML IV ONE (05:42)
[2020-01-26] MEDS ORDERED: Metoprolol Tartrate 5 MG/5 ML SDV IVPUSH ONE (06:10)
[2020-01-26 06:19] VITALS: BP 115/42; PULSE 130
== END 2020-01-26 07:00 ==
LOC: DL.ED 04:43
DX: I48.91 Unspecified atrial fibrillation (principal); I25.10 Atherosclerotic heart disease of native coronary artery without angina pectoris; E78.00 Pure hypercholesterolemia, unspecified; I10 Essential (primary) hypertension; I25.2 Old myocardial infarction; K21.9 Gastro-esophageal reflux disease without esophagitis; E11.21 Type 2 diabetes mellitus with diabetic nephropathy; E11.40 Type 2 diabetes mellitus with diabetic neuropathy, unspecified; F41.9 Anxiety disorder, unspecified; Z88.5 Allergy status to narcotic agent; Z88.0 Allergy status to penicillin; Z91.041 Radiographic dye allergy status; Z79.82 Long term (current) use of aspirin; Z79.84 Long term (current) use of oral hypoglycemic drugs; Z79.01 Long term (current) use of anticoagulants; Z95.5 Presence of coronary angioplasty implant and graft; Z79.4 Long term (current) use of insulin; Z79.899 Other long term (current) drug therapy
CPT/HCPCS: 36415; 71045; 80053; 82553; 83735; 83880; 84484; 85025; 85610; 93005; 96365; 96366; 96375; 99285; A9270; J2060; J3490; J7030; J7050

== ENCOUNTER 2020-02-17 21:31 | Emergency (ER) | payer MEDICAID, OTHER ==
[2020-02-17 21:50] VITALS: BP 155/64; PULSE 67
[2020-02-17] MEDS ORDERED: Acetaminophen/HYDROcodone 325-5 MG Tab PO ONE (22:06)
[2020-02-17] MEDS ORDERED: Cephalexin 500 MG Cap PO ONE (22:08)
--- NOTE | 2020-02-17 22:12 | EDM.PDOC ---
ED HPI GENERAL MEDICAL PROBLEM - General Chief Complaint: ENT Problem Stated Complaint: LEFT SIDE OF JAW HURTS Time Seen by Provider: 02/17/20 21:58 Source of Information: Reports: Patient History Limitations: Reports: No Limitations - History of Present Illness INITIAL COMMENTS - FREE TEXT/NARRATIVE: c/o left jaw pain radiating up side of face, tried tylenol., helped headache but sever pain with movement of jaw and to touch. No injury, denies dental issues. slight swelling. No fever or chills. Treatments [employer]: Reports: Acetaminophen Left Lower Jaw Pain Score (Numeric/FACES): 7 - Related Data Allergies Allergy/AdvReac Type Severity Reaction Status Date / Time chicken derived Allergy Hives Verified 01/26/20 05:11 codeine Allergy Hives Verified 01/26/20 05:11 Penicillins Allergy Hives Verified 01/26/20 05:11 tramadol Allergy Hives Verified 01/26/20 05:11 Contrast media Allergy Hives Uncoded 01/26/20 05:11 Home Meds: Home Meds Aspirin 81 mg PO BRK 11/09/15 [History] Calcium Citrate/Vitamin D3 [[place] Calcium 200-Vit D3 250] 1 each PO DAILY 11/09 [History] Docusate Sodium [Colace] 100 mg PO BID 11/09/15 [History] Gabapentin [Neurontin] 900 mg PO TID 11/09/15 [History] Hydrochlorothiazide 25 mg PO DAILY 11/09/15 [History] Lisinopril 20 mg PO DAILY 11/09/15 [History] Omeprazole 20 mg PO ACBREAKFAST 11/09/15 [History] atorvaSTATin [Lipitor] 20 mg PO BEDTIME 11/09/15 [History] metFORMIN [Glucophage XR] 1,000 mg PO BIDMEALS 11/09/15 [History] Apixaban [Eliquis] 5 mg PO DAILY 11/08/17 [History] Cholecalciferol (Vitamin D3) [Vitamin D3] 1,000 unit PO DAILY 11/08/17 [History] Fluticasone Propionate [Flonase Allergy Relief] 15.8 ml NS DAILY 11/08/17 [ History] Insulin Glarg,Human.Rec.Analog [Lantus Solostar] 50 unit SUBCUT DAILY 11/08/17 [ History] Melatonin/Pyridoxine HCl (B6) [Melatonin 3 mg Tablet] 9 mg PO BEDTIME 11/08/17 [ History] [place]-3 Fatty Acids [[place]-3] 1 gm PO DAILY 11/08/17 [History] Prazosin HCl [Prazosin] 1 mg PO BEDTIME 11/08/17 [History] Triamcinolone Acetonide [Triamcinolone Acetonide 0.1% Crm] 80 gm .XX BID [History] glipiZIDE [Glucotrol XL] 10 mg PO BID 11/08/17 [History] Metoprolol Tartrate [Lopressor] 50 mg PO BID #60 tablet 11/09/17 [Rx] Diltiazem [Diltiazem XR] 240 mg PO BID 02/11/18 [History] ALPRAZolam [Xanax] 1 mg PO DAILY 12/12/18 [History] Past Medical History - Past Health History Medical/Surgical History: Denies Medical/Surgical History Cardiovascular History: Reports: Afib, CAD, High Cholesterol, Hypertension, [place], Pacemaker, Stents Other Cardiovascular History: [place] 1999 with 1 stent placement Respiratory History: Reports: Bronchitis, Recurrent, Sleep Apnea Other Respiratory History: smoker for 51 yrs, has a c-pap Gastrointestinal History: Reports: Chronic Constipation, GERD Genitourinary History: Reports: Diabetic Nephropathy Musculoskeletal History: Reports: Osteoarthritis Neurological History: Reports: Neuropathy, Diabetic Psychiatric History: Reports: Anxiety Endocrine/Metabolic History: Reports: Diabetes, Type II Oncologic (Cancer) History: Reports: Colon Other Oncologic History: with surgery, chemo and radiation Stage III - Infectious Disease History Infectious Disease History: Reports: Chicken Pox, Measles, Mumps, Rheumatic Fever - Past Surgical History HEENT Surgical History: Reports: Naso-Sinus Surgery Respiratory Surgical History: Reports: None GI Surgical History: Reports: Colon Male Surgical History: Reports: Circumcision Musculoskeletal Surgical History: Reports: Arthroscopic Knee, Shoulder Surgery, Other (See Below) Other Musculoskeletal Surgeries/Procedures:: Repaired acl. [place]. Placed bone marrow in hip., left foot surgery with screw placement 11/03/18. right Foot surg. Social & Family History - Family History Family Medical History: Noncontributory Cardiac: Reports: Afib, AICD, Angina, Bypass, CAD, Heart Failure, High Cholesterol, Hypertension, [place] Respiratory: Reports: Asthma, COPD GI: Reports: Cholelithiasis : Reports: Dialysis, Renal Disease/Insufficiency Musculoskeletal: Reports: Arthritis, Back pain, Chronic Neurological: Reports: CVA, Neuropathy, Diabetic Psychiatric: Reports: Anxiety, Depression Endocrine/Metabolic: Reports: Diabetes, type II - Tobacco Use Smoking Status *Q: Current Every Day Smoker Years of Tobacco use: 50 Packs/Tins Daily: 0.3 Used Tobacco, but Quit: No Second Hand Smoke Exposure: Yes - Caffeine Use Caffeine Use: Reports: Coffee Other Caffeine Use: 4 pots a day - Recreational Drug Use Recreational Drug Use: No - Living Situation & Occupation Living situation: Reports: with Family Occupation: Unemployed ED ROS ENT - Review of Systems Review Of Systems: Comprehensive ROS is negative, except as noted in HPI. ED EXAM, ENT - Physical Exam Exam: See Below Exam Limited By: No Limitations General Appearance: Alert, No Apparent Distress, Other (strong odor stale tobacco) Eye Exam: Bilateral Eye: EOMI Ears: Normal External Exam, Other (pre auricular lymphadenopathy left) Nose: Normal Inspection Mouth/Throat: Normal Gums, Normal Lips, Other (fair dentation multiple fillings , no obvious dental abscess) Head: Atraumatic, Normocephalic Neck: Normal Inspection, Full Range of Motion Respiratory/Chest: No Respiratory Distress, Lungs Clear, Normal Breath Sounds Cardiovascular: Irregularly Irregular. No: Tachycardia Neurological: Alert, Oriented Psychiatric: Normal Affect, Normal Mood Skin: Warm, Dry, Intact, Normal Color Course - Vital Signs Last Recorded V/S: Last Vital Signs Temp 98.1 F 02/17/20 21:46 Pulse 67 02/17/20 21:46 Resp 18 02/17/20 21:46 BP 155/64 H 02/17/20 21:46 Pulse Ox 96 02/17/20 21:46 - Orders/Labs/Meds Meds: Medications Discontinued Medications Generic Name Dose Route Start Last Admin Trade Name Freq PRN Reason Stop Dose Admin Hydrocodone Bitart/Acetaminophen 1 tab 02/17/20 22:06 02/17/20 22:13 [place] 325-5 Mg PO 02/17/20 22:07 1 tab ONETIME ONE Administration Cephalexin 500 mg 02/17/20 22:08 02/17/20 22:13 Keflex PO 02/17/20 22:09 500 mg ONETIME ONE Administration Departure - Departure Time of Disposition: 22:09 Disposition: Home, Self-Care 01 Condition: Good Clinical Impression: Odontalgia, Lymphadenopathy - Discharge Information *PRESCRIPTION DRUG MONITORING PROGRAM REVIEWED*: No *COPY OF PRESCRIPTION DRUG MONITORING REPORT IN PATIENT RERE: No Instructions: Lymphadenopathy Forms: ED Department Discharge Additional Instructions: tylenol 650mg one every 4 hours as needed for discomfort keflex 500mg 3 times daily follow up clinic next week if continued pain warm pack to area 15minutes every 2 hours as needed Sepsis Event Note - Evaluation Sepsis Screening Result: No Definite Risk - Focused Exam Vital Signs: Vital Signs Temp Pulse Resp BP Pulse Ox 02/17/20 21:46 98.1 F 67 18 155/64 H 96 Date Exam was Performed: 02/18/20 Time Exam was Performed: 04:40
== END 2020-02-17 22:18 | disposition home or self-care (01) ==
LOC: DL.ED 21:31
DX: K08.89 Other specified disorders of teeth and supporting structures (principal); R59.0 Localized enlarged lymph nodes; E11.9 Type 2 diabetes mellitus without complications; I48.91 Unspecified atrial fibrillation; I25.2 Old myocardial infarction; I10 Essential (primary) hypertension; E78.00 Pure hypercholesterolemia, unspecified; I25.10 Atherosclerotic heart disease of native coronary artery without angina pectoris; K21.9 Gastro-esophageal reflux disease without esophagitis; E11.21 Type 2 diabetes mellitus with diabetic nephropathy; E11.40 Type 2 diabetes mellitus with diabetic neuropathy, unspecified; F41.9 Anxiety disorder, unspecified; F17.210 Nicotine dependence, cigarettes, uncomplicated; Z88.5 Allergy status to narcotic agent; Z88.0 Allergy status to penicillin; Z91.09 Other allergy status, other than to drugs and biological substances; Z79.82 Long term (current) use of aspirin; Z91.041 Radiographic dye allergy status; Z79.4 Long term (current) use of insulin; Z79.01 Long term (current) use of anticoagulants; Z79.899 Other long term (current) drug therapy; Z95.5 Presence of coronary angioplasty implant and graft
CPT/HCPCS: 99283; A9270

== ENCOUNTER 2020-02-25 00:59 | Emergency (ER) | payer MEDICAID, OTHER | END 2020-02-25 01:25 | disposition left against medical advice (07) | LOC: DL.ED 00:59 | DX: Z53.21 Procedure and treatment not carried out due to patient leaving prior to being seen by health care provider (principal) ==

== ENCOUNTER 2020-03-04 01:06 | Emergency (ER) | payer MEDICAID, OTHER ==
[2020-03-04] MEDS ORDERED: Acetaminophen/HYDROcodone 325-10 MG Tab PO ONE (01:36)
[2020-03-04 01:39] VITALS: BP 155/71; PULSE 73
--- NOTE | 2020-03-04 01:40 | EDM.PDOC ---
ED HPI GENERAL MEDICAL PROBLEM - General Chief Complaint: Neck Problem Stated Complaint: NECK AND JAW PAIN Time Seen by Provider: 03/04/20 01:36 Source of Information: Reports: Patient History Limitations: Reports: No Limitations - History of Present Illness INITIAL COMMENTS - FREE TEXT/NARRATIVE: gives long h/o neck and jaw pain. nobody seems to know its cause. - Related Data Allergies Allergy/AdvReac Type Severity Reaction Status Date / Time chicken derived Allergy Hives Verified 01/26/20 05:11 codeine Allergy Hives Verified 01/26/20 05:11 Penicillins Allergy Hives Verified 01/26/20 05:11 tramadol Allergy Hives Verified 01/26/20 05:11 Contrast media Allergy Hives Uncoded 01/26/20 05:11 Home Meds: Home Meds Aspirin 81 mg PO BRK 11/09/15 [History] Calcium Citrate/Vitamin D3 [[place] Calcium 200-Vit D3 250] 1 each PO DAILY 11/09 [History] Docusate Sodium [Colace] 100 mg PO BID 11/09/15 [History] Gabapentin [Neurontin] 900 mg PO TID 11/09/15 [History] Hydrochlorothiazide 25 mg PO DAILY 11/09/15 [History] Lisinopril 20 mg PO DAILY 11/09/15 [History] Omeprazole 20 mg PO ACBREAKFAST 11/09/15 [History] atorvaSTATin [Lipitor] 20 mg PO BEDTIME 11/09/15 [History] metFORMIN [Glucophage XR] 1,000 mg PO BIDMEALS 11/09/15 [History] Apixaban [Eliquis] 5 mg PO DAILY 11/08/17 [History] Cholecalciferol (Vitamin D3) [Vitamin D3] 1,000 unit PO DAILY 11/08/17 [History] Fluticasone Propionate [Flonase Allergy Relief] 15.8 ml NS DAILY 11/08/17 [ History] Insulin Glarg,Human.Rec.Analog [Lantus Solostar] 50 unit SUBCUT DAILY 11/08/17 [ History] Melatonin/Pyridoxine HCl (B6) [Melatonin 3 mg Tablet] 9 mg PO BEDTIME 11/08/17 [ History] [place]-3 Fatty Acids [[place]-3] 1 gm PO DAILY 11/08/17 [History] Prazosin HCl [Prazosin] 1 mg PO BEDTIME 11/08/17 [History] Triamcinolone Acetonide [Triamcinolone Acetonide 0.1% Crm] 80 gm .XX BID [History] glipiZIDE [Glucotrol XL] 10 mg PO BID 11/08/17 [History] Metoprolol Tartrate [Lopressor] 50 mg PO BID #60 tablet 11/09/17 [Rx] Diltiazem [Diltiazem XR] 240 mg PO BID 02/11/18 [History] ALPRAZolam [Xanax] 1 mg PO DAILY 12/12/18 [History] Past Medical History - Past Health History Medical/Surgical History: Denies Medical/Surgical History Cardiovascular History: Reports: Afib, CAD, High Cholesterol, Hypertension, [place], Pacemaker, Stents Other Cardiovascular History: [place] 1999 with 1 stent placement Respiratory History: Reports: Bronchitis, Recurrent, Sleep Apnea Other Respiratory History: smoker for 51 yrs, has a c-pap Gastrointestinal History: Reports: Chronic Constipation, GERD Genitourinary History: Reports: Diabetic Nephropathy Musculoskeletal History: Reports: Osteoarthritis Neurological History: Reports: Neuropathy, Diabetic Psychiatric History: Reports: Anxiety Endocrine/Metabolic History: Reports: Diabetes, Type II Oncologic (Cancer) History: Reports: Colon Other Oncologic History: with surgery, chemo and radiation Stage III - Infectious Disease History Infectious Disease History: Reports: Chicken Pox, Measles, Mumps, Rheumatic Fever - Past Surgical History HEENT Surgical History: Reports: Naso-Sinus Surgery Respiratory Surgical History: Reports: None GI Surgical History: Reports: Colon Male Surgical History: Reports: Circumcision Musculoskeletal Surgical History: Reports: Arthroscopic Knee, Shoulder Surgery, Other (See Below) Other Musculoskeletal Surgeries/Procedures:: Repaired acl. [place]. Placed bone marrow in hip., left foot surgery with screw placement 11/03/18. right Foot surg. Social & Family History - Family History Family Medical History: Noncontributory Cardiac: Reports: Afib, AICD, Angina, Bypass, CAD, Heart Failure, High Cholesterol, Hypertension, [place] Respiratory: Reports: Asthma, COPD GI: Reports: Cholelithiasis : Reports: Dialysis, Renal Disease/Insufficiency Musculoskeletal: Reports: Arthritis, Back pain, Chronic Neurological: Reports: CVA, Neuropathy, Diabetic Psychiatric: Reports: Anxiety, Depression Endocrine/Metabolic: Reports: Diabetes, type II - Caffeine Use Caffeine Use: Reports: Coffee Other Caffeine Use: 4 pots a day - Living Situation & Occupation Living situation: Reports: with Family Occupation: Unemployed ED ROS GENERAL - Review of Systems Review Of Systems: Comprehensive ROS is negative, except as noted in HPI. ED EXAM, UPPER BACK/NECK PAIN - Physical Exam Exam: See Below Exam Limited By: No Limitations General Appearance: Alert, WD/WN, Mild Distress, Other (discomfort) Eye Exam: Bilateral Eye: PERRL (pupils ER @ 4mm) Ears Exam: Hearing Grossly Normal Throat/Mouth Exam: Normal Voice, No Airway Compromise Head Exam: Atraumatic Neck Exam: Normal Alignment, Normal Inspection, Tenderness, Other (left SCM region on R/P) Nexus Criteria: No: Posterior, Midline Cervical Tenderness, Evidence of Intoxication, Altered Level of Consciousness, Focal Neurological Deficit, Painful Distraction Injuries Cardiovascular/Respiratory: Regular Rate, Rhythm, No Respiratory Distress GI/Abdominal: Soft, Non-Tender Neurologic: No Motor/Sensory Deficits, Alert, Oriented x 3 Psychiatric: Flat Affect, Tearful Skin Exam: Normal Color, Warm/Dry Lymphatic: No Adenopathy Course - Orders/Labs/Meds Orders: Active Orders 24 hr Category Date Time Status Acetaminophen/HYDROcodone [[place] 325-10 MG] Med 03/04/20 01:36 Once 1 tab PO ONETIME ONE Departure - Departure Time of Disposition: 01:39 Disposition: Home, Self-Care 01 Condition: Good Clinical Impression: Cervical radiculitis - Discharge Information Additional Instructions: 1) see clinic Thursday for MRI SCAN OF NECK/JAW - My Orders Last 24 Hours: My Active Orders 03/04/20 01:36 Acetaminophen/HYDROcodone [[place] 325-10 MG] 1 tab PO ONETIME ONE - Assessment/Plan Last 24 Hours: My Active Orders 03/04/20 01:36 Acetaminophen/HYDROcodone [[place] 325-10 MG] 1 tab PO ONETIME ONE
== END 2020-03-04 01:44 | disposition home or self-care (01) ==
LOC: DL.ED 01:06
DX: M54.12 Radiculopathy, cervical region (principal); I48.91 Unspecified atrial fibrillation; I25.10 Atherosclerotic heart disease of native coronary artery without angina pectoris; E78.00 Pure hypercholesterolemia, unspecified; I10 Essential (primary) hypertension; I25.2 Old myocardial infarction; K21.9 Gastro-esophageal reflux disease without esophagitis; E11.21 Type 2 diabetes mellitus with diabetic nephropathy; E11.40 Type 2 diabetes mellitus with diabetic neuropathy, unspecified; M19.90 Unspecified osteoarthritis, unspecified site; F41.9 Anxiety disorder, unspecified; Z91.018 Allergy to other foods; Z88.5 Allergy status to narcotic agent; Z88.0 Allergy status to penicillin; Z91.041 Radiographic dye allergy status; Z79.82 Long term (current) use of aspirin; Z79.899 Other long term (current) drug therapy; Z79.4 Long term (current) use of insulin; Z79.01 Long term (current) use of anticoagulants; Z95.5 Presence of coronary angioplasty implant and graft
CPT/HCPCS: 99283; A9270

== ENCOUNTER 2020-03-10 21:48 | Emergency (ER) | payer MEDICAID, OTHER ==
[2020-03-10] MEDS ORDERED: Acetaminophen/HYDROcodone 325-10 MG Tab PO ONE (21:51)
--- NOTE | 2020-03-10 21:54 | EDM.PDOC ---
ED HPI GENERAL MEDICAL PROBLEM - General Chief Complaint: Back Pain or Injury Stated Complaint: CENTER OF THE BACK IN PAIN Time Seen by Provider: 03/10/20 21:52 Source of Information: Reports: Patient History Limitations: Reports: No Limitations - History of Present Illness INITIAL COMMENTS - FREE TEXT/NARRATIVE: re-injured mid-low back today - Related Data Allergies Allergy/AdvReac Type Severity Reaction Status Date / Time chicken derived Allergy Hives Verified 01/26/20 05:11 codeine Allergy Hives Verified 01/26/20 05:11 Penicillins Allergy Hives Verified 01/26/20 05:11 tramadol Allergy Hives Verified 01/26/20 05:11 Contrast media Allergy Hives Uncoded 01/26/20 05:11 Home Meds: Home Meds Aspirin 81 mg PO BRK 11/09/15 [History] Calcium Citrate/Vitamin D3 [[place] Calcium 200-Vit D3 250] 1 each PO DAILY 11/09 [History] Docusate Sodium [Colace] 100 mg PO BID 11/09/15 [History] Gabapentin [Neurontin] 900 mg PO TID 11/09/15 [History] Hydrochlorothiazide 25 mg PO DAILY 11/09/15 [History] Lisinopril 20 mg PO DAILY 11/09/15 [History] Omeprazole 20 mg PO ACBREAKFAST 11/09/15 [History] atorvaSTATin [Lipitor] 20 mg PO BEDTIME 11/09/15 [History] metFORMIN [Glucophage XR] 1,000 mg PO BIDMEALS 11/09/15 [History] Apixaban [Eliquis] 5 mg PO DAILY 11/08/17 [History] Cholecalciferol (Vitamin D3) [Vitamin D3] 1,000 unit PO DAILY 11/08/17 [History] Fluticasone Propionate [Flonase Allergy Relief] 15.8 ml NS DAILY 11/08/17 [ History] Insulin Glarg,Human.Rec.Analog [Lantus Solostar] 50 unit SUBCUT DAILY 11/08/17 [ History] Melatonin/Pyridoxine HCl (B6) [Melatonin 3 mg Tablet] 9 mg PO BEDTIME 11/08/17 [ History] [place]-3 Fatty Acids [[place]-3] 1 gm PO DAILY 11/08/17 [History] Prazosin HCl [Prazosin] 1 mg PO BEDTIME 11/08/17 [History] Triamcinolone Acetonide [Triamcinolone Acetonide 0.1% Crm] 80 gm .XX BID [History] glipiZIDE [Glucotrol XL] 10 mg PO BID 11/08/17 [History] Metoprolol Tartrate [Lopressor] 50 mg PO BID #60 tablet 11/09/17 [Rx] Diltiazem [Diltiazem XR] 240 mg PO BID 02/11/18 [History] ALPRAZolam [Xanax] 1 mg PO DAILY 12/12/18 [History] Past Medical History - Past Health History Medical/Surgical History: Denies Medical/Surgical History Cardiovascular History: Reports: Afib, CAD, High Cholesterol, Hypertension, [place], Pacemaker, Stents Other Cardiovascular History: [place] 1999 with 1 stent placement Respiratory History: Reports: Bronchitis, Recurrent, Sleep Apnea Other Respiratory History: smoker for 51 yrs, has a c-pap Gastrointestinal History: Reports: Chronic Constipation, GERD Genitourinary History: Reports: Diabetic Nephropathy Musculoskeletal History: Reports: Osteoarthritis Neurological History: Reports: Neuropathy, Diabetic Psychiatric History: Reports: Anxiety Endocrine/Metabolic History: Reports: Diabetes, Type II Oncologic (Cancer) History: Reports: Colon Other Oncologic History: with surgery, chemo and radiation Stage III - Infectious Disease History Infectious Disease History: Reports: Chicken Pox, Measles, Mumps, Rheumatic Fever - Past Surgical History HEENT Surgical History: Reports: Naso-Sinus Surgery Respiratory Surgical History: Reports: None GI Surgical History: Reports: Colon Male Surgical History: Reports: Circumcision Musculoskeletal Surgical History: Reports: Arthroscopic Knee, Shoulder Surgery, Other (See Below) Other Musculoskeletal Surgeries/Procedures:: Repaired acl. [place]. Placed bone marrow in hip., left foot surgery with screw placement 11/03/18. right Foot surg. Social & Family History - Family History Family Medical History: Noncontributory Cardiac: Reports: Afib, AICD, Angina, Bypass, CAD, Heart Failure, High Cholesterol, Hypertension, [place] Respiratory: Reports: Asthma, COPD GI: Reports: Cholelithiasis : Reports: Dialysis, Renal Disease/Insufficiency Musculoskeletal: Reports: Arthritis, Back pain, Chronic Neurological: Reports: CVA, Neuropathy, Diabetic Psychiatric: Reports: Anxiety, Depression Endocrine/Metabolic: Reports: Diabetes, type II - Caffeine Use Caffeine Use: Reports: Coffee Other Caffeine Use: 4 pots a day - Living Situation & Occupation Living situation: Reports: with Family Occupation: Unemployed ED ROS GENERAL - Review of Systems Review Of Systems: Comprehensive ROS is negative, except as noted in HPI. ED EXAM,LOWER BACK PAIN/INJURY - Physical Exam Exam: See Below Exam Limited By: No Limitations General Appearance: Alert, WD/WN, Mild Distress, Moderate Distress, Other (pain) Ears: Hearing Grossly Normal Throat/Mouth: Normal Voice, No Airway Compromise Head: Atraumatic Neck: Non-Tender, Full Range of Motion Respiratory/Chest: No Respiratory Distress Cardiovascular: Regular Rate, Rhythm GI/Abdominal: Soft, Non-Tender Back Exam: Muscle Spasm, Paraspinal Tenderness, Other ([id number] region) Neurological: Alert, No Motor/Sensory Deficits, Oriented x 3 Psychiatric: Tearful Skin Exam: Warm, Dry, Normal Color Lymphatic: No Adenopathy Course - Orders/Labs/Meds Orders: Active Orders 24 hr Category Date Time Status Acetaminophen/HYDROcodone [[place] 325-10 MG] Med 03/10/20 21:51 Once 1 tab PO ONETIME ONE Departure - Departure Time of Disposition: 21:53 Disposition: Home, Self-Care 01 Condition: Good Clinical Impression: Lumbar radiculitis - Discharge Information Additional Instructions: 1) rest 2) follow up at clinic - My Orders Last 24 Hours: My Active Orders 03/10/20 21:51 Acetaminophen/HYDROcodone [[place] 325-10 MG] 1 tab PO ONETIME ONE - Assessment/Plan Last 24 Hours: My Active Orders 03/10/20 21:51 Acetaminophen/HYDROcodone [[place] 325-10 MG] 1 tab PO ONETIME ONE
[2020-03-10 22:24] VITALS: BP 153/62; PULSE 63
== END 2020-03-10 22:13 | disposition home or self-care (01) ==
LOC: DL.ED 21:48
DX: M54.16 Radiculopathy, lumbar region (principal); I10 Essential (primary) hypertension; I25.10 Atherosclerotic heart disease of native coronary artery without angina pectoris; I48.91 Unspecified atrial fibrillation; E78.00 Pure hypercholesterolemia, unspecified; I25.2 Old myocardial infarction; K21.9 Gastro-esophageal reflux disease without esophagitis; E11.40 Type 2 diabetes mellitus with diabetic neuropathy, unspecified; E11.21 Type 2 diabetes mellitus with diabetic nephropathy; M19.90 Unspecified osteoarthritis, unspecified site; F41.9 Anxiety disorder, unspecified; Z95.0 Presence of cardiac pacemaker; Z91.018 Allergy to other foods; Z88.5 Allergy status to narcotic agent; Z88.0 Allergy status to penicillin; Z91.041 Radiographic dye allergy status; Z79.82 Long term (current) use of aspirin; Z79.01 Long term (current) use of anticoagulants; Z79.4 Long term (current) use of insulin; Z79.899 Other long term (current) drug therapy
CPT/HCPCS: 99283; A9270

== ENCOUNTER 2020-03-14 22:13 | Emergency (ER) | payer MEDICAID ==
[2020-03-14 22:59] VITALS: BP 133/60; PULSE 62
== END 2020-03-14 23:32 | disposition left against medical advice (07) ==
LOC: DL.ED 22:13
DX: Z53.21 Procedure and treatment not carried out due to patient leaving prior to being seen by health care provider (principal)

== ENCOUNTER 2020-03-18 20:36 | Emergency (ER) | payer MEDICAID, OTHER ==
[2020-03-18] MEDS ORDERED: Acetaminophen 325 MG Tab PO ONE (22:13)
[2020-03-18 22:19] VITALS: BP 141/59; PULSE 64
--- NOTE | 2020-03-18 22:19 | EDM.PDOC ---
ED HPI GENERAL MEDICAL PROBLEM - General Chief Complaint: Lower Extremity Injury/Pain Stated Complaint: HIP PAIN Time Seen by Provider: 03/18/20 21:20 Source of Information: Reports: Patient History Limitations: Reports: No Limitations - History of Present Illness INITIAL COMMENTS - FREE TEXT/NARRATIVE: sharp pain in right hip when stepping up curb, has not tried anything for pain, just came straight to ED. No difficulty with walking. Right Hip Pain Score (Numeric/FACES): 6 - Related Data Allergies Allergy/AdvReac Type Severity Reaction Status Date / Time chicken derived Allergy Hives Verified 03/18/20 21:08 codeine Allergy Hives Verified 03/18/20 21:08 Penicillins Allergy Hives Verified 03/18/20 21:08 tramadol Allergy Hives Verified 03/18/20 21:08 Contrast media Allergy Hives Uncoded 03/18/20 21:08 Home Meds: Home Meds Aspirin 81 mg PO BRK 11/09/15 [History] Calcium Citrate/Vitamin D3 [[place] Calcium 200-Vit D3 250] 1 each PO DAILY 11/09 [History] Docusate Sodium [Colace] 100 mg PO BID 11/09/15 [History] Gabapentin [Neurontin] 900 mg PO TID 11/09/15 [History] Hydrochlorothiazide 25 mg PO DAILY 11/09/15 [History] Lisinopril 20 mg PO DAILY 11/09/15 [History] Omeprazole 20 mg PO ACBREAKFAST 11/09/15 [History] atorvaSTATin [Lipitor] 20 mg PO BEDTIME 11/09/15 [History] metFORMIN [Glucophage XR] 1,000 mg PO BIDMEALS 11/09/15 [History] Apixaban [Eliquis] 5 mg PO DAILY 11/08/17 [History] Cholecalciferol (Vitamin D3) [Vitamin D3] 1,000 unit PO DAILY 11/08/17 [History] Fluticasone Propionate [Flonase Allergy Relief] 15.8 ml NS DAILY 11/08/17 [ History] Insulin Glarg,Human.Rec.Analog [Lantus Solostar] 50 unit SUBCUT DAILY 11/08/17 [ History] Melatonin/Pyridoxine HCl (B6) [Melatonin 3 mg Tablet] 9 mg PO BEDTIME 11/08/17 [ History] [place]-3 Fatty Acids [[place]-3] 1 gm PO DAILY 11/08/17 [History] Prazosin HCl [Prazosin] 1 mg PO BEDTIME 11/08/17 [History] Triamcinolone Acetonide [Triamcinolone Acetonide 0.1% Crm] 80 gm .XX BID [History] glipiZIDE [Glucotrol XL] 10 mg PO BID 11/08/17 [History] Metoprolol Tartrate [Lopressor] 50 mg PO BID #60 tablet 11/09/17 [Rx] Diltiazem [Diltiazem XR] 240 mg PO BID 02/11/18 [History] ALPRAZolam [Xanax] 1 mg PO DAILY 12/12/18 [History] Past Medical History - Past Health History Medical/Surgical History: Denies Medical/Surgical History HEENT History: Reports: None Cardiovascular History: Reports: Afib, CAD, High Cholesterol, Hypertension, [place], Pacemaker, Stents Other Cardiovascular History: [place] 1999 with 1 stent placement Respiratory History: Reports: Bronchitis, Recurrent, Sleep Apnea Other Respiratory History: smoker for 51 yrs, has a c-pap Gastrointestinal History: Reports: Chronic Constipation, GERD Genitourinary History: Reports: Diabetic Nephropathy Musculoskeletal History: Reports: Osteoarthritis Neurological History: Reports: Neuropathy, Diabetic Psychiatric History: Reports: Anxiety Endocrine/Metabolic History: Reports: Diabetes, Type II Hematologic History: Reports: None Immunologic History: Reports: None Oncologic (Cancer) History: Reports: None, Colon Other Oncologic History: with surgery, chemo and radiation Stage III Dermatologic History: Reports: None - Infectious Disease History Infectious Disease History: Reports: Chicken Pox, Measles, Mumps, Rheumatic Fever - Past Surgical History Head Surgeries/Procedures: Reports: None HEENT Surgical History: Reports: Naso-Sinus Surgery Respiratory Surgical History: Reports: None GI Surgical History: Reports: Colon Male Surgical History: Reports: Circumcision Musculoskeletal Surgical History: Reports: Arthroscopic Knee, Shoulder Surgery, Other (See Below) Other Musculoskeletal Surgeries/Procedures:: Repaired acl. [place]. Placed bone marrow in hip., left foot surgery with screw placement 11/03/18. right Foot surg. Social & Family History - Family History Family Medical History: Noncontributory Cardiac: Reports: Afib, AICD, Angina, Bypass, CAD, Heart Failure, High Cholesterol, Hypertension, [place] Respiratory: Reports: Asthma, COPD GI: Reports: Cholelithiasis : Reports: Dialysis, Renal Disease/Insufficiency Musculoskeletal: Reports: Arthritis, Back pain, Chronic Neurological: Reports: CVA, Neuropathy, Diabetic Psychiatric: Reports: Anxiety, Depression Endocrine/Metabolic: Reports: Diabetes, type II - Tobacco Use Smoking Status *Q: Current Every Day Smoker Years of Tobacco use: 30 Packs/Tins Daily: 0.5 - Caffeine Use Caffeine Use: Reports: Coffee, Soda Other Caffeine Use: 4 pots a day - Recreational Drug Use Recreational Drug Use: No - Living Situation & Occupation Living situation: Reports: with Family Occupation: Unemployed Review of Systems - Review of Systems Review Of Systems: Comprehensive ROS is negative, except as noted in HPI. ED EXAM, GENERAL - Physical Exam Exam: See Below Exam Limited By: No Limitations General Appearance: Alert, No Apparent Distress Eye Exam: Bilateral Eye: EOMI Ears: Normal External Exam, Hearing Grossly Normal Nose: Normal Inspection Throat/Mouth: Normal Inspection Neck: Normal Inspection Respiratory/Chest: No Respiratory Distress Back Exam: Normal Inspection, Full Range of Motion Extremities: Normal Inspection, Other (tenderness right lateral hip) Neurological: Alert, Oriented, Normal Cognition Psychiatric: Normal Affect, Normal Mood Skin Exam: Warm, Dry, Intact Course - Vital Signs Last Recorded V/S: Last Vital Signs Temp 98.4 F 03/18/20 22:18 Pulse 64 03/18/20 22:18 Resp 20 03/18/20 22:18 BP 141/59 H 03/18/20 22:18 Pulse Ox 92 L 03/18/20 22:18 - Orders/Labs/Meds Meds: Medications Discontinued Medications Generic Name Dose Route Start Last Admin Trade Name Teddy PRN Reason Stop Dose Admin Acetaminophen 650 mg 03/18/20 22:13 03/18/20 22:17 Tylenol PO 03/18/20 22:14 650 mg NOW ONE Administration Departure - Departure Time of Disposition: 22:17 Disposition: Home, Self-Care 01 Condition: Good Clinical Impression: Acute right hip pain - Discharge Information *PRESCRIPTION DRUG MONITORING PROGRAM REVIEWED*: No *COPY OF PRESCRIPTION DRUG MONITORING REPORT IN PATIENT RERE: No Instructions: Joint Pain, [id number] Forms: ED Department Discharge Additional Instructions: [facility] every 4-6 hours sa needed for discomfort ice to hip activity as tolerated Sepsis Event Note (ED) - Evaluation Sepsis Screening Result: No Definite Risk - Focused Exam Vital Signs: Vital Signs Temp Pulse Resp BP Pulse Ox 03/18/20 22:18 98.4 F 64 20 141/59 H 92 L 03/18/20 21:04 97.7 F 65 20 130/58 L 98
== END 2020-03-18 22:21 | disposition home or self-care (01) ==
LOC: DL.ED 20:36
DX: M25.551 Pain in right hip (principal); I10 Essential (primary) hypertension; I25.10 Atherosclerotic heart disease of native coronary artery without angina pectoris; I48.91 Unspecified atrial fibrillation; E78.00 Pure hypercholesterolemia, unspecified; K21.9 Gastro-esophageal reflux disease without esophagitis; F41.9 Anxiety disorder, unspecified; E11.21 Type 2 diabetes mellitus with diabetic nephropathy; M19.90 Unspecified osteoarthritis, unspecified site; F17.210 Nicotine dependence, cigarettes, uncomplicated; Z95.5 Presence of coronary angioplasty implant and graft; Z88.0 Allergy status to penicillin; Z88.5 Allergy status to narcotic agent; Z91.041 Radiographic dye allergy status; Z91.018 Allergy to other foods; Z79.82 Long term (current) use of aspirin; Z79.01 Long term (current) use of anticoagulants; Z79.4 Long term (current) use of insulin; Z79.899 Other long term (current) drug therapy
CPT/HCPCS: 99283; A9270

== ENCOUNTER 2020-03-28 22:50 | Emergency (ER) | payer MEDICAID, OTHER, SELFPAY ==
[2020-03-28 23:00] VITALS: BP 129/52; PULSE 81
--- NOTE | 2020-03-28 23:24 | EDM.PDOC ---
ED HPI GENERAL MEDICAL PROBLEM - General Chief Complaint: Back Pain or Injury Stated Complaint: FELL ON SOME BRICKS/HURT BACK Time Seen by Provider: 03/28/20 23:15 Source of Information: Reports: Patient History Limitations: Reports: No Limitations - History of Present Illness INITIAL COMMENTS - FREE TEXT/NARRATIVE: This 64 yo male patient reports to the ED with thoracic spine pain and posterior rib pain. The patient reports he fell onto a brick about 3 hours prior to coming to the ED. The patient reports he took 1000 mg of Tylenol about 1 hour prior to coming to the ED with no changed in symptoms. Onset: Today Duration: Hour(s):, Constant Location: Reports: Chest (posterior rib pain), Back Quality: Reports: Ache, Sharp Severity: Moderate Improves with: Reports: None Worsens with: Reports: None Context: Reports: Other Associated Symptoms: Reports: No Other Symptoms Middle Back Pain Score (Numeric/FACES): 8 - Related Data Allergies Allergy/AdvReac Type Severity Reaction Status Date / Time chicken derived Allergy Hives Verified 03/18/20 21:08 codeine Allergy Hives Verified 03/18/20 21:08 Penicillins Allergy Hives Verified 03/18/20 21:08 tramadol Allergy Hives Verified 03/18/20 21:08 Contrast media Allergy Hives Uncoded 03/18/20 21:08 Home Meds: Home Meds Aspirin 81 mg PO BRK 11/09/15 [History] Calcium Citrate/Vitamin D3 [[place] Calcium 200-Vit D3 250] 1 each PO DAILY 11/09/15 [History] Docusate Sodium [Colace] 100 mg PO BID 11/09/15 [History] Gabapentin [Neurontin] 900 mg PO TID 11/09/15 [History] Hydrochlorothiazide 25 mg PO DAILY 11/09/15 [History] Lisinopril 20 mg PO DAILY 11/09/15 [History] Omeprazole 20 mg PO ACBREAKFAST 11/09/15 [History] atorvaSTATin [Lipitor] 20 mg PO BEDTIME 11/09/15 [History] metFORMIN [Glucophage XR] 1,000 mg PO BIDMEALS 11/09/15 [History] Apixaban [Eliquis] 5 mg PO DAILY 11/08/17 [History] Cholecalciferol (Vitamin D3) [Vitamin D3] 1,000 unit PO DAILY 11/08/17 [History] Fluticasone Propionate [Flonase Allergy Relief] 15.8 ml NS DAILY 11/08/17 [History] Insulin Glarg,Human.Rec.Analog [Lantus Solostar] 50 unit SUBCUT DAILY 11/08/17 [History] Melatonin/Pyridoxine HCl (B6) [Melatonin 3 mg Tablet] 9 mg PO BEDTIME 11/08/17 [History] [place]-3 Fatty Acids [[place]-3] 1 gm PO DAILY 11/08/17 [History] Prazosin HCl [Prazosin] 1 mg PO BEDTIME 11/08/17 [History] Triamcinolone Acetonide [Triamcinolone Acetonide 0.1% Crm] 80 gm .XX BID 11/08/17 [History] glipiZIDE [Glucotrol XL] 10 mg PO BID 11/08/17 [History] Metoprolol Tartrate [Lopressor] 50 mg PO BID #60 tablet 11/09/17 [Rx] Diltiazem [Diltiazem XR] 240 mg PO BID 02/11/18 [History] ALPRAZolam [Xanax] 1 mg PO DAILY 12/12/18 [History] Past Medical History - Past Health History Medical/Surgical History: Denies Medical/Surgical History HEENT History: Reports: None Cardiovascular History: Reports: Afib, CAD, High Cholesterol, Hypertension, [place], Pacemaker, Stents Other Cardiovascular History: [place] 1999 with 1 stent placement Respiratory History: Reports: Bronchitis, Recurrent, Sleep Apnea Other Respiratory History: smoker for 51 yrs, has a c-pap Gastrointestinal History: Reports: Chronic Constipation, GERD Genitourinary History: Reports: Diabetic Nephropathy Musculoskeletal History: Reports: Osteoarthritis Neurological History: Reports: Neuropathy, Diabetic Psychiatric History: Reports: Anxiety Endocrine/Metabolic History: Reports: Diabetes, Type II Hematologic History: Reports: None Immunologic History: Reports: None Oncologic (Cancer) History: Reports: None, Colon Other Oncologic History: with surgery, chemo and radiation Stage III Dermatologic History: Reports: None - Infectious Disease History Infectious Disease History: Reports: Chicken Pox, Measles, Mumps, Rheumatic Fever - Past Surgical History Head Surgeries/Procedures: Reports: None HEENT Surgical History: Reports: Naso-Sinus Surgery Respiratory Surgical History: Reports: None GI Surgical History: Reports: Colon Male Surgical History: Reports: Circumcision Musculoskeletal Surgical History: Reports: Arthroscopic Knee, Shoulder Surgery, Other (See Below) Other Musculoskeletal Surgeries/Procedures:: Repaired acl. [place]. Placed bone marrow in hip., left foot surgery with screw placement 11/03/18. right Foot surg. Social & Family History - Family History Family Medical History: Noncontributory Cardiac: Reports: Afib, AICD, Angina, Bypass, CAD, Heart Failure, High Cholesterol, Hypertension, [place] Respiratory: Reports: Asthma, COPD GI: Reports: Cholelithiasis : Reports: Dialysis, Renal Disease/Insufficiency Musculoskeletal: Reports: Arthritis, Back pain, Chronic Neurological: Reports: CVA, Neuropathy, Diabetic Psychiatric: Reports: Anxiety, Depression Endocrine/Metabolic: Reports: Diabetes, type II - Tobacco Use Smoking Status *Q: Current Every Day Smoker Years of Tobacco use: 2 Packs/Tins Daily: 0.5 Second Hand Smoke Exposure: Yes - Caffeine Use Caffeine Use: Reports: Coffee, Soda Other Caffeine Use: 4 pots a day - Recreational Drug Use Recreational Drug Use: No - Living Situation & Occupation Living situation: Reports: with Family Occupation: Unemployed ED ROS GENERAL - Review of Systems Review Of Systems: Comprehensive ROS is negative, except as noted in HPI. ED EXAM, GENERAL - Physical Exam Exam: See Below Exam Limited By: No Limitations General Appearance: Alert, WD/WN, Moderate Distress Eye Exam: Bilateral Eye: EOMI, Normal Inspection, PERRL Ears: Normal External Exam, Normal Canal, Hearing Grossly Normal, Normal TMs Nose: Normal Inspection, Normal Mucosa, No Blood Throat/Mouth: Normal Inspection, Normal Lips, Normal Teeth, Normal Gums, Normal Oropharynx, Normal Voice, No Airway Compromise Head: Atraumatic, Normocephalic Neck: Normal Inspection, Supple, Non-Tender, Full Range of Motion Respiratory/Chest: No Respiratory Distress, Lungs Clear, Normal Breath Sounds, No Accessory Muscle Use, Chest Non-Tender Cardiovascular: Normal Peripheral Pulses, Regular Rate, Rhythm, No Edema, No Gallop, No JVD, No Murmur, No Rub GI/Abdominal: Normal Bowel Sounds, Soft, Non-Tender, No Organomegaly, No Distention, No Abnormal Bruit, No Mass (Male) Exam: Deferred Rectal (Males) Exam: Deferred Back Exam: Normal Inspection, Full Range of Motion, NT Extremities: Normal Inspection, Normal Range of Motion, Non-Tender, Normal Capillary Refill, No Pedal Edema Neurological: Alert, Oriented, CN II-XII Intact, Normal Cognition, Normal Gait, Normal Reflexes, No Motor/Sensory Deficits Psychiatric: Normal Affect, Normal Mood Skin Exam: Warm, Dry, Intact, Normal Color, No Rash Lymphatic: No Adenopathy Course - Vital Signs Last Recorded V/S: Last Vital Signs Temp 35.8 C L 03/28/20 22:56 Pulse 81 03/28/20 22:56 Resp 22 H 03/28/20 22:56 BP 129/52 L 03/28/20 22:56 Pulse Ox 95 03/28/20 22:56 Departure - Departure Time of Disposition: 00:36 Disposition: Home, Self-Care 01 Condition: Fair Clinical Impression: Back contusion Qualifiers: Encounter type: initial encounter Laterality: unspecified laterality Qualified Code(s): S20.229A - Contusion of unspecified back wall of thorax, initial encounter - Discharge Information *PRESCRIPTION DRUG MONITORING PROGRAM REVIEWED*: Not Applicable *COPY OF PRESCRIPTION DRUG MONITORING REPORT IN PATIENT RERE: Not Applicable Instructions: Contusion, [id number] Forms: ED Department Discharge Care Plan Goals: The patient was advised of the examination and x-ray results during the visit. The patient was encouraged to continue to take Tylenol and ibuprofen for temporary symptom relief. The patient may use ice to the area to reduce swelling over the first 48 hours. If the patient has any additional symptoms or concerns, the patient should either return to the emergency department or visit his primary care facility. Sepsis Event Note (ED) - Evaluation Sepsis Screening Result: No Definite Risk - Focused Exam Vital Signs: Vital Signs Temp Pulse Resp BP Pulse Ox 03/28/20 22:56 35.8 C L 81 22 H 129/52 L 95
--- NOTE | 2020-03-29 00:04 | CR ---
PROCEDURE INFORMATION: Exam: XR Chest, 2 Views Exam date and time: 03/28/2020 11:43 PM Age: 64 years old Clinical indication: Other: Back pain (fell on brick); Additional info: Back pain (fell on brick) TECHNIQUE: Imaging protocol: XR of the chest Views: 2 views. COMPARISON: No relevant prior studies available. FINDINGS: Lungs: There is diffuse mild nonspecific interstitial disease. There is mild nonspecific prominence of the pulmonary vasculature. The lungs are moderately hyperinflated. Pleural space: Unremarkable. No pleural effusion. No pneumothorax. Heart/Mediastinum: There is mild cardiomegaly. Vasculature: A pacemaker has been introduced by the left subclavian approach. The pacemaker leads have an appropriate configuration. Bones/joints: Unremarkable. IMPRESSION: Suspect changes of pulmonary venous hypertension with mild/early interstitial pulmonary edema. Superimposed interstitial inflammatory change cannot be entirely excluded.
--- NOTE | 2020-03-29 00:06 | CR ---
PROCEDURE INFORMATION: Exam: XR Thoracic Spine, 2 Views Exam date and time: 03/28/2020 11:49 PM Age: 64 years old Clinical indication: Other: Back pain (fell on brick); Additional info: Back pain (fell on brick) TECHNIQUE: Imaging protocol: XR of the thoracic spine, 2 views. COMPARISON: No relevant prior studies available. FINDINGS: Vertebrae: Small anterior osteophytes at multiple levels. Pedicles intact. No acute fracture. Normal alignment. Soft tissues: Unremarkable. IMPRESSION: No acute findings.
== END 2020-03-29 00:43 | disposition home or self-care (01) ==
LOC: DL.ED 22:50
DX: S20.229A Contusion of unspecified back wall of thorax, initial encounter (principal); I48.91 Unspecified atrial fibrillation; I25.10 Atherosclerotic heart disease of native coronary artery without angina pectoris; E78.00 Pure hypercholesterolemia, unspecified; I10 Essential (primary) hypertension; E11.21 Type 2 diabetes mellitus with diabetic nephropathy; M19.90 Unspecified osteoarthritis, unspecified site; E11.40 Type 2 diabetes mellitus with diabetic neuropathy, unspecified; F41.9 Anxiety disorder, unspecified; F17.210 Nicotine dependence, cigarettes, uncomplicated; I25.2 Old myocardial infarction; Z95.5 Presence of coronary angioplasty implant and graft; Z91.018 Allergy to other foods; Z88.5 Allergy status to narcotic agent; Z88.0 Allergy status to penicillin; Z91.041 Radiographic dye allergy status; Z79.82 Long term (current) use of aspirin; Z79.4 Long term (current) use of insulin; Z79.899 Other long term (current) drug therapy; Z79.01 Long term (current) use of anticoagulants; W18.30XA Fall on same level, unspecified, initial encounter
CPT/HCPCS: 71046; 72070; 99283-25

== ENCOUNTER 2020-04-17 23:29 | Emergency (ER) | payer MEDICAID, OTHER ==
[2020-04-17 23:44] VITALS: BP 137/71; PULSE 76
--- NOTE | 2020-04-18 00:01 | EDM.PDOC ---
ED HPI GENERAL MEDICAL PROBLEM - General Chief Complaint: Skin Complaint Stated Complaint: SORE ON BIG TOE Time Seen by Provider: 04/17/20 23:50 Source of Information: Reports: Patient History Limitations: Reports: No Limitations - History of Present Illness INITIAL COMMENTS - FREE TEXT/NARRATIVE: noticed sore on great toe tonight, wanted checked out as diabetic Right Toe-[place] Pain Score (Numeric/FACES): 5 - Related Data Allergies Allergy/AdvReac Type Severity Reaction Status Date / Time chicken derived Allergy Hives Verified 04/17/20 23:39 codeine Allergy Hives Verified 04/17/20 23:39 Penicillins Allergy Hives Verified 04/17/20 23:39 tramadol Allergy Hives Verified 04/17/20 23:39 Contrast media Allergy Hives Uncoded 04/17/20 23:39 Home Meds: Home Meds Aspirin 81 mg PO BRK 11/09/15 [History] Calcium Citrate/Vitamin D3 [[place] Calcium 200-Vit D3 250] 1 each PO DAILY 11/09/15 [History] Docusate Sodium [Colace] 100 mg PO BID 11/09/15 [History] Gabapentin [Neurontin] 900 mg PO TID 11/09/15 [History] Hydrochlorothiazide 25 mg PO DAILY 11/09/15 [History] Lisinopril 20 mg PO DAILY 11/09/15 [History] Omeprazole 20 mg PO ACBREAKFAST 11/09/15 [History] atorvaSTATin [Lipitor] 20 mg PO BEDTIME 11/09/15 [History] metFORMIN [Glucophage XR] 1,000 mg PO BIDMEALS 11/09/15 [History] Apixaban [Eliquis] 5 mg PO DAILY 11/08/17 [History] Cholecalciferol (Vitamin D3) [Vitamin D3] 1,000 unit PO DAILY 11/08/17 [History] Fluticasone Propionate [Flonase Allergy Relief] 15.8 ml NS DAILY 11/08/17 [History] Insulin Glarg,Human.Rec.Analog [Lantus Solostar] 50 unit SUBCUT DAILY 11/08/17 [History] Melatonin/Pyridoxine HCl (B6) [Melatonin 3 mg Tablet] 9 mg PO BEDTIME 11/08/17 [History] [place]-3 Fatty Acids [[place]-3] 1 gm PO DAILY 11/08/17 [History] Prazosin HCl [Prazosin] 1 mg PO BEDTIME 11/08/17 [History] Triamcinolone Acetonide [Triamcinolone Acetonide 0.1% Crm] 80 gm .XX BID 11/08/17 [History] glipiZIDE [Glucotrol XL] 10 mg PO BID 11/08/17 [History] Metoprolol Tartrate [Lopressor] 50 mg PO BID #60 tablet 11/09/17 [Rx] Diltiazem [Diltiazem XR] 240 mg PO BID 02/11/18 [History] ALPRAZolam [Xanax] 1 mg PO DAILY 12/12/18 [History] Past Medical History - Past Health History Medical/Surgical History: Denies Medical/Surgical History HEENT History: Reports: None Cardiovascular History: Reports: Afib, CAD, High Cholesterol, Hypertension, [place], Pacemaker, Stents Other Cardiovascular History: [place] 1999 with 1 stent placement Respiratory History: Reports: Bronchitis, Recurrent, Sleep Apnea Other Respiratory History: smoker for 51 yrs, has a c-pap Gastrointestinal History: Reports: Chronic Constipation, GERD Genitourinary History: Reports: Diabetic Nephropathy Musculoskeletal History: Reports: Osteoarthritis Neurological History: Reports: Neuropathy, Diabetic Psychiatric History: Reports: Anxiety Endocrine/Metabolic History: Reports: Diabetes, Type II Hematologic History: Reports: None Immunologic History: Reports: None Oncologic (Cancer) History: Reports: None, Colon Other Oncologic History: with surgery, chemo and radiation Stage III Dermatologic History: Reports: None - Infectious Disease History Infectious Disease History: Reports: Chicken Pox, Measles, Mumps, Rheumatic Fever - Past Surgical History Head Surgeries/Procedures: Reports: None HEENT Surgical History: Reports: Naso-Sinus Surgery Respiratory Surgical History: Reports: None GI Surgical History: Reports: Colon Male Surgical History: Reports: Circumcision Musculoskeletal Surgical History: Reports: Arthroscopic Knee, Shoulder Surgery, Other (See Below) Other Musculoskeletal Surgeries/Procedures:: Repaired acl. [place]. Placed bone marrow in hip., left foot surgery with screw placement 11/03/18. right Foot surg. Social & Family History - Family History Family Medical History: Noncontributory Cardiac: Reports: Afib, AICD, Angina, Bypass, CAD, Heart Failure, High Cholesterol, Hypertension, [place] Respiratory: Reports: Asthma, COPD GI: Reports: Cholelithiasis : Reports: Dialysis, Renal Disease/Insufficiency Musculoskeletal: Reports: Arthritis, Back pain, Chronic Neurological: Reports: CVA, Neuropathy, Diabetic Psychiatric: Reports: Anxiety, Depression Endocrine/Metabolic: Reports: Diabetes, type II - Tobacco Use Smoking Status *Q: Current Every Day Smoker Years of Tobacco use: 44 Packs/Tins Daily: 0.5 - Caffeine Use Caffeine Use: Reports: None Other Caffeine Use: 4 pots a day - Recreational Drug Use Recreational Drug Use: No - Living Situation & Occupation Living situation: Reports: with Family Occupation: Unemployed ED ROS GENERAL - Review of Systems Review Of Systems: Comprehensive ROS is negative, except as noted in HPI. ED EXAM, SKIN/RASH Exam: See Below Exam Limited By: No Limitations General Appearance: Alert, No Apparent Distress Eye Exam: Bilateral Eye: EOMI Ears: Normal External Exam Nose: Normal Inspection Throat/Mouth: Normal Inspection Head: Atraumatic, Normocephalic Neck: Normal Inspection Respiratory/Chest: No Respiratory Distress Cardiovascular: Regular Rate, Rhythm Neurological: Alert, Oriented Psychiatric: Normal Affect Skin: Warm, Dry, Intact, Other (3x4mm purple discoloration lateral right great toe, mild tenderness, no blistering noted. ) Associated features: Tenderness Course - Vital Signs Last Recorded V/S: Last Vital Signs Temp 97.5 F 04/17/20 23:39 Pulse 76 04/17/20 23:39 Resp 16 04/17/20 23:39 BP 137/71 04/17/20 23:39 Pulse Ox 97 04/17/20 23:39 - Orders/Labs/Meds Orders: Active Orders 24 hr Category Date Time Status Blood Glucose Check, Bedside [RC] ONETIME Care 04/17/20 23:53 Active Departure - Departure Time of Disposition: 23:58 Disposition: Home, Self-Care 01 Condition: Good Clinical Impression: Diabetic foot ulcer Qualifiers: Diabetic foot ulcer location: toe Diabetes mellitus type: type 2 Laterality: right Non-pressure ulcer stage: unspecified non-pressure ulcer stage Qualified Code(s): E11.621 - Type 2 diabetes mellitus with foot ulcer - Discharge Information *PRESCRIPTION DRUG MONITORING PROGRAM REVIEWED*: No *COPY OF PRESCRIPTION DRUG MONITORING REPORT IN PATIENT RERE: No Instructions: Diabetes Mellitus and Foot Care Forms: ED Department Discharge Additional Instructions: avoid pressure on outside of toe, new shoes recheck clinic next week sooner if worsening monitor blood sugars tylenol 650mg every 4-6 hours as needed for discomfort Sepsis Event Note (ED) - Evaluation Sepsis Screening Result: No Definite Risk - Focused Exam Vital Signs: Vital Signs Temp Pulse Resp BP Pulse Ox 04/17/20 23:39 97.5 F 76 16 137/71 97 - My Orders Last 24 Hours: My Active Orders 04/17/20 23:53 Blood Glucose Check, Bedside [RC] ONETIME - Assessment/Plan Last 24 Hours: My Active Orders 04/17/20 23:53 Blood Glucose Check, Bedside [RC] ONETIME
== END 2020-04-18 00:04 | disposition home or self-care (01) ==
LOC: DL.ED 23:29
DX: E11.621 Type 2 diabetes mellitus with foot ulcer (principal); E11.40 Type 2 diabetes mellitus with diabetic neuropathy, unspecified; I10 Essential (primary) hypertension; I25.2 Old myocardial infarction; I25.10 Atherosclerotic heart disease of native coronary artery without angina pectoris; E78.00 Pure hypercholesterolemia, unspecified; K21.9 Gastro-esophageal reflux disease without esophagitis; F41.9 Anxiety disorder, unspecified; F17.210 Nicotine dependence, cigarettes, uncomplicated; Z95.5 Presence of coronary angioplasty implant and graft; Z91.018 Allergy to other foods; Z88.0 Allergy status to penicillin; Z88.5 Allergy status to narcotic agent; Z91.041 Radiographic dye allergy status; Z79.4 Long term (current) use of insulin; Z79.899 Other long term (current) drug therapy
CPT/HCPCS: 82962; 99283; 99284

== ENCOUNTER 2020-04-28 01:50 | Emergency (ER) | payer MEDICAID ==
[2020-04-28 02:05] VITALS: BP 132/57; PULSE 73
--- NOTE | 2020-04-28 02:12 | EDM.PDOC ---
ED HPI GENERAL MEDICAL PROBLEM - General Chief Complaint: Skin Complaint Stated Complaint: RASH AROUND STOMACH ALL THE WAY AROUND Time Seen by Provider: 04/28/20 02:09 Source of Information: Reports: Patient History Limitations: Reports: No Limitations - History of Present Illness INITIAL COMMENTS - FREE TEXT/NARRATIVE: noticed rash on back and on stomach too. also worried about pacemaker wires on left shoulder bothering him. - Related Data Allergies Allergy/AdvReac Type Severity Reaction Status Date / Time chicken derived Allergy Hives Verified 04/28/20 02:12 codeine Allergy Hives Verified 04/28/20 02:12 Penicillins Allergy Hives Verified 04/28/20 02:12 tramadol Allergy Hives Verified 04/28/20 02:12 Contrast media Allergy Hives Uncoded 04/28/20 02:12 Home Meds: Home Meds Aspirin 81 mg PO BRK 11/09/15 [History] Calcium Citrate/Vitamin D3 [[place] Calcium 200-Vit D3 250] 1 each PO DAILY 11/09/15 [History] Docusate Sodium [Colace] 100 mg PO BID 11/09/15 [History] Gabapentin [Neurontin] 900 mg PO TID 11/09/15 [History] Hydrochlorothiazide 25 mg PO DAILY 11/09/15 [History] Lisinopril 20 mg PO DAILY 11/09/15 [History] Omeprazole 20 mg PO ACBREAKFAST 11/09/15 [History] atorvaSTATin [Lipitor] 20 mg PO BEDTIME 11/09/15 [History] metFORMIN [Glucophage XR] 1,000 mg PO BIDMEALS 11/09/15 [History] Apixaban [Eliquis] 5 mg PO DAILY 11/08/17 [History] Cholecalciferol (Vitamin D3) [Vitamin D3] 1,000 unit PO DAILY 11/08/17 [History] Fluticasone Propionate [Flonase Allergy Relief] 15.8 ml NS DAILY 11/08/17 [History] Insulin Glarg,Human.Rec.Analog [Lantus Solostar] 50 unit SUBCUT DAILY 11/08/17 [History] Melatonin/Pyridoxine HCl (B6) [Melatonin 3 mg Tablet] 9 mg PO BEDTIME 11/08/17 [History] [place]-3 Fatty Acids [[place]-3] 1 gm PO DAILY 11/08/17 [History] Prazosin HCl [Prazosin] 1 mg PO BEDTIME 11/08/17 [History] Triamcinolone Acetonide [Triamcinolone Acetonide 0.1% Crm] 80 gm .XX BID 11/08/17 [History] glipiZIDE [Glucotrol XL] 10 mg PO BID 11/08/17 [History] Metoprolol Tartrate [Lopressor] 50 mg PO BID #60 tablet 11/09/17 [Rx] Diltiazem [Diltiazem XR] 240 mg PO BID 02/11/18 [History] Past Medical History - Past Health History Medical/Surgical History: Denies Medical/Surgical History HEENT History: Reports: None Cardiovascular History: Reports: Afib, CAD, High Cholesterol, Hypertension, [place], Pacemaker, Stents Other Cardiovascular History: ID 1999 with 1 stent placement Respiratory History: Reports: Bronchitis, Recurrent, Sleep Apnea Other Respiratory History: smoker for 51 yrs, has a c-pap Gastrointestinal History: Reports: Chronic Constipation, GERD Genitourinary History: Reports: Diabetic Nephropathy Musculoskeletal History: Reports: Osteoarthritis Neurological History: Reports: Neuropathy, Diabetic Psychiatric History: Reports: Anxiety Endocrine/Metabolic History: Reports: Diabetes, Type II Hematologic History: Reports: None Immunologic History: Reports: None Oncologic (Cancer) History: Reports: None, Colon Other Oncologic History: with surgery, chemo and radiation Stage III Dermatologic History: Reports: None - Infectious Disease History Infectious Disease History: Reports: Chicken Pox, Measles, Mumps, Rheumatic Fever - Past Surgical History Head Surgeries/Procedures: Reports: None HEENT Surgical History: Reports: Naso-Sinus Surgery Respiratory Surgical History: Reports: None GI Surgical History: Reports: Colon Male Surgical History: Reports: Circumcision Musculoskeletal Surgical History: Reports: Arthroscopic Knee, Shoulder Surgery, Other (See Below) Other Musculoskeletal Surgeries/Procedures:: Repaired acl. [place]. Placed bone marrow in hip., left foot surgery with screw placement 11/03/18. right Foot surg. Social & Family History - Family History Family Medical History: Noncontributory Cardiac: Reports: Afib, AICD, Angina, Bypass, CAD, Heart Failure, High Cholesterol, Hypertension, [place] Respiratory: Reports: Asthma, COPD GI: Reports: Cholelithiasis : Reports: Dialysis, Renal Disease/Insufficiency Musculoskeletal: Reports: Arthritis, Back pain, Chronic Neurological: Reports: CVA, Neuropathy, Diabetic Psychiatric: Reports: Anxiety, Depression Endocrine/Metabolic: Reports: Diabetes, type II - Caffeine Use Caffeine Use: Reports: None Other Caffeine Use: 4 pots a day - Living Situation & Occupation Living situation: Reports: with Family Occupation: Unemployed ED ROS GENERAL - Review of Systems Review Of Systems: Comprehensive ROS is negative, except as noted in HPI. ED EXAM, SKIN/RASH Exam: See Below Exam Limited By: No Limitations General Appearance: Alert, WD/WN, No Apparent Distress Ears: Hearing Grossly Normal Throat/Mouth: Normal Voice, No Airway Compromise Head: Atraumatic Neck: Non-Tender, Full Range of Motion Respiratory/Chest: No Respiratory Distress Cardiovascular: Regular Rate, Rhythm GI/Abdominal: Soft, Non-Tender Neurological: Alert, Oriented, Normal Cognition, Normal Gait, No Motor/Sensory Deficits Psychiatric: Normal Affect, Normal Mood Skin: Warm, Dry, Normal Color, Rash Location, Skin: Abdomen, Back Characteristics: Papular, Other (discreet bug bite, denies irritation) Associated features: No: Tenderness, Scaling, Inflammation, Crusting, Weeping Lymphatic: No Adenopathy Course - Vital Signs Last Recorded V/S: Last Vital Signs Temp 36.4 C 04/28/20 02:04 Pulse 73 04/28/20 02:04 Resp 18 04/28/20 02:04 BP 132/57 L 04/28/20 02:04 Pulse Ox 96 04/28/20 02:04 - Re-Assessments/Exams Free Text/Narrative Re-Assessment/Exam: 04/28/20 02:46 results discussed with pt. Departure - Departure Time of Disposition: 02:48 Disposition: Home, Self-Care 01 Condition: Good Clinical Impression: Rash and nonspecific skin eruption - Discharge Information Forms: ED Department Discharge Additional Instructions: 1) call director law enforcement Thursday if pacemaker still bothering you. 2) take benadryl 25mg twice daily for rash. Sepsis Event Note (ED) - Evaluation Sepsis Screening Result: No Definite Risk - Focused Exam Vital Signs: Vital Signs Temp Pulse Resp BP Pulse Ox 04/28/20 02:04 36.4 C 73 18 132/57 L 96
--- NOTE | 2020-04-28 02:39 | CR ---
PROCEDURE INFORMATION: Exam: XR Chest, 1 View Exam date and time: 04/28/2020 2:17 AM Age: 64 years old Clinical indication: Other: Feels like pacer wires are poking him; Additional info: Pacermaker placement TECHNIQUE: Imaging protocol: XR of the chest Views: 1 view. COMPARISON: CR Chest 2V 03/28/2020 11:43 PM FINDINGS: Lungs: Unremarkable. No consolidation. Pleural space: Unremarkable. No pleural effusion. No pneumothorax. Heart/Mediastinum: Unremarkable. No cardiomegaly. Bones/joints: Unremarkable. IMPRESSION: No acute findings. There is a dual chamber pacemaker with leads in excellent position. The appearance is similar to the prior study dated 03/28/2020
== END 2020-04-28 02:50 | disposition home or self-care (01) ==
LOC: DL.ED 01:50
DX: R21 Rash and other nonspecific skin eruption (principal); E11.40 Type 2 diabetes mellitus with diabetic neuropathy, unspecified; E11.21 Type 2 diabetes mellitus with diabetic nephropathy; I10 Essential (primary) hypertension; E78.00 Pure hypercholesterolemia, unspecified; I48.91 Unspecified atrial fibrillation; I25.10 Atherosclerotic heart disease of native coronary artery without angina pectoris; I25.2 Old myocardial infarction; Z95.5 Presence of coronary angioplasty implant and graft; K21.9 Gastro-esophageal reflux disease without esophagitis; Z98.890 Other specified postprocedural states; Z88.5 Allergy status to narcotic agent; Z88.0 Allergy status to penicillin; Z88.6 Allergy status to analgesic agent; Z91.018 Allergy to other foods; Z91.041 Radiographic dye allergy status; Z79.899 Other long term (current) drug therapy
CPT/HCPCS: 71045; 99282; 99284-25

== ENCOUNTER 2020-05-21 01:57 | Emergency (ER) | payer MEDICAID, OTHER ==
[2020-05-21] MEDS ORDERED: Acetaminophen/HYDROcodone 325-10 MG Tab PO ONE (02:07)
[2020-05-21 02:09] VITALS: BP 159/79; PULSE 85
--- NOTE | 2020-05-21 02:12 | EDM.PDOC ---
ED HPI GENERAL MEDICAL PROBLEM - General Chief Complaint: ENT Problem Stated Complaint: TOOTH PAIN Time Seen by Provider: 05/21/20 02:08 Source of Information: Reports: Patient History Limitations: Reports: No Limitations - History of Present Illness INITIAL COMMENTS - FREE TEXT/NARRATIVE: s/p extraction 7 teeth week ago out of Rx. only got 10x Left Lower Tooth/Teeth Pain Score (Numeric/FACES): 9 - Related Data Allergies Allergy/AdvReac Type Severity Reaction Status Date / Time chicken derived Allergy Hives Verified 04/28/20 02:12 codeine Allergy Hives Verified 04/28/20 02:12 Penicillins Allergy Hives Verified 04/28/20 02:12 tramadol Allergy Hives Verified 04/28/20 02:12 Contrast media Allergy Hives Uncoded 04/28/20 02:12 Home Meds: Home Meds Aspirin 81 mg PO BRK 11/09/15 [History] Calcium Citrate/Vitamin D3 [[place] Calcium 200-Vit D3 250] 1 each PO DAILY 11/09/15 [History] Docusate Sodium [Colace] 100 mg PO BID 11/09/15 [History] Gabapentin [Neurontin] 900 mg PO TID 11/09/15 [History] Hydrochlorothiazide 25 mg PO DAILY 11/09/15 [History] Lisinopril 20 mg PO DAILY 11/09/15 [History] Omeprazole 20 mg PO ACBREAKFAST 11/09/15 [History] atorvaSTATin [Lipitor] 20 mg PO BEDTIME 11/09/15 [History] metFORMIN [Glucophage XR] 1,000 mg PO BIDMEALS 11/09/15 [History] Apixaban [Eliquis] 5 mg PO DAILY 11/08/17 [History] Cholecalciferol (Vitamin D3) [Vitamin D3] 1,000 unit PO DAILY 11/08/17 [History] Fluticasone Propionate [Flonase Allergy Relief] 15.8 ml NS DAILY 11/08/17 [History] Insulin Glarg,Human.Rec.Analog [Lantus Solostar] 50 unit SUBCUT DAILY 11/08/17 [History] Melatonin/Pyridoxine HCl (B6) [Melatonin 3 mg Tablet] 9 mg PO BEDTIME 11/08/17 [History] [place]-3 Fatty Acids [[place]-3] 1 gm PO DAILY 11/08/17 [History] Prazosin HCl [Prazosin] 1 mg PO BEDTIME 11/08/17 [History] Triamcinolone Acetonide [Triamcinolone Acetonide 0.1% Crm] 80 gm .XX BID 11/08/17 [History] glipiZIDE [Glucotrol XL] 10 mg PO BID 11/08/17 [History] Metoprolol Tartrate [Lopressor] 50 mg PO BID #60 tablet 11/09/17 [Rx] Diltiazem [Diltiazem XR] 240 mg PO BID 02/11/18 [History] Past Medical History - Past Health History Medical/Surgical History: Denies Medical/Surgical History HEENT History: Reports: None Cardiovascular History: Reports: Afib, CAD, High Cholesterol, Hypertension, [place], Pacemaker, Stents Other Cardiovascular History: ID 1999 with 1 stent placement Respiratory History: Reports: Bronchitis, Recurrent, Sleep Apnea Other Respiratory History: smoker for 51 yrs, has a c-pap Gastrointestinal History: Reports: Chronic Constipation, GERD Genitourinary History: Reports: Diabetic Nephropathy Musculoskeletal History: Reports: Osteoarthritis Neurological History: Reports: Neuropathy, Diabetic Psychiatric History: Reports: Anxiety Endocrine/Metabolic History: Reports: Diabetes, Type II Hematologic History: Reports: None Immunologic History: Reports: None Oncologic (Cancer) History: Reports: None, Colon Other Oncologic History: with surgery, chemo and radiation Stage III Dermatologic History: Reports: None - Infectious Disease History Infectious Disease History: Reports: Chicken Pox, Measles, Mumps, Rheumatic Fever - Past Surgical History Head Surgeries/Procedures: Reports: None HEENT Surgical History: Reports: Naso-Sinus Surgery Respiratory Surgical History: Reports: None GI Surgical History: Reports: Colon Male Surgical History: Reports: Circumcision Musculoskeletal Surgical History: Reports: Arthroscopic Knee, Shoulder Surgery, Other (See Below) Other Musculoskeletal Surgeries/Procedures:: Repaired acl. [place]. Placed bone marrow in hip., left foot surgery with screw placement 11/03/18. right Foot surg. Social & Family History - Family History Family Medical History: Noncontributory Cardiac: Reports: Afib, AICD, Angina, Bypass, CAD, Heart Failure, High Cholesterol, Hypertension, [place] Respiratory: Reports: Asthma, COPD GI: Reports: Cholelithiasis : Reports: Dialysis, Renal Disease/Insufficiency Musculoskeletal: Reports: Arthritis, Back pain, Chronic Neurological: Reports: CVA, Neuropathy, Diabetic Psychiatric: Reports: Anxiety, Depression Endocrine/Metabolic: Reports: Diabetes, type II - Caffeine Use Caffeine Use: Reports: None Other Caffeine Use: 4 pots a day - Living Situation & Occupation Living situation: Reports: with Family Occupation: Unemployed ED ROS ENT - Review of Systems Review Of Systems: Comprehensive ROS is negative, except as noted in HPI. ED EXAM, ENT - Physical Exam Exam: See Below Exam Limited By: No Limitations General Appearance: Alert, WD/WN, Mild Distress, Moderate Distress, Other (pain) Ears: Hearing Grossly Normal Mouth/Throat: Other (left multiple lower molar sutured sockets, local swelling) Head: Atraumatic Neck: Non-Tender, Full Range of Motion Respiratory/Chest: No Respiratory Distress Cardiovascular: Regular Rate, Rhythm GI/Abdominal: Soft, Non-Tender Neurological: Alert, Oriented, Normal Cognition, Normal Gait, No Motor/Sensory Deficits Psychiatric: Flat Affect, Tearful Skin: Warm, Dry, Normal Color Lymphatic: No Adenopathy Course - Orders/Labs/Meds Orders: Active Orders 24 hr Category Date Time Status Acetaminophen/HYDROcodone [[place] 325-10 MG] Med 05/21/20 02:07 Once 1 tab PO ONETIME ONE Departure - Departure Time of Disposition: 02:11 Disposition: Home, Self-Care 01 Condition: Good Clinical Impression: S/P tooth extraction - Discharge Information Additional Instructions: 1) avoid solid foods 2) see DENTIST tomorrow - My Orders Last 24 Hours: My Active Orders 05/21/20 02:07 Acetaminophen/HYDROcodone [[place] 325-10 MG] 1 tab PO ONETIME ONE - Assessment/Plan Last 24 Hours: My Active Orders 05/21/20 02:07 Acetaminophen/HYDROcodone [[place] 325-10 MG] 1 tab PO ONETIME ONE
== END 2020-05-21 02:15 | disposition home or self-care (01) ==
LOC: DL.ED 01:57
DX: K08.409 Partial loss of teeth, unspecified cause, unspecified class (principal); I48.91 Unspecified atrial fibrillation; I25.10 Atherosclerotic heart disease of native coronary artery without angina pectoris; E78.00 Pure hypercholesterolemia, unspecified; I10 Essential (primary) hypertension; I25.2 Old myocardial infarction; Z95.5 Presence of coronary angioplasty implant and graft; K21.9 Gastro-esophageal reflux disease without esophagitis; E11.40 Type 2 diabetes mellitus with diabetic neuropathy, unspecified; M19.90 Unspecified osteoarthritis, unspecified site; Z79.01 Long term (current) use of anticoagulants; Z79.84 Long term (current) use of oral hypoglycemic drugs; Z91.018 Allergy to other foods; Z88.5 Allergy status to narcotic agent; Z88.0 Allergy status to penicillin; Z91.041 Radiographic dye allergy status; Z79.82 Long term (current) use of aspirin; Z79.899 Other long term (current) drug therapy; Z79.4 Long term (current) use of insulin
CPT/HCPCS: 99282; 99283; A9270

== ENCOUNTER 2020-05-26 05:06 | Emergency (ER) | payer MEDICAID ==
[2020-05-26 05:15] VITALS: BP 145/83; PULSE 97
[2020-05-26] MEDS ORDERED: Acetaminophen/HYDROcodone 325-10 MG Tab PO ONE (05:16)
--- NOTE | 2020-05-26 05:19 | EDM.PDOC ---
ED HPI GENERAL MEDICAL PROBLEM - General Chief Complaint: ENT Problem Stated Complaint: FACIAL PAIN Time Seen by Provider: 05/26/20 05:16 Source of Information: Reports: Patient History Limitations: Reports: No Limitations - History of Present Illness INITIAL COMMENTS - FREE TEXT/NARRATIVE: woke up with left face cheek area tender and swollen. taking ABX for teeth. denies eye itchy or drainage. Left Face/Facial Pain Score (Numeric/FACES): 8 - Related Data Allergies Allergy/AdvReac Type Severity Reaction Status Date / Time chicken derived Allergy Hives Verified 05/26/20 05:15 codeine Allergy Hives Verified 05/26/20 05:15 Penicillins Allergy Hives Verified 05/26/20 05:15 tramadol Allergy Hives Verified 05/26/20 05:15 Contrast media Allergy Hives Uncoded 05/21/20 02:09 Home Meds: Home Meds Aspirin 81 mg PO BRK 11/09/15 [History] Calcium Citrate/Vitamin D3 [[place] Calcium 200-Vit D3 250] 1 each PO DAILY 11/09/15 [History] Docusate Sodium [Colace] 100 mg PO BID 11/09/15 [History] Gabapentin [Neurontin] 900 mg PO TID 11/09/15 [History] Hydrochlorothiazide 25 mg PO DAILY 11/09/15 [History] Lisinopril 20 mg PO DAILY 11/09/15 [History] Omeprazole 20 mg PO ACBREAKFAST 11/09/15 [History] atorvaSTATin [Lipitor] 20 mg PO BEDTIME 11/09/15 [History] metFORMIN [Glucophage XR] 1,000 mg PO BIDMEALS 11/09/15 [History] Apixaban [Eliquis] 5 mg PO DAILY 11/08/17 [History] Cholecalciferol (Vitamin D3) [Vitamin D3] 1,000 unit PO DAILY 11/08/17 [History] Fluticasone Propionate [Flonase Allergy Relief] 15.8 ml NS DAILY 11/08/17 [History] Insulin Glarg,Human.Rec.Analog [Lantus Solostar] 50 unit SUBCUT DAILY 11/08/17 [History] Melatonin/Pyridoxine HCl (B6) [Melatonin 3 mg Tablet] 9 mg PO BEDTIME 11/08/17 [History] [place]-3 Fatty Acids [[place]-3] 1 gm PO DAILY 11/08/17 [History] Prazosin HCl [Prazosin] 1 mg PO BEDTIME 11/08/17 [History] Triamcinolone Acetonide [Triamcinolone Acetonide 0.1% Crm] 80 gm .XX BID 11/08/17 [History] glipiZIDE [Glucotrol XL] 10 mg PO BID 11/08/17 [History] Metoprolol Tartrate [Lopressor] 50 mg PO BID #60 tablet 11/09/17 [Rx] Diltiazem [Diltiazem XR] 240 mg PO BID 02/11/18 [History] Past Medical History - Past Health History Medical/Surgical History: Denies Medical/Surgical History HEENT History: Reports: None Cardiovascular History: Reports: Afib, CAD, High Cholesterol, Hypertension, [place], Pacemaker, Stents Other Cardiovascular History: [place] 1999 with 1 stent placement Respiratory History: Reports: Bronchitis, Recurrent, Sleep Apnea Other Respiratory History: smoker for 51 yrs, has a c-pap Gastrointestinal History: Reports: Chronic Constipation, GERD Genitourinary History: Reports: Diabetic Nephropathy Musculoskeletal History: Reports: Osteoarthritis Neurological History: Reports: Neuropathy, Diabetic Psychiatric History: Reports: Anxiety Endocrine/Metabolic History: Reports: Diabetes, Type II Hematologic History: Reports: None Immunologic History: Reports: None Oncologic (Cancer) History: Reports: None, Colon Other Oncologic History: with surgery, chemo and radiation Stage III Dermatologic History: Reports: None - Infectious Disease History Infectious Disease History: Reports: Chicken Pox, Measles, Mumps, Rheumatic Fever - Past Surgical History Head Surgeries/Procedures: Reports: None HEENT Surgical History: Reports: Naso-Sinus Surgery Respiratory Surgical History: Reports: None GI Surgical History: Reports: Colon Male Surgical History: Reports: Circumcision Musculoskeletal Surgical History: Reports: Arthroscopic Knee, Shoulder Surgery, Other (See Below) Other Musculoskeletal Surgeries/Procedures:: Repaired acl. [place]. Placed bone marrow in hip., left foot surgery with screw placement 11/03/18. right Foot surg. Social & Family History - Family History Family Medical History: Noncontributory Cardiac: Reports: Afib, AICD, Angina, Bypass, CAD, Heart Failure, High Cholesterol, Hypertension, [place] Respiratory: Reports: Asthma, COPD GI: Reports: Cholelithiasis : Reports: Dialysis, Renal Disease/Insufficiency Musculoskeletal: Reports: Arthritis, Back pain, Chronic Neurological: Reports: CVA, Neuropathy, Diabetic Psychiatric: Reports: Anxiety, Depression Endocrine/Metabolic: Reports: Diabetes, type II - Tobacco Use Smoking Status *Q: Never Smoker - Caffeine Use Caffeine Use: Reports: None Other Caffeine Use: 4 pots a day - Recreational Drug Use Recreational Drug Use: No - Living Situation & Occupation Living situation: Reports: with Family Occupation: Unemployed ED ROS ENT - Review of Systems Review Of Systems: Comprehensive ROS is negative, except as noted in HPI. ED EXAM, ENT - Physical Exam Exam: See Below Exam Limited By: No Limitations General Appearance: Alert, WD/WN, Mild Distress, Other (disocmfort) Ears: Hearing Grossly Normal Mouth/Throat: Dental Abcess, Other (left cheek swelling) Head: Atraumatic Neck: Non-Tender, Full Range of Motion Respiratory/Chest: No Respiratory Distress Cardiovascular: Regular Rate, Rhythm GI/Abdominal: Soft, Non-Tender Neurological: Alert, Oriented, Normal Cognition, Normal Gait, No Motor/Sensory Deficits Psychiatric: Flat Affect Skin: Warm, Dry, Normal Color Lymphatic: No Adenopathy Course - Vital Signs Last Recorded V/S: Last Vital Signs Temp 35.8 C L 05/26/20 05:12 Pulse 97 05/26/20 05:12 Resp 16 05/26/20 05:12 BP 145/83 H 05/26/20 05:12 Pulse Ox 98 05/26/20 05:12 - Orders/Labs/Meds Orders: Active Orders 24 hr Category Date Time Status Acetaminophen/HYDROcodone [[place] 325-10 MG] Med 05/26/20 05:16 Once 1 tab PO ONETIME ONE Departure - Departure Time of Disposition: 05:18 Disposition: Home, Self-Care 01 Condition: Good Clinical Impression: Dental abscess - Discharge Information Additional Instructions: 1) see DENTIST Thursday Sepsis Event Note (ED) - Evaluation Sepsis Screening Result: No Definite Risk - Focused Exam Vital Signs: Vital Signs Temp Pulse Resp BP Pulse Ox 05/26/20 05:12 35.8 C L 97 16 145/83 H 98 - My Orders Last 24 Hours: My Active Orders 05/26/20 05:16 Acetaminophen/HYDROcodone [[place] 325-10 MG] 1 tab PO ONETIME ONE - Assessment/Plan Last 24 Hours: My Active Orders 05/26/20 05:16 Acetaminophen/HYDROcodone [[place] 325-10 MG] 1 tab PO ONETIME ONE
== END 2020-05-26 05:21 | disposition home or self-care (01) ==
LOC: DL.ED 05:06
DX: K04.7 Periapical abscess without sinus (principal); I10 Essential (primary) hypertension; E78.00 Pure hypercholesterolemia, unspecified; I48.91 Unspecified atrial fibrillation; I25.2 Old myocardial infarction; E11.40 Type 2 diabetes mellitus with diabetic neuropathy, unspecified; E11.21 Type 2 diabetes mellitus with diabetic nephropathy; F41.9 Anxiety disorder, unspecified; Z88.5 Allergy status to narcotic agent; Z95.5 Presence of coronary angioplasty implant and graft; Z88.0 Allergy status to penicillin; Z91.041 Radiographic dye allergy status; Z91.018 Allergy to other foods; Z79.4 Long term (current) use of insulin; Z79.899 Other long term (current) drug therapy
CPT/HCPCS: 99282; A9270

== ENCOUNTER 2020-06-20 00:51 | Emergency (ER) | payer MEDICAID, OTHER ==
[2020-06-20] MEDS ORDERED: Acetaminophen/HYDROcodone 325-5 MG Tab PO ONE (00:52)
[2020-06-20 00:57] VITALS: BP 142/65; PULSE 78
[2020-06-20] MEDS ORDERED: Acetaminophen/HYDROcodone 325-5 MG Tab ONE (01:09)
--- NOTE | 2020-06-20 01:13 | EDM.PDOC ---
ED HPI GENERAL MEDICAL PROBLEM - General Chief Complaint: Neck Problem Stated Complaint: NECK AND LOWER BACK PAIN Time Seen by Provider: 06/20/20 01:00 Source of Information: Reports: Patient History Limitations: Reports: No Limitations - History of Present Illness INITIAL COMMENTS - FREE TEXT/NARRATIVE: ED with c/o low back pain and neck pain tried tylenol at 10pm, no relief. Unable to sleep. Appt at ID scheduled for 07/04. Prior injections to neck and back. Denies injury. No radiation of pain. No fever or chills. Neck Pain Score (Numeric/FACES): 9 Lower Back Pain Score (Numeric/FACES): 9 - Related Data Allergies Allergy/AdvReac Type Severity Reaction Status Date / Time chicken derived Allergy Hives Verified 05/26/20 05:15 codeine Allergy Hives Verified 05/26/20 05:15 Penicillins Allergy Hives Verified 05/26/20 05:15 tramadol Allergy Hives Verified 05/26/20 05:15 Contrast media Allergy Hives Uncoded 05/21/20 02:09 Home Meds: Home Meds Aspirin 81 mg PO BRK 11/09/15 [History] Calcium Citrate/Vitamin D3 [[place] Calcium 200-Vit D3 250] 1 each PO DAILY 11/09/15 [History] Docusate Sodium [Colace] 100 mg PO BID 11/09/15 [History] Gabapentin [Neurontin] 900 mg PO TID 11/09/15 [History] Hydrochlorothiazide 25 mg PO DAILY 11/09/15 [History] Lisinopril 20 mg PO DAILY 11/09/15 [History] Omeprazole 20 mg PO ACBREAKFAST 11/09/15 [History] atorvaSTATin [Lipitor] 20 mg PO BEDTIME 11/09/15 [History] metFORMIN [Glucophage XR] 1,000 mg PO BIDMEALS 11/09/15 [History] Apixaban [Eliquis] 5 mg PO DAILY 11/08/17 [History] Cholecalciferol (Vitamin D3) [Vitamin D3] 1,000 unit PO DAILY 11/08/17 [History] Fluticasone Propionate [Flonase Allergy Relief] 15.8 ml NS DAILY 11/08/17 [History] Insulin Glarg,Human.Rec.Analog [Lantus Solostar] 50 unit SUBCUT DAILY 11/08/17 [History] Melatonin/Pyridoxine HCl (B6) [Melatonin 3 mg Tablet] 9 mg PO BEDTIME 11/08/17 [History] [place]-3 Fatty Acids [[place]-3] 1 gm PO DAILY 11/08/17 [History] Prazosin HCl [Prazosin] 1 mg PO BEDTIME 11/08/17 [History] Triamcinolone Acetonide [Triamcinolone Acetonide 0.1% Crm] 80 gm .XX BID 11/08/17 [History] glipiZIDE [Glucotrol XL] 10 mg PO BID 11/08/17 [History] Metoprolol Tartrate [Lopressor] 50 mg PO BID #60 tablet 11/09/17 [Rx] Diltiazem [Diltiazem XR] 240 mg PO BID 02/11/18 [History] Past Medical History - Past Health History Medical/Surgical History: Denies Medical/Surgical History HEENT History: Reports: None Cardiovascular History: Reports: Afib, CAD, High Cholesterol, Hypertension, [place], Pacemaker, Stents Other Cardiovascular History: [place] 1999 with 1 stent placement Respiratory History: Reports: Bronchitis, Recurrent, Sleep Apnea Other Respiratory History: smoker for 51 yrs, has a c-pap Gastrointestinal History: Reports: Chronic Constipation, GERD Genitourinary History: Reports: Diabetic Nephropathy Musculoskeletal History: Reports: Osteoarthritis Neurological History: Reports: Neuropathy, Diabetic Psychiatric History: Reports: Anxiety Endocrine/Metabolic History: Reports: Diabetes, Type II Hematologic History: Reports: None Immunologic History: Reports: None Oncologic (Cancer) History: Reports: None, Colon Other Oncologic History: with surgery, chemo and radiation Stage III Dermatologic History: Reports: None - Infectious Disease History Infectious Disease History: Reports: Chicken Pox, Measles, Mumps, Rheumatic [place] - Past Surgical History Head Surgeries/Procedures: Reports: None HEENT Surgical History: Reports: Naso-Sinus Surgery Respiratory Surgical History: Reports: None GI Surgical History: Reports: Colon Male Surgical History: Reports: Circumcision Musculoskeletal Surgical History: Reports: Arthroscopic Knee, Shoulder Surgery, Other (See Below) Other Musculoskeletal Surgeries/Procedures:: Repaired acl. [place]. Placed bone marrow in hip., left foot surgery with screw placement 11/03/18. right Foot surg. Social & Family History - Family History Family Medical History: Noncontributory Cardiac: Reports: Afib, AICD, Angina, Bypass, CAD, Heart Failure, High Cholesterol, Hypertension, [place] Respiratory: Reports: Asthma, COPD GI: Reports: Cholelithiasis : Reports: Dialysis, Renal Disease/Insufficiency Musculoskeletal: Reports: Arthritis, Back pain, Chronic Neurological: Reports: CVA, Neuropathy, Diabetic Psychiatric: Reports: Anxiety, Depression Endocrine/Metabolic: Reports: Diabetes, type II - Tobacco Use Smoking Status *Q: Former Smoker Used Tobacco, but Quit: No - Caffeine Use Caffeine Use: Reports: Coffee Other Caffeine Use: 4 pots a day - Recreational Drug Use Recreational Drug Use: No - Living Situation & Occupation Living situation: Reports: with Family Occupation: Unemployed ED ROS GENERAL - Review of Systems Review Of Systems: Comprehensive ROS is negative, except as noted in HPI. ED EXAM,LOWER BACK PAIN/INJURY - Physical Exam Exam: See Below Exam Limited By: No Limitations General Appearance: Alert, Mild Distress Eye Exam: Bilateral Eye: EOMI Ears: Normal External Exam Nose: Normal Inspection Throat/Mouth: Normal Inspection Head: Atraumatic, Normocephalic Neck: Normal Inspection, Tender Lateral (left). No: Tender Midline Respiratory/Chest: No Respiratory Distress, Lungs Clear Cardiovascular: Normal Peripheral Pulses, Regular Rate, Rhythm GI/Abdominal: Normal Bowel Sounds, Soft Back Exam: Paraspinal Tenderness (uper lumbar), Vertebral Tenderness Extremities: Normal Inspection Neurological: Alert, Normal Mood/Affect, Normal Gait, Oriented x 3 Psychiatric: Normal Affect, Normal Mood Skin Exam: Warm, Dry, Intact, Normal Color Course - Vital Signs Last Recorded V/S: Last Vital Signs Temp 96.6 F L 06/20/20 00:54 Pulse 78 06/20/20 00:54 Resp 16 06/20/20 00:54 BP 142/65 H 06/20/20 00:54 Pulse Ox 96 06/20/20 00:54 - Orders/Labs/Meds Meds: Medications Discontinued Medications Generic Name Dose Route Start Last Admin Trade Name Freq PRN Reason Stop Dose Admin Hydrocodone Bitart/Acetaminophen Confirm 06/20/20 01:09 [place] 325-5 Mg Administered 06/20/20 01:10 Dose 2 tab .ROUTE .STK-MED ONE Departure - Departure Time of Disposition: 01:13 Disposition: Home, Self-Care 01 Condition: Good Clinical Impression: Cervical radiculopathy, Back pain - Discharge Information *PRESCRIPTION DRUG MONITORING PROGRAM REVIEWED*: No *COPY OF PRESCRIPTION DRUG MONITORING REPORT IN PATIENT RERE: No Instructions: Chronic Back Pain Referrals: PCP,None [Primary Care Provider] - Forms: ED Department Discharge Additional Instructions: [facility]one 5/325 one every 6 hours as needed for severe pain urgent follow up if unable to control urine or bowels or develop fever Sepsis Event Note (ED) - Evaluation Sepsis Screening Result: No Definite Risk - Focused Exam Vital Signs: Vital Signs Temp Pulse Resp BP Pulse Ox 06/20/20 00:54 96.6 F L 78 16 142/65 H 96
== END 2020-06-20 01:17 | disposition home or self-care (01) ==
LOC: DL.ED 00:51
DX: M54.5 Low back pain (principal); M54.12 Radiculopathy, cervical region; I48.91 Unspecified atrial fibrillation; I25.10 Atherosclerotic heart disease of native coronary artery without angina pectoris; E78.00 Pure hypercholesterolemia, unspecified; I10 Essential (primary) hypertension; I25.2 Old myocardial infarction; F41.9 Anxiety disorder, unspecified; K21.9 Gastro-esophageal reflux disease without esophagitis; E11.21 Type 2 diabetes mellitus with diabetic nephropathy; Z79.4 Long term (current) use of insulin; Z79.82 Long term (current) use of aspirin; Z95.0 Presence of cardiac pacemaker; Z95.5 Presence of coronary angioplasty implant and graft; Z87.891 Personal history of nicotine dependence; Z79.899 Other long term (current) drug therapy
CPT/HCPCS: 99283; A9270-GY

== ENCOUNTER 2020-06-21 21:26 | Emergency (ER) | payer MEDICAID ==
[2020-06-21 21:42] VITALS: BP 138/57; PULSE 64
== END 2020-06-21 23:04 | disposition left against medical advice (07) ==
LOC: DL.ED 21:26
DX: Z53.21 Procedure and treatment not carried out due to patient leaving prior to being seen by health care provider (principal)

== ENCOUNTER 2020-07-13 20:16 | Emergency (ER) | payer MEDICAID, OTHER ==
[2020-07-13 20:39] VITALS: BP 116/59; PULSE 123
[2020-07-13] MEDS ORDERED: Diltiazem 25 MG/5 ML SDV IVPUSH ONE (20:53)
[2020-07-13 21:04] LABS: ANION GAP 15.1 mEq/L (7-13); CHLORIDE,CL 103 mmol/L (98-107); SODIUM,NA 137 mmol/L (136-145)
[2020-07-13] MEDS ORDERED: Acetaminophen 325 MG Tab PO ONE (22:31)
--- NOTE | 2020-07-13 22:34 | EDM.PDOC ---
ED HPI GENERAL MEDICAL PROBLEM - General Chief Complaint: Chest Pain Stated Complaint: CHEST BEATS FAST AND SLOWS...ALSO LOWER BACK Time Seen by Provider: 07/13/20 20:40 Source of Information: Reports: Patient History Limitations: Reports: No Limitations - History of Present Illness INITIAL COMMENTS - FREE TEXT/NARRATIVE: c/o heart racing then slowing down for past 2 hours happened about 6 times. Has not had issue since pacemaker placed this summer. No chest pain or SOB. No fever or chills. States taking medication as prescribed, Non smoker, Denies excessive caffeine or other drugs. - Related Data Allergies Allergy/AdvReac Type Severity Reaction Status Date / Time chicken derived Allergy Hives Verified 07/13/20 20:40 codeine Allergy Hives Verified 07/13/20 20:40 Penicillins Allergy Hives Verified 07/13/20 20:40 tramadol Allergy Hives Verified 07/13/20 20:40 Contrast media Allergy Hives Uncoded 07/13/20 20:40 Home Meds: Home Meds Aspirin 81 mg PO BRK 11/09/15 [History] Calcium Citrate/Vitamin D3 [[place] Calcium 200-Vit D3 250] 1 each PO DAILY 11/09/15 [History] Docusate Sodium [Colace] 100 mg PO BID 11/09/15 [History] Gabapentin [Neurontin] 900 mg PO TID 11/09/15 [History] Hydrochlorothiazide 25 mg PO DAILY 11/09/15 [History] Lisinopril 20 mg PO DAILY 11/09/15 [History] Omeprazole 20 mg PO ACBREAKFAST 11/09/15 [History] atorvaSTATin [Lipitor] 20 mg PO BEDTIME 11/09/15 [History] metFORMIN [Glucophage XR] 1,000 mg PO BIDMEALS 11/09/15 [History] Apixaban [Eliquis] 5 mg PO DAILY 11/08/17 [History] Cholecalciferol (Vitamin D3) [Vitamin D3] 1,000 unit PO DAILY 11/08/17 [History] Fluticasone Propionate [Flonase Allergy Relief] 15.8 ml NS DAILY 11/08/17 [History] Insulin Glarg,Human.Rec.Analog [Lantus Solostar] 50 unit SUBCUT DAILY 11/08/17 [History] Melatonin/Pyridoxine HCl (B6) [Melatonin 3 mg Tablet] 9 mg PO BEDTIME 11/08/17 [History] [place]-3 Fatty Acids [[place]-3] 1 gm PO DAILY 11/08/17 [History] Prazosin HCl [Prazosin] 1 mg PO BEDTIME 11/08/17 [History] Triamcinolone Acetonide [Triamcinolone Acetonide 0.1% Crm] 80 gm .XX BID 11/08/17 [History] glipiZIDE [Glucotrol XL] 10 mg PO BID 11/08/17 [History] Metoprolol Tartrate [Lopressor] 50 mg PO BID #60 tablet 11/09/17 [Rx] Diltiazem [Diltiazem XR] 240 mg PO BID 02/11/18 [History] Past Medical History - Past Health History Medical/Surgical History: Denies Medical/Surgical History HEENT History: Reports: None Cardiovascular History: Reports: Afib, CAD, High Cholesterol, Hypertension, [place], Pacemaker, Stents Other Cardiovascular History: [place] 1999 with 1 stent placement Respiratory History: Reports: Bronchitis, Recurrent, Sleep Apnea Other Respiratory History: smoker for 51 yrs, has a c-pap Gastrointestinal History: Reports: Chronic Constipation, GERD Genitourinary History: Reports: Diabetic Nephropathy Musculoskeletal History: Reports: Osteoarthritis Neurological History: Reports: Neuropathy, Diabetic Psychiatric History: Reports: Anxiety Endocrine/Metabolic History: Reports: Diabetes, Type II Hematologic History: Reports: None Immunologic History: Reports: None Oncologic (Cancer) History: Reports: Colon Other Oncologic History: with surgery, chemo and radiation Stage III Dermatologic History: Reports: None - Infectious Disease History Infectious Disease History: Reports: Chicken Pox, Measles, Mumps, Rheumatic Fever - Past Surgical History Head Surgeries/Procedures: Reports: None HEENT Surgical History: Reports: Naso-Sinus Surgery Respiratory Surgical History: Reports: None GI Surgical History: Reports: Colon Male Surgical History: Reports: Circumcision Musculoskeletal Surgical History: Reports: Arthroscopic Knee, Shoulder Surgery, Other (See Below) Other Musculoskeletal Surgeries/Procedures:: Repaired acl. [place]. Placed bone marrow in hip., left foot surgery with screw placement 11/03/18. right Foot surg. Social & Family History - Family History Family Medical History: Noncontributory Cardiac: Reports: Afib, AICD, Angina, Bypass, CAD, Heart Failure, High Cholesterol, Hypertension, [place] Respiratory: Reports: Asthma, COPD GI: Reports: Cholelithiasis : Reports: Dialysis, Renal Disease/Insufficiency Musculoskeletal: Reports: Arthritis, Back pain, Chronic Neurological: Reports: CVA, Neuropathy, Diabetic Psychiatric: Reports: Anxiety, Depression Endocrine/Metabolic: Reports: Diabetes, type II - Tobacco Use Smoking Status *Q: Former Smoker Used Tobacco, but Quit: Yes Month/Year Tobacco Last Used: 01/2020 - Caffeine Use Caffeine Use: Reports: None Other Caffeine Use: 4 pots a day - Recreational Drug Use Recreational Drug Use: No - Living Situation & Occupation Living situation: Reports: with Family Occupation: Unemployed ED ROS GENERAL - Review of Systems Review Of Systems: Comprehensive ROS is negative, except as noted in HPI. ED EXAM, GENERAL - Physical Exam Exam: See Below Exam Limited By: No Limitations General Appearance: Alert, No Apparent Distress Eye Exam: Bilateral Eye: EOMI Ears: Normal External Exam Nose: Normal Inspection Throat/Mouth: Normal Inspection Head: Atraumatic, Normocephalic Neck: Normal Inspection Respiratory/Chest: No Respiratory Distress, Lungs Clear, Normal Breath Sounds Cardiovascular: Tachycardia, Irregularly Irregular GI/Abdominal: Normal Bowel Sounds, Soft Extremities: Normal Inspection, Normal Range of Motion Neurological: Alert, Oriented Psychiatric: Normal Affect, Normal Mood Skin Exam: Warm, Dry, Intact, Normal Color Course - Vital Signs Last Recorded V/S: Last Vital Signs Temp 97.2 F 07/13/20 20:37 Pulse 123 H 07/13/20 20:37 Resp 22 H 07/13/20 20:37 BP 116/59 L 07/13/20 20:37 Pulse Ox 97 07/13/20 20:37 - Orders/Labs/Meds Labs: Laboratory Tests 07/13/20 07/13/20 Range/Units 20:33 20:33 WBC 8.0 (5.0-10.0) 10^3/uL RBC 5.00 (4.6-6.2) 10^6/uL Hgb 15.2 (14.0-18.0) g/dL Hct 43.8 (40.0-54.0) % MCV 87.6 (80-100) fL MCH 30.4 (27.0-34.0) pg MCHC 34.7 (33.0-35.0) g/dL Plt Count 235 (150-450) 10^3/uL Neut % (Auto) 56.7 (42.2-75.2) % Lymph % (Auto) 33.0 (20.5-50.1) % [place] % (Auto) 8.1 H (2-8) % Eos % (Auto) 1.9 (1.0-3.0) % Baso % (Auto) 0.3 (0.0-1.0) % Sodium 137 (136-145) mmol/L Potassium 4.1 (3.5-5.1) mmol/L Chloride 103 (98-107) mmol/L Carbon Dioxide 23 (21-32) mmol/L Anion Gap 15.1 H (7-13) mEq/L BUN 21 H (7-18) mg/dL Creatinine 1.14 (0.70-1.30) mg/dL Est Cr Clr Drug Dosing 71.85 mL/min Estimated GFR (MDRD) > 60 BUN/Creatinine Ratio 18.4 (No establ ref range) Glucose 293 H (74-99) mg/dL Calcium 8.4 L (8.5-10.1) mg/dL Magnesium 1.9 (1.8-2.4) mg/dL Total Bilirubin 0.2 (0.2-1.0) mg/dL AST 17 (15-37) U/L ALT 37 (16-63) U/L Alkaline Phosphatase 141 H (46-116) U/L Troponin I < 0.017 (0.000-0.056) ng/mL Total Protein 6.7 (6.4-8.2) g/dL Albumin 3.1 L (3.4-5.0) g/dL Globulin 3.6 Albumin/Globulin Ratio 0.86 Meds: Medications Discontinued Medications Generic Name Dose Route Start Last Admin Trade Name Lonnieq PRN Reason Stop Dose Admin Acetaminophen 650 mg 07/13/20 22:31 07/13/20 22:36 Tylenol PO 07/13/20 22:32 650 mg NOW ONE Administration Diltiazem HCl 20 mg 07/13/20 20:53 07/13/20 20:59 Diltiazem IVPUSH 07/13/20 20:54 20 mg ONETIME ONE Administration - Re-Assessments/Exams Free Text/Narrative Re-Assessment/Exam: 07/15/20 04:25 HR improved with Cardizem 90-110. denies c/o. Tyelonl for chronic back pain. Departure - Departure Time of Disposition: 22:33 Disposition: Home, Self-Care 01 Condition: Good Clinical Impression: Atrial fibrillation with rapid ventricular response Back pain Qualifiers: Back pain location: low back pain Chronicity: chronic Back pain laterality: bilateral Sciatica presence: without sciatica Qualified Code(s): M54.5 - Low back pain; G89.29 - Other chronic pain Instructions: Atrial Fibrillation, [id number] Referrals: PCP,None [Primary Care Provider] - Forms: ED Department Discharge Additional Instructions: [facility] urgent folow upif chest pain shortness orf breath and racing heart continue home medications tylenol 650mg every 4 hours as needed for discomfort Sepsis Event Note (ED) - Evaluation Sepsis Screening Result: No Definite Risk
== END 2020-07-13 22:42 | disposition home or self-care (01) ==
LOC: DL.ED 20:16
DX: I48.91 Unspecified atrial fibrillation (principal); G89.29 Other chronic pain; M54.5 Low back pain; I25.10 Atherosclerotic heart disease of native coronary artery without angina pectoris; E78.00 Pure hypercholesterolemia, unspecified; I10 Essential (primary) hypertension; I25.2 Old myocardial infarction; Z95.5 Presence of coronary angioplasty implant and graft; K21.9 Gastro-esophageal reflux disease without esophagitis; E11.21 Type 2 diabetes mellitus with diabetic nephropathy; E11.40 Type 2 diabetes mellitus with diabetic neuropathy, unspecified; F41.9 Anxiety disorder, unspecified; Z79.01 Long term (current) use of anticoagulants; Z79.899 Other long term (current) drug therapy; Z79.4 Long term (current) use of insulin; Z87.891 Personal history of nicotine dependence; Z91.018 Allergy to other foods; Z88.5 Allergy status to narcotic agent; Z88.0 Allergy status to penicillin; Z91.041 Radiographic dye allergy status; Z79.82 Long term (current) use of aspirin
CPT/HCPCS: 36415; 80053; 83735; 84484; 85025; 93005; 96374; 99285; A9270; J3490; 99284

== ENCOUNTER 2020-08-16 17:42 | Emergency (ER) | payer MEDICAID | END 2020-08-16 19:39 | disposition left against medical advice (07) | LOC: DL.ED 17:42 | DX: Z53.21 Procedure and treatment not carried out due to patient leaving prior to being seen by health care provider (principal) ==

== ENCOUNTER 2020-08-30 18:10 | Emergency (ER) | payer MEDICAID ==
[2020-08-30 18:31] VITALS: BP 121/58; PULSE 61
--- NOTE | 2020-08-30 19:07 | CR ---
PROCEDURE INFORMATION: Exam: XR Left Knee Exam date and time: 08/30/2020 6:40 PM Age: 65 years old Clinical indication: Other: Fall; Additional info: Tripped and fell onto knee; Pain 06/14 TECHNIQUE: Imaging protocol: XR Left knee. Views: 3 views. COMPARISON: CR Knee 3V Lt 08/11/2019 8:10 PM FINDINGS: Bones/joints: Normal. Soft tissues: Normal. IMPRESSION: No acute findings.
[2020-08-30] MEDS ORDERED: Acetaminophen/HYDROcodone 325-10 MG Tab ONE (20:03)
--- NOTE | 2020-08-30 20:06 | EDM.PDOC ---
ED HPI GENERAL MEDICAL PROBLEM - General Chief Complaint: Lower Extremity Injury/Pain Stated Complaint: TWISTED LEFT KNEE Time Seen by Provider: 08/30/20 20:03 Source of Information: Reports: Patient History Limitations: Reports: No Limitations - History of Present Illness INITIAL COMMENTS - FREE TEXT/NARRATIVE: twisted left knee earlier, been elevating with ice but still swollen and hard to walk. Left Knee Pain Score (Numeric/FACES): 9 - Related Data Allergies Allergy/AdvReac Type Severity Reaction Status Date / Time chicken derived Allergy Hives Verified 08/30/20 18:30 codeine Allergy Hives Verified 08/30/20 18:30 Penicillins Allergy Hives Verified 08/30/20 18:30 tramadol Allergy Hives Verified 08/30/20 18:30 Contrast media Allergy Hives Uncoded 08/30/20 18:30 Home Meds: Home Meds Aspirin 81 mg PO BRK 11/09/15 [History] Calcium Citrate/Vitamin D3 [[place] Calcium 200-Vit D3 250] 1 each PO DAILY 11/09/15 [History] Docusate Sodium [Colace] 100 mg PO BID 11/09/15 [History] Gabapentin [Neurontin] 900 mg PO TID 11/09/15 [History] Hydrochlorothiazide 25 mg PO DAILY 11/09/15 [History] Lisinopril 20 mg PO DAILY 11/09/15 [History] Omeprazole 20 mg PO ACBREAKFAST 11/09/15 [History] atorvaSTATin [Lipitor] 20 mg PO BEDTIME 11/09/15 [History] metFORMIN [Glucophage XR] 1,000 mg PO BIDMEALS 11/09/15 [History] Apixaban [Eliquis] 5 mg PO DAILY 11/08/17 [History] Cholecalciferol (Vitamin D3) [Vitamin D3] 1,000 unit PO DAILY 11/08/17 [History] Fluticasone Propionate [Flonase Allergy Relief] 15.8 ml NS DAILY 11/08/17 [History] Insulin Glarg,Human.Rec.Analog [Lantus Solostar] 50 unit SUBCUT DAILY 11/08/17 [History] Melatonin/Pyridoxine HCl (B6) [Melatonin 3 mg Tablet] 9 mg PO BEDTIME 11/08/17 [History] [place]-3 Fatty Acids [[place]-3] 1 gm PO DAILY 11/08/17 [History] Prazosin HCl [Prazosin] 1 mg PO BEDTIME 11/08/17 [History] Triamcinolone Acetonide [Triamcinolone Acetonide 0.1% Crm] 80 gm .XX BID 11/08/17 [History] glipiZIDE [Glucotrol XL] 10 mg PO BID 11/08/17 [History] Metoprolol Tartrate [Lopressor] 50 mg PO BID #60 tablet 11/09/17 [Rx] Diltiazem [Diltiazem XR] 240 mg PO BID 02/11/18 [History] Past Medical History - Past Health History Medical/Surgical History: Denies Medical/Surgical History HEENT History: Reports: None Cardiovascular History: Reports: Afib, CAD, High Cholesterol, Hypertension, [place], Pacemaker, Stents Other Cardiovascular History: [place] 1999 with 1 stent placement Respiratory History: Reports: Bronchitis, Recurrent, Sleep Apnea Other Respiratory History: smoker for 51 yrs, has a c-pap Gastrointestinal History: Reports: Chronic Constipation, GERD Genitourinary History: Reports: Diabetic Nephropathy Musculoskeletal History: Reports: Osteoarthritis Neurological History: Reports: Neuropathy, Diabetic Psychiatric History: Reports: Anxiety Endocrine/Metabolic History: Reports: Diabetes, Type II Hematologic History: Reports: None Immunologic History: Reports: None Oncologic (Cancer) History: Reports: Colon Other Oncologic History: with surgery, chemo and radiation Stage III Dermatologic History: Reports: None - Infectious Disease History Infectious Disease History: Reports: Chicken Pox, Measles, Mumps, Rheumatic Fever - Past Surgical History Head Surgeries/Procedures: Reports: None HEENT Surgical History: Reports: Naso-Sinus Surgery Cardiovascular Surgical History: Reports: Pacer Respiratory Surgical History: Reports: None GI Surgical History: Reports: Colon Other GI Surgeries/Procedures: Had some colon removed. Stage 3 colon ca. Male Surgical History: Reports: Circumcision Musculoskeletal Surgical History: Reports: Arthroscopic Knee, Shoulder Surgery, Other (See Below) Other Musculoskeletal Surgeries/Procedures:: Repaired acl. [place]. Placed bone marrow in hip., left foot surgery with screw placement 11/03/18. right Foot surg. Social & Family History - Family History Family Medical History: No Pertinent Family History Cardiac: Reports: Afib, AICD, Angina, Bypass, CAD, Heart Failure, High Cholesterol, Hypertension, [place] Respiratory: Reports: Asthma, COPD GI: Reports: Cholelithiasis : Reports: Dialysis, Renal Disease/Insufficiency Musculoskeletal: Reports: Arthritis, Back pain, Chronic Neurological: Reports: CVA, Neuropathy, Diabetic Psychiatric: Reports: Anxiety, Depression Endocrine/Metabolic: Reports: Diabetes, type II - Tobacco Use Tobacco Use Status *Q: Former Tobacco User Years of Tobacco use: 50 Packs/Tins Daily: 4 Used Tobacco, but Quit: Yes Month/Year Tobacco Last Used: october Second Hand Smoke Exposure: No - Caffeine Use Caffeine Use: Reports: Coffee Other Caffeine Use: 4 pots a day - Recreational Drug Use Recreational Drug Use: No - Living Situation & Occupation Living situation: Reports: with Family Occupation: Unemployed Review of Systems - Review of Systems Review Of Systems: Comprehensive ROS is negative, except as noted in HPI. ED EXAM, GENERAL - Physical Exam Exam: See Below Exam Limited By: No Limitations General Appearance: Alert, WD/WN, Mild Distress, Moderate Distress, Other (discomfort) Ears: Hearing Grossly Normal Throat/Mouth: Normal Voice, No Airway Compromise Head: Atraumatic Neck: Non-Tender, Full Range of Motion Respiratory/Chest: No Respiratory Distress Cardiovascular: Regular Rate, Rhythm GI/Abdominal: Soft, Non-Tender (Male) Exam: Deferred Rectal (Males) Exam: Deferred Extremities: Other (left knee swollen tender R/P, [place] wnl, gait limited to pain ) Neurological: Alert, Oriented, Normal Cognition, No Motor/Sensory Deficits Psychiatric: Tearful Skin Exam: Warm, Dry, Normal Color Lymphatic: No Adenopathy Course - Vital Signs Last Recorded V/S: Last Vital Signs Temp 35.3 C L 08/30/20 18:27 Pulse 61 08/30/20 18:27 Resp 16 08/30/20 18:27 BP 121/58 L 08/30/20 18:27 Pulse Ox 93 L 08/30/20 18:27 - Re-Assessments/Exams Free Text/Narrative Re-Assessment/Exam: 08/30/20 20:04 results discussed with pt. Departure - Departure Time of Disposition: 20:05 Disposition: Home, Self-Care 01 Condition: Good Clinical Impression: Derangement of knee - Discharge Information Additional Instructions: 1) see clinic tomorrow for MRI SCAN rx togo; norco 10 x 1 Sepsis Event Note (ED) - Evaluation Sepsis Screening Result: No Definite Risk - Focused Exam Vital Signs: Vital Signs Temp Pulse Resp BP Pulse Ox 11/26/20 18:27 35.3 C L 61 16 121/58 L 93 L
== END 2020-08-30 20:07 | disposition home or self-care (01) ==
LOC: DL.ED 18:10
DX: S89.82XA Other specified injuries of left lower leg, initial encounter (principal); I48.91 Unspecified atrial fibrillation; I25.10 Atherosclerotic heart disease of native coronary artery without angina pectoris; E78.00 Pure hypercholesterolemia, unspecified; E11.21 Type 2 diabetes mellitus with diabetic nephropathy; I10 Essential (primary) hypertension; I25.2 Old myocardial infarction; M19.90 Unspecified osteoarthritis, unspecified site; E11.40 Type 2 diabetes mellitus with diabetic neuropathy, unspecified; K21.9 Gastro-esophageal reflux disease without esophagitis; Z95.5 Presence of coronary angioplasty implant and graft; Z91.018 Allergy to other foods; Z88.5 Allergy status to narcotic agent; Z88.0 Allergy status to penicillin; Z91.041 Radiographic dye allergy status; Z79.82 Long term (current) use of aspirin; Z79.899 Other long term (current) drug therapy; Z79.01 Long term (current) use of anticoagulants; Z79.4 Long term (current) use of insulin; Z87.891 Personal history of nicotine dependence; X50.1XXA Overexertion from prolonged static or awkward postures, initial encounter
CPT/HCPCS: 73562-LT; 99283-25

== ENCOUNTER 2020-09-29 03:26 | Emergency (ER) | payer MEDICAID ==
[2020-09-29] MEDS ORDERED: LORazepam 1 MG Tab PO ONE (03:27)
[2020-09-29 03:49] VITALS: BP 125/53; PULSE 84
--- NOTE | 2020-09-29 03:55 | EDM.PDOC ---
ED HPI GENERAL MEDICAL PROBLEM - General Chief Complaint: Chest Pain Stated Complaint: CHEST AND BACK PAIN Time Seen by Provider: 09/29/20 03:54 Source of Information: Reports: Patient History Limitations: Reports: No Limitations - History of Present Illness INITIAL COMMENTS - FREE TEXT/NARRATIVE: woke up with chest pain. gives h/o [place] Chest Pain Score (Numeric/FACES): 7 - Related Data Allergies Allergy/AdvReac Type Severity Reaction Status Date / Time chicken derived Allergy Hives Verified 09/29/20 03:49 codeine Allergy Hives Verified 09/29/20 03:49 Penicillins Allergy Hives Verified 09/29/20 03:49 tramadol Allergy Hives Verified 09/29/20 03:49 Contrast media Allergy Hives Uncoded 09/29/20 03:49 Home Meds: Home Meds Aspirin 81 mg PO BRK 11/09/15 [History] Calcium Citrate/Vitamin D3 [[place] Calcium 200-Vit D3 250] 1 each PO DAILY 11/09/15 [History] Docusate Sodium [Colace] 100 mg PO BID 11/09/15 [History] Gabapentin [Neurontin] 900 mg PO TID 11/09/15 [History] Hydrochlorothiazide 25 mg PO DAILY 11/09/15 [History] Lisinopril 20 mg PO DAILY 11/09/15 [History] Omeprazole 20 mg PO ACBREAKFAST 11/09/15 [History] atorvaSTATin [Lipitor] 20 mg PO BEDTIME 11/09/15 [History] metFORMIN [Glucophage XR] 1,000 mg PO BIDMEALS 11/09/15 [History] Apixaban [Eliquis] 5 mg PO DAILY 11/08/17 [History] Cholecalciferol (Vitamin D3) [Vitamin D3] 1,000 unit PO DAILY 11/08/17 [History] Fluticasone Propionate [Flonase Allergy Relief] 15.8 ml NS DAILY 11/08/17 [Hist ory] Insulin Glarg,Human.Rec.Analog [Lantus Solostar] 50 unit SUBCUT DAILY 11/08/17 [History] Melatonin/Pyridoxine HCl (B6) [Melatonin 3 mg Tablet] 9 mg PO BEDTIME 11/08/17 [History] [place]-3 Fatty Acids [[place]-3] 1 gm PO DAILY 11/08/17 [History] Prazosin HCl [Prazosin] 1 mg PO BEDTIME 11/08/17 [History] Triamcinolone Acetonide [Triamcinolone Acetonide 0.1% Crm] 80 gm .XX BID 11/08/17 [History] glipiZIDE [Glucotrol XL] 10 mg PO BID 11/08/17 [History] Metoprolol Tartrate [Lopressor] 50 mg PO BID #60 tablet 11/09/17 [Rx] Diltiazem [Diltiazem XR] 240 mg PO BID 02/11/18 [History] Past Medical History - Past Health History Medical/Surgical History: Denies Medical/Surgical History HEENT History: Reports: None Cardiovascular History: Reports: Afib, CAD, High Cholesterol, Hypertension, [place], Pacemaker, Stents Other Cardiovascular History: [place] 1999 with 1 stent placement Respiratory History: Reports: Bronchitis, Recurrent, Sleep Apnea Other Respiratory History: smoker for 51 yrs, has a c-pap Gastrointestinal History: Reports: Chronic Constipation, GERD Genitourinary History: Reports: Diabetic Nephropathy Musculoskeletal History: Reports: Osteoarthritis Neurological History: Reports: Neuropathy, Diabetic Psychiatric History: Reports: Anxiety Endocrine/Metabolic History: Reports: Diabetes, Type II Hematologic History: Reports: None Immunologic History: Reports: None Oncologic (Cancer) History: Reports: Colon Other Oncologic History: with surgery, chemo and radiation Stage III Dermatologic History: Reports: None - Infectious Disease History Infectious Disease History: Reports: Chicken Pox, Measles, Mumps, Rheumatic Fever - Past Surgical History Head Surgeries/Procedures: Reports: None HEENT Surgical History: Reports: Naso-Sinus Surgery Cardiovascular Surgical History: Reports: Pacer Respiratory Surgical History: Reports: None GI Surgical History: Reports: Colon Other GI Surgeries/Procedures: Had some colon removed. Stage 3 colon ca. Male Surgical History: Reports: Circumcision Musculoskeletal Surgical History: Reports: Arthroscopic Knee, Shoulder Surgery, Other (See Below) Other Musculoskeletal Surgeries/Procedures:: Repaired acl. [place]. Placed bone marrow in hip., left foot surgery with screw placement 11/03/18. right F oot surg. Social & Family History - Family History Family Medical History: No Pertinent Family History Cardiac: Reports: Afib, AICD, Angina, Bypass, CAD, Heart Failure, High Cholesterol, Hypertension, [place] Respiratory: Reports: Asthma, COPD GI: Reports: Cholelithiasis : Reports: Dialysis, Renal Disease/Insufficiency Musculoskeletal: Reports: Arthritis, Back pain, Chronic Neurological: Reports: CVA, Neuropathy, Diabetic Psychiatric: Reports: Anxiety, Depression Endocrine/Metabolic: Reports: Diabetes, type II - Tobacco Use Tobacco Use Status *Q: Former Tobacco User Used Tobacco, but Quit: Yes Month/Year Tobacco Last Used: 03/2020 - Caffeine Use Caffeine Use: Reports: None Other Caffeine Use: 4 pots a day - Recreational Drug Use Recreational Drug Use: No - Living Situation & Occupation Living situation: Reports: with Family Occupation: Unemployed ED ROS GENERAL - Review of Systems Review Of Systems: Comprehensive ROS is negative, except as noted in HPI. ED EXAM, GENERAL - Physical Exam Exam: See Below Exam Limited By: No Limitations General Appearance: Alert, WD/WN, Anxious, Mild Distress Ears: Hearing Grossly Normal Throat/Mouth: Normal Voice, No Airway Compromise Head: Atraumatic Neck: Non-Tender, Full Range of Motion Respiratory/Chest: No Respiratory Distress Cardiovascular: Regular Rate, Rhythm GI/Abdominal: Soft, Non-Tender (Male) Exam: Deferred Rectal (Males) Exam: Deferred Neurological: Alert, Oriented, Normal Cognition, Normal Gait, No Motor/Sensory Deficits Psychiatric: Flat Affect Skin Exam: Warm, Dry, Normal Color Course - Vital Signs Last Recorded V/S: Last Vital Signs Temp 36.7 C 09/29/20 03:47 Pulse 84 09/29/20 03:47 Resp 24 H 09/29/20 03:47 BP 125/53 L 09/29/20 03:47 Pulse Ox 97 09/29/20 03:47 - Orders/Labs/Meds Orders: Active Orders 24 hr Category Date Time Status EKG 12 Lead [EKG Documentation Completion] [RC] STAT Care 09/29/20 03:46 Active Labs: Laboratory Tests 09/29/20 09/29/20 Range/Units 03:45 03:45 WBC 7.2 (5.0-10.0) 10^3/uL RBC 4.72 (4.6-6.2) 10^6/uL Hgb 14.0 (14.0-18.0) g/dL Hct 41.2 (40.0-54.0) % MCV 87.3 (80-100) fL MCH 29.7 (27.0-34.0) pg MCHC 34.0 (33.0-35.0) g/dL Plt Count 262 (150-450) 10^3/uL Neut % (Auto) 42.4 (42.2-75.2) % Lymph % (Auto) 42.9 (20.5-50.1) % [place] % (Auto) 9.8 H (2-8) % Eos % (Auto) 4.8 H (1.0-3.0) % Baso % (Auto) 0.1 (0.0-1.0) % Sodium 137 (136-145) mmol/L Potassium 4.0 (3.5-5.1) mmol/L Chloride 102 (98-107) mmol/L Carbon Dioxide 25 (21-32) mmol/L Anion Gap 14.0 H (7-13) mEq/L BUN 26 H (7-18) mg/dL Creatinine 1.25 (0.70-1.30) mg/dL Est Cr Clr Drug Dosing 63.59 mL/min Estimated GFR (MDRD) 58 BUN/Creatinine Ratio 20.8 (No establ ref range) Glucose 267 H (74-99) mg/dL Calcium 8.6 (8.5-10.1) mg/dL Total Bilirubin 0.2 (0.2-1.0) mg/dL AST 15 (15-37) U/L ALT 29 (16-63) U/L Alkaline Phosphatase 135 H (46-116) U/L Troponin I < 0.017 (0.000-0.056) ng/mL Total Protein 6.9 (6.4-8.2) g/dL Albumin 3.3 L (3.4-5.0) g/dL Globulin 3.6 Albumin/Globulin Ratio 0.92 Meds: Medications Discontinued Medications Generic Name Dose Route Start Last Admin Trade Name Teddy PRN Reason Stop Dose Admin Lorazepam Confirm 09/29/20 04:43 Ativan Administered 09/29/20 04:44 Dose 1 mg .ROUTE .STK-MED ONE - Re-Assessments/Exams Free Text/Narrative Re-Assessment/Exam: 09/29/20 04:39 results discussed with pt who is feeling fine now but was awaken when his defib went off. been not sleeping well lately. Departure - Departure Time of Disposition: 04:52 Disposition: Home, Self-Care 01 Condition: Good Clinical Impression: Chest pain Qualifiers: Chest pain type: unspecified Qualified Code(s): R07.9 - Chest pain, unspecified Insomnia Qualifiers: Insomnia type: unspecified Qualified Code(s): G47.00 - Insomnia, unspecified Forms: ED Department Discharge Additional Instructions: 1) follow up at clinic 2) recheck as needed rx togo; ativan 1.0mg x 1 Sepsis Event Note (ED) - Evaluation Sepsis Screening Result: No Definite Risk - Focused Exam Vital Signs: Vital Signs Temp Pulse Resp BP Pulse Ox 09/29/20 03:47 36.7 C 84 24 H 125/53 L 97 - My Orders Last 24 Hours: My Active Orders 09/29/20 03:46 EKG 12 Lead [EKG Documentation Completion] [RC] STAT - Assessment/Plan Last 24 Hours: My Active Orders 09/29/20 03:46 EKG 12 Lead [EKG Documentation Completion] [RC] STAT
[2020-09-29 04:09] LABS: CHLORIDE,CL 102 mmol/L (98-107); SODIUM,NA 137 mmol/L (136-145)
[2020-09-29] MEDS ORDERED: LORazepam 1 MG Tab ONE (04:43)
== END 2020-09-29 04:50 | disposition home or self-care (01) ==
LOC: DL.ED 03:26
DX: R07.9 Chest pain, unspecified (principal); G47.00 Insomnia, unspecified; I48.91 Unspecified atrial fibrillation; I25.10 Atherosclerotic heart disease of native coronary artery without angina pectoris; E78.00 Pure hypercholesterolemia, unspecified; I10 Essential (primary) hypertension; I25.2 Old myocardial infarction; K21.9 Gastro-esophageal reflux disease without esophagitis; E11.21 Type 2 diabetes mellitus with diabetic nephropathy; E11.40 Type 2 diabetes mellitus with diabetic neuropathy, unspecified; M19.90 Unspecified osteoarthritis, unspecified site; Z87.891 Personal history of nicotine dependence; Z91.018 Allergy to other foods; Z88.5 Allergy status to narcotic agent; Z88.0 Allergy status to penicillin; Z91.041 Radiographic dye allergy status; Z79.82 Long term (current) use of aspirin; Z79.01 Long term (current) use of anticoagulants; Z79.4 Long term (current) use of insulin; Z79.899 Other long term (current) drug therapy
CPT/HCPCS: 36415; 80053; 84484; 85025; 93005; 99285; A9270; 93010; 99283

== ENCOUNTER 2020-10-03 19:19 | Emergency (ER) | payer MEDICAID ==
[2020-10-03 19:30] VITALS: BP 115/61; PULSE 89
--- NOTE | 2020-10-03 20:19 | EDM.PDOC ---
ED HPI GENERAL MEDICAL PROBLEM - General Chief Complaint: Wound Recheck Stated Complaint: LEFT FOOT TURNING BLACK AROUND THE SURGERY Time Seen by Provider: 10/03/20 19:45 Source of Information: Reports: Patient History Limitations: Reports: No Limitations - History of Present Illness INITIAL COMMENTS - FREE TEXT/NARRATIVE: ED with c/o pain to left forefoot around prior bunion incision. States has been told hardware needs to be replaced with plate but no timeline for surgery set. Hx diabetic neuropathy, Reports area is more swollen and looks sofia than usual. States foot slipped on snow 2 days prior, did not twist or fall. Has not been seen in clinic. Left Foot Pain Score (Numeric/FACES): 7 - Related Data Allergies Allergy/AdvReac Type Severity Reaction Status Date / Time chicken derived Allergy Hives Verified 10/03/20 19:25 codeine Allergy Hives Verified 10/03/20 19:25 Penicillins Allergy Hives Verified 10/03/20 19:25 tramadol Allergy Hives Verified 10/03/20 19:25 Contrast media Allergy Hives Uncoded 09/29/20 03:49 Home Meds: Home Meds Aspirin 81 mg PO BRK 11/09/15 [History] Calcium Citrate/Vitamin D3 [[place] Calcium 200-Vit D3 250] 1 each PO DAILY 11/09/15 [History] Docusate Sodium [Colace] 100 mg PO BID 11/09/15 [History] Gabapentin [Neurontin] 900 mg PO TID 11/09/15 [History] Hydrochlorothiazide 25 mg PO DAILY 11/09/15 [History] Lisinopril 20 mg PO DAILY 11/09/15 [History] Omeprazole 20 mg PO ACBREAKFAST 11/09/15 [History] atorvaSTATin [Lipitor] 20 mg PO BEDTIME 11/09/15 [History] metFORMIN [Glucophage XR] 1,000 mg PO BIDMEALS 11/09/15 [History] Apixaban [Eliquis] 5 mg PO DAILY 11/08/17 [History] Cholecalciferol (Vitamin D3) [Vitamin D3] 1,000 unit PO DAILY 11/08/17 [History] Insulin Glarg,Human.Rec.Analog [Lantus Solostar] 40 unit SUBCUT DAILY 11/08/17 [History] Melatonin/Pyridoxine HCl (B6) [Melatonin 3 mg Tablet] 9 mg PO BEDTIME 11/08/17 [History] [place]-3 Fatty Acids [[place]-3] 1 gm PO DAILY 11/08/17 [History] Prazosin HCl [Prazosin] 1 mg PO BEDTIME 11/08/17 [History] glipiZIDE [Glucotrol XL] 10 mg PO BID 11/08/17 [History] Metoprolol Tartrate [Lopressor] 50 mg PO BID #60 tablet 11/09/17 [Rx] Diltiazem [Diltiazem XR] 240 mg PO BID 02/11/18 [History] Past Medical History - Past Health History Medical/Surgical History: Denies Medical/Surgical History HEENT History: Reports: None Cardiovascular History: Reports: Afib, CAD, High Cholesterol, Hypertension, [place], Pacemaker, Stents Other Cardiovascular History: [place] 1999 with 1 stent placement Respiratory History: Reports: Bronchitis, Recurrent, Sleep Apnea Other Respiratory History: smoker for 51 yrs, has a c-pap Gastrointestinal History: Reports: Chronic Constipation, GERD Genitourinary History: Reports: Diabetic Nephropathy Musculoskeletal History: Reports: Osteoarthritis Neurological History: Reports: Neuropathy, Diabetic Psychiatric History: Reports: Anxiety Endocrine/Metabolic History: Reports: Diabetes, Type II Hematologic History: Reports: None Immunologic History: Reports: None Oncologic (Cancer) History: Reports: Colon Other Oncologic History: with surgery, chemo and radiation Stage III Dermatologic History: Reports: None - Infectious Disease History Infectious Disease History: Reports: Chicken Pox, Measles, Mumps, Rheumatic Fever - Past Surgical History Head Surgeries/Procedures: Reports: None HEENT Surgical History: Reports: Naso-Sinus Surgery Cardiovascular Surgical History: Reports: Pacer Respiratory Surgical History: Reports: None GI Surgical History: Reports: Colon Other GI Surgeries/Procedures: Had some colon removed. Stage 3 colon ca. Male Surgical History: Reports: Circumcision Musculoskeletal Surgical History: Reports: Arthroscopic Knee, Shoulder Surgery, Other (See Below) Other Musculoskeletal Surgeries/Procedures:: Repaired acl. [place]. Placed bone marrow in hip., left foot surgery with screw placement 11/03/18. right Foot surg. Social & Family History - Family History Family Medical History: No Pertinent Family History Cardiac: Reports: Afib, AICD, Angina, Bypass, CAD, Heart Failure, High Cholesterol, Hypertension, [place] Respiratory: Reports: Asthma, COPD GI: Reports: Cholelithiasis : Reports: Dialysis, Renal Disease/Insufficiency Musculoskeletal: Reports: Arthritis, Back pain, Chronic Neurological: Reports: CVA, Neuropathy, Diabetic Psychiatric: Reports: Anxiety, Depression Endocrine/Metabolic: Reports: Diabetes, type II - Tobacco Use Tobacco Use Status *Q: Current Every Day Tobacco User Years of Tobacco use: 6 Packs/Tins Daily: 0.5 Used Tobacco, but Quit: No Second Hand Smoke Exposure: Yes - Caffeine Use Caffeine Use: Reports: Coffee Other Caffeine Use: 4 pots a day - Recreational Drug Use Recreational Drug Use: No - Living Situation & Occupation Living situation: Reports: with Family Occupation: Unemployed ED ROS GENERAL - Review of Systems Review Of Systems: Comprehensive ROS is negative, except as noted in HPI. ED EXAM, SKIN/RASH Exam: See Below Exam Limited By: No Limitations General Appearance: Alert, No Apparent Distress Eye Exam: Bilateral Eye: EOMI Ears: Normal External Exam, Hearing Grossly Normal Head: Atraumatic, Normocephalic Neck: Normal Inspection Respiratory/Chest: No Respiratory Distress, Lungs Clear, Normal Breath Sounds Cardiovascular: Regular Rate, Rhythm. No: No Edema (trace lower bilateral) GI/Abdominal: Normal Bowel Sounds Back Exam: Full Range of Motion Extremities: Other (mild swelling left fot, no deformity. well healed surigal scar left great toe. No warmth, presence old dry skin lateral foot, leght callous formation base great toe. ). No: Slow Capillary Refill Neurological: Alert, Oriented, Normal Cognition Skin: Warm, Dry, Intact Location, Skin: Lower Extremity, Left Associated features: Tenderness Course - Vital Signs Last Recorded V/S: Last Vital Signs Temp 97.4 F 10/03/20 19:29 Pulse 89 10/03/20 19:29 Resp 18 10/03/20 19:29 BP 115/61 10/03/20 19:29 Pulse Ox 98 10/03/20 19:29 - Orders/Labs/Meds Orders: Active Orders 24 hr Category Date Time Status Foot 2V Lt [CR] Urgent Exams 10/03/20 19:54 Ordered Departure - Departure Time of Disposition: 20:26 Disposition: Home, Self-Care 01 Condition: Good Clinical Impression: Left foot pain - Discharge Information *PRESCRIPTION DRUG MONITORING PROGRAM REVIEWED*: No *COPY OF PRESCRIPTION DRUG MONITORING REPORT IN PATIENT RERE: No Instructions: Foot Pain Additional Instructions: tylenol 650mg every 4 hours as needed for discomfort elevate extremity twice daily 15 minutes above level of heart follow up primary care if worsening continue home medications Sepsis Event Note (ED) - Evaluation Sepsis Screening Result: No Definite Risk - Focused Exam Vital Signs: Vital Signs Temp Pulse Resp BP Pulse Ox 10/03/20 19:29 97.4 F 89 18 115/61 98 - My Orders Last 24 Hours: My Active Orders 10/03/20 19:54 Foot 2V Lt [CR] Urgent - Assessment/Plan Last 24 Hours: My Active Orders 10/03/20 19:54 Foot 2V Lt [CR] Urgent
--- NOTE | 2020-10-03 20:22 | CR ---
PROCEDURE INFORMATION: Exam: XR Left Foot Exam date and time: 10/03/2020 8:09 PM Age: 65 years old Clinical indication: Other: Swelling, slipped 2 days ago , remote hardware; Prior surgery; Surgery date: 6+ months TECHNIQUE: Imaging protocol: XR Left foot. Views: 1 or 2 views. COMPARISON: CR Foot Comp Min 3V Lt 07/13/2019 12:34 AM FINDINGS: Tubes, catheters and devices: Postsurgical changes and screws are in place as before. The orthopedic hardware appear to be properly positioned without evidence of hardware failure. Bones/joints: There is no evidence of acute fracture. Soft tissues: No soft tissue swelling is identified. IMPRESSION: No significant change since the prior study.
[2020-10-03] MEDS ORDERED: Acetaminophen 325 MG Tab PO ONE (20:29)
== END 2020-10-03 20:38 | disposition home or self-care (01) ==
LOC: DL.ED 19:19
DX: M79.672 Pain in left foot (principal); I48.91 Unspecified atrial fibrillation; I25.10 Atherosclerotic heart disease of native coronary artery without angina pectoris; E78.00 Pure hypercholesterolemia, unspecified; I10 Essential (primary) hypertension; I25.2 Old myocardial infarction; K21.9 Gastro-esophageal reflux disease without esophagitis; E11.21 Type 2 diabetes mellitus with diabetic nephropathy; M19.90 Unspecified osteoarthritis, unspecified site; E11.40 Type 2 diabetes mellitus with diabetic neuropathy, unspecified; Z79.82 Long term (current) use of aspirin; Z79.01 Long term (current) use of anticoagulants; Z79.899 Other long term (current) drug therapy; Z79.4 Long term (current) use of insulin; Z91.018 Allergy to other foods; Z88.5 Allergy status to narcotic agent; Z88.0 Allergy status to penicillin; Z91.041 Radiographic dye allergy status
CPT/HCPCS: 73620-LT; 99283; 99283-25; A9270-GY

== ENCOUNTER 2020-10-15 20:38 | Emergency (ER) | payer MEDICAID ==
[2020-10-15 20:48] VITALS: BP 152/65; PULSE 78
== END 2020-10-15 22:32 | disposition left against medical advice (07) ==
LOC: DL.ED 20:38
DX: Z53.21 Procedure and treatment not carried out due to patient leaving prior to being seen by health care provider (principal)

== ENCOUNTER 2020-10-16 02:52 | Emergency (ER) | payer MEDICAID ==
[2020-10-16] MEDS ORDERED: Acetaminophen/HYDROcodone 325-10 MG Tab PO ONE ×2 (02:53→03:07)
[2020-10-16 03:05] VITALS: BP 119/80; PULSE 120
[2020-10-16] MEDS ORDERED: Acetaminophen/HYDROcodone 325-10 MG Tab ONE (03:10)
--- NOTE | 2020-10-16 03:14 | EDM.PDOC ---
ED HPI GENERAL MEDICAL PROBLEM - General Chief Complaint: Back Pain or Injury Stated Complaint: BACK AND CHEST PAIN Time Seen by Provider: 10/16/20 03:04 Source of Information: Reports: Patient History Limitations: Reports: No Limitations - History of Present Illness INITIAL COMMENTS - FREE TEXT/NARRATIVE: This 65 yo male patient reports to the ED with lower back pain. The patient reports he had injections in his lower back yesterday in [place], but has been experiencing increased pain. The patient reports he took ibuprofen with little to no symptom relief. The patient reports he has not been able to sleep in the past 2 days due to increased pain. Duration: Day(s):, Constant Location: Reports: Back (lower back ) Quality: Reports: Ache, Sharp Severity: Severe Improves with: Reports: None Worsens with: Reports: None Context: Reports: Other Treatments TRANSFORMER TESTER: Reports: NSAIDS Lower Back Pain Score (Numeric/FACES): 9 - Related Data Allergies Allergy/AdvReac Type Severity Reaction Status Date / Time chicken derived Allergy Hives Verified 10/15/20 20:53 codeine Allergy Hives Verified 10/15/20 20:53 Penicillins Allergy Hives Verified 10/15/20 20:53 tramadol Allergy Hives Verified 10/15/20 20:53 Contrast media Allergy Hives Uncoded 09/29/20 03:49 Home Meds: Home Meds Aspirin 81 mg PO BRK 11/09/15 [History] Calcium Citrate/Vitamin D3 [[place] Calcium 200-Vit D3 250] 1 each PO DAILY 11/09/15 [History] Docusate Sodium [Colace] 100 mg PO BID 11/09/15 [History] Gabapentin [Neurontin] 900 mg PO TID 11/09/15 [History] Hydrochlorothiazide 25 mg PO DAILY 11/09/15 [History] Lisinopril 20 mg PO DAILY 11/09/15 [History] Omeprazole 20 mg PO ACBREAKFAST 11/09/15 [History] atorvaSTATin [Lipitor] 20 mg PO BEDTIME 11/09/15 [History] metFORMIN [Glucophage XR] 1,000 mg PO BIDMEALS 11/09/15 [History] Apixaban [Eliquis] 5 mg PO DAILY 11/08/17 [History] Cholecalciferol (Vitamin D3) [Vitamin D3] 1,000 unit PO DAILY 11/08/17 [History] Insulin Glarg,Human.Rec.Analog [Lantus Solostar] 40 unit SUBCUT DAILY 11/08/17 [History] Melatonin/Pyridoxine HCl (B6) [Melatonin 3 mg Tablet] 9 mg PO BEDTIME 11/08/17 [History] [place]-3 Fatty Acids [[place]-3] 1 gm PO DAILY 11/08/17 [History] Prazosin HCl [Prazosin] 1 mg PO BEDTIME 11/08/17 [History] glipiZIDE [Glucotrol XL] 10 mg PO BID 11/08/17 [History] Metoprolol Tartrate [Lopressor] 50 mg PO BID #60 tablet 11/09/17 [Rx] Diltiazem [Diltiazem XR] 240 mg PO BID 02/11/18 [History] Past Medical History - Past Health History Medical/Surgical History: Denies Medical/Surgical History HEENT History: Reports: None Cardiovascular History: Reports: Afib, CAD, High Cholesterol, Hypertension, [place], Pacemaker, Stents Other Cardiovascular History: [place] 1999 with 1 stent placement Respiratory History: Reports: Bronchitis, Recurrent, Sleep Apnea Other Respiratory History: smoker for 51 yrs, has a c-pap Gastrointestinal History: Reports: Chronic Constipation, GERD Genitourinary History: Reports: Diabetic Nephropathy Musculoskeletal History: Reports: Osteoarthritis Neurological History: Reports: Neuropathy, Diabetic Psychiatric History: Reports: Anxiety Endocrine/Metabolic History: Reports: Diabetes, Type II Hematologic History: Reports: None Immunologic History: Reports: None Oncologic (Cancer) History: Reports: Colon Other Oncologic History: with surgery, chemo and radiation Stage III Dermatologic History: Reports: None - Infectious Disease History Infectious Disease History: Reports: Chicken Pox, Measles, Mumps, Rheumatic Fever - Past Surgical History Head Surgeries/Procedures: Reports: None HEENT Surgical History: Reports: Naso-Sinus Surgery Cardiovascular Surgical History: Reports: Pacer Respiratory Surgical History: Reports: None GI Surgical History: Reports: Colon Other GI Surgeries/Procedures: Had some colon removed. Stage 3 colon ca. Male Surgical History: Reports: Circumcision Musculoskeletal Surgical History: Reports: Arthroscopic Knee, Shoulder Surgery, Other (See Below) Other Musculoskeletal Surgeries/Procedures:: Repaired acl. [place]. Placed bone marrow in hip., left foot surgery with screw placement 11/03/18. right Foot surg. Social & Family History - Family History Family Medical History: No Pertinent Family History Cardiac: Reports: Afib, AICD, Angina, Bypass, CAD, Heart Failure, High Cholesterol, Hypertension, [place] Respiratory: Reports: Asthma, COPD GI: Reports: Cholelithiasis : Reports: Dialysis, Renal Disease/Insufficiency Musculoskeletal: Reports: Arthritis, Back pain, Chronic Neurological: Reports: CVA, Neuropathy, Diabetic Psychiatric: Reports: Anxiety, Depression Endocrine/Metabolic: Reports: Diabetes, type II - Tobacco Use Tobacco Use Status *Q: Former Tobacco User Used Tobacco, but Quit: Yes Month/Year Tobacco Last Used: jun 2020 - Caffeine Use Caffeine Use: Reports: Coffee, Soda Other Caffeine Use: 4 pots a day - Recreational Drug Use Recreational Drug Use: No - Living Situation & Occupation Living situation: Reports: with Family Occupation: Unemployed ED ROS GENERAL - Review of Systems Review Of Systems: Comprehensive ROS is negative, except as noted in HPI. ED EXAM,LOWER BACK PAIN/INJURY - Physical Exam Exam: See Below Exam Limited By: No Limitations General Appearance: Alert, WD/WN, Moderate Distress Eye Exam: Bilateral Eye: EOMI, Normal Inspection, PERRL Ears: Normal External Exam, Normal Canal, Hearing Grossly Normal, Normal TMs Nose: Normal Inspection, Normal Mucosa, No Blood Throat/Mouth: Normal Inspection, Normal Lips, Normal Teeth, Normal Gums, Normal Oropharynx, Normal Voice, No Airway Compromise Head: Atraumatic, Normocephalic Neck: Normal Inspection, Supple, Non-Tender, Full Range of Motion Respiratory/Chest: No Respiratory Distress, Lungs Clear, Normal Breath Sounds, No Accessory Muscle Use, Chest Non-Tender Cardiovascular: Normal Peripheral Pulses, Regular Rate, Rhythm, No Edema, No Gallop, No JVD, No Murmur, No Rub GI/Abdominal: Normal Bowel Sounds, Soft, Non-Tender, No Organomegaly, No Distention, No Abnormal Bruit, No Mass (Male) Exam: Deferred Rectal (Males) Exam: Deferred Back Exam: Paraspinal Tenderness, Vertebral Tenderness Extremities: Normal Inspection, Normal Range of Motion, Non-Tender, No Pedal Edema, Normal Capillary Refill Neurological: Alert, Normal Mood/Affect, Normal Dorsiflexion, CN II-XII Intact, Normal Plantar Flexion, Normal Gait, Normal Reflexes, No Motor/Sensory Deficits, Oriented x 3 Psychiatric: Normal Affect, Normal Mood Skin Exam: Warm, Dry, Intact, Normal Color, No Rash Lymphatic: No Adenopathy Course - Vital Signs Last Recorded V/S: Last Vital Signs Temp 35.5 C L 10/16/20 02:53 Pulse 120 H 10/16/20 02:53 Resp 18 10/16/20 02:53 BP 119/80 10/16/20 02:53 Pulse Ox 97 10/16/20 02:53 - Orders/Labs/Meds Meds: Medications Discontinued Medications Generic Name Dose Route Start Last Admin Trade Name Teddy PRN Reason Stop Dose Admin Hydrocodone Bitart/Acetaminophen 1 tab 10/16/20 03:07 [place] 325-10 Mg PO 10/16/20 03:08 ONETIME ONE Departure - Departure Time of Disposition: 03:13 Disposition: Home, Self-Care 01 Condition: Fair Clinical Impression: Back pain Qualifiers: Back pain location: low back pain Chronicity: chronic Back pain laterality: bilateral Sciatica presence: without sciatica Qualified Code(s): M54.5 - Low back pain - Discharge Information *PRESCRIPTION DRUG MONITORING PROGRAM REVIEWED*: Not Applicable *COPY OF PRESCRIPTION DRUG MONITORING REPORT IN PATIENT RERE: Not Applicable Instructions: Chronic Back Pain, [id number] Care Plan Goals: The patient was advised of the examination results during the visit. The patient was given an oral dose of [place] (10/325) while in the ED. The patient was discharged with [place] (10/325) #2 to take 1 by mouth every 6 hours as needed for pain. The patient was advised to follow-up with his primary care facility for continued evaluation and further treatment. If the patient has any additional symptoms or concerns, the patient should either return to the emergency department or visit his primary care facility. Sepsis Event Note (ED) - Evaluation Sepsis Screening Result: No Definite Risk - Focused Exam Vital Signs: Vital Signs Temp Pulse Resp BP Pulse Ox 10/16/20 02:53 35.5 C L 120 H 18 119/80 97
== END 2020-10-16 03:20 | disposition home or self-care (01) ==
LOC: DL.ED 02:52
DX: M54.5 Low back pain (principal); I48.91 Unspecified atrial fibrillation; I25.10 Atherosclerotic heart disease of native coronary artery without angina pectoris; E78.00 Pure hypercholesterolemia, unspecified; I10 Essential (primary) hypertension; I25.2 Old myocardial infarction; E11.21 Type 2 diabetes mellitus with diabetic nephropathy; K21.9 Gastro-esophageal reflux disease without esophagitis; E11.40 Type 2 diabetes mellitus with diabetic neuropathy, unspecified; Z91.018 Allergy to other foods; Z88.5 Allergy status to narcotic agent; Z88.0 Allergy status to penicillin; Z91.041 Radiographic dye allergy status; Z79.82 Long term (current) use of aspirin; Z79.4 Long term (current) use of insulin; Z79.01 Long term (current) use of anticoagulants; Z79.899 Other long term (current) drug therapy; Z95.5 Presence of coronary angioplasty implant and graft; Z87.891 Personal history of nicotine dependence
CPT/HCPCS: 99283; A9270

== ENCOUNTER 2020-10-23 02:33 | Emergency (ER) | payer MEDICAID ==
[2020-10-23] MEDS ORDERED: Acetaminophen/HYDROcodone 325-10 MG Tab PO ONE (02:34)
[2020-10-23] MEDS ORDERED: Acetaminophen/HYDROcodone 325-10 MG Tab ONE (02:46)
[2020-10-23 02:51] VITALS: BP 112/70; PULSE 115
--- NOTE | 2020-10-23 02:55 | EDM.PDOC ---
ED HPI GENERAL MEDICAL PROBLEM - General Chief Complaint: Lower Extremity Injury/Pain Stated Complaint: BAD HIP PAIN Time Seen by Provider: 10/23/20 02:45 Source of Information: Reports: Patient History Limitations: Reports: No Limitations - History of Present Illness INITIAL COMMENTS - FREE TEXT/NARRATIVE: ED with c/o low back and bilateral hip pain, Chronic, unable to sleep tonight. Injections to back on 14, travel home today from [place]. Increased after riding in car. No relief with Ibuprofen or ice. No fever or chills. No nausea. No weakness. Bilateral Hip Pain Score (Numeric/FACES): 9 - Related Data Allergies Allergy/AdvReac Type Severity Reaction Status Date / Time chicken derived Allergy Hives Verified 10/15/20 20:53 codeine Allergy Hives Verified 10/15/20 20:53 Penicillins Allergy Hives Verified 10/15/20 20:53 tramadol Allergy Hives Verified 10/15/20 20:53 Contrast media Allergy Hives Uncoded 09/29/20 03:49 Home Meds: Home Meds Aspirin 81 mg PO BRK 11/09/15 [History] Calcium Citrate/Vitamin D3 [[place] Calcium 200-Vit D3 250] 1 each PO DAILY 11/09/15 [History] Docusate Sodium [Colace] 100 mg PO BID 11/09/15 [History] Gabapentin [Neurontin] 900 mg PO TID 11/09/15 [History] Hydrochlorothiazide 25 mg PO DAILY 11/09/15 [History] Lisinopril 20 mg PO DAILY 11/09/15 [History] Omeprazole 20 mg PO ACBREAKFAST 11/09/15 [History] atorvaSTATin [Lipitor] 20 mg PO BEDTIME 11/09/15 [History] metFORMIN [Glucophage XR] 1,000 mg PO BIDMEALS 11/09/15 [History] Apixaban [Eliquis] 5 mg PO DAILY 11/08/17 [History] Cholecalciferol (Vitamin D3) [Vitamin D3] 1,000 unit PO DAILY 11/08/17 [History] Insulin Glarg,Human.Rec.Analog [Lantus Solostar] 40 unit SUBCUT DAILY 11/08/17 [History] Melatonin/Pyridoxine HCl (B6) [Melatonin 3 mg Tablet] 9 mg PO BEDTIME 11/08/17 [History] [place]-3 Fatty Acids [[place]-3] 1 gm PO DAILY 11/08/17 [History] Prazosin HCl [Prazosin] 1 mg PO BEDTIME 11/08/17 [History] glipiZIDE [Glucotrol XL] 10 mg PO BID 11/08/17 [History] Metoprolol Tartrate [Lopressor] 50 mg PO BID #60 tablet 11/09/17 [Rx] Diltiazem [Diltiazem XR] 240 mg PO BID 02/11/18 [History] Past Medical History - Past Health History Medical/Surgical History: Denies Medical/Surgical History HEENT History: Reports: None Cardiovascular History: Reports: Afib, CAD, High Cholesterol, Hypertension, [place], Pacemaker, Stents Other Cardiovascular History: [place] 1999 with 1 stent placement Respiratory History: Reports: Bronchitis, Recurrent, Sleep Apnea Other Respiratory History: smoker for 51 yrs, has a c-pap Gastrointestinal History: Reports: Chronic Constipation, GERD Genitourinary History: Reports: Diabetic Nephropathy Musculoskeletal History: Reports: Osteoarthritis Neurological History: Reports: Neuropathy, Diabetic Psychiatric History: Reports: Anxiety Endocrine/Metabolic History: Reports: Diabetes, Type II Hematologic History: Reports: None Immunologic History: Reports: None Oncologic (Cancer) History: Reports: Colon Other Oncologic History: with surgery, chemo and radiation Stage III Dermatologic History: Reports: None - Infectious Disease History Infectious Disease History: Reports: Chicken Pox, Measles, Mumps, Rheumatic Fever - Past Surgical History Head Surgeries/Procedures: Reports: None HEENT Surgical History: Reports: Naso-Sinus Surgery Cardiovascular Surgical History: Reports: Pacer Respiratory Surgical History: Reports: None GI Surgical History: Reports: Colon Other GI Surgeries/Procedures: Had some colon removed. Stage 3 colon ca. Male Surgical History: Reports: Circumcision Musculoskeletal Surgical History: Reports: Arthroscopic Knee, Shoulder Surgery, Other (See Below) Other Musculoskeletal Surgeries/Procedures:: Repaired acl. [place]. Placed bone marrow in hip., left foot surgery with screw placement 11/03/18. right Foot surg. Social & Family History - Family History Family Medical History: No Pertinent Family History Cardiac: Reports: Afib, AICD, Angina, Bypass, CAD, Heart Failure, High Cholesterol, Hypertension, [place] Respiratory: Reports: Asthma, COPD GI: Reports: Cholelithiasis : Reports: Dialysis, Renal Disease/Insufficiency Musculoskeletal: Reports: Arthritis, Back pain, Chronic Neurological: Reports: CVA, Neuropathy, Diabetic Psychiatric: Reports: Anxiety, Depression Endocrine/Metabolic: Reports: Diabetes, type II - Tobacco Use Tobacco Use Status *Q: Former Tobacco User Used Tobacco, but Quit: Yes Month/Year Tobacco Last Used: jul 2020 Second Hand Smoke Exposure: No - Caffeine Use Caffeine Use: Reports: Coffee, Soda Other Caffeine Use: 4 pots a day - Recreational Drug Use Recreational Drug Use: No - Living Situation & Occupation Living situation: Reports: with Family Occupation: Unemployed Review of Systems - Review of Systems Review Of Systems: Comprehensive ROS is negative, except as noted in HPI. ED EXAM, GENERAL - Physical Exam Exam: See Below Exam Limited By: No Limitations General Appearance: Alert, Mild Distress, Other (strong odor stale tobacco) Eye Exam: Bilateral Eye: EOMI Ears: Normal External Exam, Hearing Grossly Normal Nose: Normal Inspection Throat/Mouth: Normal Voice, No Airway Compromise Head: Atraumatic, Normocephalic Neck: Normal Inspection Respiratory/Chest: No Respiratory Distress, Lungs Clear, Normal Breath Sounds Cardiovascular: Normal Peripheral Pulses, Irregularly Irregular Back Exam: Full Range of Motion, Muscle Spasm, Paraspinal Tenderness. No: Ve rtebral Tenderness Extremities: Other (bilateral hip /sacroilieac pain with palpation. ,). No: Limited Range of Motion Neurological: Alert, Oriented Psychiatric: Normal Affect, Normal Mood Skin Exam: Warm, Dry, Intact, Normal Color Course - Vital Signs Last Recorded V/S: Last Vital Signs Temp 96.4 F L 10/23/20 02:36 Pulse 115 H 10/23/20 02:36 Resp 18 10/23/20 02:36 BP 112/70 10/23/20 02:36 Pulse Ox 96 10/23/20 02:36 - Orders/Labs/Meds Meds: Medications Discontinued Medications Generic Name Dose Route Start Last Admin Trade Name Freq PRN Reason Stop Dose Admin Hydrocodone Bitart/Acetaminophen Confirm 10/23/20 02:46 [place] 325-10 Mg Administered 10/23/20 02:47 Dose 2 tab .ROUTE .STK-MED ONE Departure - Departure Time of Disposition: 02:49 Disposition: Home, Self-Care 01 Condition: Good Clinical Impression: Hip pain, bilateral - Discharge Information *PRESCRIPTION DRUG MONITORING PROGRAM REVIEWED*: No Instructions: Hip Pain, Joint Pain, [id number] Forms: ED Department Discharge Additional Instructions: rest- light activity avoid excessive bending or strain on back x 24 hours [facility] 650mg every 4-6 hours as needed Hydrocodone /APAP 10/325 one now and one in 6 hours if needed Sepsis Event Note (ED) - Evaluation Sepsis Screening Result: No Definite Risk - Focused Exam Vital Signs: Vital Signs Temp Pulse Resp BP Pulse Ox 10/23/20 02:36 96.4 F L 115 H 18 112/70 96
== END 2020-10-23 02:54 | disposition home or self-care (01) ==
LOC: DL.ED 02:33
DX: M25.552 Pain in left hip (principal); M25.551 Pain in right hip; E11.40 Type 2 diabetes mellitus with diabetic neuropathy, unspecified; I48.91 Unspecified atrial fibrillation; I25.10 Atherosclerotic heart disease of native coronary artery without angina pectoris; E78.00 Pure hypercholesterolemia, unspecified; I10 Essential (primary) hypertension; I25.2 Old myocardial infarction; E11.21 Type 2 diabetes mellitus with diabetic nephropathy; K21.9 Gastro-esophageal reflux disease without esophagitis; Z79.01 Long term (current) use of anticoagulants; Z88.5 Allergy status to narcotic agent; Z88.0 Allergy status to penicillin; Z91.041 Radiographic dye allergy status; Z79.82 Long term (current) use of aspirin; Z79.4 Long term (current) use of insulin; Z79.899 Other long term (current) drug therapy; Z95.5 Presence of coronary angioplasty implant and graft; Z91.018 Allergy to other foods; Z87.891 Personal history of nicotine dependence
CPT/HCPCS: 99283; A9270

== ENCOUNTER 2020-11-01 23:34 | Emergency (ER) | payer MEDICAID ==
[2020-11-01] MEDS ORDERED: Acetaminophen/HYDROcodone 325-10 MG Tab PO ONE (23:35)
[2020-11-01 23:46] VITALS: BP 142/64; PULSE 78
--- NOTE | 2020-11-01 23:54 | CR ---
PROCEDURE INFORMATION: Exam: XR Right Wrist Exam date and time: 11/01/2020 11:40 PM Age: 65 years old Clinical indication: Other: Caught in fan belt/pain; Additional info: Injury TECHNIQUE: Imaging protocol: XR Right wrist. Views: 3 or more views. COMPARISON: No relevant prior studies available. FINDINGS: Bones/joints: Normal. Soft tissues: Normal. IMPRESSION: No acute findings.
--- NOTE | 2020-11-02 01:42 | EDM.PDOC ---
ED HPI GENERAL MEDICAL PROBLEM - General Chief Complaint: Upper Extremity Injury/Pain Stated Complaint: right wrist injury Time Seen by Provider: 11/02/20 01:37 Source of Information: Reports: Patient History Limitations: Reports: No Limitations - History of Present Illness INITIAL COMMENTS - FREE TEXT/NARRATIVE: injured while fixing fan belt Right Wrist Pain Score (Numeric/FACES): 9 - Related Data Allergies Allergy/AdvReac Type Severity Reaction Status Date / Time chicken derived Allergy Hives Verified 11/01/20 23:46 codeine Allergy Hives Verified 11/01/20 23:46 Penicillins Allergy Hives Verified 11/01/20 23:46 tramadol Allergy Hives Verified 11/01/20 23:46 Contrast media Allergy Hives Uncoded 11/01/20 23:46 Home Meds: Home Meds Aspirin 81 mg PO BRK 11/09/15 [History] Calcium Citrate/Vitamin D3 [[place] Calcium 200-Vit D3 250] 1 each PO DAILY 11/09/15 [History] Docusate Sodium [Colace] 100 mg PO BID 11/09/15 [History] Gabapentin [Neurontin] 900 mg PO TID 11/09/15 [History] Hydrochlorothiazide 25 mg PO DAILY 11/09/15 [History] Lisinopril 20 mg PO DAILY 11/09/15 [History] Omeprazole 20 mg PO ACBREAKFAST 11/09/15 [History] atorvaSTATin [Lipitor] 20 mg PO BEDTIME 11/09/15 [History] metFORMIN [Glucophage XR] 1,000 mg PO BIDMEALS 11/09/15 [History] Apixaban [Eliquis] 5 mg PO DAILY 11/08/17 [History] Cholecalciferol (Vitamin D3) [Vitamin D3] 1,000 unit PO DAILY 11/08/17 [History] Insulin Glarg,Human.Rec.Analog [Lantus Solostar] 40 unit SUBCUT DAILY 11/08/17 [History] Melatonin/Pyridoxine HCl (B6) [Melatonin 3 mg Tablet] 9 mg PO BEDTIME 11/08/17 [History] [place]-3 Fatty Acids [[place]-3] 1 gm PO DAILY 11/08/17 [History] Prazosin HCl [Prazosin] 1 mg PO BEDTIME 11/08/17 [History] glipiZIDE [Glucotrol XL] 10 mg PO BID 11/08/17 [History] Metoprolol Tartrate [Lopressor] 50 mg PO BID #60 tablet 11/09/17 [Rx] Diltiazem [Diltiazem XR] 240 mg PO BID 02/11/18 [History] Past Medical History - Past Health History Medical/Surgical History: Denies Medical/Surgical History HEENT History: Reports: None Cardiovascular History: Reports: Afib, CAD, High Cholesterol, Hypertension, [place], Pacemaker, Stents Other Cardiovascular History: [place] 1999 with 1 stent placement Respiratory History: Reports: Bronchitis, Recurrent, Sleep Apnea Other Respiratory History: smoker for 51 yrs, has a c-pap Gastrointestinal History: Reports: Chronic Constipation, GERD Genitourinary History: Reports: Diabetic Nephropathy Musculoskeletal History: Reports: Osteoarthritis Neurological History: Reports: Neuropathy, Diabetic Psychiatric History: Reports: Anxiety Endocrine/Metabolic History: Reports: Diabetes, Type II Hematologic History: Reports: None Immunologic History: Reports: None Oncologic (Cancer) History: Reports: Colon Other Oncologic History: with surgery, chemo and radiation Stage III Dermatologic History: Reports: None - Infectious Disease History Infectious Disease History: Reports: Chicken Pox, Measles, Mumps, Rheumatic Fever - Past Surgical History Head Surgeries/Procedures: Reports: None HEENT Surgical History: Reports: Naso-Sinus Surgery Cardiovascular Surgical History: Reports: Pacer Respiratory Surgical History: Reports: None GI Surgical History: Reports: Colon Other GI Surgeries/Procedures: Had some colon removed. Stage 3 colon ca. Male Surgical History: Reports: Circumcision Musculoskeletal Surgical History: Reports: Arthroscopic Knee, Shoulder Surgery, Other (See Below) Other Musculoskeletal Surgeries/Procedures:: Repaired acl. [place]. Placed bone marrow in hip., left foot surgery with screw placement 11/03/18. right Foot surg. Social & Family History - Family History Family Medical History: No Pertinent Family History Cardiac: Reports: Afib, AICD, Angina, Bypass, CAD, Heart Failure, High Cholesterol, Hypertension, [place] Respiratory: Reports: Asthma, COPD GI: Reports: Cholelithiasis : Reports: Dialysis, Renal Disease/Insufficiency Musculoskeletal: Reports: Arthritis, Back pain, Chronic Neurological: Reports: CVA, Neuropathy, Diabetic Psychiatric: Reports: Anxiety, Depression Endocrine/Metabolic: Reports: Diabetes, type II - Tobacco Use Tobacco Use Status *Q: Former Tobacco User Used Tobacco, but Quit: Yes Month/Year Tobacco Last Used: Dec, - Caffeine Use Caffeine Use: Reports: Coffee Other Caffeine Use: 4 pots a day - Recreational Drug Use Recreational Drug Use: No - Living Situation & Occupation Living situation: Reports: with Family Occupation: Unemployed Review of Systems - Review of Systems Review Of Systems: Comprehensive ROS is negative, except as noted in HPI. ED EXAM, GENERAL - Physical Exam Exam: See Below Exam Limited By: No Limitations General Appearance: Alert, WD/WN, Mild Distress, Other (discomfort) Ears: Hearing Grossly Normal Throat/Mouth: Normal Voice, No Airway Compromise Head: Atraumatic Neck: Non-Tender, Full Range of Motion Respiratory/Chest: No Respiratory Distress Cardiovascular: Regular Rate, Rhythm GI/Abdominal: Soft, Non-Tender (Male) Exam: Deferred Rectal (Males) Exam: Deferred Back Exam: Normal Inspection Extremities: Normal Range of Motion, Other (right wrist swollen tender R/P, [place] wnl) Neurological: Alert, Oriented, Normal Cognition, Normal Gait, No Motor/Sensory Deficits Psychiatric: Flat Affect Skin Exam: Warm, Dry, Normal Color Lymphatic: No Adenopathy Course - Vital Signs Last Recorded V/S: Last Vital Signs Temp 35.8 C L 11/01/20 23:41 Pulse 78 11/01/20 23:41 Resp 16 11/01/20 23:41 BP 142/64 H 11/01/20 23:41 Pulse Ox 96 11/01/20 23:41 - Re-Assessments/Exams Free Text/Narrative Re-Assessment/Exam: 11/02/20 01:40 results discussed with pt. Departure - Departure Time of Disposition: 01:41 Disposition: Home, Self-Care 01 Condition: Good Clinical Impression: Contusion of wrist, right Qualifiers: Encounter type: initial encounter Qualified Code(s): S60.211A - Contusion of right wrist, initial encounter - Discharge Information Additional Instructions: 1) ice for swelling 2) avoid use for 5 days 3) follow up at clinic rx onofre johnson 10 x 1 Sepsis Event Note (ED) - Evaluation Sepsis Screening Result: No Definite Risk - Focused Exam Vital Signs: Vital Signs Temp Pulse Resp BP Pulse Ox 11/01/20 23:41 35.8 C L 78 16 142/64 H 96
[2020-11-02] MEDS ORDERED: Acetaminophen/HYDROcodone 325-10 MG Tab ONE (01:43)
== END 2020-11-02 01:53 | disposition home or self-care (01) ==
LOC: DL.ED 23:34
DX: S60.211A Contusion of right wrist, initial encounter (principal); I25.2 Old myocardial infarction; I25.10 Atherosclerotic heart disease of native coronary artery without angina pectoris; E11.21 Type 2 diabetes mellitus with diabetic nephropathy; E11.40 Type 2 diabetes mellitus with diabetic neuropathy, unspecified; I48.91 Unspecified atrial fibrillation; I10 Essential (primary) hypertension; E78.00 Pure hypercholesterolemia, unspecified; K21.9 Gastro-esophageal reflux disease without esophagitis; Z88.0 Allergy status to penicillin; Z88.5 Allergy status to narcotic agent; Z91.018 Allergy to other foods; Z91.041 Radiographic dye allergy status; Z79.82 Long term (current) use of aspirin; Z79.01 Long term (current) use of anticoagulants; Z79.4 Long term (current) use of insulin; Z79.899 Other long term (current) drug therapy; Z87.891 Personal history of nicotine dependence; W22.8XXA Striking against or struck by other objects, initial encounter
CPT/HCPCS: 73110; 99282; 99283; A9270

== ENCOUNTER 2020-12-06 21:23 | Emergency (ER) | payer MEDICAID ==
[2020-12-06 21:32] VITALS: BP 149/61; PULSE 81
[2020-12-06] MEDS ORDERED: HYDROmorphone 1 MG/ML Syringe IVPUSH ONE (21:50)
--- NOTE | 2020-12-06 21:56 | EDM.PDOC ---
ED HPI GENERAL MEDICAL PROBLEM - General Chief Complaint: Wound Recheck Stated Complaint: LEFT FOOT SURGERY BURNING/CHECKED Time Seen by Provider: 12/06/20 21:51 Source of Information: Reports: Patient History Limitations: Reports: No Limitations - History of Present Illness INITIAL COMMENTS - FREE TEXT/NARRATIVE: This 65 male patient reports to the ED due to increased pain in his left foot. The patient reports he recently had surgery on his foot, but started to have increased pain earlier today. The patient reports he did take his pain medication 3 hours prior to coming to the ED with no improvement in his symptoms. The patient reports he was given a ride to the ED by his girlfriend. The patient reports he has been trying to avoid putting any weight on his foot. The [facility] and was advised to come to the ED for evaluation. Duration: Hour(s):, Constant, Getting Worse Location: Reports: Lower Extremity, Left (foot) Quality: Reports: Other Severity: Moderate Improves with: Reports: None Worsens with: Reports: None Context: Reports: Other Associated Symptoms: Reports: No Other Symptoms Left Feet Pain Score (Numeric/FACES): 9 - Related Data Allergies Allergy/AdvReac Type Severity Reaction Status Date / Time chicken derived Allergy Hives Verified 12/06/20 21:32 codeine Allergy Hives Verified 12/06/20 21:32 Penicillins Allergy Hives Verified 12/06/20 21:32 tramadol Allergy Hives Verified 12/06/20 21:32 Contrast media Allergy Hives Uncoded 12/06/20 21:32 Home Meds: Home Meds Aspirin 81 mg PO BRK 11/09/15 [History] Calcium Citrate/Vitamin D3 [[place] Calcium 200-Vit D3 250] 1 each PO DAILY 11/09/15 [History] Docusate Sodium [Colace] 100 mg PO BID 11/09/15 [History] Gabapentin [Neurontin] 900 mg PO TID 11/09/15 [History] Hydrochlorothiazide 25 mg PO DAILY 11/09/15 [History] Lisinopril 20 mg PO DAILY 11/09/15 [History] Omeprazole 20 mg PO ACBREAKFAST 11/09/15 [History] atorvaSTATin [Lipitor] 20 mg PO BEDTIME 11/09/15 [History] metFORMIN [Glucophage XR] 1,000 mg PO BIDMEALS 11/09/15 [History] Apixaban [Eliquis] 5 mg PO DAILY 11/08/17 [History] Cholecalciferol (Vitamin D3) [Vitamin D3] 1,000 unit PO DAILY 11/08/17 [History] Insulin Glarg,Human.Rec.Analog [Lantus Solostar] 40 unit SUBCUT DAILY 11/08/17 [History] Melatonin/Pyridoxine HCl (B6) [Melatonin 3 mg Tablet] 9 mg PO BEDTIME 11/08/17 [History] [place]-3 Fatty Acids [[place]-3] 1 gm PO DAILY 11/08/17 [History] Prazosin HCl [Prazosin] 1 mg PO BEDTIME 11/08/17 [History] glipiZIDE [Glucotrol XL] 10 mg PO BID 11/08/17 [History] Metoprolol Tartrate [Lopressor] 50 mg PO BID #60 tablet 11/09/17 [Rx] Diltiazem [Diltiazem XR] 240 mg PO BID 02/11/18 [History] Past Medical History - Past Health History Medical/Surgical History: Denies Medical/Surgical History HEENT History: Reports: None Cardiovascular History: Reports: Afib, CAD, High Cholesterol, Hypertension, [place], Pacemaker, Stents Other Cardiovascular History: [place] 1999 with 1 stent placement Respiratory History: Reports: Bronchitis, Recurrent, Sleep Apnea Other Respiratory History: smoker for 51 yrs, has a c-pap Gastrointestinal History: Reports: Chronic Constipation, GERD Genitourinary History: Reports: Diabetic Nephropathy Musculoskeletal History: Reports: Osteoarthritis Neurological History: Reports: Neuropathy, Diabetic Psychiatric History: Reports: Anxiety Endocrine/Metabolic History: Reports: Diabetes, Type II Hematologic History: Reports: None Immunologic History: Reports: None Oncologic (Cancer) History: Reports: Colon Other Oncologic History: with surgery, chemo and radiation Stage III Dermatologic History: Reports: None - Infectious Disease History Infectious Disease History: Reports: Chicken Pox, Measles, Mumps, Rheumatic Fever - Past Surgical History Head Surgeries/Procedures: Reports: None HEENT Surgical History: Reports: Naso-Sinus Surgery Cardiovascular Surgical History: Reports: Pacer Respiratory Surgical History: Reports: None GI Surgical History: Reports: Colon Other GI Surgeries/Procedures: Had some colon removed. Stage 3 colon ca. Male Surgical History: Reports: Circumcision Musculoskeletal Surgical History: Reports: Arthroscopic Knee, Shoulder Surgery, Other (See Below) Other Musculoskeletal Surgeries/Procedures:: Repaired acl. [place]. Placed bone marrow in hip., left foot surgery with screw placement 11/03/18. right Foot surg. Social & Family History - Family History Family Medical History: No Pertinent Family History Cardiac: Reports: Afib, AICD, Angina, Bypass, CAD, Heart Failure, High Cholesterol, Hypertension, [place] Respiratory: Reports: Asthma, COPD GI: Reports: Cholelithiasis : Reports: Dialysis, Renal Disease/Insufficiency Musculoskeletal: Reports: Arthritis, Back pain, Chronic Neurological: Reports: CVA, Neuropathy, Diabetic Psychiatric: Reports: Anxiety, Depression Endocrine/Metabolic: Reports: Diabetes, type II - Tobacco Use Tobacco Use Status *Q: Never Tobacco User Second Hand Smoke Exposure: No - Caffeine Use Caffeine Use: Reports: Coffee Other Caffeine Use: 4 pots a day - Recreational Drug Use Recreational Drug Use: No - Living Situation & Occupation Living situation: Reports: with Family Occupation: Unemployed Review of Systems - Review of Systems Review Of Systems: Comprehensive ROS is negative, except as noted in HPI. ED EXAM, GENERAL - Physical Exam Exam: See Below Exam Limited By: No Limitations General Appearance: Alert, WD/WN, Moderate Distress Eye Exam: Bilateral Eye: EOMI, Normal Inspection, PERRL Ears: Normal External Exam, Normal Canal, Hearing Grossly Normal, Normal TMs Nose: Normal Inspection, Normal Mucosa, No Blood Throat/Mouth: Normal Inspection, Normal Lips, Normal Teeth, Normal Gums, Normal Oropharynx, Normal Voice, No Airway Compromise Head: Atraumatic, Normocephalic Neck: Normal Inspection, Supple, Non-Tender, Full Range of Motion Respiratory/Chest: No Respiratory Distress, Lungs Clear, Normal Breath Sounds, No Accessory Muscle Use, Chest Non-Tender Cardiovascular: Normal Peripheral Pulses, Regular Rate, Rhythm, No Edema, No Gallop, No JVD, No Murmur, No Rub GI/Abdominal: Normal Bowel Sounds, Soft, Non-Tender, No Organomegaly, No Distention, No Abnormal Bruit, No Mass (Male) Exam: Deferred Rectal (Males) Exam: Deferred Back Exam: Normal Inspection, Full Range of Motion, NT Extremities: Normal Inspection, Normal Range of Motion, Non-Tender, Normal Capillary Refill, No Pedal Edema Neurological: Alert, Oriented, CN II-XII Intact, Normal Cognition, Normal Gait, Normal Reflexes, No Motor/Sensory Deficits Psychiatric: Normal Affect, Normal Mood Skin Exam: Warm, Dry, Intact, Normal Color, No Rash Lymphatic: No Adenopathy Course - Vital Signs Last Recorded V/S: Last Vital Signs Temp 36.8 C 12/06/20 21:26 Pulse 81 12/06/20 21:26 Resp 18 12/06/20 21:26 BP 149/61 H 12/06/20 21:26 Pulse Ox 96 12/06/20 21:26 - Orders/Labs/Meds Orders: Active Orders 24 hr Category Date Time Status Foot Comp Min 3V Lt [CR] Urgent Exams 12/06/20 21:50 Ordered COMPREHENSIVE METABOLIC PN,CMP [CHEM] Stat Lab 12/06/20 21:49 Ordered Labs: Laboratory Tests 12/06/20 Range/Units 22:05 WBC 10.9 H (5.0-10.0) 10^3/uL RBC 4.84 (4.6-6.2) 10^6/uL Hgb 14.3 (14.0-18.0) g/dL Hct 42.6 (40.0-54.0) % MCV 88.0 (80-100) fL MCH 29.5 (27.0-34.0) pg MCHC 33.6 (33.0-35.0) g/dL Plt Count 225 (150-450) 10^3/uL Neut % (Auto) 67.1 (42.2-75.2) % Lymph % (Auto) 22.7 (20.5-50.1) % [place] % (Auto) 9.1 H (2-8) % Eos % (Auto) 1.0 (1.0-3.0) % Baso % (Auto) 0.1 (0.0-1.0) % Meds: Medications Discontinued Medications Generic Name Dose Route Start Last Admin Trade Name Freq PRN Reason Stop Dose Admin Hydromorphone HCl 1 mg 12/06/20 21:50 12/06/20 22:13 Dilaudid IVPUSH 12/06/20 21:51 1 mg ONETIME ONE Administration Departure - Departure Time of Disposition: 22:34 Disposition: Home, Self-Care 01 Condition: Fair Clinical Impression: Left foot pain - Discharge Information *PRESCRIPTION DRUG MONITORING PROGRAM REVIEWED*: Not Applicable *COPY OF PRESCRIPTION DRUG MONITORING REPORT IN PATIENT RERE: Not Applicable Forms: ED Department Discharge Care Plan Goals: The patient was advised of the examination, lab and x-ray results during the visit. The patient was given an IV dose of pain medication while in the ED. The patient was encouraged to follow the discharge instructions as given by his surgeon. If the patient has any additional symptoms or concerns, the patient should either return to the emergency department or visit his primary care facility. Sepsis Event Note (ED) - Evaluation Sepsis Screening Result: No Definite Risk - Focused Exam Vital Signs: Vital Signs Temp Pulse Resp BP Pulse Ox 12/06/20 21:26 36.8 C 81 18 149/61 H 96 - My Orders Last 24 Hours: My Active Orders 12/06/20 21:49 COMPREHENSIVE METABOLIC PN,CMP [CHEM] Stat 12/06/20 21:50 Foot Comp Min 3V Lt [CR] Urgent - Assessment/Plan Last 24 Hours: My Active Orders 12/06/20 21:49 COMPREHENSIVE METABOLIC PN,CMP [CHEM] Stat 12/06/20 21:50 Foot Comp Min 3V Lt [CR] Urgent
[2020-12-06 22:35] LABS: ANION GAP 16.3 mEq/L (7-13); CHLORIDE,CL 104 mmol/L (98-107); SODIUM,NA 143 mmol/L (136-145)
[2020-12-06] MEDS ORDERED: Ondansetron 4 MG Tab.DIS PO ONE (22:49)
--- NOTE | 2020-12-06 22:50 | CR ---
PROCEDURE INFORMATION: Exam: XR Left Foot Exam date and time: 12/06/2020 10:20 PM Age: 65 years old Clinical indication: Other: Surgery yesterday; Prior surgery; Surgery date: Post-operative (0-2 days); Additional info: Recent surgery with increased pain TECHNIQUE: Imaging protocol: XR Left foot. Views: 3 or more views. Total images: 3 COMPARISON: CR Foot 2V Lt 10/03/2020 8:09 PM FINDINGS: Bones/joints: Tiny plantar calcaneal spur. Tiny spurs at the level of the midfoot. There is new orthopedic hardware with plate/screw fusion/fixation at the 1st tarsal metatarsal joint. There are a few small bony fragments adjacent to the medial cuneiform presumably postsurgical. Degenerative changes with spurring at the 1st MTP joint. No acute fracture. Soft tissues: Normal. IMPRESSION: 1. Postsurgical changes with new plate/screw fixation/fusion at the 1st tarsal metatarsal joint. Other unchanged postsurgical changes left foot. 2. No acute fracture or other acute process.
== END 2020-12-06 23:00 | disposition home or self-care (01) ==
LOC: DL.ED 21:23
DX: M79.672 Pain in left foot (principal); I48.91 Unspecified atrial fibrillation; I25.10 Atherosclerotic heart disease of native coronary artery without angina pectoris; E78.00 Pure hypercholesterolemia, unspecified; I10 Essential (primary) hypertension; I25.2 Old myocardial infarction; E11.21 Type 2 diabetes mellitus with diabetic nephropathy; E11.40 Type 2 diabetes mellitus with diabetic neuropathy, unspecified; M19.90 Unspecified osteoarthritis, unspecified site; K21.9 Gastro-esophageal reflux disease without esophagitis; Z91.018 Allergy to other foods; Z88.5 Allergy status to narcotic agent; Z88.0 Allergy status to penicillin; Z91.041 Radiographic dye allergy status; Z79.82 Long term (current) use of aspirin; Z79.4 Long term (current) use of insulin; Z79.01 Long term (current) use of anticoagulants; Z79.899 Other long term (current) drug therapy; Z87.891 Personal history of nicotine dependence
CPT/HCPCS: 36415; 73630; 80053; 85025; 96374; 99283; A9270; J1170

== ENCOUNTER 2020-12-09 21:24 | Emergency (ER) | payer MEDICAID | END 2020-12-09 22:10 | disposition left against medical advice (07) | LOC: DL.ED 21:24 | DX: Z53.21 Procedure and treatment not carried out due to patient leaving prior to being seen by health care provider (principal) ==

== ENCOUNTER 2020-12-16 22:00 | Emergency (ER) | payer MEDICAID ==
[2020-12-16 22:30] VITALS: BP 112/71; PULSE 74
--- NOTE | 2020-12-16 22:35 | EDM.PDOC ---
ED HPI GENERAL MEDICAL PROBLEM - General Stated Complaint: LEFT FOOT PAIN AND SWELLING Time Seen by Provider: 12/16/20 22:15 Source of Information: Reports: Patient History Limitations: Reports: No Limitations - History of Present Illness INITIAL COMMENTS - FREE TEXT/NARRATIVE: This 65 yo male patient reports to the ED with increased pain in his left foot pain. The patient [facility] [place] The patient reports he had his sutures removed 1 week ago. The patient reports difficulties sleeping due to increased pain in his foot. The patient reports the [facility] for easier ambulation. Onset: Today Duration: Constant Location: Reports: Lower Extremity, Left Quality: Reports: Ache, Sharp Severity: Severe Improves with: Reports: None Worsens with: Reports: None Context: Reports: Other Associated Symptoms: Reports: No Other Symptoms Left Feet Pain Score (Numeric/FACES): 8 - Related Data Allergies Allergy/AdvReac Type Severity Reaction Status Date / Time chicken derived Allergy Hives Verified 12/16/20 22:31 codeine Allergy Hives Verified 12/16/20 22:31 Penicillins Allergy Hives Verified 12/16/20 22:31 tramadol Allergy Hives Verified 12/16/20 22:31 Contrast media Allergy Hives Uncoded 12/16/20 22:31 Home Meds: Home Meds Aspirin 81 mg PO BRK 11/09/15 [History] Calcium Citrate/Vitamin D3 [[place] Calcium 200-Vit D3 250] 1 each PO DAILY 11/09/15 [History] Docusate Sodium [Colace] 100 mg PO BID 11/09/15 [History] Gabapentin [Neurontin] 900 mg PO TID 11/09/15 [History] Hydrochlorothiazide 25 mg PO DAILY 11/09/15 [History] Lisinopril 20 mg PO DAILY 11/09/15 [History] Omeprazole 20 mg PO ACBREAKFAST 11/09/15 [History] atorvaSTATin [Lipitor] 20 mg PO BEDTIME 11/09/15 [History] metFORMIN [Glucophage XR] 1,000 mg PO BIDMEALS 11/09/15 [History] Apixaban [Eliquis] 5 mg PO DAILY 11/08/17 [History] Cholecalciferol (Vitamin D3) [Vitamin D3] 1,000 unit PO DAILY 11/08/17 [History] Insulin Glarg,Human.Rec.Analog [Lantus Solostar] 40 unit SUBCUT DAILY 11/08/17 [History] Melatonin/Pyridoxine HCl (B6) [Melatonin 3 mg Tablet] 9 mg PO BEDTIME 11/08/17 [History] [place]-3 Fatty Acids [[place]-3] 1 gm PO DAILY 11/08/17 [History] Prazosin HCl [Prazosin] 1 mg PO BEDTIME 11/08/17 [History] glipiZIDE [Glucotrol XL] 10 mg PO BID 11/08/17 [History] Metoprolol Tartrate [Lopressor] 50 mg PO BID #60 tablet 11/09/17 [Rx] Diltiazem [Diltiazem XR] 240 mg PO BID 02/11/18 [History] Past Medical History - Past Health History Medical/Surgical History: Denies Medical/Surgical History HEENT History: Reports: None Cardiovascular History: Reports: Afib, CAD, High Cholesterol, Hypertension, CT, Pacemaker, Stents Other Cardiovascular History: CT 1999 with 1 stent placement Respiratory History: Reports: Bronchitis, Recurrent, Sleep Apnea Other Respiratory History: smoker for 51 yrs, has a c-pap Gastrointestinal History: Reports: Chronic Constipation, GERD Genitourinary History: Reports: Diabetic Nephropathy Musculoskeletal History: Reports: Osteoarthritis Neurological History: Reports: Neuropathy, Diabetic Psychiatric History: Reports: Anxiety Endocrine/Metabolic History: Reports: Diabetes, Type II Hematologic History: Reports: None Immunologic History: Reports: None Oncologic (Cancer) History: Reports: Colon Other Oncologic History: with surgery, chemo and radiation Stage III Dermatologic History: Reports: None - Infectious Disease History Infectious Disease History: Reports: Chicken Pox, Measles, Mumps, Rheumatic Fever - Past Surgical History Head Surgeries/Procedures: Reports: None HEENT Surgical History: Reports: Naso-Sinus Surgery Cardiovascular Surgical History: Reports: Pacer Respiratory Surgical History: Reports: None GI Surgical History: Reports: Colon Other GI Surgeries/Procedures: Had some colon removed. Stage 3 colon ca. Male Surgical History: Reports: Circumcision Musculoskeletal Surgical History: Reports: Arthroscopic Knee, Shoulder Surgery, Other (See Below) Other Musculoskeletal Surgeries/Procedures:: Repaired acl. [place]. Placed bone marrow in hip., left foot surgery with screw placement 11/03/18. right Foot surg. Social & Family History - Family History Family Medical History: No Pertinent Family History Cardiac: Reports: Afib, AICD, Angina, Bypass, CAD, Heart Failure, High Cholesterol, Hypertension, CT Respiratory: Reports: Asthma, COPD GI: Reports: Cholelithiasis : Reports: Dialysis, Renal Disease/Insufficiency Musculoskeletal: Reports: Arthritis, Back pain, Chronic Neurological: Reports: CVA, Neuropathy, Diabetic Psychiatric: Reports: Anxiety, Depression Endocrine/Metabolic: Reports: Diabetes, type II - Caffeine Use Caffeine Use: Reports: Coffee Other Caffeine Use: 4 pots a day - Living Situation & Occupation Living situation: Reports: with Family Occupation: Unemployed Review of Systems - Review of Systems Review Of Systems: Comprehensive ROS is negative, except as noted in HPI. ED EXAM, GENERAL - Physical Exam Exam: See Below Exam Limited By: No Limitations General Appearance: Alert, WD/WN, Moderate Distress Eye Exam: Bilateral Eye: EOMI, Normal Inspection, PERRL Ears: Normal External Exam, Normal Canal, Hearing Grossly Normal, Normal TMs Nose: Normal Inspection, Normal Mucosa, No Blood Throat/Mouth: Normal Inspection, Normal Lips, Normal Teeth, Normal Gums, Normal Oropharynx, Normal Voice, No Airway Compromise Head: Atraumatic, Normocephalic Neck: Normal Inspection, Supple, Non-Tender, Full Range of Motion Respiratory/Chest: No Respiratory Distress, Lungs Clear, Normal Breath Sounds, No Accessory Muscle Use, Chest Non-Tender Cardiovascular: Normal Peripheral Pulses, Regular Rate, Rhythm, No Edema, No Gallop, No JVD, No Murmur, No Rub GI/Abdominal: Normal Bowel Sounds, Soft, Non-Tender, No Organomegaly, No Distention, No Abnormal Bruit, No Mass (Male) Exam: Deferred Rectal (Males) Exam: Deferred Back Exam: Normal Inspection, Full Range of Motion, NT Extremities: Other (left foot pain and swelling) Neurological: Alert, Oriented, CN II-XII Intact, Normal Cognition, Normal Gait, Normal Reflexes, No Motor/Sensory Deficits Psychiatric: Normal Affect, Normal Mood Skin Exam: Warm, Dry, Intact, Normal Color, No Rash Lymphatic: No Adenopathy Course - Vital Signs Last Recorded V/S: Last Vital Signs Temp 35.3 C L 12/16/20 22:26 Pulse 74 12/16/20 22:26 Resp 20 12/16/20 22:26 BP 112/71 12/16/20 22:26 Pulse Ox 97 12/16/20 22:26 - Orders/Labs/Meds Orders: Active Orders 24 hr Category Date Time Status Acetaminophen/oxyCODONE [Percocet 325-5 MG] Med 12/16/20 22:55 Once 1 tab PO ONETIME ONE Departure - Departure Time of Disposition: 22:55 Disposition: Home, Self-Care 01 Condition: Fair Clinical Impression: Left foot pain - Discharge Information *PRESCRIPTION DRUG MONITORING PROGRAM REVIEWED*: Not Applicable *COPY OF PRESCRIPTION DRUG MONITORING REPORT IN PATIENT RERE: Not Applicable Forms: ED Department Discharge Care Plan Goals: The patient was advised of the examination and x-ray results. The patient was given an oral dose of Percocet (5/325) while in the ED. The patient was encouraged to call his primary care facility for continued evaluation and furth er treatment. If the patient has any additional symptoms or concerns, the patient should either return to the emergency department or visit his primary care facility. Sepsis Event Note (ED) - Focused Exam Vital Signs: Vital Signs Temp Pulse Resp BP Pulse Ox 12/16/20 22:26 35.3 C L 74 20 112/71 97 - My Orders Last 24 Hours: My Active Orders 12/16/20 22:55 Acetaminophen/oxyCODONE [Percocet 325-5 MG] 1 tab PO ONETIME ONE - Assessment/Plan Last 24 Hours: My Active Orders 12/16/20 22:55 Acetaminophen/oxyCODONE [Percocet 325-5 MG] 1 tab PO ONETIME ONE
--- NOTE | 2020-12-16 22:43 | CR ---
PROCEDURE INFORMATION: Exam: XR Left Foot Exam date and time: 12/16/2020 10:29 PM Age: 65 years old Clinical indication: Other: Pain/swellinno new trauma; Prior surgery; Additional info: Left foot pain post op TECHNIQUE: Imaging protocol: XR Left foot. Views: 3 or more views. Total images: 3 COMPARISON: CR Foot Comp Min 3V Lt 12/06/2020 10:20 PM FINDINGS: Bones/joints: Tiny plantar calcaneal spur. Extensive surgical hardware predominantly 1st digit and head of 2nd metatarsal again noted. Hardware appears unchanged. Degenerative changes with spurring at the 1st MTP joint. No acute fracture. Soft tissues: Minimal edema. IMPRESSION: No interval change. Orthopedic hardware left foot unchanged. No acute fracture.
[2020-12-16] MEDS ORDERED: Acetaminophen/oxyCODONE 325-5 MG Tab PO ONE (22:55)
== END 2020-12-16 23:05 | disposition home or self-care (01) ==
LOC: DL.ED 22:00
DX: M79.672 Pain in left foot (principal); I48.91 Unspecified atrial fibrillation; I25.10 Atherosclerotic heart disease of native coronary artery without angina pectoris; E78.00 Pure hypercholesterolemia, unspecified; I10 Essential (primary) hypertension; I25.2 Old myocardial infarction; E11.21 Type 2 diabetes mellitus with diabetic nephropathy; M19.90 Unspecified osteoarthritis, unspecified site; E11.40 Type 2 diabetes mellitus with diabetic neuropathy, unspecified; Z91.018 Allergy to other foods; Z88.5 Allergy status to narcotic agent; Z88.0 Allergy status to penicillin; Z91.041 Radiographic dye allergy status; Z79.82 Long term (current) use of aspirin; Z79.4 Long term (current) use of insulin; Z79.899 Other long term (current) drug therapy; Z95.5 Presence of coronary angioplasty implant and graft; Z87.891 Personal history of nicotine dependence; Z79.01 Long term (current) use of anticoagulants
CPT/HCPCS: 73630; 99283; A9270

== ENCOUNTER 2020-12-20 20:49 | Emergency (ER) | payer MEDICAID | END 2020-12-20 21:40 | disposition left against medical advice (07) | LOC: DL.ED 20:49 | DX: Z53.21 Procedure and treatment not carried out due to patient leaving prior to being seen by health care provider (principal) ==

== ENCOUNTER 2020-12-31 22:38 | Emergency (ER) | payer MEDICAID ==
[2020-12-31 23:04] VITALS: BP 141/78; PULSE 83
[2020-12-31] MEDS ORDERED: Acetaminophen 325 MG Tab PO ONE (23:16)
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
== END 2021-01-01 00:15 | disposition home or self-care (01) ==
LOC: DL.ED 22:38
DX: M79.662 Pain in left lower leg (principal); R10.9 Unspecified abdominal pain; I48.91 Unspecified atrial fibrillation; I25.10 Atherosclerotic heart disease of native coronary artery without angina pectoris; E78.00 Pure hypercholesterolemia, unspecified; E11.40 Type 2 diabetes mellitus with diabetic neuropathy, unspecified; I10 Essential (primary) hypertension; I25.2 Old myocardial infarction; K21.9 Gastro-esophageal reflux disease without esophagitis; E11.21 Type 2 diabetes mellitus with diabetic nephropathy; M19.90 Unspecified osteoarthritis, unspecified site; Z95.5 Presence of coronary angioplasty implant and graft; Z87.891 Personal history of nicotine dependence; Z79.4 Long term (current) use of insulin; Z79.01 Long term (current) use of anticoagulants; Z91.018 Allergy to other foods; Z88.5 Allergy status to narcotic agent; Z88.0 Allergy status to penicillin; Z91.041 Radiographic dye allergy status; Z79.82 Long term (current) use of aspirin; Z79.899 Other long term (current) drug therapy
CPT/HCPCS: 73590; 81003; 82962; 99283; A9270

== ENCOUNTER 2021-01-11 00:09 | Emergency (ER) | payer MEDICAID, OTHER ==
--- NOTE | 2021-01-11 00:16 | EDM.PDOC ---
ED HPI GENERAL MEDICAL PROBLEM - General Stated Complaint: NECK AND LOWER BACK PAIN Time Seen by Provider: 01/11/21 00:16 Source of Information: Reports: Patient, RN, RN Notes Reviewed - History of Present Illness INITIAL COMMENTS - FREE TEXT/NARRATIVE: Patient is a 65-year-old male who presents to ER with complaint of neck pain that radiates out into the shoulders, and shoots up into the head, causing a headache. Patient states he woke up from sleep with this pain. Denies any falls or recent injuries. Patient also complains of chronic lumbar back pain. Also denies any new injuries to the area. Patient denies any shooting pains down the arms, numbness or tingling. Rates the pain 9/10, describes it as stabbing. Patient states he has used Tylenol which has not helped. Onset: Today, Sudden lower back and back of neck pain. Also a headache. Pain Score (Numeric/FACES): 9 - Related Data Allergies Allergy/AdvReac Type Severity Reaction Status Date / Time chicken derived Allergy Hives Verified 01/11/21 00:26 codeine Allergy Hives Verified 01/11/21 00:26 Penicillins Allergy Hives Verified 01/11/21 00:26 tramadol Allergy Hives Verified 12/31/20 22:55 Contrast media Allergy Hives Uncoded 01/11/21 00:26 Home Meds: Home Meds Aspirin 81 mg PO BRK 11/09/15 [History] Calcium Citrate/Vitamin D3 [[place] Calcium 200-Vit D3 250] 1 each PO DAILY 11/09/15 [History] Docusate Sodium [Colace] 100 mg PO BID 11/09/15 [History] Gabapentin [Neurontin] 900 mg PO TID 11/09/15 [History] Hydrochlorothiazide 25 mg PO DAILY 11/09/15 [History] Lisinopril 20 mg PO DAILY 11/09/15 [History] Omeprazole 20 mg PO ACBREAKFAST 11/09/15 [History] atorvaSTATin [Lipitor] 20 mg PO BEDTIME 11/09/15 [History] metFORMIN [Glucophage XR] 1,000 mg PO BIDMEALS 11/09/15 [History] Apixaban [Eliquis] 5 mg PO DAILY 11/08/17 [History] Cholecalciferol (Vitamin D3) [Vitamin D3] 1,000 unit PO DAILY 11/08/17 [History] Insulin Glarg,Human.Rec.Analog [Lantus Solostar] 44 unit SUBCUT DAILY 11/08/17 [History] Melatonin/Pyridoxine HCl (B6) [Melatonin 3 mg Tablet] 9 mg PO BEDTIME 11/08/17 [History] [place]-3 Fatty Acids [[place]-3] 1 gm PO DAILY 11/08/17 [History] Prazosin HCl [Prazosin] 1 mg PO BEDTIME 11/08/17 [History] glipiZIDE [Glucotrol XL] 10 mg PO BID 11/08/17 [History] Metoprolol Tartrate [Lopressor] 50 mg PO BID #60 tablet 11/09/17 [Rx] Diltiazem [Diltiazem XR] 240 mg PO BID 02/11/18 [History] Past Medical History - Past Health History Medical/Surgical History: Denies Medical/Surgical History HEENT History: Reports: None Cardiovascular History: Reports: Afib, CAD, High Cholesterol, Hypertension, [place], Pacemaker, Stents Other Cardiovascular History: [place] 1999 with 1 stent placement Respiratory History: Reports: Bronchitis, Recurrent, Sleep Apnea Other Respiratory History: smoker for 51 yrs, has a c-pap Gastrointestinal History: Reports: Chronic Constipation, GERD Genitourinary History: Reports: Diabetic Nephropathy Musculoskeletal History: Reports: Osteoarthritis Neurological History: Reports: Neuropathy, Diabetic Psychiatric History: Reports: Anxiety Endocrine/Metabolic History: Reports: Diabetes, Type II Hematologic History: Reports: None Immunologic History: Reports: None Oncologic (Cancer) History: Reports: Colon Other Oncologic History: with surgery, chemo and radiation Stage III Dermatologic History: Reports: None - Infectious Disease History Infectious Disease History: Reports: Chicken Pox, Measles, Mumps, Rheumatic Fever - Past Surgical History Head Surgeries/Procedures: Reports: None HEENT Surgical History: Reports: Naso-Sinus Surgery Cardiovascular Surgical History: Reports: Pacer Respiratory Surgical History: Reports: None GI Surgical History: Reports: Colon Other GI Surgeries/Procedures: Had some colon removed. Stage 3 colon ca. Male Surgical History: Reports: Circumcision Musculoskeletal Surgical History: Reports: Arthroscopic Knee, Shoulder Surgery, Other (See Below) Other Musculoskeletal Surgeries/Procedures:: Repaired acl. [place]. Placed bone marrow in hip., left foot surgery with screw placement 11/03/18. right Foot surg. Social & Family History - Family History Family Medical History: No Pertinent Family History Cardiac: Reports: Afib, AICD, Angina, Bypass, CAD, Heart Failure, High Cholesterol, Hypertension, [place] Respiratory: Reports: Asthma, COPD GI: Reports: Cholelithiasis : Reports: Dialysis, Renal Disease/Insufficiency Musculoskeletal: Reports: Arthritis, Back pain, Chronic Neurological: Reports: CVA, Neuropathy, Diabetic Psychiatric: Reports: Anxiety, Depression Endocrine/Metabolic: Reports: Diabetes, type II - Caffeine Use Caffeine Use: Reports: Coffee Other Caffeine Use: 4 pots a day - Living Situation & Occupation Living situation: Reports: with Family Occupation: Unemployed ED ROS GENERAL - Review of Systems Review Of Systems: Comprehensive ROS is negative, except as noted in HPI. ED EXAM, UPPER BACK/NECK PAIN - Physical Exam Exam: See Below Exam Limited By: No Limitations General Appearance: Alert, WD/WN, Mild Distress Eye Exam: Bilateral Eye: EOMI, Normal Inspection Ears Exam: Normal External Exam, Hearing Grossly Normal Nose Exam: Normal Inspection Throat/Mouth Exam: Normal Inspection, Normal Voice, No Airway Compromise Head Exam: Atraumatic, Normocephalic Neck Exam: Normal Alignment, Normal Inspection, Limited Range of Motion, Tender Lateral Nexus Criteria: No: Posterior, Midline Cervical Tenderness, Evidence of Into xication, Altered Level of Consciousness, Focal Neurological Deficit, Painful Distraction Injuries Cardiovascular/Respiratory: Regular Rate, Rhythm, No M/R/G, Normal Peripheral Pulses, No JVD, Normal Breath Sounds, No Respiratory Distress GI/Abdominal: Normal Bowel Sounds, Soft, Non-Tender (Male) Exam: Deferred Rectal (Males) Exam: Deferred Back Exam: Normal Inspection, Decreased Range of Motion, Paraspinal Tenderness Extremities: Normal Inspection, Normal Range of Motion, Non-Tender, No Pedal Edema, Normal Capillary Refill Neurologic: No Motor/Sensory Deficits, Alert, Normal Mood/Affect, Oriented x 3 Psychiatric: Normal Affect, Normal Mood Skin Exam: Normal Color, Warm/Dry Lymphatic: No Adenopathy Course - Vital Signs Last Recorded V/S: Last Vital Signs Temp 96.4 F L 01/11/21 00:20 Pulse 83 01/11/21 00:20 Resp 16 01/11/21 00:20 BP 127/49 L 01/11/21 00:20 Pulse Ox 96 01/11/21 00:20 - Orders/Labs/Meds Meds: Medications Discontinued Medications Generic Name Dose Route Start Last Admin Trade Name Teddy PRN Reason Stop Dose Admin Ketorolac Tromethamine 30 mg 01/11/21 00:26 01/11/21 00:33 Ketorolac 30 Mg/Ml Sdv IM 01/11/21 00:27 30 mg ONETIME ONE Administration Orphenadrine Citrate 60 mg 01/11/21 00:26 01/11/21 00:35 Orphenadrine 60 Mg/2 Ml Inj IM 01/11/21 00:27 Not Given ONETIME ONE - Re-Assessments/Exams Free Text/Narrative Re-Assessment/Exam: 01/11/21 00:44 Patient states feeling better after shot of Toradol. Departure - Departure Time of Disposition: 00:44 Disposition: Home, Self-Care 01 Condition: Good Clinical Impression: Neck muscle spasm Neck strain Qualifiers: Encounter type: initial encounter Qualified Code(s): S16.1XXA - Strain of muscle, fascia and tendon at neck level, initial encounter - Discharge Information *PRESCRIPTION DRUG MONITORING PROGRAM REVIEWED*: No *COPY OF PRESCRIPTION DRUG MONITORING REPORT IN PATIENT RERE: No Instructions: Muscle Cramps and Spasms, [id number], Back Injury Prevention, [id number], Muscle Strain, [id number], Cervical Strain and Sprain Rehab- SportsMed, Chronic Back Pain, [id number] Forms: ED Department Discharge Additional Instructions: Use your Cyclobenzaprine at home as directed May use Tylenol as directed for pain Alternate heat and ice to the neck as tolerated Follow up with your primary care facility Sepsis Event Note (ED) - Focused Exam Vital Signs: Vital Signs Temp Pulse Resp BP Pulse Ox 01/11/21 00:20 96.4 F L 83 16 127/49 L 96
[2021-01-11] MEDS ORDERED: Orphenadrine 60 MG/2 ML Inj IM ONE (00:26)
[2021-01-11] MEDS ORDERED: Ketorolac 30 MG/ML SDV IM ONE (00:26)
[2021-01-11 00:49] VITALS: BP 127/49; PULSE 83
== END 2021-01-11 00:48 | disposition home or self-care (01) ==
LOC: DL.ED 00:09
DX: S16.1XXA Strain of muscle, fascia and tendon at neck level, initial encounter (principal); I48.91 Unspecified atrial fibrillation; I25.10 Atherosclerotic heart disease of native coronary artery without angina pectoris; E78.00 Pure hypercholesterolemia, unspecified; I10 Essential (primary) hypertension; I25.2 Old myocardial infarction; E11.21 Type 2 diabetes mellitus with diabetic nephropathy; E11.40 Type 2 diabetes mellitus with diabetic neuropathy, unspecified; K21.9 Gastro-esophageal reflux disease without esophagitis; M19.90 Unspecified osteoarthritis, unspecified site; Z91.018 Allergy to other foods; Z79.82 Long term (current) use of aspirin; Z88.5 Allergy status to narcotic agent; Z88.0 Allergy status to penicillin; Z91.041 Radiographic dye allergy status; Z87.891 Personal history of nicotine dependence; Z79.01 Long term (current) use of anticoagulants; Z79.4 Long term (current) use of insulin; Z95.5 Presence of coronary angioplasty implant and graft; X58.XXXA Exposure to other specified factors, initial encounter
CPT/HCPCS: 96372; 99283; J1885

== ENCOUNTER 2021-01-13 23:25 | Emergency (ER) | payer MEDICAID ==
[2021-01-13] MEDS ORDERED: Acetaminophen/oxyCODONE 325-5 MG Tab PO ONE (23:26)
[2021-01-13 23:52] VITALS: PULSE 78
--- NOTE | 2021-01-13 23:59 | EDM.PDOC ---
ED HPI GENERAL MEDICAL PROBLEM - General Chief Complaint: Lower Extremity Injury/Pain Stated Complaint: DROPPED COUCH ON LEFT FOOT Time Seen by Provider: 01/13/21 23:58 Source of Information: Reports: Patient, RN, RN Notes Reviewed History Limitations: Reports: No Limitations - History of Present Illness INITIAL COMMENTS - FREE TEXT/NARRATIVE: Patient presents to the ED via personal vehicle with complaint of left foot pain. The patient states he "..dropped a couch" on the mid-dorsal aspect of his foot earlier this evening while moving furniture. He reports a history of mul tiple foot surgeries for bunions, and subsequent revision of bunionectomy, and is concerned regarding the hardware in his foot. He has not taken any medications for this problem. He denies decreased loss of motor or sensory function to the extremity. Left Feet Pain Score (Numeric/FACES): 10 - Related Data Allergies Allergy/AdvReac Type Severity Reaction Status Date / Time chicken derived Allergy Hives Verified 01/13/21 23:54 codeine Allergy Hives Verified 01/13/21 23:54 Penicillins Allergy Hives Verified 01/13/21 23:54 tramadol Allergy Hives Verified 01/13/21 23:54 Contrast media Allergy Hives Uncoded 01/13/21 23:54 Home Meds: Home Meds Aspirin 81 mg PO BRK 11/09/15 [History] Calcium Citrate/Vitamin D3 [[place] Calcium 200-Vit D3 250] 1 each PO DAILY 11/09/15 [History] Docusate Sodium [Colace] 100 mg PO BID 11/09/15 [History] Gabapentin [Neurontin] 900 mg PO TID 11/09/15 [History] Hydrochlorothiazide 25 mg PO DAILY 11/09/15 [History] Lisinopril 20 mg PO DAILY 11/09/15 [History] Omeprazole 20 mg PO ACBREAKFAST 11/09/15 [History] atorvaSTATin [Lipitor] 20 mg PO BEDTIME 11/09/15 [History] metFORMIN [Glucophage XR] 1,000 mg PO BIDMEALS 11/09/15 [History] Apixaban [Eliquis] 5 mg PO DAILY 11/08/17 [History] Cholecalciferol (Vitamin D3) [Vitamin D3] 1,000 unit PO DAILY 11/08/17 [History] Insulin Glarg,Human.Rec.Analog [Lantus Solostar] 44 unit SUBCUT DAILY 11/08/17 [History] Melatonin/Pyridoxine HCl (B6) [Melatonin-Vit B6 3-10 mg Tab] 9 mg PO BEDTIME 11/08/17 [History] [place]-3 Fatty Acids [[place]-3] 1 gm PO DAILY 11/08/17 [History] Prazosin HCl [Prazosin] 1 mg PO BEDTIME 11/08/17 [History] glipiZIDE [Glucotrol XL] 10 mg PO BID 11/08/17 [History] Metoprolol Tartrate [Lopressor] 50 mg PO BID #60 tablet 11/09/17 [Rx] Diltiazem [Diltiazem XR] 240 mg PO BID 02/11/18 [History] Past Medical History - Past Health History Medical/Surgical History: Denies Medical/Surgical History HEENT History: Reports: None Cardiovascular History: Reports: Afib, CAD, High Cholesterol, Hypertension, [place], Pacemaker, Stents Other Cardiovascular History: [place] 1999 with 1 stent placement Respiratory History: Reports: Bronchitis, Recurrent, Sleep Apnea Other Respiratory History: smoker for 51 yrs, has a c-pap Gastrointestinal History: Reports: Chronic Constipation, GERD Genitourinary History: Reports: Diabetic Nephropathy Musculoskeletal History: Reports: Osteoarthritis, Other (See Below) Other Musculoskeletal History: Uses a [employer] machine at home for his back and neck. Neurological History: Reports: Neuropathy, Diabetic Psychiatric History: Reports: Anxiety Endocrine/Metabolic History: Reports: Diabetes, Type II Hematologic History: Reports: None Immunologic History: Reports: None Oncologic (Cancer) History: Reports: Colon Other Oncologic History: with surgery, chemo and radiation Stage III Dermatologic History: Reports: None - Infectious Disease History Infectious Disease History: Reports: Chicken Pox, Measles, Mumps, Rheumatic Feve r - Past Surgical History Head Surgeries/Procedures: Reports: None HEENT Surgical History: Reports: Naso-Sinus Surgery Cardiovascular Surgical History: Reports: Pacer Respiratory Surgical History: Reports: None GI Surgical History: Reports: Colon Other GI Surgeries/Procedures: Had some colon removed. Stage 3 colon ca. Male Surgical History: Reports: Circumcision Musculoskeletal Surgical History: Reports: Arthroscopic Knee, Shoulder Surgery, Other (See Below) Other Musculoskeletal Surgeries/Procedures:: Repaired acl. [place]. Placed bone marrow in hip., left foot surgery with screw placement 11/03/18. right Foot surg. Social & Family History - Family History Family Medical History: No Pertinent Family History Cardiac: Reports: Afib, AICD, Angina, Bypass, CAD, Heart Failure, High Cholesterol, Hypertension, [place] Respiratory: Reports: Asthma, COPD GI: Reports: Cholelithiasis : Reports: Dialysis, Renal Disease/Insufficiency Musculoskeletal: Reports: Arthritis, Back pain, Chronic Neurological: Reports: CVA, Neuropathy, Diabetic Psychiatric: Reports: Anxiety, Depression Endocrine/Metabolic: Reports: Diabetes, type II - Caffeine Use Caffeine Use: Reports: Coffee Other Caffeine Use: 4 pots a day - Living Situation & Occupation Living situation: Reports: with Family Occupation: Unemployed Review of Systems - Review of Systems Review Of Systems: Comprehensive ROS is negative, except as noted in HPI. ED EXAM, GENERAL - Physical Exam Exam: See Below Exam Limited By: No Limitations General Appearance: Alert, No Apparent Distress Throat/Mouth: Normal Inspection, Normal Voice, No Airway Compromise Head: Atraumatic, Normocephalic Neck: Normal Inspection, Supple, Non-Tender, Full Range of Motion Respiratory/Chest: No Respiratory Distress, Lungs Clear, Normal Breath Sounds, No Accessory Muscle Use, Chest Non-Tender Cardiovascular: Normal Peripheral Pulses, Regular Rate, Rhythm, No Gallop, No JVD, No Murmur, No Rub Peripheral Pulses: 1+: Posterior Tibial (L), 2+: Radial (L), Radial (R), Dorsalis Pedis (L) Extremities: No Pedal Edema, Normal Capillary Refill, Joint Swelling (To left foot), Leg Pain (To midline dorsal aspect of left foot), Limited Range of Motion (Chronic since last surgery for revision of hardware), Redness (To distal aspect of left foot). No: Increased Warmth, Mottled, Pallor Neurological: Alert, Oriented, CN II-XII Intact, Normal Cognition, Normal Gait, Normal Reflexes, No Motor/Sensory Deficits Psychiatric: Normal Affect, Normal Mood Skin Exam: Warm, Dry, Wound/Incision (Scattered abrasions to foot, in various stages of healing. Bandage in place to midfoot due to nonhealing wound following last revision surgery) Course - Vital Signs Last Recorded V/S: Last Vital Signs Temp 97 F 01/13/21 23:46 Pulse 78 01/13/21 23:46 Resp 14 01/13/21 23:46 BP Pulse Ox 97 01/13/21 23:46 - Orders/Labs/Meds Meds: Medications Discontinued Medications Generic Name Dose Route Start Last Admin Trade Name Teddy PRN Reason Stop Dose Admin Oxycodone/Acetaminophen Confirm 01/14/21 01:07 Acetaminophen/Oxycodone 325-5 Mg Tab Administered 01/14/21 01:08 Dose 1 tab .ROUTE .STK-MED ONE - Radiology Interpretation Free Text/Narrative:: [facility] [place] [facility] Final Radiology Report Call: [phone] assistance Online chat: [email or web address] Name: MADDIE DUPONT Age: 65Years M Date: 01/14/2021 SSN: -- : 1955 Study: CR FOOT COMP MIN 3V LT Requesting Physician: Paige Mix Images: 3 Addl Studies: Provided Clinical History: Dropped couch onto mid-dorsal aspect of foot Contrast: Contrast Medium: Contrast Amount: Contrast Method: Page 1 of 2 PROCEDURE INFORMATION: Exam: XR Left Foot Exam date and time: 01/14/2021 12:28 AM Age: 65 years old Clinical indication: Other: Pain 07/14, HX multiple surgeries; Additional info: Dropped couch onto mid-dorsal aspect of foot TECHNIQUE: Imaging protocol: XR Left foot. Views: 3 or more views. Total images: 3 COMPARISON: CR Foot Comp Min 3V Lt 12/16/2020 10:29 PM FINDINGS: Bones/joints: No acute fractures. Chronic postoperative changes in the 1st metatarsal with multiple fixation screws and a plantar fixation plate at the 1st TMT joint with no gross hardware complication. Additional fixation screws in the great toe proximal phalanx and 2nd metatarsal head, unchanged. Chronic unchanged periosteal reaction around the 1st metatarsal which may represent chronic changes of prior subperiosteal hemorrhage or possibly remote prior osteomyelitis with no evidence to suggest active osteomyelitis. Soft tissues: Question mild soft tissue swelling in the forefoot. No foreign body. Other findings: Normal alignment. IMPRESSION: 1. No acute osseous abnormalities or evidence of acute hardware complication. No significant change from 12/16/2020. 2. Question mild soft tissue swelling in the forefoot. Thank you for allowing us to participate in the care of your patient. Dictated and Authenticated by: Ricky Be MD 01/14/2021 12:49 AM Central Time ([place] & [place]) - Re-Assessments/Exams Free Text/Narrative Re-Assessment/Exam: 01/14/21 Xray of foot negative for acute processes; no indication of fracture or complication to hardware. Reviewed findings of examination and imaging with patient. Discussed supportive cares, including rest, ice, elevation, and OTC analgesics. Will treat acute pain with Percocet 5/325mg. Patient verbalized understanding and agreement with the plan of care. Departure - Departure Time of Disposition: : Disposition: Home, Self-Care 01 Condition: Good Clinical Impression: History of foot surgery Injury of left foot Qualifiers: Encounter type: initial encounter Qualified Code(s): S99.922A - Unspecified injury of left foot, initial encounter - Discharge Information *PRESCRIPTION DRUG MONITORING PROGRAM REVIEWED*: Not Applicable *COPY OF PRESCRIPTION DRUG MONITORING REPORT IN PATIENT RERE: Not Applicable Referrals: PCP,None [Primary Care Provider] - Forms: ED Department Discharge Additional Instructions: 1.) Keep your appointment with your provider for tomorrow, as previously scheduled. 2.) Apply ice to top of affected foot, as pain and swelling persist. 3.) Continue with acetaminophen (Tylenol) 1000mg every six hours, as pain persists. Sepsis Event Note (ED) - Evaluation Sepsis Screening Result: No Definite Risk - Focused Exam Vital Signs: Vital Signs Temp Pulse Resp Pulse Ox 01/13/21 23:46 97 F 78 14 97
--- NOTE | 2021-01-14 00:49 | CR ---
PROCEDURE INFORMATION: Exam: XR Left Foot Exam date and time: 01/14/2021 12:28 AM Age: 65 years old Clinical indication: Other: Pain 07/14, HX multiple surgeries; Additional info: Dropped couch onto mid-dorsal aspect of foot TECHNIQUE: Imaging protocol: XR Left foot. Views: 3 or more views. Total images: 3 COMPARISON: CR Foot Comp Min 3V Lt 12/16/2020 10:29 PM FINDINGS: Bones/joints: No acute fractures. Chronic postoperative changes in the 1st metatarsal with multiple fixation screws and a plantar fixation plate at the 1st TMT joint with no gross hardware complication. Additional fixation screws in the great toe proximal phalanx and 2nd metatarsal head, unchanged. Chronic unchanged periosteal reaction around the 1st metatarsal which may represent chronic changes of prior subperiosteal hemorrhage or possibly remote prior osteomyelitis with no evidence to suggest active osteomyelitis. Soft tissues: Question mild soft tissue swelling in the forefoot. No foreign body. Other findings: Normal alignment. IMPRESSION: 1. No acute osseous abnormalities or evidence of acute hardware complication. No significant change from 12/16/2020. 2. Question mild soft tissue swelling in the forefoot.
[2021-01-14] MEDS ORDERED: Acetaminophen/oxyCODONE 325-5 MG Tab ONE (01:07)
== END 2021-01-14 01:11 | disposition home or self-care (01) ==
LOC: DL.ED 23:25
DX: S90.812A Abrasion, left foot, initial encounter (principal); I48.91 Unspecified atrial fibrillation; I25.10 Atherosclerotic heart disease of native coronary artery without angina pectoris; E78.00 Pure hypercholesterolemia, unspecified; I10 Essential (primary) hypertension; I25.2 Old myocardial infarction; M19.90 Unspecified osteoarthritis, unspecified site; E11.40 Type 2 diabetes mellitus with diabetic neuropathy, unspecified; E11.21 Type 2 diabetes mellitus with diabetic nephropathy; Z79.4 Long term (current) use of insulin; Z79.01 Long term (current) use of anticoagulants; Z98.890 Other specified postprocedural states; Z91.018 Allergy to other foods; Z88.5 Allergy status to narcotic agent; Z88.0 Allergy status to penicillin; Z91.041 Radiographic dye allergy status; Z95.5 Presence of coronary angioplasty implant and graft; Z79.82 Long term (current) use of aspirin; Z87.891 Personal history of nicotine dependence; W20.8XXA Other cause of strike by thrown, projected or falling object, initial encounter
CPT/HCPCS: 73630-LT; 99283; A9270-GY

== ENCOUNTER 2021-01-20 20:53 | Emergency (ER) | payer MEDICAID ==
[2021-01-20 21:09] VITALS: BP 143/49; PULSE 65
[2021-01-20] MEDS ORDERED: Acetaminophen 325 MG Tab PO ONE (21:17)
--- NOTE | 2021-01-20 21:42 | CR ---
PROCEDURE INFORMATION: Exam: XR Left Knee Exam date and time: 01/20/2021 9:23 PM Age: 65 years old Clinical indication: Other: Pain; Additional info: Door hit left knee. TECHNIQUE: Imaging protocol: XR Left knee. Views: 3 views. COMPARISON: CR Knee 3V Lt 08/30/2020 6:40 PM FINDINGS: Bones/joints: There is no evidence of acute fracture. There is no evidence of joint malalignment or dislocation. Soft tissues: There are no soft tissue masses or fluid collections. IMPRESSION: 1. No evidence of acute fracture. 2. No evidence of acute dislocation.
--- NOTE | 2021-01-20 22:07 | EDM.PDOC ---
ED HPI GENERAL MEDICAL PROBLEM - General Chief Complaint: Lower Extremity Injury/Pain Stated Complaint: LEFT KNEE, GOT HIT BY A DOOR Time Seen by Provider: 01/20/21 21:15 Source of Information: Reports: Patient History Limitations: Reports: No Limitations - History of Present Illness INITIAL COMMENTS - FREE TEXT/NARRATIVE: ED with c/o left knee pain after door to his room hit his knee Sides of left knee. Pain Score (Numeric/FACES): 7 - Related Data Allergies Allergy/AdvReac Type Severity Reaction Status Date / Time chicken derived Allergy Hives Verified 01/20/21 21:17 codeine Allergy Hives Verified 01/20/21 21:17 Penicillins Allergy Hives Verified 01/20/21 21:17 tramadol Allergy Hives Verified 01/20/21 21:17 Contrast media Allergy Hives Uncoded 01/20/21 21:17 Home Meds: Home Meds Aspirin 81 mg PO BRK 11/09/15 [History] Calcium Citrate/Vitamin D3 [[place] Calcium 200-Vit D3 250] 1 each PO DAILY 11/09/15 [History] Docusate Sodium [Colace] 100 mg PO BID 11/09/15 [History] Gabapentin [Neurontin] 900 mg PO TID 11/09/15 [History] Hydrochlorothiazide 25 mg PO DAILY 11/09/15 [History] Lisinopril 20 mg PO DAILY 11/09/15 [History] Omeprazole 20 mg PO ACBREAKFAST 11/09/15 [History] atorvaSTATin [Lipitor] 20 mg PO BEDTIME 11/09/15 [History] metFORMIN [Glucophage XR] 1,000 mg PO BIDMEALS 11/09/15 [History] Apixaban [Eliquis] 5 mg PO DAILY 11/08/17 [History] Cholecalciferol (Vitamin D3) [Vitamin D3] 1,000 unit PO DAILY 11/08/17 [History] Insulin Glarg,Human.Rec.Analog [Lantus Solostar] 44 unit SUBCUT DAILY 11/08/17 [History] Melatonin/Pyridoxine HCl (B6) [Melatonin-Vit B6 3-10 mg Tab] 9 mg PO BEDTIME 11/08/17 [History] [place]-3 Fatty Acids [[place]-3] 1 gm PO DAILY 11/08/17 [History] Prazosin HCl [Prazosin] 1 mg PO BEDTIME 11/08/17 [History] glipiZIDE [Glucotrol XL] 10 mg PO BID 11/08/17 [History] Metoprolol Tartrate [Lopressor] 50 mg PO BID #60 tablet 11/09/17 [Rx] Diltiazem [Diltiazem XR] 240 mg PO BID 02/11/18 [History] Past Medical History - Past Health History Medical/Surgical History: Denies Medical/Surgical History HEENT History: Reports: None Cardiovascular History: Reports: Afib, CAD, High Cholesterol, Hypertension, [place], Pacemaker, Stents Other Cardiovascular History: [place] 1999 with 1 stent placement Respiratory History: Reports: Bronchitis, Recurrent, Sleep Apnea Other Respiratory History: smoker for 51 yrs, has a c-pap Gastrointestinal History: Reports: Chronic Constipation, GERD Genitourinary History: Reports: Diabetic Nephropathy Musculoskeletal History: Reports: Osteoarthritis, Other (See Below) Other Musculoskeletal History: Uses a [employer] machine at home for his back and neck. Neurological History: Reports: Neuropathy, Diabetic Psychiatric History: Reports: Anxiety Endocrine/Metabolic History: Reports: Diabetes, Type II Hematologic History: Reports: None Immunologic History: Reports: None Oncologic (Cancer) History: Reports: Colon Other Oncologic History: with surgery, chemo and radiation Stage III Dermatologic History: Reports: None - Infectious Disease History Infectious Disease History: Reports: Chicken Pox, Measles, Mumps, Rheumatic Fever - Past Surgical History Head Surgeries/Procedures: Reports: None HEENT Surgical History: Reports: Naso-Sinus Surgery Cardiovascular Surgical History: Reports: Pacer Respiratory Surgical History: Reports: None GI Surgical History: Reports: Colon Other GI Surgeries/Procedures: Had some colon removed. Stage 3 colon ca. Male Surgical History: Reports: Circumcision Musculoskeletal Surgical History: Reports: Arthroscopic Knee, Shoulder Surgery, Other (See Below) Other Musculoskeletal Surgeries/Procedures:: Repaired acl. [place]. Placed bone marrow in hip., left foot surgery with screw placement 11/03/18. right Foot surg. Social & Family History - Family History Family Medical History: No Pertinent Family History Cardiac: Reports: Afib, AICD, Angina, Bypass, CAD, Heart Failure, High Cholesterol, Hypertension, [place] Respiratory: Reports: Asthma, COPD GI: Reports: Cholelithiasis : Reports: Dialysis, Renal Disease/Insufficiency Musculoskeletal: Reports: Arthritis, Back pain, Chronic Neurological: Reports: CVA, Neuropathy, Diabetic Psychiatric: Reports: Anxiety, Depression Endocrine/Metabolic: Reports: Diabetes, type II - Tobacco Use Tobacco Use Status *Q: Former Tobacco User Used Tobacco, but Quit: Yes Month/Year Tobacco Last Used: 2019 - Caffeine Use Caffeine Use: Reports: Coffee Other Caffeine Use: 4 pots a day - Recreational Drug Use Recreational Drug Use: No - Living Situation & Occupation Living situation: Reports: with Family Occupation: Unemployed Review of Systems - Review of Systems Review Of Systems: Comprehensive ROS is negative, except as noted in HPI. ED EXAM, GENERAL - Physical Exam Exam: See Below Exam Limited By: No Limitations General Appearance: Alert, No Apparent Distress Ears: Normal External Exam Nose: Normal Inspection Throat/Mouth: Normal Inspection Head: Atraumatic, Normocephalic Neck: Normal Inspection Respiratory/Chest: No Respiratory Distress, Lungs Clear Cardiovascular: Regular Rate, Rhythm GI/Abdominal: Normal Bowel Sounds Neurological: Alert, Oriented, Normal Cognition Psychiatric: Normal Affect, Normal Mood Skin Exam: Warm, Dry, Intact Course - Vital Signs Last Recorded V/S: Last Vital Signs Temp 96.3 F L 01/20/21 21:04 Pulse 65 01/20/21 21:04 Resp 16 01/20/21 21:04 BP 143/49 H 01/20/21 21:04 Pulse Ox 94 L 01/20/21 21:04 - Orders/Labs/Meds Meds: Medications Discontinued Medications Generic Name Dose Route Start Last Admin Trade Name Teddy PRN Reason Stop Dose Admin Acetaminophen 650 mg 01/20/21 21:17 01/20/21 21:30 Acetaminophen 325 Mg Tab PO 01/20/21 21:18 650 mg NOW ONE Administration Departure - Departure Time of Disposition: 22:04 Disposition: Home, Self-Care 01 Condition: Good Clinical Impression: Contusion, knee and lower leg Qualifiers: Encounter type: initial encounter Laterality: left Qualified Code(s): S80.02XA - Contusion of left knee, initial encounter - Discharge Information *PRESCRIPTION DRUG MONITORING PROGRAM REVIEWED*: No *COPY OF PRESCRIPTION DRUG MONITORING REPORT IN PATIENT RERE: No Instructions: Contusion, [id number] Referrals: PCP,None [Primary Care Provider] - Forms: ED Department Discharge Additional Instructions: tylenol 500mg every 4 hours needed for discomfort ice pack to knee follow if symptoms not improving weight bearing as tolerated Sepsis Event Note (ED) - Evaluation Sepsis Screening Result: No Definite Risk - Focused Exam Vital Signs: Vital Signs Temp Pulse Resp BP Pulse Ox 01/20/21 21:04 96.3 F L 65 16 143/49 H 94 L
== END 2021-01-20 22:11 | disposition home or self-care (01) ==
LOC: DL.ED 20:53
DX: S80.02XA Contusion of left knee, initial encounter (principal); I25.2 Old myocardial infarction; I48.91 Unspecified atrial fibrillation; I10 Essential (primary) hypertension; I25.10 Atherosclerotic heart disease of native coronary artery without angina pectoris; K21.9 Gastro-esophageal reflux disease without esophagitis; E78.00 Pure hypercholesterolemia, unspecified; E11.40 Type 2 diabetes mellitus with diabetic neuropathy, unspecified; Z95.0 Presence of cardiac pacemaker; Z95.5 Presence of coronary angioplasty implant and graft; Z79.01 Long term (current) use of anticoagulants; Z79.4 Long term (current) use of insulin; Z87.891 Personal history of nicotine dependence; Z53.33 Arthroscopic surgical procedure converted to open procedure; Z79.899 Other long term (current) drug therapy; Z79.82 Long term (current) use of aspirin; Z88.0 Allergy status to penicillin; Z88.5 Allergy status to narcotic agent; Z91.041 Radiographic dye allergy status; Z88.8 Allergy status to other drugs, medicaments and biological substances; Z91.018 Allergy to other foods; W22.8XXA Striking against or struck by other objects, initial encounter
CPT/HCPCS: 73562; A9270; 99282; 99283-25

== ENCOUNTER 2021-01-24 03:24 | Emergency (ER) | payer MEDICAID ==
[2021-01-24 03:50] VITALS: BP 111/67; PULSE 67
[2021-01-24] MEDS ORDERED: Doxycycline Monohydrate 100 MG Cap PO ONE (04:03)
[2021-01-24] MEDS ORDERED: Acetaminophen/HYDROcodone 325-5 MG Tab PO ONE (04:03)
[2021-01-24 04:27] LABS: ANION GAP 12.8 mEq/L (7-13); CHLORIDE,CL 102 mmol/L (98-107); SODIUM,NA 134 mmol/L (136-145)
--- NOTE | 2021-01-24 04:43 | EDM.PDOC ---
ED HPI GENERAL MEDICAL PROBLEM - General Chief Complaint: Lower Extremity Injury/Pain Stated Complaint: LEFT FOOT SWOLLEN Time Seen by Provider: 01/24/21 03:25 Source of Information: Reports: Patient History Limitations: Reports: No Limitations - History of Present Illness INITIAL COMMENTS - FREE TEXT/NARRATIVE: ED per w/c with c/o pain to left forefoot. Surgery on reat toe on 01/01. Increased pain tonight, looking more red. No drainage. No fever or chills. Reports scheduled follow up at [facility] on Thursday. Left Foot Pain Score (Numeric/FACES): 10 - Related Data Allergies Allergy/AdvReac Type Severity Reaction Status Date / Time chicken derived Allergy Hives Verified 01/20/21 21:17 codeine Allergy Hives Verified 01/20/21 21:17 Penicillins Allergy Hives Verified 01/20/21 21:17 tramadol Allergy Hives Verified 01/20/21 21:17 Contrast media Allergy Hives Uncoded 01/20/21 21:17 Home Meds: Home Meds Aspirin 81 mg PO BRK 11/09/15 [History] Calcium Citrate/Vitamin D3 [[place] Calcium 200-Vit D3 250] 1 each PO DAILY 11/09/15 [History] Docusate Sodium [Colace] 100 mg PO BID 11/09/15 [History] Gabapentin [Neurontin] 900 mg PO TID 11/09/15 [History] Hydrochlorothiazide 25 mg PO DAILY 11/09/15 [History] Lisinopril 20 mg PO DAILY 11/09/15 [History] Omeprazole 20 mg PO ACBREAKFAST 11/09/15 [History] atorvaSTATin [Lipitor] 20 mg PO BEDTIME 11/09/15 [History] metFORMIN [Glucophage XR] 1,000 mg PO BIDMEALS 11/09/15 [History] Apixaban [Eliquis] 5 mg PO DAILY 11/08/17 [History] Cholecalciferol (Vitamin D3) [Vitamin D3] 1,000 unit PO DAILY 11/08/17 [History] Insulin Glarg,Human.Rec.Analog [Lantus Solostar] 44 unit SUBCUT DAILY 11/08/17 [History] Melatonin/Pyridoxine HCl (B6) [Melatonin-Vit B6 3-10 mg Tab] 9 mg PO BEDTIME 11/08/17 [History] [place]-3 Fatty Acids [[place]-3] 1 gm PO BID 11/08/17 [History] Prazosin HCl [Prazosin] 1 mg PO BEDTIME 11/08/17 [History] glipiZIDE [Glucotrol XL] 10 mg PO BID 11/08/17 [History] Metoprolol Tartrate [Lopressor] 50 mg PO BID #60 tablet 11/09/17 [Rx] Diltiazem [Diltiazem XR] 240 mg PO BID 02/11/18 [History] Acetaminophen [Tylenol] 650 mg PO Q4HR PRN 01/24/21 [History] Past Medical History - Past Health History Medical/Surgical History: Denies Medical/Surgical History HEENT History: Reports: None Cardiovascular History: Reports: Afib, CAD, High Cholesterol, Hypertension, [place], Pacemaker, Stents Other Cardiovascular History: [place] 1999 with 1 stent placement Respiratory History: Reports: Bronchitis, Recurrent, Sleep Apnea Other Respiratory History: smoker for 51 yrs (quit in September), has a CPAP Gastrointestinal History: Reports: Chronic Constipation, GERD Genitourinary History: Reports: Diabetic Nephropathy Musculoskeletal History: Reports: Osteoarthritis, Other (See Below) Other Musculoskeletal History: Uses a Brille24 machine at home for his back and neck. Neurological History: Reports: Neuropathy, Diabetic Psychiatric History: Reports: Anxiety Endocrine/Metabolic History: Reports: Diabetes, Type II Hematologic History: Reports: None Immunologic History: Reports: None Oncologic (Cancer) History: Reports: Colon Other Oncologic History: with surgery, chemo and radiation Stage III Dermatologic History: Reports: None - Infectious Disease History Infectious Disease History: Reports: Chicken Pox, Measles, Mumps, Rheumatic Fever - Past Surgical History Head Surgeries/Procedures: Reports: None HEENT Surgical History: Reports: Naso-Sinus Surgery Cardiovascular Surgical History: Reports: Pacer Respiratory Surgical History: Reports: None GI Surgical History: Reports: Colon Other GI Surgeries/Procedures: Had some colon removed. Stage 3 colon ca. Male Surgical History: Reports: Circumcision Musculoskeletal Surgical History: Reports: Arthroscopic Knee, Shoulder Surgery, Other (See Below) Other Musculoskeletal Surgeries/Procedures:: Repaired acl. [place]. Placed bone marrow in hip., left foot surgery with screw placement 11/03/18. right Foot surg. Social & Family History - Family History Family Medical History: No Pertinent Family History Cardiac: Reports: Afib, AICD, Angina, Bypass, CAD, Heart Failure, High Cholesterol, Hypertension, [place] Respiratory: Reports: Asthma, COPD GI: Reports: Cholelithiasis : Reports: Dialysis, Renal Disease/Insufficiency Musculoskeletal: Reports: Arthritis, Back pain, Chronic Neurological: Reports: CVA, Neuropathy, Diabetic Psychiatric: Reports: Anxiety, Depression Endocrine/Metabolic: Reports: Diabetes, type II - Tobacco Use Tobacco Use Status *Q: Former Tobacco User Used Tobacco, but Quit: Yes Month/Year Tobacco Last Used: 09/2020 - Caffeine Use Caffeine Use: Reports: Coffee Other Caffeine Use: 4 pots a day - Recreational Drug Use Recreational Drug Use: No - Living Situation & Occupation Living situation: Reports: with Family Occupation: Unemployed Review of Systems - Review of Systems Review Of Systems: Comprehensive ROS is negative, except as noted in HPI. ED EXAM, GENERAL - Physical Exam Exam: See Below Exam Limited By: No Limitations General Appearance: Alert, No Apparent Distress Ears: Normal External Exam, Normal Canal, Hearing Grossly Normal Nose: Normal Inspection Throat/Mouth: Normal Inspection, Normal Oropharynx Head: Atraumatic, Normocephalic Neck: Normal Inspection Respiratory/Chest: No Respiratory Distress, Lungs Clear, Normal Breath Sounds Cardiovascular: Normal Peripheral Pulses, Regular Rate, Rhythm Back Exam: Normal Inspection Neurological: Alert, Oriented, Normal Cognition Psychiatric: Normal Affect, Normal Mood Skin Exam: Warm, Dry, Intact, Normal Color, Wound/Incision (Healing surgical incision. lateral toe forefoot mild errythema scant crusting mid inscision, no wound seperation) Course - Vital Signs Last Recorded V/S: Last Vital Signs Temp 97.1 F 01/24/21 03:27 Pulse 67 01/24/21 03:27 Resp 20 01/24/21 03:27 BP 111/67 01/24/21 03:27 Pulse Ox 98 01/24/21 03:27 - Orders/Labs/Meds Orders: Active Orders 24 hr Category Date Time Status CULTURE BLOOD [BC] Stat Lab 01/24/21 04:02 Received Labs: Laboratory Tests 01/24/21 01/24/21 01/24/21 Range/Units 04:02 04:02 04:02 WBC 8.8 (5.0-10.0) 10^3/uL RBC 5.65 (4.6-6.2) 10^6/uL Hgb 16.1 D (14.0-18.0) g/dL Hct 48.2 (40.0-54.0) % MCV 85.3 (80-100) fL MCH 28.5 (27.0-34.0) pg MCHC 33.4 (33.0-35.0) g/dL Plt Count 269 (150-450) 10^3/uL Neut % (Auto) 52.0 (42.2-75.2) % Lymph % (Auto) 36.5 (20.5-50.1) % Real % (Auto) 8.5 H (2-8) % Eos % (Auto) 2.8 (1.0-3.0) % Baso % (Auto) 0.2 (0.0-1.0) % Sodium 134 L (136-145) mmol/L Potassium 3.8 (3.5-5.1) mmol/L Chloride 102 (98-107) mmol/L Carbon Dioxide 23 (21-32) mmol/L Anion Gap 12.8 (7-13) mEq/L BUN 24 H (7-18) mg/dL Creatinine 1.13 (0.70-1.30) mg/dL Est Cr Clr Drug Dosing 70.34 mL/min Estimated GFR (MDRD) > 60 BUN/Creatinine Ratio 21.2 (No establ ref range) Glucose 265 H (70-99) mg/dL Lactic Acid 2.7 H* (0.4-2.0) mmol/L Calcium 8.3 L (8.5-10.1) mg/dL Total Bilirubin 0.3 (0.2-1.0) mg/dL AST 12 L (15-37) U/L ALT 25 (16-63) U/L Alkaline Phosphatase 149 H (46-116) U/L Total Protein 7.2 (6.4-8.2) g/dL Albumin 3.3 L (3.4-5.0) g/dL Globulin 3.9 Albumin/Globulin Ratio 0.85 Meds: Medications Discontinued Medications Generic Name Dose Route Start Last Admin Trade Name Freq PRN Reason Stop Dose Admin Hydrocodone Bitart/Acetaminophen 1 tab 01/24/21 04:03 01/24/21 04:19 Acetaminophen/Hydrocodone 325-5 Mg Tab PO 01/24/21 04:04 1 tab ONETIME ONE Administration Doxycycline Monohydrate 100 mg 01/24/21 04:03 01/24/21 04:19 Doxycycline Monohydrate 100 Mg Cap PO 01/24/21 04:04 100 mg ONETIME ONE Administration Departure - Departure Time of Disposition: 04:38 Disposition: Home, Self-Care 01 Condition: Good Clinical Impression: S/P foot joint surgery Diabetes Qualifiers: Diabetes mellitus type: type 2 Diabetes mellitus usp insulin use: without roller coaster designer use Diabetes mellitus complication status: with circulatory complicat ion Diabetes mellitus complication detail: with other circulatory complications Qualified Code(s): E11.59 - Type 2 diabetes mellitus with other circulatory complications Foot pain Qualifiers: Laterality: left Qualified Code(s): M79.672 - Pain in left foot - Discharge Information *PRESCRIPTION DRUG MONITORING PROGRAM REVIEWED*: No *COPY OF PRESCRIPTION DRUG MONITORING REPORT IN PATIENT RERE: No Instructions: Type 2 Diabetes Mellitus, Diagnosis, Adult, [id number] Referrals: PCP,None [Primary Care Provider] - Forms: ED Department Discharge Additional Instructions: Elevate tylenol 650mg every 4 hours sa needed for pain, not to exceed [id number] in 24 hour periodkeep wound covered Sepsis Event Note (ED) - Evaluation Sepsis Screening Result: No Definite Risk - My Orders Last 24 Hours: My Active Orders 01/24/21 04:02 CULTURE BLOOD [BC] Stat - Assessment/Plan Last 24 Hours: My Active Orders 01/24/21 04:02 CULTURE BLOOD [BC] Stat
== END 2021-01-24 04:50 | disposition home or self-care (01) ==
LOC: DL.ED 03:24
DX: E11.59 Type 2 diabetes mellitus with other circulatory complications (principal); M79.672 Pain in left foot; I48.91 Unspecified atrial fibrillation; I25.10 Atherosclerotic heart disease of native coronary artery without angina pectoris; E78.00 Pure hypercholesterolemia, unspecified; I10 Essential (primary) hypertension; I25.2 Old myocardial infarction; K21.9 Gastro-esophageal reflux disease without esophagitis; E11.21 Type 2 diabetes mellitus with diabetic nephropathy; E11.40 Type 2 diabetes mellitus with diabetic neuropathy, unspecified; M19.90 Unspecified osteoarthritis, unspecified site; Z91.018 Allergy to other foods; Z88.5 Allergy status to narcotic agent; Z88.0 Allergy status to penicillin; Z91.041 Radiographic dye allergy status; Z79.82 Long term (current) use of aspirin; Z79.4 Long term (current) use of insulin; Z79.01 Long term (current) use of anticoagulants; Z95.5 Presence of coronary angioplasty implant and graft; Z87.891 Personal history of nicotine dependence; Z98.890 Other specified postprocedural states
CPT/HCPCS: 36415; 80053; 83605; 85025; 87040; 99283; A9270

== ENCOUNTER 2021-01-28 20:50 | Emergency (ER) | payer MEDICAID | END 2021-01-28 21:10 | disposition left against medical advice (07) | LOC: DL.ED 20:50 | DX: Z53.21 Procedure and treatment not carried out due to patient leaving prior to being seen by health care provider (principal) ==

== ENCOUNTER 2021-01-30 01:19 | Emergency (ER) | payer MEDICAID ==
[2021-01-30 01:31] VITALS: BP 92/64; PULSE 84
--- NOTE | 2021-01-30 01:56 | EDM.PDOC ---
ED HPI GENERAL MEDICAL PROBLEM - General Chief Complaint: Lower Extremity Injury/Pain Stated Complaint: FELL LANDED ON LEFT HIP Time Seen by Provider: 01/30/21 01:40 Source of Information: Reports: Patient History Limitations: Reports: No Limitations - History of Present Illness INITIAL COMMENTS - FREE TEXT/NARRATIVE: ED ambulatory with c/o pain to left hip after falling over pipe while leaving girlfriends house. Has not tried anything for pain. No pain with weightbearing. Most tender with touching area. No difficulty with ambulation. Patient well known to facility for c/o pain. Left Hip Pain Score (Numeric/FACES): 9 - Related Data Allergies Allergy/AdvReac Type Severity Reaction Status Date / Time chicken derived Allergy Hives Verified 01/30/21 01:34 codeine Allergy Hives Verified 01/30/21 01:34 Penicillins Allergy Hives Verified 01/30/21 01:34 tramadol Allergy Hives Verified 01/30/21 01:34 Contrast media Allergy Hives Uncoded 01/30/21 01:34 Home Meds: Home Meds Aspirin 81 mg PO BRK 11/09/15 [History] Calcium Citrate/Vitamin D3 [[place] Calcium 200-Vit D3 250] 1 each PO DAILY 11/09/15 [History] Docusate Sodium [Colace] 100 mg PO BID 11/09/15 [History] Gabapentin [Neurontin] 900 mg PO TID 11/09/15 [History] Hydrochlorothiazide 25 mg PO DAILY 11/09/15 [History] Lisinopril 20 mg PO DAILY 11/09/15 [History] Omeprazole 20 mg PO ACBREAKFAST 11/09/15 [History] atorvaSTATin [Lipitor] 20 mg PO BEDTIME 11/09/15 [History] metFORMIN [Glucophage XR] 1,000 mg PO BIDMEALS 11/09/15 [History] Apixaban [Eliquis] 5 mg PO DAILY 11/08/17 [History] Cholecalciferol (Vitamin D3) [Vitamin D3] 1,000 unit PO DAILY 11/08/17 [History] Insulin Glarg,Human.Rec.Analog [Lantus Solostar] 44 unit SUBCUT DAILY 11/08/17 [History] Melatonin/Pyridoxine HCl (B6) [Melatonin-Vit B6 3-10 mg Tab] 9 mg PO BEDTIME 11/08/17 [History] [place]-3 Fatty Acids [[place]-3] 1 gm PO BID 11/08/17 [History] Prazosin HCl [Prazosin] 1 mg PO BEDTIME 11/08/17 [History] glipiZIDE [Glucotrol XL] 10 mg PO BID 11/08/17 [History] Metoprolol Tartrate [Lopressor] 50 mg PO BID #60 tablet 11/09/17 [Rx] Diltiazem [Diltiazem XR] 240 mg PO BID 02/11/18 [History] Acetaminophen [Tylenol] 650 mg PO Q4HR PRN 01/24/21 [History] Past Medical History - Past Health History Medical/Surgical History: Denies Medical/Surgical History HEENT History: Reports: None Cardiovascular History: Reports: Afib, CAD, High Cholesterol, Hypertension, [place], Pacemaker, Stents Other Cardiovascular History: [place] 1999 with 1 stent placement Respiratory History: Reports: Bronchitis, Recurrent, Sleep Apnea Other Respiratory History: smoker for 51 yrs (quit in September), has a CPAP Gastrointestinal History: Reports: Chronic Constipation, GERD Genitourinary History: Reports: Diabetic Nephropathy Musculoskeletal History: Reports: Osteoarthritis, Other (See Below) Other Musculoskeletal History: Uses a Hstry machine at home for his back and neck. Neurological History: Reports: Neuropathy, Diabetic Psychiatric History: Reports: Anxiety Endocrine/Metabolic History: Reports: Diabetes, Type II Hematologic History: Reports: None Immunologic History: Reports: None Oncologic (Cancer) History: Reports: Colon Other Oncologic History: with surgery, chemo and radiation Stage III Dermatologic History: Reports: None - Infectious Disease History Infectious Disease History: Reports: Chicken Pox, Measles, Mumps, Rheumatic Fever - Past Surgical History Head Surgeries/Procedures: Reports: None HEENT Surgical History: Reports: Naso-Sinus Surgery Cardiovascular Surgical History: Reports: Pacer Respiratory Surgical History: Reports: None GI Surgical History: Reports: Colon Other GI Surgeries/Procedures: Had some colon removed. Stage 3 colon ca. Male Surgical History: Reports: Circumcision Musculoskeletal Surgical History: Reports: Arthroscopic Knee, Shoulder Surgery, Other (See Below) Other Musculoskeletal Surgeries/Procedures:: Repaired acl. [place]. Placed bone marrow in hip., left foot surgery with screw placement 11/03/18. right Foot surg. Social & Family History - Family History Family Medical History: No Pertinent Family History Cardiac: Reports: Afib, AICD, Angina, Bypass, CAD, Heart Failure, High Cholesterol, Hypertension, [place] Respiratory: Reports: Asthma, COPD GI: Reports: Cholelithiasis : Reports: Dialysis, Renal Disease/Insufficiency Musculoskeletal: Reports: Arthritis, Back pain, Chronic Neurological: Reports: CVA, Neuropathy, Diabetic Psychiatric: Reports: Anxiety, Depression Endocrine/Metabolic: Reports: Diabetes, type II - Tobacco Use Tobacco Use Status *Q: Current Every Day Tobacco User Years of Tobacco use: 55 Packs/Tins Daily: 1 Second Hand Smoke Exposure: Yes - Caffeine Use Caffeine Use: Reports: Coffee Other Caffeine Use: 4 pots a day - Recreational Drug Use Recreational Drug Use: No - Living Situation & Occupation Living situation: Reports: with Family Occupation: Unemployed Review of Systems - Review of Systems Review Of Systems: Comprehensive ROS is negative, except as noted in HPI. ED EXAM, GENERAL - Physical Exam Exam: See Below Exam Limited By: No Limitations General Appearance: Alert, Mild Distress Ears: Normal External Exam Nose: Normal Inspection Throat/Mouth: Normal Inspection Head: Atraumatic, Normocephalic Neck: Normal Inspection, Full Range of Motion Respiratory/Chest: No Respiratory Distress, Normal Breath Sounds Extremities: Normal Range of Motion, Other (mild tenderness with palpation left lateral hip. ). No: Redness Neurological: Alert, Oriented, Normal Cognition Psychiatric: Normal Affect, Normal Mood Skin Exam: Warm, Dry, Intact. No: Ecchymosis, Wound/Incision Course - Vital Signs Last Recorded V/S: Last Vital Signs Temp 95.7 F L 01/30/21 01:30 Pulse 84 01/30/21 01:30 Resp 18 01/30/21 01:30 BP 92/64 01/30/21 01:30 Pulse Ox 97 01/30/21 01:30 Departure - Departure Time of Disposition: 02:03 Disposition: Home, Self-Care 01 Condition: Good Clinical Impression: Fall Qualifiers: Encounter type: initial encounter Qualified Code(s): W19.XXXA - Unspecified fall, initial encounter Contusion of left hip Qualifiers: Encounter type: initial encounter Qualified Code(s): S70.02XA - Contusion of left hip, initial encounter - Discharge Information *PRESCRIPTION DRUG MONITORING PROGRAM REVIEWED*: No *COPY OF PRESCRIPTION DRUG MONITORING REPORT IN PATIENT RERE: No Instructions: Hip Pain Forms: ED Department Discharge Additional Instructions: tylenol 500mg every 4 hours as needed for discomfort ice pack to hip follow up if symptoms worsen- increased pain, weakness, unable to stand or bear weight Sepsis Event Note (ED) - Evaluation Sepsis Screening Result: No Definite Risk - Focused Exam Vital Signs: Vital Signs Temp Pulse Resp BP Pulse Ox 01/30/21 01:30 95.7 F L 84 18 92/64 97
== END 2021-01-30 02:07 | disposition home or self-care (01) ==
LOC: DL.ED 01:19
DX: S70.02XA Contusion of left hip, initial encounter (principal); I48.91 Unspecified atrial fibrillation; I25.10 Atherosclerotic heart disease of native coronary artery without angina pectoris; E78.00 Pure hypercholesterolemia, unspecified; I10 Essential (primary) hypertension; I25.2 Old myocardial infarction; E11.21 Type 2 diabetes mellitus with diabetic nephropathy; E11.40 Type 2 diabetes mellitus with diabetic neuropathy, unspecified; K21.9 Gastro-esophageal reflux disease without esophagitis; Z79.4 Long term (current) use of insulin; Z79.82 Long term (current) use of aspirin; Z79.01 Long term (current) use of anticoagulants; Z79.899 Other long term (current) drug therapy; Z91.018 Allergy to other foods; Z88.5 Allergy status to narcotic agent; Z88.0 Allergy status to penicillin; Z91.041 Radiographic dye allergy status; Z95.5 Presence of coronary angioplasty implant and graft; Z72.0 Tobacco use; W22.8XXA Striking against or struck by other objects, initial encounter
CPT/HCPCS: 99282; 99283

== ENCOUNTER 2021-03-20 20:43 | Emergency (ER) | payer MEDICAID ==
--- NOTE | 2021-03-20 20:50 | EDM.PDOC ---
ED HPI GENERAL MEDICAL PROBLEM - General Time Seen by Provider: 03/20/21 23:25 Source of Information: Reports: Patient History Limitations: Reports: No Limitations - History of Present Illness INITIAL COMMENTS - FREE TEXT/NARRATIVE: ED via [facility], witnessed syncopal episode, estimated loss of consciousness 5 minutes, Report in yard talking with family and went down, No chest pain or dizziness prior. [employer] like electric shock when woke. - Related Data Allergies Allergy/AdvReac Type Severity Reaction Status Date / Time chicken derived Allergy Hives Verified 01/30/21 01:34 codeine Allergy Hives Verified 01/30/21 01:34 Penicillins Allergy Hives Verified 01/30/21 01:34 tramadol Allergy Hives Verified 01/30/21 01:34 Contrast media Allergy Hives Uncoded 01/30/21 01:34 Home Meds: Home Meds Aspirin 81 mg PO BRK 11/09/15 [History] Calcium Citrate/Vitamin D3 [[place] Calcium 200-Vit D3 250] 1 each PO DAILY 11/09/15 [History] Docusate Sodium [Colace] 100 mg PO BID 11/09/15 [History] Gabapentin [Neurontin] 900 mg PO TID 11/09/15 [History] Hydrochlorothiazide 25 mg PO DAILY 11/09/15 [History] Lisinopril 20 mg PO DAILY 11/09/15 [History] Omeprazole 20 mg PO ACBREAKFAST 11/09/15 [History] atorvaSTATin [Lipitor] 20 mg PO BEDTIME 11/09/15 [History] metFORMIN [Glucophage XR] 1,000 mg PO BIDMEALS 11/09/15 [History] Apixaban [Eliquis] 5 mg PO DAILY 11/08/17 [History] Cholecalciferol (Vitamin D3) [Vitamin D3] 1,000 unit PO DAILY 11/08/17 [History] Insulin Glarg,Human.Rec.Analog [Lantus Solostar] 44 unit SUBCUT DAILY 11/08/17 [History] Melatonin/Pyridoxine HCl (B6) [Melatonin-Vit B6 3-10 mg Tab] 9 mg PO BEDTIME 11/08/17 [History] [place]-3 Fatty Acids [[place]-3] 1 gm PO BID 11/08/17 [History] Prazosin HCl [Prazosin] 1 mg PO BEDTIME 11/08/17 [History] glipiZIDE [Glucotrol XL] 10 mg PO BID 11/08/17 [History] Metoprolol Tartrate [Lopressor] 50 mg PO BID #60 tablet 11/09/17 [Rx] Diltiazem [Diltiazem XR] 240 mg PO BID 02/11/18 [History] Acetaminophen [Tylenol] 650 mg PO Q4HR PRN 01/24/21 [History] Past Medical History - Past Health History Medical/Surgical History: Denies Medical/Surgical History HEENT History: Reports: None Cardiovascular History: Reports: Afib, CAD, High Cholesterol, Hypertension, [place], Pacemaker, Stents Other Cardiovascular History: [place] 1999 with 1 stent placement Respiratory History: Reports: Bronchitis, Recurrent, Sleep Apnea Other Respiratory History: smoker for 51 yrs (quit in September), has a CPAP Gastrointestinal History: Reports: Chronic Constipation, GERD Genitourinary History: Reports: Diabetic Nephropathy Musculoskeletal History: Reports: Osteoarthritis, Other (See Below) Other Musculoskeletal History: Uses a [employer] machine at home for his back and neck. Neurological History: Reports: Neuropathy, Diabetic Psychiatric History: Reports: Anxiety Endocrine/Metabolic History: Reports: Diabetes, Type II Hematologic History: Reports: None Immunologic History: Reports: None Oncologic (Cancer) History: Reports: Colon Other Oncologic History: with surgery, chemo and radiation Stage III Dermatologic History: Reports: None - Infectious Disease History Infectious Disease History: Reports: Chicken Pox, Measles, Mumps, Rheumatic Fever - Past Surgical History Head Surgeries/Procedures: Reports: None HEENT Surgical History: Reports: Naso-Sinus Surgery Cardiovascular Surgical History: Reports: Pacer Respiratory Surgical History: Reports: None GI Surgical History: Reports: Colon Other GI Surgeries/Procedures: Had some colon removed. Stage 3 colon ca. Male Surgical History: Reports: Circumcision Musculoskeletal Surgical History: Reports: Arthroscopic Knee, Shoulder Surgery, Other (See Below) Other Musculoskeletal Surgeries/Procedures:: Repaired acl. [place]. Placed bone marrow in hip., left foot surgery with screw placement 11/03/18. right Foot surg. Social & Family History - Family History Family Medical History: No Pertinent Family History Cardiac: Reports: Afib, AICD, Angina, Bypass, CAD, Heart Failure, High Cholesterol, Hypertension, [place] Respiratory: Reports: Asthma, COPD GI: Reports: Cholelithiasis : Reports: Dialysis, Renal Disease/Insufficiency Musculoskeletal: Reports: Arthritis, Back pain, Chronic Neurological: Reports: CVA, Neuropathy, Diabetic Psychiatric: Reports: Anxiety, Depression Endocrine/Metabolic: Reports: Diabetes, type II - Tobacco Use Tobacco Use Status *Q: Current Every Day Tobacco User Years of Tobacco use: 55 Packs/Tins Daily: 0.5 - Caffeine Use Caffeine Use: Reports: Coffee Other Caffeine Use: 4 pots a day - Recreational Drug Use Recreational Drug Use: No - Living Situation & Occupation Living situation: Reports: with Family Occupation: Unemployed ED ROS GENERAL - Review of Systems Review Of Systems: Comprehensive ROS is negative, except as noted in HPI. ED EXAM, GENERAL - Physical Exam Exam: See Below Exam Limited By: No Limitations General Appearance: Alert, No Apparent Distress Eye Exam: Bilateral Eye: EOMI, PERRL Ears: Normal External Exam Nose: Normal Inspection Throat/Mouth: Normal Inspection Head: Atraumatic, Normocephalic Neck: Normal Inspection Respiratory/Chest: No Respiratory Distress, Lungs Clear, Normal Breath Sounds Cardiovascular: Regular Rate, Rhythm, No Murmur. No: No Edema (2+) GI/Abdominal: Normal Bowel Sounds Back Exam: Full Range of Motion Extremities: Normal Inspection, Normal Range of Motion Neurological: Alert, Oriented, Normal Cognition, Normal Reflexes, No Motor/Sensory Deficits Psychiatric: Normal Affect, Normal Mood Skin Exam: Warm, Dry, Intact, Normal Color #1 Interpretation EKG Date: 03/20/21 Time: 20:43 Rhythm: Other (atrial paced rhythmPAC's) Rate (Beats/Min): 60 [place]: LAD-Left Cassatt Deviation P-Wave: Present QRS: Normal Comparison: No Change Course - Vital Signs Last Recorded V/S: Last Vital Signs Temp 98.6 F 03/20/21 20:44 Pulse 60 03/20/21 20:44 Resp 24 H 03/20/21 20:44 BP 132/59 L 03/20/21 20:44 Pulse Ox 95 03/20/21 20:44 - Orders/Labs/Meds Labs: Laboratory Tests 03/20/21 03/20/21 03/20/21 Range/Units 20:43 20:44 20:44 WBC (5.0-10.0) 10^3/uL RBC (4.6-6.2) 10^6/uL Hgb (14.0-18.0) g/dL Hct (40.0-54.0) % MCV (80-100) fL MCH (27.0-34.0) pg MCHC (33.0-35.0) g/dL Plt Count (150-450) 10^3/uL Neut % (Auto) (42.2-75.2) % Lymph % (Auto) (20.5-50.1) % [place] % (Auto) (2-8) % Eos % (Auto) (1.0-3.0) % Baso % (Auto) (0.0-1.0) % PT 9.8 (9.0-12.0) SEC INR 1.0 (0.9-1.2) Sodium 138 (136-145) mmol/L Potassium 4.8 (3.5-5.1) mmol/L Chloride 102 (98-107) mmol/L Carbon Dioxide 27 (21-32) mmol/L Anion Gap 13.8 H (7-13) mEq/L BUN 21 H (7-18) mg/dL Creatinine 1.19 (0.70-1.30) mg/dL Est Cr Clr Drug Dosing 68.83 mL/min Estimated GFR (MDRD) > 60 BUN/Creatinine Ratio 17.6 (No establ ref range) Glucose 412 H* (70-99) mg/dL POC Glucose 400 H (70-99) mg/dL Calcium 8.6 (8.5-10.1) mg/dL Magnesium 2.1 (1.8-2.4) mg/dL Total Bilirubin 0.3 (0.2-1.0) mg/dL AST 14 L (15-37) U/L ALT 37 (16-63) U/L Alkaline Phosphatase 183 H (46-116) U/L Creatine Kinase 70 (39-308) U/L Troponin I High Sens 7 (<=76) pg/mL Total Protein 6.8 (6.4-8.2) g/dL Albumin 3.2 L (3.4-5.0) g/dL Globulin 3.6 Albumin/Globulin Ratio 0.89 Amylase 38 (25-115) U/L Urine Color (YELLOW) Urine Appearance (CLEAR) Urine pH (5.0-9.0) Ur Specific [place] (1.005-1.030) Urine Protein (NEGATIVE) Urine Glucose (UA) (NEGATIVE) Urine Ketones (NEGATIVE) Urine Occult Blood (NEGATIVE) Urine Nitrite (NEGATIVE) Urine Bilirubin (NEGATIVE) Urine Urobilinogen (0.2-1.0) mg/dL Ur Leukocyte Esterase (NEGATIVE) Urine Opiates Screen (NEGATIVE) Ur Oxycodone Screen (NEGATIVE) Urine Methadone Screen (NEGATIVE) Ur Barbiturates Screen (NEGATIVE) U Tricyclic Antidepress (NEGATIVE) Ur Phencyclidine Scrn (NEGATIVE) Ur Amphetamine Screen (NEGATIVE) U Methamphetamines Scrn (NEGATIVE) Urine MDMA Screen (NEGATIVE) U Benzodiazepines Scrn (NEGATIVE) Urine Cocaine Screen (NEGATIVE) U Marijuana (THC) Screen (NEGATIVE) 03/20/21 03/20/21 03/20/21 Range/Units 20:44 21:43 22:15 WBC 7.9 (5.0-10.0) 10^3/uL RBC 4.96 (4.6-6.2) 10^6/uL Hgb 14.3 D (14.0-18.0) g/dL Hct 42.3 (40.0-54.0) % MCV 85.3 (80-100) fL MCH 28.8 (27.0-34.0) pg MCHC 33.8 (33.0-35.0) g/dL Plt Count 238 (150-450) 10^3/uL Neut % (Auto) 55.2 (42.2-75.2) % Lymph % (Auto) 34.1 (20.5-50.1) % [place] % (Auto) 8.4 H (2-8) % Eos % (Auto) 2.2 (1.0-3.0) % Baso % (Auto) 0.1 (0.0-1.0) % PT (9.0-12.0) SEC INR (0.9-1.2) Sodium (136-145) mmol/L Potassium (3.5-5.1) mmol/L Chloride (98-107) mmol/L Carbon Dioxide (21-32) mmol/L Anion Gap (7-13) mEq/L BUN (7-18) mg/dL Creatinine (0.70-1.30) mg/dL Est Cr Clr Drug Dosing mL/min Estimated GFR (MDRD) BUN/Creatinine Ratio (No establ ref range) Glucose (70-99) mg/dL POC Glucose (70-99) mg/dL Calcium (8.5-10.1) mg/dL Magnesium (1.8-2.4) mg/dL Total Bilirubin (0.2-1.0) mg/dL AST (15-37) U/L ALT (16-63) U/L Alkaline Phosphatase (46-116) U/L Creatine Kinase (39-308) U/L Troponin I High Sens (<=76) pg/mL Total Protein (6.4-8.2) g/dL Albumin (3.4-5.0) g/dL Globulin Albumin/Globulin Ratio Amylase (25-115) U/L Urine Color Yellow (YELLOW) Urine Appearance Clear (CLEAR) Urine pH 6.5 (5.0-9.0) Ur Specific [place] 1.020 (1.005-1.030) Urine Protein Negative (NEGATIVE) Urine Glucose (UA) 500 H (NEGATIVE) Urine Ketones Negative (NEGATIVE) Urine Occult Blood Negative (NEGATIVE) Urine Nitrite Negative (NEGATIVE) Urine Bilirubin Negative (NEGATIVE) Urine Urobilinogen 0.2 (0.2-1.0) mg/dL Ur Leukocyte Esterase Negative (NEGATIVE) Urine Opiates Screen Negative (NEGATIVE) Ur Oxycodone Screen Negative (NEGATIVE) Urine Methadone Screen Negative (NEGATIVE) Ur Barbiturates Screen Negative (NEGATIVE) U Tricyclic Antidepress Negative (NEGATIVE) Ur Phencyclidine Scrn Negative (NEGATIVE) Ur Amphetamine Screen Negative (NEGATIVE) U Methamphetamines Scrn Negative (NEGATIVE) Urine MDMA Screen Negative (NEGATIVE) U Benzodiazepines Scrn Negative (NEGATIVE) Urine Cocaine Screen Negative (NEGATIVE) U Marijuana (THC) Screen Negative (NEGATIVE) 03/20/21 Range/Units 22:25 WBC (5.0-10.0) 10^3/uL RBC (4.6-6.2) 10^6/uL Hgb (14.0-18.0) g/dL Hct (40.0-54.0) % MCV (80-100) fL MCH (27.0-34.0) pg MCHC (33.0-35.0) g/dL Plt Count (150-450) 10^3/uL Neut % (Auto) (42.2-75.2) % Lymph % (Auto) (20.5-50.1) % [place] % (Auto) (2-8) % Eos % (Auto) (1.0-3.0) % Baso % (Auto) (0.0-1.0) % PT (9.0-12.0) SEC INR (0.9-1.2) Sodium (136-145) mmol/L Potassium (3.5-5.1) mmol/L Chloride (98-107) mmol/L Carbon Dioxide (21-32) mmol/L Anion Gap (7-13) mEq/L BUN (7-18) mg/dL Creatinine (0.70-1.30) mg/dL Est Cr Clr Drug Dosing mL/min Estimated GFR (MDRD) BUN/Creatinine Ratio (No establ ref range) Glucose (70-99) mg/dL POC Glucose 210 H (70-99) mg/dL Calcium (8.5-10.1) mg/dL Magnesium (1.8-2.4) mg/dL Total Bilirubin (0.2-1.0) mg/dL AST (15-37) U/L ALT (16-63) U/L Alkaline Phosphatase (46-116) U/L Creatine Kinase (39-308) U/L Troponin I High Sens (<=76) pg/mL Total Protein (6.4-8.2) g/dL Albumin (3.4-5.0) g/dL Globulin Albumin/Globulin Ratio Amylase (25-115) U/L Urine Color (YELLOW) Urine Appearance (CLEAR) Urine pH (5.0-9.0) Ur Specific [place] (1.005-1.030) Urine Protein (NEGATIVE) Urine Glucose (UA) (NEGATIVE) Urine Ketones (NEGATIVE) Urine Occult Blood (NEGATIVE) Urine Nitrite (NEGATIVE) Urine Bilirubin (NEGATIVE) Urine Urobilinogen (0.2-1.0) mg/dL Ur Leukocyte Esterase (NEGATIVE) Urine Opiates Screen (NEGATIVE) Ur Oxycodone Screen (NEGATIVE) Urine Methadone Screen (NEGATIVE) Ur Barbiturates Screen (NEGATIVE) U Tricyclic Antidepress (NEGATIVE) Ur Phencyclidine Scrn (NEGATIVE) Ur Amphetamine Screen (NEGATIVE) U Methamphetamines Scrn (NEGATIVE) Urine MDMA Screen (NEGATIVE) U Benzodiazepines Scrn (NEGATIVE) Urine Cocaine Screen (NEGATIVE) U Marijuana (THC) Screen (NEGATIVE) Meds: Medications Discontinued Medications Generic Name Dose Route Start Last Admin Trade Name Freq PRN Reason Stop Dose Admin Dextrose/Water 50 ml 03/20/21 21:27 50% Dextrose In Water 50 Ml Syringe IVPUSH Q15M PRN Hypoglycemia Glucagon 1 mg 03/20/21 21:27 Glucagon,Human Recombinant 1 Mg Vial IM Q15M PRN Hypoglycemia Insulin Human Regular 10 unit 03/20/21 21:27 03/20/21 22:04 Insulin Regular, Human 100 Units/Ml 3 Ml Vial IV 03/20/21 21:28 10 unit ONETIME ONE Administration - Re-Assessments/Exams Free Text/Narrative Re-Assessment/Exam: Head CT recommended, Patient refused, requesting to leave, states [facility]. Ambulating in room, gait steady. Departure - Departure Time of Disposition: 00:03 Disposition: Against Medical Advice 07 Condition: Undetermined Clinical Impression: Hyperglycemia due to diabetes mellitus Syncope Qualifiers: Syncope type: unspecified Qualified Code(s): R55 - Syncope and collapse Referrals: PCP,None [Primary Care Provider] - Forms: ED Department Discharge
[2021-03-20 20:51] VITALS: PULSE 60
[2021-03-20 20:52] VITALS: BP 132/59
[2021-03-20 21:16] LABS: ANION GAP 13.8 mEq/L (7-13); CHLORIDE,CL 102 mmol/L (98-107); SODIUM,NA 138 mmol/L (136-145)
[2021-03-20] MEDS ORDERED: Glucagon,Human Recombinant 1 MG Vial IM PRN (21:27)
[2021-03-20] MEDS ORDERED: 50% Dextrose in Water 50 ML Syringe IVPUSH PRN (21:27)
[2021-03-20] MEDS ORDERED: Insulin Regular, Human 100 Units/ML 3 ML Vial IV ONE (21:27)
--- NOTE | 2021-03-20 21:55 | CR ---
PROCEDURE INFORMATION: Exam: XR Chest Exam date and time: 03/20/2021 9:14 PM Age: 65 years old Clinical indication: Pain; Left-sided; Additional info: Chest pain TECHNIQUE: Imaging protocol: XR of the chest. Views: 1 view. COMPARISON: CR Chest 1V Frontal 04/28/2020 2:17 AM FINDINGS: Lungs: Unremarkable. No consolidation. Pleural spaces: Unremarkable. No pleural effusion. No pneumothorax. Heart/Mediastinum: Unremarkable. No cardiomegaly. Bones/joints: Unremarkable. IMPRESSION: No acute findings.
== END 2021-03-21 00:03 | disposition left against medical advice (07) ==
LOC: DL.ED 20:43
DX: R55 Syncope and collapse (principal); E11.65 Type 2 diabetes mellitus with hyperglycemia; E11.22 Type 2 diabetes mellitus with diabetic chronic kidney disease; I13.0 Hypertensive heart and chronic kidney disease with heart failure and stage 1 through stage 4 chronic kidney disease, or unspecified chronic kidney disease; N18.9 Chronic kidney disease, unspecified; I50.9 Heart failure, unspecified; I25.10 Atherosclerotic heart disease of native coronary artery without angina pectoris; I25.2 Old myocardial infarction; J44.9 Chronic obstructive pulmonary disease, unspecified; K21.9 Gastro-esophageal reflux disease without esophagitis; Z79.899 Other long term (current) drug therapy; Z72.0 Tobacco use; Z95.0 Presence of cardiac pacemaker; Z79.01 Long term (current) use of anticoagulants; Z88.0 Allergy status to penicillin; Z88.5 Allergy status to narcotic agent; Z91.040 Latex allergy status; Z91.018 Allergy to other foods
CPT/HCPCS: 36415; 71045; 80053; 80305-QW; 81003; 82150; 82550; 82947; 83735; 84484; 85025; 85610; 93005; 93010; 99284; 99284-25; J1815-GY

== ENCOUNTER 2021-06-30 19:19 | Emergency (ER) | payer SELFPAY ==
[2021-06-30 20:49] VITALS: BP 109/81; PULSE 88
--- NOTE | 2021-06-30 22:34 | CR ---
PROCEDURE INFORMATION: Exam: XR Left Toe(s) Exam date and time: 06/30/2021 9:05 PM Age: 66 years old Clinical indication: Other: Stepped on nail on big toe--not the metatarsal; Prior surgery TECHNIQUE: Imaging protocol: XR Left toes. Views: Minimum 2 views. COMPARISON: CR Foot Comp Min 3V Lt 01/14/2021 12:28 AM FINDINGS: Bones/joints: Stable postsurgical changes in the foot. Surgical screws in the proximal aspect of the 1st proximal phalanx, the head of the metatarsal, the proximal 1st metatarsal, 1st cuneiform, 1st TMT joint, and the 1st cuneiform-2nd cuneiform joint. No evidence for loosening of the surgical hardware. Stable deformities of the 1st metatarsal and mid diaphysis of the 3rd metatarsal suggesting sequela of remote trauma. Stable degenerative changes in the visualized foot. No acute fracture. No dislocation. Soft tissues: Mild soft tissue swelling at the midfoot. No radiopaque foreign body. IMPRESSION: 1. No acute fracture. Followup imaging recommended in 7-14 days if clinical concern for fracture persists. 2. Mild soft tissue swelling at the midfoot. 3. Incidental/nonacute findings are listed in the report.
== END 2021-06-30 22:28 | disposition left against medical advice (07) ==
LOC: DL.ED 19:19
DX: S91.132A Puncture wound without foreign body of left great toe without damage to nail, initial encounter (principal); Z53.21 Procedure and treatment not carried out due to patient leaving prior to being seen by health care provider; W45.0XXA Nail entering through skin, initial encounter
CPT/HCPCS: 73660-TA; 99283-25

== ENCOUNTER 2021-08-26 22:40 | Emergency (ER) | payer MEDICARE, MEDICAID ==
[~2021-08-26 22:40] MED LIST: Acetaminophen/HYDROcodone 325-5 MG Tab PO ONE
[2021-08-26] MEDS ORDERED: Acetaminophen/HYDROcodone 325-5 MG Tab PO ONE (22:41)
[2021-08-26 22:42] VITALS: BP 140/88; PULSE 120
--- NOTE | 2021-08-26 23:27 | EDM.PDOC ---
ED HPI GENERAL MEDICAL PROBLEM - General Chief Complaint: Flank Pain Stated Complaint: AMBULANCE Time Seen by Provider: 08/26/21 22:45 Source of Information: Reports: Patient History Limitations: Reports: No Limitations - History of Present Illness INITIAL COMMENTS - FREE TEXT/NARRATIVE: ED with c/o right rib pain after coughing. Reports had sudden "smokers cough" and felt something pop in right side of ribs. no SOB. No fever or chills. Right Lower Chest Pain Score (Numeric/FACES): 10 - Related Data Allergies Allergy/AdvReac Type Severity Reaction Status Date / Time chicken derived Allergy Hives Verified 08/26/21 22:51 codeine Allergy Hives Verified 08/26/21 22:51 Penicillins Allergy Hives Verified 08/26/21 22:51 tramadol Allergy Hives Verified 08/26/21 22:51 Contrast media Allergy Hives Uncoded 01/30/21 01:34 Home Meds: Home Meds Aspirin 81 mg PO BRK 11/09/15 [History] Calcium Citrate/Vitamin D3 [[place] Calcium 200-Vit D3 250] 1 each PO DAILY 11/09/15 [History] Docusate Sodium [Colace] 100 mg PO BID 11/09/15 [History] Gabapentin [Neurontin] 900 mg PO TID 11/09/15 [History] Hydrochlorothiazide 25 mg PO DAILY 11/09/15 [History] Lisinopril 20 mg PO DAILY 11/09/15 [History] Omeprazole 20 mg PO ACBREAKFAST 11/09/15 [History] atorvaSTATin [Lipitor] 20 mg PO BEDTIME 11/09/15 [History] metFORMIN [Glucophage XR] 1,000 mg PO BIDMEALS 11/09/15 [History] Apixaban [Eliquis] 5 mg PO DAILY 11/08/17 [History] Cholecalciferol (Vitamin D3) [Vitamin D3] 1,000 unit PO DAILY 11/08/17 [History] Insulin Glarg,Human.Rec.Analog [Lantus Solostar] 44 unit SUBCUT DAILY 11/08/17 [History] Melatonin/Pyridoxine HCl (B6) [Melatonin-Vit B6 3-10 mg Tab] 9 mg PO BEDTIME 11/08/17 [History] [place]-3 Fatty Acids [[place]-3] 1 gm PO BID 11/08/17 [History] Prazosin HCl [Prazosin] 1 mg PO BEDTIME 11/08/17 [History] glipiZIDE [Glucotrol XL] 10 mg PO BID 11/08/17 [History] Metoprolol Tartrate [Lopressor] 50 mg PO BID #60 tablet 11/09/17 [Rx] Diltiazem [Diltiazem XR] 240 mg PO BID 02/11/18 [History] Acetaminophen [Tylenol] 650 mg PO Q4HR PRN 01/24/21 [History] Past Medical History - Past Health History Medical/Surgical History: Denies Medical/Surgical History HEENT History: Reports: None Cardiovascular History: Reports: Afib, CAD, High Cholesterol, Hypertension, [place], Pacemaker, Stents Other Cardiovascular History: [place] 1999 with 1 stent placement Respiratory History: Reports: Bronchitis, Recurrent, Sleep Apnea Other Respiratory History: smoker for 51 yrs (quit in September), has a CPAP Gastrointestinal History: Reports: Chronic Constipation, GERD Genitourinary History: Reports: Diabetic Nephropathy Musculoskeletal History: Reports: Osteoarthritis, Other (See Below) Other Musculoskeletal History: Uses a [employer] machine at home for his back and neck. Neurological History: Reports: Neuropathy, Diabetic Psychiatric History: Reports: Anxiety Endocrine/Metabolic History: Reports: Diabetes, Type II Hematologic History: Reports: None Immunologic History: Reports: None Oncologic (Cancer) History: Reports: Colon Other Oncologic History: with surgery, chemo and radiation Stage III Dermatologic History: Reports: None - Infectious Disease History Infectious Disease History: Reports: Chicken Pox, Measles, Mumps, Rheumatic Fever - Past Surgical History Head Surgeries/Procedures: Reports: None HEENT Surgical History: Reports: Naso-Sinus Surgery Cardiovascular Surgical History: Reports: Pacer Respiratory Surgical History: Reports: None GI Surgical History: Reports: Colon Other GI Surgeries/Procedures: Had some colon removed. Stage 3 colon ca. Male Surgical History: Reports: Circumcision Musculoskeletal Surgical History: Reports: Arthroscopic Knee, Shoulder Surgery, Other (See Below) Other Musculoskeletal Surgeries/Procedures:: Repaired acl. [place]. Placed bone marrow in hip., left foot surgery with screw placement 11/03/18. right Foot surg. Social & Family History - Family History Family Medical History: No Pertinent Family History Cardiac: Reports: Afib, AICD, Angina, Bypass, CAD, Heart Failure, High Cholesterol, Hypertension, [place] Respiratory: Reports: Asthma, COPD GI: Reports: Cholelithiasis : Reports: Dialysis, Renal Disease/Insufficiency Musculoskeletal: Reports: Arthritis, Back pain, Chronic Neurological: Reports: CVA, Neuropathy, Diabetic Psychiatric: Reports: Anxiety, Depression Endocrine/Metabolic: Reports: Diabetes, type II - Tobacco Use Tobacco Use Status *Q: Current Every Day Tobacco User Years of Tobacco use: 55 Packs/Tins Daily: 1 - Caffeine Use Caffeine Use: Reports: Coffee Other Caffeine Use: 4 pots a day - Recreational Drug Use Recreational Drug Use: No - Living Situation & Occupation Living situation: Reports: with Family Occupation: Unemployed ED ROS GENERAL - Review of Systems Review Of Systems: Comprehensive ROS is negative, except as noted in HPI. ED EXAM, GENERAL - Physical Exam Exam: See Below Exam Limited By: No Limitations General Appearance: Alert, Mild Distress, Obese Eye Exam: Bilateral Eye: Conjunctival Injection, EOMI Ears: Normal External Exam, Hearing Grossly Normal Nose: Normal Inspection Throat/Mouth: Normal Inspection, Normal Voice Head: Atraumatic, Normocephalic Neck: Normal Inspection Respiratory/Chest: No Respiratory Distress, Lungs Clear, Normal Breath Sounds. No: Chest Non-Tender (right mid lateral) Cardiovascular: Normal Peripheral Pulses, Tachycardia, Irregularly Irregular GI/Abdominal: Normal Bowel Sounds, Soft, Non-Tender Back Exam: Normal Inspection Extremities: Normal Inspection Neurological: Alert, Oriented, Normal Cognition, Normal Gait Skin Exam: Warm, Dry, Intact, Normal Color Course - Vital Signs Last Recorded V/S: Last Vital Signs Temp 97.2 F 08/26/21 22:41 Pulse 120 H 08/26/21 22:41 Resp 16 08/26/21 22:41 BP 140/88 08/26/21 22:41 Pulse Ox 93 L 08/26/21 22:41 - Orders/Labs/Meds Orders: Active Orders 24 hr Category Date Time Status Ribs 2V w Chest Rt [CR] Urgent Exams 08/26/21 22:38 Ordered Meds: Medications Discontinued Medications Generic Name Dose Route Start Last Admin Trade Name Teddy PRN Reason Stop Dose Admin Hydrocodone Bitart/Acetaminophen 1 tab 08/26/21 22:39 08/26/21 22:45 Acetaminophen/Hydrocodone 325-5 Mg Tab PO 08/26/21 22:40 1 tab ONETIME ONE Administration Departure - Departure Time of Disposition: 23:23 Disposition: Home, Self-Care 01 Condition: Good Clinical Impression: Rib pain on right side - Discharge Information *PRESCRIPTION DRUG MONITORING PROGRAM REVIEWED*: No *COPY OF PRESCRIPTION DRUG MONITORING REPORT IN PATIENT RERE: No Instructions: Chest Wall Pain, [id number] Additional Instructions: warm pack to area splint with cough or sneeze, deep breathing exercises every 2 hours hydocodone APAP 5/325 one every 6 hours as needed for severe pain Tylenol 500mg every 4 hours as needed ofr painnot to exceed 300mg in 24 hours Sepsis Event Note (ED) - Evaluation Sepsis Screening Result: No Definite Risk - Focused Exam Vital Signs: Vital Signs Temp Pulse Resp BP Pulse Ox 08/26/21 22:41 97.2 F 120 H 16 140/88 93 L - My Orders Last 24 Hours: My Active Orders 08/26/21 22:38 Ribs 2V w Chest Rt [CR] Urgent - Assessment/Plan Last 24 Hours: My Active Orders 08/26/21 22:38 Ribs 2V w Chest Rt [CR] Urgent
[2021-08-26] MEDS ORDERED: Acetaminophen/HYDROcodone 325-5 MG Tab ONE (23:30)
--- NOTE | 2021-08-27 00:20 | CR ---
PROCEDURE INFORMATION: Exam: XR Right Ribs with PA Chest Exam date and time: 08/26/2021 10:43 PM Age: 66 years old Clinical indication: Chest wall pain and painful respiration; Right; Additional info: Coughed felt pain on right TECHNIQUE: Imaging protocol: XR Right ribs with PA chest. Views: 3 views COMPARISON: No relevant prior studies available. FINDINGS: Tubes, catheters and devices: A cardiac device (pacemaker/defibrillator) is present, and its lead/s are in appropriate position. Lungs: Unremarkable. No consolidation. Pleural spaces: Unremarkable. No pleural effusion. No pneumothorax. Heart/Mediastinum: Unremarkable. No cardiomegaly. Bones/joints: Widening of the right AC joint is noted. 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 IMPRESSION: No definite acute change is identified.
== END 2021-08-26 23:36 | disposition home or self-care (01) ==
LOC: DL.ED 22:40
DX: R07.89 Other chest pain (principal); I48.91 Unspecified atrial fibrillation; I25.10 Atherosclerotic heart disease of native coronary artery without angina pectoris; E78.00 Pure hypercholesterolemia, unspecified; I10 Essential (primary) hypertension; I25.2 Old myocardial infarction; K21.9 Gastro-esophageal reflux disease without esophagitis; E11.21 Type 2 diabetes mellitus with diabetic nephropathy; E11.40 Type 2 diabetes mellitus with diabetic neuropathy, unspecified; M19.90 Unspecified osteoarthritis, unspecified site; Z72.0 Tobacco use; Z91.018 Allergy to other foods; Z88.5 Allergy status to narcotic agent; Z88.0 Allergy status to penicillin; Z91.041 Radiographic dye allergy status; Z79.82 Long term (current) use of aspirin; Z79.01 Long term (current) use of anticoagulants; Z79.4 Long term (current) use of insulin; Z79.899 Other long term (current) drug therapy
CPT/HCPCS: 71101; 99283; A9270

== ENCOUNTER 2022-03-30 17:01 | Emergency (ER) | payer MEDICARE, MEDICAID ==
[2022-03-30 17:25] VITALS: BP 125/68; PULSE 72
== END 2022-03-30 18:24 | disposition home or self-care (01) ==
LOC: DL.ED 17:01
DX: M25.552 Pain in left hip (principal); E78.00 Pure hypercholesterolemia, unspecified; I10 Essential (primary) hypertension; K21.9 Gastro-esophageal reflux disease without esophagitis; E11.9 Type 2 diabetes mellitus without complications; Z79.4 Long term (current) use of insulin; Z79.82 Long term (current) use of aspirin; Z79.899 Other long term (current) drug therapy
CPT/HCPCS: 99283

== ENCOUNTER 2022-04-12 02:09 | Emergency (ER) | payer MEDICARE, MEDICAID ==
[2022-04-12 06:00] VITALS: BP 122/71; PULSE 88
== END 2022-04-12 03:59 | disposition left against medical advice (07) ==
LOC: DL.ED 02:09
DX: R06.02 Shortness of breath (principal); I10 Essential (primary) hypertension; I25.2 Old myocardial infarction; E78.00 Pure hypercholesterolemia, unspecified; I25.10 Atherosclerotic heart disease of native coronary artery without angina pectoris; E11.40 Type 2 diabetes mellitus with diabetic neuropathy, unspecified; E11.21 Type 2 diabetes mellitus with diabetic nephropathy; K21.9 Gastro-esophageal reflux disease without esophagitis; F17.210 Nicotine dependence, cigarettes, uncomplicated; Z88.0 Allergy status to penicillin; Z88.5 Allergy status to narcotic agent; Z91.018 Allergy to other foods; Z91.041 Radiographic dye allergy status; Z79.4 Long term (current) use of insulin; Z79.84 Long term (current) use of oral hypoglycemic drugs; Z79.899 Other long term (current) drug therapy
CPT/HCPCS: 99282; 99283

== ENCOUNTER 2022-04-29 18:00 | Emergency (ER) | payer MEDICARE, MEDICAID ==
[2022-04-29 18:15] VITALS: PULSE 95
[2022-04-29] MEDS ORDERED: Acetaminophen/HYDROcodone 325-10 MG Tab PO ONE (18:24)
[2022-04-29 19:31] LABS: ANION GAP 12.6 mEq/L (7-13)
[2022-04-29 20:08] VITALS: BP 128/87
== END 2022-04-29 20:00 | disposition home or self-care (01) ==
LOC: DL.ED 18:00
DX: S39.012A Strain of muscle, fascia and tendon of lower back, initial encounter (principal); R06.02 Shortness of breath; I48.91 Unspecified atrial fibrillation; I25.10 Atherosclerotic heart disease of native coronary artery without angina pectoris; E78.00 Pure hypercholesterolemia, unspecified; I10 Essential (primary) hypertension; I25.2 Old myocardial infarction; E11.9 Type 2 diabetes mellitus without complications; K21.9 Gastro-esophageal reflux disease without esophagitis; Z95.0 Presence of cardiac pacemaker; Z88.5 Allergy status to narcotic agent; Z88.0 Allergy status to penicillin; Z91.041 Radiographic dye allergy status; Z79.82 Long term (current) use of aspirin; Z79.899 Other long term (current) drug therapy; Z79.4 Long term (current) use of insulin; Z20.822 Contact with and (suspected) exposure to COVID-19
CPT/HCPCS: 36415; 71046; 72100; 80053; 83605; 85025; 87040; 99284; 99285; A9270-GY; U0002

== ENCOUNTER 2022-05-03 06:42 | Emergency (ER) | payer MEDICARE, MEDICAID ==
[2022-05-03] MEDS ORDERED: Diltiazem 25 MG/5 ML SDV ONE (07:00)
[2022-05-03 07:03] VITALS: BP 125/85; PULSE 136
[2022-05-03] MEDS ORDERED: Sodium Chloride 0.9% 10 ML Syringe FLUSH PRN (07:09)
[2022-05-03] MEDS ORDERED: Diltiazem 25 MG/5 ML SDV IVPUSH ONE ×2 (07:09→07:48)
[2022-05-03 07:35] LABS: PTT,PARTIAL THROMBOPLSTIN TIME 25.9 SEC (22.0-34.0)
[2022-05-03 07:36] LABS: CHLORIDE,CL 106 mmol/L (98-107); SODIUM,NA 141 mmol/L (136-145)
[2022-05-03 07:40] LABS: ESTIMATED GFR 83 mL/min (>=60)
[2022-05-03] MEDS ORDERED: Sodium Chloride 0.9% 1,000 ML IV ONE (07:50)
[2022-05-03] MEDS ORDERED: Diltiazem 125 MG in Sodium Chloride 0.9% 100 ML IV SCH (08:00)
[2022-05-03 08:47] LABS: CORONAVIRUS COVID-19 NAA NEGATIVE (NEGATIVE); RESPIRATORY SYNCYTIAL VIR NAA NEGATIVE (NEGATIVE)
== END 2022-05-03 08:30 | disposition left against medical advice (07) ==
LOC: DL.ED 06:42
DX: I48.20 Chronic atrial fibrillation, unspecified (principal); I25.10 Atherosclerotic heart disease of native coronary artery without angina pectoris; E78.00 Pure hypercholesterolemia, unspecified; I10 Essential (primary) hypertension; I25.2 Old myocardial infarction; K21.9 Gastro-esophageal reflux disease without esophagitis; E11.21 Type 2 diabetes mellitus with diabetic nephropathy; M19.90 Unspecified osteoarthritis, unspecified site; Z95.0 Presence of cardiac pacemaker; Z79.01 Long term (current) use of anticoagulants; Z88.0 Allergy status to penicillin; Z88.5 Allergy status to narcotic agent; Z79.82 Long term (current) use of aspirin; Z79.899 Other long term (current) drug therapy; Z20.822 Contact with and (suspected) exposure to COVID-19; Z53.8 Procedure and treatment not carried out for other reasons
CPT/HCPCS: 0241U; 36415; 71045; 80053; 80307; 83880; 84484; 85025; 85610; 85730; 93005; 93010; 96374; 96376; 99284; 99285; J3490; J7030

== ENCOUNTER 2022-05-07 03:28 | Emergency (ER) | payer MEDICARE, MEDICAID ==
[2022-05-07 03:48] VITALS: BP 133/102; PULSE 88
[2022-05-07 04:28] LABS: ANION GAP 13.1 mEq/L (7-13)
[2022-05-07] MEDS: Acetaminophen/HYDROcodone 325-5 MG Tab PO ONE (05:31)
== END 2022-05-07 07:08 | disposition home or self-care (01) ==
LOC: DL.ED 03:28
DX: J06.9 Acute upper respiratory infection, unspecified (principal); Z91.19 Patient's noncompliance with other medical treatment and regimen; Z87.891 Personal history of nicotine dependence; Z91.018 Allergy to other foods; Z88.5 Allergy status to narcotic agent; Z88.0 Allergy status to penicillin; Z91.041 Radiographic dye allergy status; I10 Essential (primary) hypertension; E78.00 Pure hypercholesterolemia, unspecified; E11.21 Type 2 diabetes mellitus with diabetic nephropathy; I25.2 Old myocardial infarction; Z20.822 Contact with and (suspected) exposure to COVID-19; Z79.4 Long term (current) use of insulin; Z79.82 Long term (current) use of aspirin; Z79.899 Other long term (current) drug therapy
CPT/HCPCS: 36415; 71046; 71250; 80053; 83605; 83880; 85025; 85379; 93005; 93010; 99284; 99285; A9270-GY; U0002

== ENCOUNTER 2022-06-10 04:02 | Emergency (ER) | payer MEDICARE, MEDICAID ==
[2022-06-10] MEDS ORDERED: Albuterol/Ipratropium 3.0-0.5 MG/3 ML Neb Soln NEB ONE (04:27)
[2022-06-10 04:28] VITALS: BP 130/95; PULSE 99
[2022-06-10 05:45] LABS: ANION GAP 11.6 mEq/L (7-13)
== END 2022-06-10 06:01 | disposition home or self-care (01) ==
LOC: DL.ED 04:02
DX: J45.21 Mild intermittent asthma with (acute) exacerbation (principal); I48.91 Unspecified atrial fibrillation; I25.10 Atherosclerotic heart disease of native coronary artery without angina pectoris; E78.00 Pure hypercholesterolemia, unspecified; I10 Essential (primary) hypertension; I25.2 Old myocardial infarction; E11.40 Type 2 diabetes mellitus with diabetic neuropathy, unspecified; K21.9 Gastro-esophageal reflux disease without esophagitis; Z95.0 Presence of cardiac pacemaker; Z88.0 Allergy status to penicillin; Z88.5 Allergy status to narcotic agent; Z88.8 Allergy status to other drugs, medicaments and biological substances; Z91.041 Radiographic dye allergy status; Z79.82 Long term (current) use of aspirin; Z79.01 Long term (current) use of anticoagulants; Z79.899 Other long term (current) drug therapy
CPT/HCPCS: 36415; 71045; 80053; 83605; 84484; 85025; 85379; 93005; 94640; 99285; J7620-GY

== ENCOUNTER 2022-07-24 04:00 | Emergency (ER) | payer MEDICARE, MEDICAID | END 2022-07-24 04:58 | disposition left against medical advice (07) | LOC: DL.ED 04:00 | DX: Z53.21 Procedure and treatment not carried out due to patient leaving prior to being seen by health care provider (principal) ==

== ENCOUNTER 2022-08-06 03:14 | Emergency (ER) | payer MEDICARE, MEDICAID ==
[2022-08-06 03:33] VITALS: BP 140/92; PULSE 90
== END 2022-08-06 04:24 | disposition home or self-care (01) ==
LOC: DL.ED 03:14
DX: G89.29 Other chronic pain (principal); M87.052 Idiopathic aseptic necrosis of left femur; I25.10 Atherosclerotic heart disease of native coronary artery without angina pectoris; E78.00 Pure hypercholesterolemia, unspecified; I10 Essential (primary) hypertension; E11.9 Type 2 diabetes mellitus without complications; Z88.5 Allergy status to narcotic agent; Z88.0 Allergy status to penicillin; Z91.041 Radiographic dye allergy status; Z91.018 Allergy to other foods; Z79.899 Other long term (current) drug therapy; Z79.84 Long term (current) use of oral hypoglycemic drugs; Z79.01 Long term (current) use of anticoagulants; Z79.4 Long term (current) use of insulin
CPT/HCPCS: 99283

== ENCOUNTER 2022-10-04 17:26 | Emergency (ER) | payer OTHER, MEDICAID, MEDICARE ==
[2022-10-04] MEDS ORDERED: Sodium Chloride 0.9% 10 ML Syringe FLUSH PRN (17:44)
[2022-10-04] MEDS ORDERED: Diltiazem 25 MG/5 ML SDV IVPUSH ONE ×2 (18:30→19:45)
[2022-10-04] MEDS ORDERED: Sodium Chloride 0.9% 1,000 ML IV ONE ×2 (18:30→19:45)
[2022-10-04 18:38] LABS: ANION GAP 13.2 mEq/L (7-13); CHLORIDE,CL 101 mmol/L (98-107); SODIUM,NA 135 mmol/L (136-145)
[2022-10-04 18:39] LABS: ESTIMATED GFR 70 mL/min (>=60)
[2022-10-04 19:33] VITALS: PULSE 113
[2022-10-04] MEDS ORDERED: Furosemide 40 MG/4 ML VIAL IVPUSH ONE (19:47)
[2022-10-04 20:15] VITALS: BP 100/62
[2022-10-04] MEDS ORDERED: Diltiazem 125 MG in Sodium Chloride 0.9% 125 ML IV SCH (20:15)
[2022-10-04 20:40] LABS: PTT,PARTIAL THROMBOPLSTIN TIME 29.6 SEC (22.0-34.0)
[2022-10-04 21:39] LABS: CORONAVIRUS COVID-19 NAA NEGATIVE (NEGATIVE); RESPIRATORY SYNCYTIAL VIR NAA NEGATIVE (NEGATIVE)
== END 2022-10-04 21:22 ==
LOC: DL.ED 17:26
DX: I48.91 Unspecified atrial fibrillation (principal); E11.40 Type 2 diabetes mellitus with diabetic neuropathy, unspecified; I10 Essential (primary) hypertension; J44.9 Chronic obstructive pulmonary disease, unspecified; I25.2 Old myocardial infarction; Z95.0 Presence of cardiac pacemaker; Z79.01 Long term (current) use of anticoagulants; Z88.5 Allergy status to narcotic agent; Z88.0 Allergy status to penicillin; Z91.018 Allergy to other foods; Z91.041 Radiographic dye allergy status; Z79.82 Long term (current) use of aspirin; Z87.891 Personal history of nicotine dependence; Z20.822 Contact with and (suspected) exposure to COVID-19
CPT/HCPCS: 0241U; 36415; 71045; 80053; 83605; 83735; 83880; 84484; 85025; 85610; 85730; 86140; 93005; 96361; 96365; 96375; 96376; 99285; J1940; J3490; J7030

== ENCOUNTER 2022-11-17 04:16 | Emergency (ER) | payer OTHER, MEDICAID ==
[2022-11-17] MEDS ORDERED: Diltiazem 25 MG/5 ML SDV IVPUSH ONE (04:35)
[2022-11-17] MEDS ORDERED: Diltiazem 125 MG in Sodium Chloride 0.9% 125 ML IV SCH (05:00)
[2022-11-17 05:12] LABS: ANION GAP 15.2 mEq/L (7-13)
[2022-11-17] MEDS ORDERED: Furosemide 40 MG/4 ML VIAL IVPUSH ONE (05:15)
[2022-11-17 05:30] LABS: CORONAVIRUS COVID-19 NAA NEGATIVE (NEGATIVE)
[2022-11-17] MEDS ORDERED: Digoxin 500 MCG/2 ML Amp IVPUSH ONE (08:46)
[2022-11-17] MEDS ORDERED: Metoprolol Tartrate 50 MG Tab PO ONE (08:46)
[2022-11-17 09:03] VITALS: BP 104/79
[2022-11-17 09:16] VITALS: PULSE 124
== END 2022-11-17 09:20 ==
LOC: DL.ED 04:16
DX: I48.91 Unspecified atrial fibrillation (principal); E11.21 Type 2 diabetes mellitus with diabetic nephropathy; E11.40 Type 2 diabetes mellitus with diabetic neuropathy, unspecified; I25.10 Atherosclerotic heart disease of native coronary artery without angina pectoris; E78.00 Pure hypercholesterolemia, unspecified; I25.2 Old myocardial infarction; M19.90 Unspecified osteoarthritis, unspecified site; Z95.0 Presence of cardiac pacemaker; Z88.0 Allergy status to penicillin; Z91.018 Allergy to other foods; Z88.5 Allergy status to narcotic agent; Z91.041 Radiographic dye allergy status; Z79.82 Long term (current) use of aspirin; Z79.01 Long term (current) use of anticoagulants; Z79.899 Other long term (current) drug therapy; Z20.822 Contact with and (suspected) exposure to COVID-19
CPT/HCPCS: 0240U; 36415; 71045; 80053; 83605; 83735; 83880; 84484; 85025; 87040; 93005; 93010; 96365; 96366; 96375; 96376; 99285; 99285-25; A9270-GY; J1160; J1940; J3490; J7050

== ENCOUNTER 2022-12-19 00:23 | Emergency (ER) | payer OTHER, MEDICAID | END 2022-12-19 01:11 | disposition left against medical advice (07) | LOC: DL.ED 00:23 | DX: Z53.21 Procedure and treatment not carried out due to patient leaving prior to being seen by health care provider (principal) ==

== ENCOUNTER 2023-04-15 03:27 | Emergency (ER) | payer MEDICAID, OTHER ==
[2023-04-15 04:32] VITALS: BP 116/82; PULSE 103
[2023-04-15] MEDS ORDERED: Acetaminophen/HYDROcodone 325-5 MG Tab PO ONE (04:37)
== END 2023-04-15 05:50 | disposition home or self-care (01) ==
LOC: DL.ED 03:27
DX: R07.89 Other chest pain (principal); I10 Essential (primary) hypertension; I25.2 Old myocardial infarction; E10.9 Type 1 diabetes mellitus without complications; Z72.0 Tobacco use; Z88.5 Allergy status to narcotic agent; Z88.0 Allergy status to penicillin; Z91.018 Allergy to other foods; Z91.041 Radiographic dye allergy status; Z79.82 Long term (current) use of aspirin; Z79.899 Other long term (current) drug therapy
CPT/HCPCS: 71101; 99283; 99284; A9270

== ENCOUNTER 2023-04-22 02:13 | Emergency (ER) | payer MEDICARE, MEDICAID ==
[2023-04-22 02:59] VITALS: BP 139/110; PULSE 96
[2023-04-22] MEDS ORDERED: Ibuprofen 800 MG Tab PO ONE (03:10)
== END 2023-04-22 03:51 | disposition home or self-care (01) ==
LOC: DL.ED 02:13
DX: S90.31XA Contusion of right foot, initial encounter (principal); F17.210 Nicotine dependence, cigarettes, uncomplicated; E11.9 Type 2 diabetes mellitus without complications; I25.2 Old myocardial infarction; Z95.0 Presence of cardiac pacemaker; Z95.5 Presence of coronary angioplasty implant and graft; Z86.73 Personal history of transient ischemic attack (TIA), and cerebral infarction without residual deficits; Z79.01 Long term (current) use of anticoagulants; Z79.84 Long term (current) use of oral hypoglycemic drugs; Z79.899 Other long term (current) drug therapy; Z79.82 Long term (current) use of aspirin; Z88.0 Allergy status to penicillin; Z88.5 Allergy status to narcotic agent; Z91.018 Allergy to other foods; Z91.041 Radiographic dye allergy status; W22.8XXA Striking against or struck by other objects, initial encounter; Y93.01 Activity, walking, marching and hiking; Y92.009 Unspecified place in unspecified non-institutional (private) residence as the place of occurrence of the external cause
CPT/HCPCS: 73630; 99283; A9270

== ENCOUNTER 2023-05-11 00:37 | Emergency (ER) | payer MEDICARE, MEDICAID ==
[2023-05-11] MEDS ORDERED: Diazepam 2 MG Tab PO ONE (00:52)
[2023-05-11] MEDS ORDERED: Acetaminophen/oxyCODONE 325-5 MG Tab PO ONE (00:52)
[2023-05-11 00:57] VITALS: BP 127/103; PULSE 105
== END 2023-05-11 01:12 | disposition home or self-care (01) ==
LOC: DL.ED 00:37
DX: M43.6 Torticollis (principal); E11.9 Type 2 diabetes mellitus without complications; K21.9 Gastro-esophageal reflux disease without esophagitis; Z88.5 Allergy status to narcotic agent; Z91.041 Radiographic dye allergy status; Z79.82 Long term (current) use of aspirin; Z95.0 Presence of cardiac pacemaker; Z86.73 Personal history of transient ischemic attack (TIA), and cerebral infarction without residual deficits; Z79.899 Other long term (current) drug therapy
CPT/HCPCS: 99283; A9270

== ENCOUNTER 2023-06-11 14:12 | Emergency (ER) | payer MEDICARE, MEDICAID ==
[2023-06-11 14:59] VITALS: BP 120/93; PULSE 74
== END 2023-06-11 15:40 | disposition home or self-care (01) ==
LOC: DL.ED 14:12
DX: S46.912A Strain of unspecified muscle, fascia and tendon at shoulder and upper arm level, left arm, initial encounter (principal); I48.91 Unspecified atrial fibrillation; I25.2 Old myocardial infarction; E11.9 Type 2 diabetes mellitus without complications; Z86.16 Personal history of COVID-19; Z88.5 Allergy status to narcotic agent; Z88.0 Allergy status to penicillin; Z91.041 Radiographic dye allergy status; Z91.018 Allergy to other foods; Z79.01 Long term (current) use of anticoagulants; Z79.4 Long term (current) use of insulin; Z79.899 Other long term (current) drug therapy; X50.9XXA Other and unspecified overexertion or strenuous movements or postures, initial encounter
CPT/HCPCS: 73030-LT; 99283

== ENCOUNTER 2023-12-26 | Emergency (ER) | payer MEDICARE, MEDICAID ==
[2023-12-26 01:23] VITALS: BP 117/96; PULSE 88
== END 2023-12-26 03:54 | disposition home or self-care (01) ==
LOC: DL.ED
DX: M79.671 Pain in right foot (principal); E11.9 Type 2 diabetes mellitus without complications; K21.9 Gastro-esophageal reflux disease without esophagitis; F17.210 Nicotine dependence, cigarettes, uncomplicated; Z79.84 Long term (current) use of oral hypoglycemic drugs; Z79.899 Other long term (current) drug therapy; Z79.82 Long term (current) use of aspirin; Z88.5 Allergy status to narcotic agent; Z91.041 Radiographic dye allergy status; Z88.0 Allergy status to penicillin; Z91.048 Other nonmedicinal substance allergy status
CPT/HCPCS: 73650-RT; 99283

== ENCOUNTER 2024-01-13 07:44 | Day surgery (SDC) | payer MEDICAID, MEDICARE, OTHER ==
[~2024-01-13 07:44] MED LIST changes: +Acetaminophen 325 MG Tab PO PRN; +Acetaminophen/Codeine 300-30 MG Tab PO PRN; -Acetaminophen/HYDROcodone 325-5 MG Tab PO ONE; +Cataract Ophth Solution EYELF ONE; +Moxifloxacin 0.5% Ophth Soln 3 ML Bottle EYELF ONE; +Ondansetron 4 MG/2 ML SDV IVPUSH PRN; +Phenylephrine 10% Ophth Soln 5 ML Bot EYELF ONE; +Povidone-Iodine 5% Sterile Ophth Soln 30 ML Bottle EYELF ONE; +Proparacaine 0.5% Ophth Soln 15 ML Bottle EYELF ONE; +Sodium Chloride 0.9% 10 ML Syringe FLUSH PRN; +Timolol Maleate 0.5% Ophth Soln 5 ML Bottle EYELF ONE; +Tropicamide 1% Ophth Soln 15 ML Bottle EYELF ONE
[2024-01-13] MEDS ORDERED: Ondansetron 4 MG/2 ML SDV IVPUSH PRN (08:00)
[2024-01-13] MEDS ORDERED: Acetaminophen/Codeine 300-30 MG Tab PO PRN (08:00)
[2024-01-13] MEDS ORDERED: Acetaminophen 325 MG Tab PO PRN (08:00)
[2024-01-13] MEDS: Moxifloxacin 0.5% Ophth Soln 3 ML Bottle EYERT ONE (08:20)
[2024-01-13] MEDS: Timolol Maleate 0.5% Ophth Soln 5 ML Bottle EYERT ONE (08:20)
[2024-01-13] MEDS: Phenylephrine 10% Ophth Soln 5 ML Bot EYERT ONE (08:20)
[2024-01-13] MEDS: Proparacaine 0.5% Ophth Soln 15 ML Bottle EYERT ONE ×2 (08:20→09:27)
[2024-01-13] MEDS: Cataract Ophth Solution EYERT ONE (08:21)
[2024-01-13] MEDS: Sodium Chloride 0.9% 10 ML Syringe FLUSH PRN (08:21)
[2024-01-13] MEDS: Povidone-Iodine 5% Sterile Ophth Soln 30 ML Bottle EYERT ONE ×2 (08:21→09:27)
[2024-01-13] MEDS: Tropicamide 1% Ophth Soln 15 ML Bottle EYERT ONE (08:21)
[2024-01-13] MEDS: Diclofenac Sodium 0.1% Ophth Soln 5 ML Bottle EYERT ONE (09:27)
[2024-01-13] MEDS: Apraclonidine 0.5% Ophth Soln 5 ML Bot EYERT ONE (09:27)
[2024-01-13] MEDS: Dexamethasone/Neomycin/Polymyxin B Ophth Oint 3.5 GM Tube EYERT ONE (09:28)
[2024-01-13] MEDS: Vancomycin 500 MG SDV EYERT ONE (09:28)
[2024-01-13] MEDS: Lidocaine 1% 30 ML SDV INJECT ONE (09:28)
[2024-01-13 10:35] VITALS: BP 150/68; PULSE 58
== END 2024-01-13 09:15 | disposition home or self-care (01) ==
LOC: DL.SDS 07:44
PROVIDERS: ATTEND Ophthalmology
DX: E11.36 Type 2 diabetes mellitus with diabetic cataract (principal); H25.811 Combined forms of age-related cataract, right eye; E11.40 Type 2 diabetes mellitus with diabetic neuropathy, unspecified; I48.91 Unspecified atrial fibrillation; I50.20 Unspecified systolic (congestive) heart failure; Z95.0 Presence of cardiac pacemaker; Z79.01 Long term (current) use of anticoagulants; Z79.899 Other long term (current) drug therapy; Z79.82 Long term (current) use of aspirin; Z79.84 Long term (current) use of oral hypoglycemic drugs; Z88.0 Allergy status to penicillin; Z88.5 Allergy status to narcotic agent; Z91.041 Radiographic dye allergy status; Z91.018 Allergy to other foods
CPT/HCPCS: 66984; A9270; J3370; V2632; J3490

== ENCOUNTER 2024-02-10 09:02 | Day surgery (SDC) | payer OTHER ==
[2024-02-10] MEDS ORDERED: Sodium Chloride 0.9% 10 ML Syringe IV ONE (09:03)
[2024-02-10] MEDS ORDERED: Midazolam 1 MG/ML 2 ML SDV IV ONE (09:03)
[2024-02-10] MEDS ORDERED: Dexamethasone 4 MG/ML SDV IV ONE (09:03)
[2024-02-10] MEDS ORDERED: Acetaminophen 325 MG Tab PO PRN (09:15)
[2024-02-10] MEDS ORDERED: Ondansetron 4 MG/2 ML SDV IVPUSH PRN (09:15)
[2024-02-10] MEDS ORDERED: Acetaminophen/Codeine 300-30 MG Tab PO PRN (09:15)
[2024-02-10] MEDS: Sodium Chloride 0.9% 10 ML Syringe FLUSH PRN (09:31)
[2024-02-10] MEDS: Proparacaine 0.5% Ophth Soln 15 ML Bottle EYELF ONE ×2 (09:36→10:48)
[2024-02-10] MEDS: Povidone-Iodine 5% Sterile Ophth Soln 30 ML Bottle EYELF ONE ×2 (09:37→10:48)
[2024-02-10] MEDS: Moxifloxacin 0.5% Ophth Soln 3 ML Bottle EYELF ONE (09:37)
[2024-02-10] MEDS: Tropicamide 1% Ophth Soln 15 ML Bottle EYELF ONE (09:38)
[2024-02-10] MEDS: Phenylephrine 10% Ophth Soln 5 ML Bot EYELF ONE (09:38)
[2024-02-10] MEDS: Timolol Maleate 0.5% Ophth Soln 5 ML Bottle EYELF ONE (09:38)
[2024-02-10] MEDS: Cataract Ophth Solution EYELF ONE (09:39)
[2024-02-10] MEDS: Diclofenac Sodium 0.1% Ophth Soln 5 ML Bottle EYELF ONE (10:48)
[2024-02-10] MEDS: Apraclonidine 0.5% Ophth Soln 5 ML Bot EYELF ONE (10:48)
[2024-02-10] MEDS: Lidocaine 1% 30 ML SDV ONE (10:48)
[2024-02-10] MEDS: Vancomycin 500 MG SDV EYELF ONE (10:49)
[2024-02-10] MEDS: Dexamethasone/Neomycin/Polymyxin B Ophth Oint 3.5 GM Tube EYELF ONE (10:49)
[2024-02-10 11:30] VITALS: BP 122/78; PULSE 86
== END 2024-02-10 11:20 | disposition home or self-care (01) ==
LOC: DL.SDS 09:02
PROVIDERS: ATTEND Ophthalmology
DX: E11.36 Type 2 diabetes mellitus with diabetic cataract (principal); H25.812 Combined forms of age-related cataract, left eye
CPT/HCPCS: A9270-GY; J1100; J2250; J3370; J3490; V2632

== ENCOUNTER 2024-03-02 03:30 | Emergency (ER) | payer MEDICAID, OTHER ==
[2024-03-02] MEDS: Morphine 4 MG/ML Syringe IVPUSH ONE (04:01)
[2024-03-02] MEDS: Dexamethasone 4 MG/ML SDV IVPUSH ONE (04:02)
[2024-03-02] MEDS: HYDROmorphone 0.5 MG/0.5 ML Syringe IVPUSH ONE (04:36)
[2024-03-02 04:43] VITALS: BP 119/67; PULSE 107
== END 2024-03-02 05:00 | disposition home or self-care (01) ==
LOC: DL.ED 03:30
DX: M54.50 Low back pain, unspecified (principal); I25.10 Atherosclerotic heart disease of native coronary artery without angina pectoris; J45.909 Unspecified asthma, uncomplicated; K21.9 Gastro-esophageal reflux disease without esophagitis; F17.210 Nicotine dependence, cigarettes, uncomplicated; E11.21 Type 2 diabetes mellitus with diabetic nephropathy; Z79.82 Long term (current) use of aspirin; Z79.84 Long term (current) use of oral hypoglycemic drugs; Z79.899 Other long term (current) drug therapy; Z79.891 Long term (current) use of opiate analgesic; Z88.0 Allergy status to penicillin; Z88.8 Allergy status to other drugs, medicaments and biological substances; Z91.018 Allergy to other foods
CPT/HCPCS: 72070; 72100; 96374; 96375; 99283; 99284; J1100; J1170; J2270

== ENCOUNTER 2024-04-08 23:30 | Emergency (ER) | payer OTHER ==
[2024-04-08] MEDS ORDERED: Naloxone 2 MG/2 ML Syringe IVPUSH PRN (23:55)
[2024-04-09] MEDS: Sodium Chloride 0.9% 10 ML Syringe FLUSH PRN (00:08)
[2024-04-09] MEDS: fentaNYL 100 MCG/2 ML SDV IVPUSH ONE (00:09)
[2024-04-09 01:20] VITALS: BP 138/72; PULSE 82
== END 2024-04-09 01:15 | disposition home or self-care (01) ==
LOC: DL.ED 23:30
DX: S63.501A Unspecified sprain of right wrist, initial encounter (principal); I50.9 Heart failure, unspecified; K21.9 Gastro-esophageal reflux disease without esophagitis; I25.10 Atherosclerotic heart disease of native coronary artery without angina pectoris; I48.91 Unspecified atrial fibrillation; Z95.0 Presence of cardiac pacemaker; Z88.5 Allergy status to narcotic agent; Z88.0 Allergy status to penicillin; Z88.8 Allergy status to other drugs, medicaments and biological substances; Z91.018 Allergy to other foods; Z91.041 Radiographic dye allergy status; Z79.82 Long term (current) use of aspirin; Z79.899 Other long term (current) drug therapy; Z79.84 Long term (current) use of oral hypoglycemic drugs; Z79.51 Long term (current) use of inhaled steroids; Z79.4 Long term (current) use of insulin; W19.XXXA Unspecified fall, initial encounter; Y92.009 Unspecified place in unspecified non-institutional (private) residence as the place of occurrence of the external cause
CPT/HCPCS: 73090; 96374; 99283; J3010; J3490

== ENCOUNTER 2024-05-25 01:52 | Emergency (ER) | payer OTHER ==
[2024-05-25 04:48] VITALS: BP 126/68; PULSE 80
== END 2024-05-25 04:48 | disposition home or self-care (01) ==
LOC: DL.ED 01:52
DX: M79.672 Pain in left foot (principal); I50.9 Heart failure, unspecified; I25.10 Atherosclerotic heart disease of native coronary artery without angina pectoris; J45.909 Unspecified asthma, uncomplicated; K21.9 Gastro-esophageal reflux disease without esophagitis; E11.21 Type 2 diabetes mellitus with diabetic nephropathy; Z87.891 Personal history of nicotine dependence; Z79.899 Other long term (current) drug therapy; Z79.82 Long term (current) use of aspirin; Z88.0 Allergy status to penicillin; Z88.8 Allergy status to other drugs, medicaments and biological substances; Z91.018 Allergy to other foods; Z88.5 Allergy status to narcotic agent; Z91.048 Other nonmedicinal substance allergy status
CPT/HCPCS: 73630-LT; 99283

== ENCOUNTER 2024-07-06 01:50 | Emergency (ER) | payer OTHER ==
[2024-07-06 02:26] VITALS: BP 143/66; PULSE 78
[2024-07-06 02:37] LABS: BASOPHILS PERCENT AUTO 0.1 % (0.0-1.0); HEMATOCRIT 46.2 % (40.0-54.0); HEMOGLOBIN 15.5 g/dL (14.0-18.0); LYMPHOCYTES PERCENT AUTO 31.5 % (20.5-50.1); MEAN CORPUSCULAR HEMOGLOBIN 30.3 pg (27.0-34.0); MEAN CORPUSCULAR HGB CONC 33.5 g/dL (33.0-35.0); MEAN CORPUSCULAR VOLUME 90.4 fL (80-100); MONOCYTES PERCENT AUTO 9.1 % (2-8); NEUTROPHILS PERCENT AUTO 56.3 % (42.2-75.2); PLATELET COUNT,PLT 280 10^3/uL (150-450); RED BLOOD CELL COUNT 5.11 10^6/uL (4.6-6.2); WHITE BLOOD CELL COUNT,WBC 8.3 10^3/uL (5.0-10.0)
[2024-07-06 02:53] LABS: LACTIC ACID 1.6 mmol/L (0.4-2.0)
[2024-07-06 02:59] LABS: ALBUMIN 3.2 g/dL (3.4-5.0); ANION GAP 12.2 mEq/L (7-13); BILIRUBIN TOTAL 0.3 mg/dL (0.2-1.0); BUN/CREATININE RATIO 16.8 (No establ ref range); CALCIUM 9.3 mg/dL (8.5-10.1); CREATININE 1.07 mg/dL (0.70-1.30); EST CRCL DRUG DOSING (CG) 72.52 mL/min; MAGNESIUM 2.2 mg/dL (1.8-2.4); POTASSIUM,K 4.2 mmol/L (3.5-5.1); PROTEIN TOTAL,TP 7.4 g/dL (6.4-8.2)
[2024-07-06 03:07] LABS: A/G RATIO 0.76
[2024-07-06 03:28] LABS: INR 0.9 (0.9-1.2); PROTHROMBIN TIME 9.5 SEC (9.0-12.0)
[2024-07-06] MEDS: Dexamethasone 4 MG/ML SDV IVPUSH ONE (04:55)
[2024-07-06] MEDS: Albuterol/Ipratropium 3.0-0.5 MG/3 ML Neb Soln NEB ONE (04:55)
== END 2024-07-06 05:14 | disposition home or self-care (01) ==
LOC: DL.ED 01:50
DX: J20.8 Acute bronchitis due to other specified organisms (principal); R04.2 Hemoptysis; I25.10 Atherosclerotic heart disease of native coronary artery without angina pectoris; I48.91 Unspecified atrial fibrillation; I50.9 Heart failure, unspecified; Z95.0 Presence of cardiac pacemaker; J45.909 Unspecified asthma, uncomplicated; K21.9 Gastro-esophageal reflux disease without esophagitis; Z86.73 Personal history of transient ischemic attack (TIA), and cerebral infarction without residual deficits; E11.40 Type 2 diabetes mellitus with diabetic neuropathy, unspecified; F17.210 Nicotine dependence, cigarettes, uncomplicated; Z79.82 Long term (current) use of aspirin; Z79.84 Long term (current) use of oral hypoglycemic drugs; Z79.4 Long term (current) use of insulin; Z79.899 Other long term (current) drug therapy; Z91.018 Allergy to other foods; Z88.0 Allergy status to penicillin; Z88.5 Allergy status to narcotic agent; Z91.041 Radiographic dye allergy status
CPT/HCPCS: 36415; 71046; 80053; 83605; 83735; 84484; 85025; 85610; 87070; 87205; 87635; 87804; 93005; 96374; 99285; J1100; U0002

== ENCOUNTER 2024-10-14 10:59 | Emergency (ER) | payer OTHER ==
[2024-10-14 11:08] VITALS: BP 113/78; PULSE 96
[2024-10-14] MEDS: Dexamethasone 4 MG/ML SDV IM ONE (11:47)
== END 2024-10-14 11:56 | disposition home or self-care (01) ==
LOC: DL.ED 10:59
DX: M51.362 Other intervertebral disc degeneration, lumbar region with discogenic back pain and lower extremity pain (principal); I25.10 Atherosclerotic heart disease of native coronary artery without angina pectoris; I48.91 Unspecified atrial fibrillation; J45.909 Unspecified asthma, uncomplicated; K21.9 Gastro-esophageal reflux disease without esophagitis; E11.42 Type 2 diabetes mellitus with diabetic polyneuropathy; Z86.73 Personal history of transient ischemic attack (TIA), and cerebral infarction without residual deficits; Z88.0 Allergy status to penicillin; Z88.5 Allergy status to narcotic agent; Z88.8 Allergy status to other drugs, medicaments and biological substances; Z91.018 Allergy to other foods; Z91.041 Radiographic dye allergy status; Z79.82 Long term (current) use of aspirin; Z79.84 Long term (current) use of oral hypoglycemic drugs; Z79.01 Long term (current) use of anticoagulants; Z79.4 Long term (current) use of insulin; Z79.51 Long term (current) use of inhaled steroids; Z79.899 Other long term (current) drug therapy
CPT/HCPCS: 96372; 99283; J1100; 99284

== ENCOUNTER 2024-11-01 19:02 | Emergency (ER) | payer OTHER ==
[2024-11-01] MEDS: HYDROmorphone 0.5 MG/0.5 ML Syringe IVPUSH ONE (19:40)
[2024-11-01] MEDS: Ondansetron 4 MG/2 ML SDV IVPUSH ONE (19:40)
[2024-11-01 20:48] LABS: BASOPHILS PERCENT AUTO 0.3 % (0.0-1.0); EOSINOPHILS PERCENT AUTO 2.3 % (1.0-3.0); HEMATOCRIT 47.4 % (40.0-54.0); HEMOGLOBIN 15.4 g/dL (14.0-18.0); LYMPHOCYTES PERCENT AUTO 37.7 % (20.5-50.1); MEAN CORPUSCULAR HEMOGLOBIN 29.7 pg (27.0-34.0); MEAN CORPUSCULAR HGB CONC 32.5 g/dL (33.0-35.0); MEAN CORPUSCULAR VOLUME 91.3 fL (80-100); MONOCYTES PERCENT AUTO 10.2 % (2-8); NEUTROPHILS PERCENT AUTO 49.5 % (42.2-75.2); PLATELET COUNT,PLT 221 10^3/uL (150-450); RED BLOOD CELL COUNT 5.19 10^6/uL (4.6-6.2); WHITE BLOOD CELL COUNT,WBC 7.4 10^3/uL (5.0-10.0)
[2024-11-01 21:10] LABS: ALANINE AMINOTRANSFERASE,ALT 30 U/L (16-63); ALBUMIN 3.5 g/dL (3.4-5.0); ALKALINE PHOSPHATASE 142 U/L (46-116); ANION GAP 12.4 mEq/L (7-13); ASPARTATE AMNIOTRANSFERASE,AST 16 U/L (15-37); BILIRUBIN TOTAL 0.4 mg/dL (0.2-1.0); BLOOD UREA NITROGEN,BUN 13 mg/dL (7-18); C-REACTIVE PROTEIN < 0.50 ng/dL (<=0.50); CALCIUM 8.9 mg/dL (8.5-10.1); CARBON DIOXIDE,CO2 30 mmol/L (21-32); CHLORIDE,CL 106 mmol/L (98-107); CREATININE 0.93 mg/dL (0.70-1.30); ESTIMATED GFR 89 mL/min (>=60); GLUCOSE RANDOM 121 mg/dL (70-99); POTASSIUM,K 4.4 mmol/L (3.5-5.1); PROTEIN TOTAL,TP 7.1 g/dL (6.4-8.2); SODIUM,NA 144 mmol/L (136-145)
[2024-11-01 22:09] VITALS: BP 128/70; PULSE 72
[2024-11-01 22:32] LABS: SEDIMENTATION RATE MANUAL 6 mm/hr (0-15)
== END 2024-11-01 22:02 | disposition home or self-care (01) ==
LOC: DL.ED 19:02
DX: S39.012A Strain of muscle, fascia and tendon of lower back, initial encounter (principal); M48.061 Spinal stenosis, lumbar region without neurogenic claudication; R93.5 Abnormal findings on diagnostic imaging of other abdominal regions, including retroperitoneum; I50.9 Heart failure, unspecified; I25.10 Atherosclerotic heart disease of native coronary artery without angina pectoris; J45.909 Unspecified asthma, uncomplicated; K21.9 Gastro-esophageal reflux disease without esophagitis; Z79.899 Other long term (current) drug therapy; Z79.82 Long term (current) use of aspirin; Z79.4 Long term (current) use of insulin; Z91.048 Other nonmedicinal substance allergy status; Z88.5 Allergy status to narcotic agent; Z88.0 Allergy status to penicillin; Z91.018 Allergy to other foods; X50.9XXA Other and unspecified overexertion or strenuous movements or postures, initial encounter
CPT/HCPCS: 36415; 72131; 80053; 85025; 85651; 86140; 96374; 96375; 99284; J2405

== ENCOUNTER 2024-12-14 02:21 | Emergency (ER) | payer OTHER ==
[2024-12-14] MEDS: Ketorolac 30 MG/ML SDV IM ONE (03:40)
[2024-12-14 07:01] VITALS: BP 136/64; PULSE 96
== END 2024-12-14 07:04 | disposition home or self-care (01) ==
LOC: DL.ED 02:21
DX: M79.671 Pain in right foot (principal); I48.91 Unspecified atrial fibrillation; I11.0 Hypertensive heart disease with heart failure; I50.9 Heart failure, unspecified; I25.10 Atherosclerotic heart disease of native coronary artery without angina pectoris; E11.42 Type 2 diabetes mellitus with diabetic polyneuropathy; J45.909 Unspecified asthma, uncomplicated; K21.9 Gastro-esophageal reflux disease without esophagitis; F17.210 Nicotine dependence, cigarettes, uncomplicated; Z88.0 Allergy status to penicillin; Z88.5 Allergy status to narcotic agent; Z88.8 Allergy status to other drugs, medicaments and biological substances; Z91.041 Radiographic dye allergy status; Z79.4 Long term (current) use of insulin; Z79.82 Long term (current) use of aspirin; Z79.01 Long term (current) use of anticoagulants; Z79.84 Long term (current) use of oral hypoglycemic drugs; Z79.51 Long term (current) use of inhaled steroids; Z79.899 Other long term (current) drug therapy
CPT/HCPCS: 73630; 96372; 99283; J1885; 99282

== ENCOUNTER 2025-02-20 04:15 | Emergency (ER) | payer OTHER ==
[2025-02-20] MEDS: Dexamethasone 6 MG TABLET PO ONE (05:28)
[2025-02-20] MEDS: Take Home: Acetaminophen/HYDROcodone 325-5 MG, 5 Tab Pack PO ONE (05:30)
[2025-02-20 06:09] VITALS: BP 127/76; PULSE 97
== END 2025-02-20 06:08 | disposition home or self-care (01) ==
LOC: DL.ED 04:15
DX: M54.2 Cervicalgia (principal); K21.9 Gastro-esophageal reflux disease without esophagitis; Z88.0 Allergy status to penicillin; Z88.8 Allergy status to other drugs, medicaments and biological substances; Z91.018 Allergy to other foods; Z91.041 Radiographic dye allergy status; Z88.6 Allergy status to analgesic agent; Z79.82 Long term (current) use of aspirin; Z79.4 Long term (current) use of insulin; Z79.899 Other long term (current) drug therapy
CPT/HCPCS: 70450; 72125; 73562; 99283; 99284; A9270; J8540

== ENCOUNTER 2025-03-28 22:34 | Emergency (ER) | payer OTHER ==
[2025-03-28 22:51] VITALS: BP 128/75; PULSE 74
[2025-03-28] MEDS: Acetaminophen/oxyCODONE 325-5 MG Tab PO ONE (23:00)
[2025-03-28] MEDS: Take Home: Acetaminophen/oxyCODONE 325-5 MG, 5 Tab Pack PO ONE (23:21)
== END 2025-03-28 23:26 | disposition home or self-care (01) ==
LOC: DL.ED 22:34
DX: S39.012A Strain of muscle, fascia and tendon of lower back, initial encounter (principal); M51.360 Other intervertebral disc degeneration, lumbar region with discogenic back pain only; I48.91 Unspecified atrial fibrillation; I50.9 Heart failure, unspecified; Z95.0 Presence of cardiac pacemaker; K21.9 Gastro-esophageal reflux disease without esophagitis; Z86.73 Personal history of transient ischemic attack (TIA), and cerebral infarction without residual deficits; Z88.0 Allergy status to penicillin; Z88.5 Allergy status to narcotic agent; Z91.041 Radiographic dye allergy status; Z91.018 Allergy to other foods; Z79.82 Long term (current) use of aspirin; Z79.01 Long term (current) use of anticoagulants; Z79.899 Other long term (current) drug therapy; Z79.4 Long term (current) use of insulin; X58.XXXA Exposure to other specified factors, initial encounter; Y93.89 Activity, other specified
CPT/HCPCS: 99283; A9270-GY

== ENCOUNTER 2025-04-10 00:45 | Emergency (ER) | payer OTHER ==
[2025-04-10 01:17] VITALS: BP 127/75; PULSE 81
== END 2025-04-10 02:50 | disposition home or self-care (01) ==
LOC: DL.ED 00:45
DX: G43.909 Migraine, unspecified, not intractable, without status migrainosus (principal); K21.9 Gastro-esophageal reflux disease without esophagitis; F17.210 Nicotine dependence, cigarettes, uncomplicated; Z88.0 Allergy status to penicillin; Z91.041 Radiographic dye allergy status; Z88.5 Allergy status to narcotic agent; Z88.8 Allergy status to other drugs, medicaments and biological substances; Z79.82 Long term (current) use of aspirin; Z79.4 Long term (current) use of insulin; Z79.899 Other long term (current) drug therapy
CPT/HCPCS: 70450; 99283; A9270; Q0163

== ENCOUNTER 2025-04-18 01:20 | Emergency (ER) | payer OTHER ==
[2025-04-18] MEDS: Dexamethasone 4 MG/ML SDV IM ONE (01:37)
[2025-04-18 01:38] VITALS: BP 137/80; PULSE 84
== END 2025-04-18 01:41 | disposition home or self-care (01) ==
LOC: DL.ED 01:20
DX: M62.838 Other muscle spasm (principal); I48.91 Unspecified atrial fibrillation; I25.2 Old myocardial infarction; I50.9 Heart failure, unspecified; Z95.0 Presence of cardiac pacemaker; Z86.73 Personal history of transient ischemic attack (TIA), and cerebral infarction without residual deficits; Z88.0 Allergy status to penicillin; Z88.5 Allergy status to narcotic agent; Z91.018 Allergy to other foods; E11.40 Type 2 diabetes mellitus with diabetic neuropathy, unspecified; Z91.041 Radiographic dye allergy status; Z79.82 Long term (current) use of aspirin; Z79.899 Other long term (current) drug therapy; Z79.51 Long term (current) use of inhaled steroids; Z79.4 Long term (current) use of insulin; Z79.85 Long-term (current) use of injectable non-insulin antidiabetic drugs; Z79.84 Long term (current) use of oral hypoglycemic drugs
CPT/HCPCS: 96372; 99283; J1100

== ENCOUNTER 2025-04-27 02:18 | Emergency (ER) | payer OTHER ==
[2025-04-27 02:48] LABS: BASOPHILS PERCENT AUTO 0.1 % (0.0-1.0); EOSINOPHILS PERCENT AUTO 2.6 % (1.0-3.0); LYMPHOCYTES PERCENT AUTO 32.7 % (20.5-50.1); MONOCYTES PERCENT AUTO 12.8 % (2-8); NEUTROPHILS PERCENT AUTO 51.8 % (42.2-75.2); PLATELET COUNT,PLT 240 10^3/uL (150-450); RED BLOOD CELL COUNT 6.05 10^6/uL (4.6-6.2); WHITE BLOOD CELL COUNT,WBC 8.5 10^3/uL (5.0-10.0)
[2025-04-27] MEDS: Diltiazem 25 MG/5 ML SDV IVPUSH ONE (02:51)
[2025-04-27] MEDS: Dexamethasone 4 MG/ML SDV IVPUSH ONE (02:51)
[2025-04-27 03:04] LABS: A/G RATIO 0.9; ALANINE AMINOTRANSFERASE,ALT 28.0 U/L (16-63); ASPARTATE AMNIOTRANSFERASE,AST 22.0 U/L (15-37); BILIRUBIN TOTAL 0.4 mg/dL (0.2-1.0); BLOOD UREA NITROGEN,BUN 16.0 mg/dL (7-18); CARBON DIOXIDE,CO2 29.0 mmol/L (21-32); CHLORIDE,CL 103.0 mmol/L (98-107); CREATININE 0.91 mg/dL (0.70-1.30); EST CRCL DRUG DOSING (CG) 85.27 mL/min; GLUCOSE RANDOM 174.0 mg/dL (70-99); POTASSIUM,K 4.1 mmol/L (3.5-5.1); PROTEIN TOTAL,TP 8.3 g/dL (6.4-8.2); SODIUM,NA 140.0 mmol/L (136-145)
[2025-04-27 03:05] LABS: LACTIC ACID 1.5 mmol/L (0.4-2.0)
[2025-04-27 03:06] LABS: ESTIMATED GFR 92.0 mL/min (>=60)
[2025-04-27 03:12] LABS: B-TYPE NATRIURETIC PEPTIDE,BNP 172.0 pg/ml (0-100)
[2025-04-27] MEDS: Take Home: Doxycycline 100 MG Cap, 4 Cap Pack PO ONE (03:24)
[2025-04-27 03:41] VITALS: BP 96/49; PULSE 102
== END 2025-04-27 03:29 | disposition home or self-care (01) ==
LOC: DL.ED 02:18
DX: J40 Bronchitis, not specified as acute or chronic (principal); I48.91 Unspecified atrial fibrillation; Z88.0 Allergy status to penicillin; Z88.6 Allergy status to analgesic agent; Z91.041 Radiographic dye allergy status; Z79.82 Long term (current) use of aspirin; Z79.84 Long term (current) use of oral hypoglycemic drugs; Z79.4 Long term (current) use of insulin; Z79.899 Other long term (current) drug therapy
CPT/HCPCS: 36415; 71045; 80053; 83605; 83735; 83880; 84484; 85025; 93005; 96374; 96375; 99284; A9270; J1100; J3490; J7620; 93010

== ENCOUNTER 2025-05-21 01:02 | Emergency (ER) | payer OTHER ==
[2025-05-21 01:24] VITALS: BP 138/63; PULSE 83
== END 2025-05-21 03:18 | disposition home or self-care (01) ==
LOC: DL.ED 01:02
DX: S90.32XA Contusion of left foot, initial encounter (principal); Z88.0 Allergy status to penicillin; Z88.5 Allergy status to narcotic agent; Z91.041 Radiographic dye allergy status; Z79.82 Long term (current) use of aspirin; Z79.4 Long term (current) use of insulin; W20.8XXA Other cause of strike by thrown, projected or falling object, initial encounter
CPT/HCPCS: 73630-LT; 99282; 99283

== ENCOUNTER 2025-07-08 01:12 | Emergency (ER) | payer OTHER ==
[2025-07-08 03:26] VITALS: BP 132/70; PULSE 94
== END 2025-07-08 03:00 | disposition home or self-care (01) ==
LOC: DL.ED 01:12
DX: G57.22 Lesion of femoral nerve, left lower limb (principal); I48.91 Unspecified atrial fibrillation; I25.10 Atherosclerotic heart disease of native coronary artery without angina pectoris; K21.9 Gastro-esophageal reflux disease without esophagitis; J45.909 Unspecified asthma, uncomplicated; I50.9 Heart failure, unspecified; E11.40 Type 2 diabetes mellitus with diabetic neuropathy, unspecified; Z86.73 Personal history of transient ischemic attack (TIA), and cerebral infarction without residual deficits; Z88.0 Allergy status to penicillin; Z88.5 Allergy status to narcotic agent; Z79.4 Long term (current) use of insulin; Z79.84 Long term (current) use of oral hypoglycemic drugs; Z79.01 Long term (current) use of anticoagulants; Z95.0 Presence of cardiac pacemaker; Z79.82 Long term (current) use of aspirin; Z91.013 Allergy to seafood; Z91.041 Radiographic dye allergy status; Z91.018 Allergy to other foods; Z79.899 Other long term (current) drug therapy
CPT/HCPCS: 96372; 99283; J2270

== ENCOUNTER 2025-07-23 00:03 | Emergency (ER) | payer OTHER ==
[2025-07-23 00:56] VITALS: PULSE 76
[2025-07-23 02:27] VITALS: BP 112/62
== END 2025-07-23 02:27 | disposition home or self-care (01) ==
LOC: DL.ED 00:03
DX: M25.562 Pain in left knee (principal); I48.91 Unspecified atrial fibrillation; M79.89 Other specified soft tissue disorders; I25.10 Atherosclerotic heart disease of native coronary artery without angina pectoris; J45.909 Unspecified asthma, uncomplicated; I50.9 Heart failure, unspecified; E10.40 Type 1 diabetes mellitus with diabetic neuropathy, unspecified; Z95.0 Presence of cardiac pacemaker; Z91.014 Allergy to mammalian meats; Z79.01 Long term (current) use of anticoagulants; Z88.0 Allergy status to penicillin; Z88.5 Allergy status to narcotic agent; Z91.041 Radiographic dye allergy status; Z79.82 Long term (current) use of aspirin; Z86.73 Personal history of transient ischemic attack (TIA), and cerebral infarction without residual deficits; Z87.891 Personal history of nicotine dependence; K21.9 Gastro-esophageal reflux disease without esophagitis; Z79.84 Long term (current) use of oral hypoglycemic drugs; Z79.4 Long term (current) use of insulin; Z79.85 Long-term (current) use of injectable non-insulin antidiabetic drugs
CPT/HCPCS: 73562-LT; 99283; A9270-GY

== ENCOUNTER 2025-08-03 01:03 | Emergency (ER) | payer OTHER ==
[2025-08-03 01:58] VITALS: BP 145/69; PULSE 84
[2025-08-03 02:18] LABS: APPEARANCE,URINE CLEAR (CLEAR); GLUCOSE,URINE >=1000 (NEGATIVE); OCCULT BLOOD,URINE TRACE-INTACT (NEGATIVE)
[2025-08-03 02:52] LABS: EPITHELIAL CELLS,URINE RARE /HPF (NOT SEEN)
== END 2025-08-03 02:37 | disposition home or self-care (01) ==
LOC: DL.ED 01:03
DX: M54.41 Lumbago with sciatica, right side (principal); M54.42 Lumbago with sciatica, left side; G89.29 Other chronic pain; K21.9 Gastro-esophageal reflux disease without esophagitis; E10.9 Type 1 diabetes mellitus without complications; Z88.0 Allergy status to penicillin; Z91.09 Other allergy status, other than to drugs and biological substances; Z91.041 Radiographic dye allergy status; Z79.82 Long term (current) use of aspirin; Z79.4 Long term (current) use of insulin; Z79.899 Other long term (current) drug therapy
CPT/HCPCS: 72131; 81001; 99283; 99284; A9270-GY

== ENCOUNTER 2025-08-13 01:21 | Emergency (ER) | payer OTHER ==
[2025-08-13 01:31] VITALS: BP 143/55; PULSE 83
[2025-08-13] MEDS: Take Home: Acetaminophen/oxyCODONE 325-5 MG, 5 Tab Pack PO ONE (02:08)
== END 2025-08-13 02:12 | disposition home or self-care (01) ==
LOC: DL.ED 01:21
DX: S67.21XA Crushing injury of right hand, initial encounter (principal); I48.91 Unspecified atrial fibrillation; I50.9 Heart failure, unspecified; E10.9 Type 1 diabetes mellitus without complications; Z79.01 Long term (current) use of anticoagulants; Z79.899 Other long term (current) drug therapy; Z88.0 Allergy status to penicillin; Z91.018 Allergy to other foods; Z88.5 Allergy status to narcotic agent; Z91.041 Radiographic dye allergy status; Z79.82 Long term (current) use of aspirin; Z79.4 Long term (current) use of insulin; Z95.0 Presence of cardiac pacemaker; Z87.891 Personal history of nicotine dependence; W23.1XXA Caught, crushed, jammed, or pinched between stationary objects, initial encounter; Y93.89 Activity, other specified
CPT/HCPCS: 73130; 99283; A9270

== ENCOUNTER 2025-08-17 20:00 | Emergency (ER) | payer OTHER ==
[2025-08-17] MEDS: oxyCODONE ER 10 MG TAB.ER PO ONE (21:01)
[2025-08-17 21:11] VITALS: BP 138/88; PULSE 92
== END 2025-08-17 20:55 | disposition home or self-care (01) ==
LOC: DL.ED 20:00
DX: M54.41 Lumbago with sciatica, right side (principal); G89.29 Other chronic pain; I48.91 Unspecified atrial fibrillation; I25.10 Atherosclerotic heart disease of native coronary artery without angina pectoris; I50.9 Heart failure, unspecified; E10.40 Type 1 diabetes mellitus with diabetic neuropathy, unspecified; Z91.018 Allergy to other foods; Z88.5 Allergy status to narcotic agent; Z88.8 Allergy status to other drugs, medicaments and biological substances; Z91.041 Radiographic dye allergy status; Z79.82 Long term (current) use of aspirin; Z79.899 Other long term (current) drug therapy; Z79.84 Long term (current) use of oral hypoglycemic drugs; Z95.0 Presence of cardiac pacemaker; Z86.73 Personal history of transient ischemic attack (TIA), and cerebral infarction without residual deficits
CPT/HCPCS: 99283; A9270-GY

== ENCOUNTER 2025-08-21 22:39 | Emergency (ER) | payer OTHER ==
[2025-08-21 22:47] VITALS: BP 135/91; PULSE 100
== END 2025-08-21 23:21 | disposition home or self-care (01) ==
LOC: DL.ED 22:39
DX: M54.42 Lumbago with sciatica, left side (principal); M54.41 Lumbago with sciatica, right side; K21.9 Gastro-esophageal reflux disease without esophagitis; E10.9 Type 1 diabetes mellitus without complications; F17.200 Nicotine dependence, unspecified, uncomplicated; Z88.0 Allergy status to penicillin; Z88.8 Allergy status to other drugs, medicaments and biological substances; Z91.041 Radiographic dye allergy status; Z79.82 Long term (current) use of aspirin; Z79.4 Long term (current) use of insulin; Z79.899 Other long term (current) drug therapy
CPT/HCPCS: 99283